=== PATIENT | female | born 1950 | race Caucasian/White ===

== ENCOUNTER → 2019-07-30 00:01 | Outpatient (RCR) | payer MEDICARE, OTHER, SELFPAY | LOC: ONCMED 07-01 05:45 | PROVIDERS: Visit Provider Internal Medicine Hematology & Oncology | DX: C50.812 Malignant neoplasm of overlapping sites of left female breast (principal); C79.51 Secondary malignant neoplasm of bone; C77.3 Secondary and unspecified malignant neoplasm of axilla and upper limb lymph nodes; C78.7 Secondary malignant neoplasm of liver and intrahepatic bile duct; R53.83 Other fatigue; D64.9 Anemia, unspecified; D75.9 Disease of blood and blood-forming organs, unspecified; R63.4 Abnormal weight loss; R04.0 Epistaxis; M79.642 Pain in left hand; M79.641 Pain in right hand; M79.672 Pain in left foot; M79.671 Pain in right foot; Z17.0 Estrogen receptor positive status [ER+]; Z90.12 Acquired absence of left breast and nipple; Z68.1 Body mass index [BMI] 19.9 or less, adult; Z79.818 Long term (current) use of other agents affecting estrogen receptors and estrogen levels | CPT/HCPCS: 36415; 36430; 80053 ×3; 82607; 82728; 83090; 83540; 83550; 83921; 84439; 84443; 84481; 85007; 85025 ×3; 86300 ×3; 86850; 86900; 86901; 86920 ×2; 96372; 96374; 96402; 99213; 99214 ×2; J0897; J1940; J7050; J9395; P9016 ×2 ==

== ENCOUNTER 2019-08-30 10:19 | Outpatient (RCR) | payer MEDICARE, OTHER, SELFPAY ==
[2019-08-01] MEDS: fulvestrant 250 mg/5 mL Syringe 500 MG IM (09:36)
[2019-08-01] MEDS: denosumab 120 mg SDV SUBCUT (09:37)
--- NOTE | 2019-08-01 17:10 | ONC FU_ITS ---
[facility] Patient Note Patient: Joana Booth Unit #: [id number]: 1950 Dictated By: Poonam GanDate of Visit: Aug 01, 2019 Onc MED Follow-Up/Prog Note Chief Complaint: Left breast cancer History of Present Illness: Ms Booth is a 69 -year-old female who presented with a left breast mass for 2-3 years. She did undergo mammography ultrasound and subsequently a biopsy of the left breast mass on 05/10/2017 which confirmed infiltrating lobular carcinoma, grade 2, ER positive IA positive HER-2 ivett negative. The KI 67 was 7%. She is negative for PIK 3CA. She underwent left modified radical mastectomy on 05/26/2017. Surgical pathology showed grade 2 infiltrating lobular carcinoma with extensive involvement of overlying skin and nipple and areola. Lymphovascular invasion was present including dermal lymphatics, negative surgical margin, the tumor size was 6.8 x 3.2 cm and metastatic carcinoma identified in one of 3 axillary lymph nodes. She recovered from surgery well she did complain of significant low back pain with bilateral flank and rib cage. She did have PET CT on 07/29/2017. It confirmed stage IV breast cancer with extensive skeletal metastatic disease. There are innumerable FDG avid osteolytic metastatic lesions throughout the axial and appendicular skeleton. There was no hepatic, adrenal or pulmonary metastasis. There was no pathological lymphadenopathy. She was referred to radiation oncology for palliative radiation. Dr. Beaver recommended radiation therapy to the lower lumbar spine/SI joints for pain relief and disease control. She received 3000 cGy to the L5???sacral area she began treatment on August 15 and completed it on 08/28/2017. Ms. Booth began Ibrance and Femara for metastatic breast cancer on August 29, 2016. The first doses of Xgeva documented in our chart is 09-26-2017. Ibrance and Femara was discontinued on 05/31/2018 due to progressive tumor markers. She was started on Arimidex 1 mg by mouth daily along with monthly Xgeva. She discontinued the Armidex on 08/02/2018. Her CT PET scan done on 07/14/2018 showed disease progression e.g. reactivation of multifocal osseous metastatic disease, new malignant mediastinal lymphadenopathy, bilateral inflammatory lung infiltrates and tumor marker CA-27-29 gone up to 393.47 compared to 334.62 on 07/02/2018 and 142.60 on 04/26/2018 .BRCA1/2 negative Ms. Booth was advised to pursue treatment with weekly paclitaxel and to continue her monthly Xgeva. She began her first dose of weekly paclitaxel on 08/28/2018. Weekly carboplatin was added on 10/02/2018, as her follow-up PET scan done on 09/29/2018 showed widespread osseous metastatic disease seen on prior studies significantly more FDG positive on the current. Index lesion in the posterior right acetabulum that previously has SUV of 4.8 now has 8 there is a similar progression multiple other lesions throughout the spine sternum scapula pelvic and femurs. A new right hepatic lobe hypodensity measuring 1.4 cm has SUV of 4.2 and is a questionable activity in the region of right adrenal, suggesting metastatic disease. Her tumor marker CA-27-29 has gone down to 1197.6 on 09/24/2018 compared to 1327.6 on 09/04/2018 began chemotherapy with carboplatin and paclitaxel on 10/04/2018. and cont'd with monthly Xgeva Due to progressive leukopenia/neutropenia she is requiring Neupogen in between her weekly carboplatin and Taxol to maintain the schedule and responding well CT PET scan done on 01/26/2019 showed stable disease e.g. no significant change in FDG positive widespread osseous metastatic disease. Minimal improvement in the hepatic metastatic disease. Mild progression in right adrenal lesion and questionable new left adrenal lesion. No change in mild FDG activity in the mediastinum. Follow-up CT PET scan done After 6 cycles of weekly carboplatin Taxol on 04/06/2019 showed overall, no significant changes since prior study, widespread FDG positive osseous metastatic disease is unchanged. No change in right hepatic metastatic disease, no change in bilateral adrenal uptake Minimally improved in the subaortic mediastinal lymph nodes. Due to maximum benefit and progressive toxicity with chemotherapy (thrombocytopenia and persistent anemia, decreasing performance status), her treatment plan with carboplatin/Taxol was discontinued on 04/10/2019 and she was switched to fulvestrant /everolimus. Ms Booth is here today for followup. She started her fourth dose of fulvestrant (Faslodex) on 07-01-19 but the everolimus (Affinitor) had remained on hold due to significant side effects with it. She had significant fatigue and no appetite. She actually lost about 12 pounds very rapidly. She also had nosebleeds and persistent thrombocytopenia. She also developed anemia which has not corrected completely as of yet. She actually resumed the Affinitor on Monday because she had understood she was supposed to start it after the holidays . She has tolerated it well thus far. She states overall she feels good. She has no new concerns today. She states since getting the blood and iron she feels much better. She states she still tires easily but overall is better. She denies any fever or chills. She is had no mouth sores, sore throat or difficulty swallowing. She states she has had a few twinges of blood in nasal drainage but that was before she resumed Afinitor. She denies any rash. She denies any diarrhea or constipation. She states she is eating good but continues to lose weight. Her ECOG is 2. Past Medical History: Asthma Past Surgical History: Left breast lymph node biopsy in 2017 Left breast mastectomy in 2017 Breast biopsy in 2017 Allergies: Ibuprofen and Penicillins. Medications: Acetaminophen Tablet Oral PRN Afinitor 1 Tablet (of 5 mg) Oral daily [facility] 1 (5-6.25-10-325 mg) Capsule Oral at bedtime PRN Benadryl Allergy 1 Tablet (of 25 mg) Oral daily PRN Calcium Magnesium zinc 3 Tablet Oral daily Hydrocortisone 1 (1 %) Cream Topical PRN Oxycodone-Acetaminophen 0.5 Tablet (of 5-325 mg) Oral q 4 to 6 hours PRN PriLOSEC OTC 1 Tablet (of 20 mg) Tablet, enteric coated Oral daily Family History: Ms. Booth's mother at age 86: dementia. Ms. Booth's father at age 89: stroke. Social History: Ms. Booth is and she is retired. Ms. Booth has never smoked. She has no history of drinking. Ms. Booth reports the following support systems: lives with spouse, significant other, family, or friends, lives in own house, supportive family/friends willing to assist with needs, and adequate transportation available for expected visits. Her diet consists of regular meals. She indicates her activity level as: daily activities. Review Of Symptoms: Constitutional Denies fevers, chills, night sweats, excessive fatigue. Has had weight loss per our scales. Allergic/Immunologic No reactions. Eyes Denies significant visual changes. No diplopia. No amaurosis. ENMT Denies changes in hearing, sore throat, mouth sores, difficulty or changes in swallowing ability, and/or sinus drainage. Slight blood tinged drainage once in a while-even off Affinitor. Endocrine No diabetes, thyroid disease or hormone replacement. Denies hot flashes or night sweats. Hematologic/Lymphatic Denies easy bruising or bleeding. The patient denies any tender or palpable lymph nodes. Respiratory Denies dyspnea on exertion, chest pain, cough or hemoptysis. Denies orthopnea. Cardiovascular Denies anginal chest pain, palpitations or orthopnea. Gastrointestinal Denies nausea, vomiting, diarrhea, GI bleeding, or constipation. Denies change in bowel habits and/or stool color, no heartburn or early satiety. Genitourinary (F) No hematuria, hesitancy, incontinence, vaginal bleeding, discharge or other problems with urination. Musculoskeletal Denies joint pain, swelling or redness. No decreased range of motion. Mid (bra line) pain and lower left back pain if tries to do too much-notices if hanging laundry or trying to lift. No worse than it has been (chronic). Integumentary Denies chronic rashes, inflammation, ulcerations or skin changes. Neurologic Denies headache, blurred vision, and no areas of focal weakness or numbness. Normal gait. No sensory problems. Psychiatric Denies insomnia, depression, shady or mood swings. Vital Signs: Performed on Aug 01, 2019 08:38 Height - 64.00 in Weight - 113.6 lbs (LOW) BSA - 1.54 sq.m BMI - 19.50 Temperature - 98.0 F (LOW) Pulse - 81 /min Respiration - 22 /min BP - 110/52 mm(hg) O2 Sat - 98 % Pain - 0,2 - Ambulatory/capable of all self-care, unable to perform any work activities. Up and about more than 50% of waking hours. (ECOG) Physical Examination: Constitutional Alert, oriented, no acute distress. Skin pale, warm and dry. Head Normocephalic; atraumatic. Eyes Conjunctivae and sclerae are clear and without icterus. Pupils are reactive and equal. Neck Supple without masses or thyromegaly. No jugular venous distension. Hematologic/Lymphatic No petechiae or purpura. No tender or palpable lymph nodes in the cervical, supraclavicular, or axillary area. Respiratory Lungs are clear to auscultation without rhonchi or wheezing. Cardiovascular Regular rate and rhythm of heart without murmurs,clicks, gallops or rubs. Abdomen Non-tender, non-distended, no masses, ascites. Good bowel sounds noted in all quads. No guarding or rebound tenderness. No pulsatile masses. Back/Spine Non-tender to palpation. Extremities No visible deformities, no cyanosis, clubbing or edema. Musculoskeletal No tenderness or swelling, normal range of motion without obvious weakness. Integumentary No rashes or lesions. Neurologic No sensory or motor deficits, normal cerebellar function, normal gait. Psychiatric Alert and oriented times three. Coherent speech. Verbalizes understanding of our discussions today. Laboratory:Test performed on Jul 30, 2019 11:55 Sodium 134 mmol/L Potassium 4.4 mmol/L Chloride 95 mmol/L CO2 22 mmol/L Anion Gap 21.4 BUN 22 mg/dL Creatinine 1.4 mg/dL Cr Clearance (Est) 31.1100 mL/min eGFR 37.2 mL/min Glucose 113 mg/dl Calcium 9.9 mg/dL Protein, Total 7.0 g/dL Albumin 4.3 g/dL Globulin 2.7 gm/dL Bilirubin, Total 0.3 mg/dL ALT (SGPT) 25 U/L AST (SGOT) 29 U/L Alkaline Phosphatase 85 U/L WBC 4.4 10 3/uL RBC 3.59 10 6/uL HGB 11.0 g/dL HCT 35.3 % MCV 98.3 fl MCH 30.6 pg MCHC 31.2 g/dl RDW 16.6 % Platelet Count 107 10 3/cmm MPV 9.4 fl Neutrophils 3.2 10 3/uL Lymphocytes 0.6 10 3/uL Monocytes 0.4 10 3/uL Eosinophils 0.1 10 3/uL Basophils 0.0 10 3/uL Neutrophil % 72.2 % Lymphocyte % 13.9 % Monocyte % 9.1 % Eosinophil % 3.2 % Basophils % 0.2 % Test performed on Jul 17, 2019 12:49 Packed Red Cells (PRBC) [id number] TRANSFUSED PRODUCT: LEUKOREDUCED RED CELL 1ST CONT COUNT: 2 Type & Screen BLD TYPE A POSITIVE AB SCREEN GEL NEGATIVE BLD TYPE A POSITIVE AB SCREEN GEL NEGATIVE Test performed on Jul 01, 2019 09:52 Ferritin 813.0 ng/ml Homocysteine 20 umol/L Iron 37 ug/dL T3, Free 2.5 PG/ML T4, Free 1.27 ng/dL TSH 1.20 uIU/mL Vitamin B12 575 pg/mL % Iron Saturation 16.6 % UIBC 185 ug/dL CA 27.29 781.10 U/mL Test performed on May 01, 2019 14:40 Folate, Serum 12.4 ng/mL Methylmalonic Acid 530 nmol/L Test performed on Mar 26, 2019 08:45 CBC Slide Review SLIDE REVIEW PERFORM SLIDE REVIEW AGREES WITH AUTOMATED RESULTS ST Impression: Metastatic infiltrating lobular carcinoma with extensive axial and appendicular skeleton metastases per CT PET scan done on 07/29/2017. Infiltrating lobular carcinoma involving left breast status post MRM on 05/26/2017 final path report shows infiltrating lobular carcinoma grade 2, extensive involvement of overlying skin at nipple and areola, positive lymphovascular space invasion including dermal lymphatics. Deep margins free of tumor size of tumor 6.8 x 3.2 cm T4b (skin involvement) Metastatic tumor in 1 out of 3 axillary lymph nodes N1 stage IV Extensive bone metastases are CT PET scan done on 07/29/2017 And her molecular studies showed negative for PIK3CA and BRCA 1 and 2 Tumor marker CA-27-29 1455.11 and CA 15.3 is 653.1 Repeat tumor markers CA-27-29 on 11/02/2017 was 167.77 and CA 15.3 was 89.6 estrogen receptor 100% progesterone receptors 100% HER-2/ivett negative by IHC and over amplification by fish and Ki-67 7 % Status post radiation therapy to lumbar sacral spine from 08/15/2017 to 08/28/2017 Mrs Booth was on Ibrance 125 mg by mouth daily for 21 days and then week off and repeat cycle every 28 days along with Femara 2.5 mg daily since 08/29/2017. Because of leukopenia at day 28, will reduce Ibrance dose to 100 mg by mouth for 21 days on 1 week off repeat 28 days. Along with Femara 2.5 mg daily Persistent leukopenia even with Ibrance 125 mg for 14 days. Her last dose was 100 mg by mouth daily for 14 days q 28 days. Follow-up CT PET scan done on 02/17/2018 showed interval resolution of abnormal activity throughout the bone indicating positive response to therapy of widespread osseous metastatic disease. She had progression of her tumor marker so stopped the Ibrance and Femara. She was then treated with single agent Arimidex and monthly Xgeva. The Arimidex was discontinued on 08/02/2018 as her follow-up CT PET scan from 07/14/2018 showed evidence of disease progression. There has been development of new malignant mediastinal lymphadenopathy in the precarinal and [place]. These have SUV of 6.7, and subcentimeter suspicious superior mediastinal lymph nodes are also identified. Widespread osseous metastatic disease as the activated in a multifocal pattern, is seen most prominently in left scapula, thoracic spine, lumbar spine, pelvis and proximal femurs. And index lesion in the right ischium has SUV of 6. Tumor marker CA-27-29 is 393.47 on 07/30/2018 compared to 334.52 on 07/02/2018, 142.60 on 04/26/2018. recommended changing treatment to weekly paclitaxel. Ms. Booth began her first dose of weekly pack Taxol on August 28, 2018. She has tolerated it well thus far .Follow-up CT PET scan done on 09/29/2018 showed progression of widespread osseous metastatic disease since prior study, new unifocal hepatic metastatic disease, suspicious activity in right adrenal gland. Tumor marker CA-27-29 has gone down to 1197.6 on 09/24/2018 compared to 1327.6 on 09/04/2018, Weekly carboplatin was added to weekly Taxol on on 10/02/2018. with monthly Xgeva Follow-up CT PET scan done on 01/26/2019 showed widespread osseous metastatic disease seen on prior scan is unchanged remained FDG positive. The index lesion in the posterior right acetabulum that has SUV of 8 now is 6.6. Right hepatic lobe lesion now has SUV of 3.4 compared to 4.2 on prior study Right adrenal lesion is progressed now SUV 5.4 compared to 3.7 previous Left adrenal activity is slightly more prominent. Mild activity in the mediastinal lymph node is unchanged. Follow-up CT PET scan done after 6 cycles of carboplatin/Taxol showed overall no significant change since prior study and widespread osseous metastatic disease, right hepatic metastases, or bilateral adrenal uptake, Her follow-up CT PET scan shows stable disease but her tumor marker continued to go up and her lab workup shows persistent progressive cytopenias, in that case Dr Estrella did discontinue her chemotherapy and requested a switch to fulvestrant/ everolimus , fulvestrant 500 mg IM on day 1, 15 and day 29 thereafter every month and everolimus 10 mg by mouth daily , while continue with Xgeva every month. Her everolimus dose was decreased to 5 mg daily due to persistent side effects. She presented for followup on 07/01/2019 with multiple concerns. She had lost another 7 pounds since her last visit. She had worsening fatigue. She also reported having bilateral foot and hand pain as well as slight bleeding from her left nare. She states since holding the Afinitor and doing dexamethasone 4 mg po daily, she feels like a different person . She states she feels much better overall. She is tired but recovers with rest. Plan: 1. Stop Afinitor???she had re-started it on Sunday, July 28, 2019. Continues to have thrombocytopenia and weight loss. Her platelet count today is 107 was 175 last week. 2. Proceed with Fosamax and Xgeva today as planned. 3. Encouraged her to resume intake of protein shakes and yogurt for calorie consumption her weight is down again. Is documented that is down 10 pounds since her last visit however there was question as to whether the last weight was accurate or not. Her weight on July 01, 2019 was 113.8 and today is 113.6. 4. Recheck a CBC in 2 weeks and decide at that time she can resume her Afinitor. She states she tolerated the first 4 days of it fine and not had any ill effects. 5. Labs from 07/30/2019 reviewed in detail and discussed with Leobardo and a copy was given to her. WBC was 4.4 hemoglobin was 11 platelets 107 ANC was 3200. Creatinine 1.4, potassium 4.4 LFTs were normal. Alk phos is normal at 85. 6. We will need to monitor her lower and mid back pain to see if this is progressing. We know she has bone mets. Thus far she states is been the same as it has been for quite some time and has not been worse. 7. We will plan to see her back in 4 weeks with CBC CMP CA-27-29 and follow-up as she will be due for Xgeva and Fosamax at that time. 8. Mrs. Booth is instructed to contact us in interim should questions or problems arise. Signed By: Poonam Gan-, AOCNP Stanley Estrella MD <<Signature on File>>
[2019-08-15 13:26] LABS: Basophils % 0.4 %; Eosinophils # 0.2 10^3/uL (0.0-0.8); Eosinophils % 3.6 %; Hematocrit 30.5 % (37.0-47.0); Hemoglobin 9.4 g/dL (11.5-15.3); Lymphocytes # 0.8 10^3/uL (0.8-4.8); Lymphocytes % 14.6 %; Mean Corpuscular HGB Conc 30.8 g/dL (30.0-36.0); Mean Corpuscular Hemoglobin 30.3 pg (28.0-34.0); Mean Corpuscular Volume 98.4 fL (81-99); Monocytes # 0.6 10^3/uL (0.2-0.9); Monocytes % 10.7 %; Neutrophils # 3.8 10^3/uL (1.8-7.7); Neutrophils % 68.2 %; Nucleated Red Blood Cells % 0 %; Platelet Count 161 10^3/cmm (130-400); Red Cell Distribution Width 16.9 % (12.1-15.1); White Blood Count 5.6 10^3/uL (4.0-10.0)
[2019-08-15 13:42] LABS: Alanine Aminotransferase 21 U/L (0-33); Albumin Level 4.3 g/dL (3.5-5.2); Alkaline Phosphatase 59 IU/L (35-105); Anion Gap 18.7 (5-19); Aspartate Amino Transferase 29 U/L (0-32); Blood Urea Nitrogen 27 mg/dL (8-23); Calcium 9.7 mg/Dl (8.8-10.2); Carbon Dioxide 22 mmol/L (22-29); Chloride 99 mmol/L (98-107); Globulin 2.8 g/dL (1.3-4.6); Glomerular Filtration Rate 44.4 mL/min (90-130); Glucose 83 mg/dL (74-106); Potassium 4.7 mmol/L (3.5-5.1); Sodium 135 mmol/L (136-145); Total Bilirubin 0.2 mg/dL (0.15-1.2); Total Protein 7.1 g/dL (6.6-8.7)
[2019-08-30 11:07] LABS: Alanine Aminotransferase 18 U/L (0-33); Alkaline Phosphatase 69 IU/L (35-105); Anion Gap 18.9 (5-19); Aspartate Amino Transferase 28 U/L (0-32); Blood Urea Nitrogen 23 mg/dL (8-23); Calcium 9.4 mg/dL (8.5-10.5); Carbon Dioxide 20 mmol/L (22-29); Chloride 99 mmol/L (98-107); Globulin 3.2 g/dL (1.3-4.6); Glomerular Filtration Rate 34.3 mL/min (90-130); Glucose 206 mg/dL (74-106); Potassium 4.9 mmol/L (3.5-5.1); Sodium 133 mmol/L (136-145); Total Bilirubin 0.3 mg/dL (0.15-1.2); Total Protein 7.2 g/dL (6.6-8.7)
== END 2019-08-30 23:59 | disposition home or self-care (01) ==
LOC: ONCMED 10:19
PROVIDERS: Visit Provider Nurse Practitioner
DX: C50.812 Malignant neoplasm of overlapping sites of left female breast (principal); C79.51 Secondary malignant neoplasm of bone; C78.7 Secondary malignant neoplasm of liver and intrahepatic bile duct; C77.3 Secondary and unspecified malignant neoplasm of axilla and upper limb lymph nodes; E27.9 Disorder of adrenal gland, unspecified; Z79.818 Long term (current) use of other agents affecting estrogen receptors and estrogen levels; Z79.899 Other long term (current) drug therapy; Z17.0 Estrogen receptor positive status [ER+]; Z90.12 Acquired absence of left breast and nipple; Z92.3 Personal history of irradiation
CPT/HCPCS: 80053; 85025; 86300; 96372; 96402; 99214; J0897; J9395

== ENCOUNTER 2019-09-27 08:35 | Outpatient (RCR) | payer MEDICARE, OTHER, SELFPAY ==
[2019-09-02] MEDS: denosumab 120 mg SDV SUBCUT (09:14)
[2019-09-02] MEDS: fulvestrant 250 mg/5 mL Syringe 500 MG IM (09:17)
[2019-09-13 08:21] LABS: Basophils % 0.5 %; Eosinophils # 0.2 10^3/uL (0.0-0.8); Eosinophils % 3.9 %; Hematocrit 27.6 % (37.0-47.0); Hemoglobin 8.3 g/dL (11.5-15.3); Lymphocytes # 0.9 10^3/uL (0.8-4.8); Lymphocytes % 21.2 %; Mean Corpuscular HGB Conc 30.1 g/dL (30.0-36.0); Mean Corpuscular Hemoglobin 30.4 pg (28.0-34.0); Mean Corpuscular Volume 101.1 fL (81-99); Mean Platelet Volume 8.8 fL (7.4-10.4); Monocytes # 0.4 10^3/uL (0.2-0.9); Monocytes % 8.1 %; Neutrophils # 2.9 10^3/uL (1.8-7.7); Neutrophils % 65.8 %; Nucleated Red Blood Cells % 0 %; Platelet Count 166 10^3/cmm (130-400); Red Blood Count 2.73 10^6/uL (4.1-5.3); Red Cell Distribution Width 18.6 % (12.1-15.1); White Blood Count 4.3 10^3/uL (4.0-10.0)
[2019-09-13 08:35] LABS: Alanine Aminotransferase 13 U/L (0-33); Albumin Level 3.7 g/dL (3.5-5.2); Alkaline Phosphatase 68 IU/L (35-105); Anion Gap 18.9 (5-19); Aspartate Amino Transferase 29 U/L (0-32); Blood Urea Nitrogen 29 mg/dL (8-23); Calcium 9.5 mg/dL (8.5-10.5); Carbon Dioxide 21 mmol/L (22-29); Chloride 103 mmol/L (98-107); Globulin 4.1 g/dL (1.3-4.6); Glomerular Filtration Rate 37.2 mL/min (90-130); Glucose 108 mg/dL (65-115); Potassium 4.9 mmol/L (3.5-5.1); Sodium 138 mmol/L (136-145); Total Bilirubin 0.2 mg/dL (0.15-1.2); Total Protein 7.8 g/dL (6.6-8.7)
--- NOTE | 2019-09-16 10:02 | ONC FU_ITS ---
[facility] Patient Note Patient: Joana Booth Unit #: [id number]: 1950 Dictated By: Poonam GanDate of Visit: Sep 16, 2019 Onc MED Follow-Up/Prog Note Chief Complaint: Left breast cancer History of Present Illness: Mrs Booth is a 69 -year-old female who presented with a left breast mass for 2-3 years. She did undergo mammography ultrasound and subsequently a biopsy of the left breast mass on 05/10/2017 which confirmed infiltrating lobular carcinoma, grade 2, ER positive PA positive HER-2 ivett negative. The KI 67 was 7%. She is negative for PIK 3CA. She underwent left modified radical mastectomy on 05/26/2017. Surgical pathology showed grade 2 infiltrating lobular carcinoma with extensive involvement of overlying skin and nipple and areola. Lymphovascular invasion was present including dermal lymphatics, negative surgical margin, the tumor size was 6.8 x 3.2 cm and metastatic carcinoma identified in one of 3 axillary lymph nodes. She recovered from surgery well she did complain of significant low back pain with bilateral flank and rib cage. She did have PET CT on 07/29/2017. It confirmed stage IV breast cancer with extensive skeletal metastatic disease. There are innumerable FDG avid osteolytic metastatic lesions throughout the axial and appendicular skeleton. There was no hepatic, adrenal or pulmonary metastasis. There was no pathological lymphadenopathy. She was referred to radiation oncology for palliative radiation. Dr. Beaver recommended radiation therapy to the lower lumbar spine/SI joints for pain relief and disease control. She received 3000 cGy to the L5???sacral area she began treatment on August 15 and completed it on 08/28/2017. Mrs. Booth began Ibrance and Femara for metastatic breast cancer on August 29, 2016. The first doses of Xgeva documented in our chart is 09-26-2017. Ibrance and Femara was discontinued on 05/31/2018 due to progressive tumor markers. She was started on Arimidex 1 mg by mouth daily along with monthly Xgeva. She discontinued the Armidex on 08/02/2018. Her CT PET scan done on 07/14/2018 showed disease progression e.g. reactivation of multifocal osseous metastatic disease, new malignant mediastinal lymphadenopathy, bilateral inflammatory lung infiltrates and tumor marker CA-27-29 gone up to 393.47 compared to 334.62 on 07/02/2018 and 142.60 on 04/26/2018 .BRCA1/2 negative Mrs. Booth was advised to pursue treatment with weekly paclitaxel and to continue her monthly Xgeva. She began her first dose of weekly paclitaxel on 08/28/2018. Weekly carboplatin was added on 10/02/2018, as her follow-up PET scan done on 09/29/2018 showed widespread osseous metastatic disease seen on prior studies significantly more FDG positive on the current. Index lesion in the posterior right acetabulum that previously has SUV of 4.8 now has 8 there is a similar progression multiple other lesions throughout the spine sternum scapula pelvic and femurs. A new right hepatic lobe hypodensity measuring 1.4 cm has SUV of 4.2 and is a questionable activity in the region of right adrenal, suggesting metastatic disease. Her tumor marker CA-27-29 had gone down to 1197.6 on 09/24/2018 compared to 1327.6 on 09/04/2018 Mrs. Booth began chemotherapy with carboplatin and paclitaxel on 10/04/2018. and cont'd with monthly Xgeva Due to progressive leukopenia/neutropenia she is requiring Neupogen in between her weekly carboplatin and Taxol to maintain the schedule and responding well CT PET scan done on 01/26/2019 showed stable disease e.g. no significant change in FDG positive widespread osseous metastatic disease. Minimal improvement in the hepatic metastatic disease. Mild progression in right adrenal lesion and questionable new left adrenal lesion. No change in mild FDG activity in the mediastinum. Follow-up CT PET scan done After 6 cycles of weekly carboplatin Taxol on 04/06/2019 showed overall, no significant changes since prior study, widespread FDG positive osseous metastatic disease is unchanged. No change in right hepatic metastatic disease, no change in bilateral adrenal uptake Minimally improved in the subaortic mediastinal lymph nodes. Due to maximum benefit and progressive toxicity with chemotherapy (thrombocytopenia and persistent anemia, decreasing performance status), her treatment plan with carboplatin/Taxol was discontinued on 04/10/2019 and she was switched to fulvestrant /everolimus. everolimus was held due to progressive leukopenia/neutropenia and generalized weakness and fatigue and weight loss, reduced dose e.g. 5 mg daily still caused progressive leukopenia. On 09/03/2019, everolimus was re-started at 5 mg daily for 2 weeks on and then week off along with monthly Faslodex and Xgeva. Her last dose of Faslodex and Xgeva was on 09/02/2019. Mrs. Booth is here today for 2-week follow-up after restarting the everolimus (Affinitor). Today will be her day and then she will rest for 7 days. She states overall she is feeling really good. Her energy is good. Her appetite is good she is eating well. She states she has been watching her sugar and carb intake as per Dr. Estrella's request. She states that she feels her sugar is doing better. Her labs indicate that her glucose is much better at 108 random glucose from 07/13/2020. She denies any fever or chills. She said no nausea or vomiting. She states she is had no new pain. She has had no diarrhea or constipation. She denies any shortness of breath orthopnea. Her ECOG is 1. Past Medical History: Asthma Past Surgical History: Left breast lymph node biopsy in 2017 Left breast mastectomy in 2017 Breast biopsy in 2017 Allergies: Ibuprofen and Penicillins. Medications: Acetaminophen Tablet Oral PRN Afinitor 1 Tablet (of 5 mg) Oral daily [facility]-[place] [facility] Allergy [facility] Cgh 1 (5-6.25-10-325 mg) Capsule Oral at bedtime PRN Benadryl Allergy 1 Tablet (of 25 mg) Oral daily PRN Calcium Magnesium zinc 3 Tablet Oral daily Hydrocortisone 1 (1 %) Cream Topical PRN Oxycodone-Acetaminophen 0.5 Tablet (of 5-325 mg) Oral q 4 to 6 hours PRN PriLOSEC OTC 1 Tablet (of 20 mg) Tablet, enteric coated Oral daily Family History: Ms. Booth's mother at age 86: dementia. Ms. Booth's father at age 89: stroke. Social History: Ms. Booth is and she is retired. Ms. Booth has never smoked. She has no history of drinking. Ms. Booth reports the following support systems: lives with spouse, significant other, family, or friends, lives in own house, supportive family/friends willing to assist with needs, and adequate transportation available for expected visits. Her diet consists of regular meals. She indicates her activity level as: daily activities. Review Of Symptoms: Constitutional Denies fevers, chills, night sweats, excessive fatigue. Allergic/Immunologic No reactions. Eyes Denies significant visual changes. No diplopia. No amaurosis. ENMT Denies changes in hearing, sore throat, mouth sores, difficulty or changes in swallowing ability, and/or sinus drainage. Slight irritation on left side of bottom lip. No drainage, open lesion or scabbing. Hematologic/Lymphatic Denies easy bruising or bleeding. The patient denies any tender or palpable lymph nodes. Respiratory Denies dyspnea on exertion, chest pain, cough or hemoptysis. Denies orthopnea. Cardiovascular Denies anginal chest pain, palpitations or orthopnea. Gastrointestinal Denies nausea, vomiting, diarrhea, GI bleeding, or constipation. Denies change in bowel habits and/or stool color, no heartburn or early satiety. Genitourinary (F) No hematuria, hesitancy, incontinence, vaginal bleeding, discharge or other problems with urination. Musculoskeletal Denies joint pain, swelling or redness. No decreased range of motion. Integumentary Denies chronic rashes, inflammation, ulcerations or skin changes. Neurologic Denies headache, blurred vision, and no areas of focal weakness or numbness. Normal gait. No sensory problems. Psychiatric Denies insomnia, depression, shady or mood swings. Vital Signs: Performed on Sep 16, 2019 08:58 Height - 64.00 in Weight - 117.2 lbs (LOW) BSA - 1.56 sq.m BMI - 20.12 Temperature - 97.2 F (LOW) Pulse - 71 /min Respiration - 14 /min BP - 114/53 mm(hg) O2 Sat - 100 % Pain - 2 Fatigue - 2,1 - No physically strenuous activity, but ambulatory and able to carry out light or sedentary work (e.g. office work, light house work). (ECOG) Physical Examination: Constitutional Alert, oriented, no acute distress. Skin pale, warm and dry. Head Normocephalic; atraumatic. Eyes Conjunctivae and sclerae are clear and without icterus. Pupils are reactive and equal. ENMT No oral exudates, ulcers, masses, thrush or mucositis. Oropharynx clear. Tongue normal. Slight irritation on the left side of her bottom lip. There is no open lesion no drainage or scabbing. It almost has appearance of a blood blister . She states it is really not bothersome she just noticed it in the mirror. Neck Supple without masses or thyromegaly. No jugular venous distension. Hematologic/Lymphatic No petechiae or purpura. Respiratory Lungs are clear to auscultation without rhonchi or wheezing. Cardiovascular Regular rate and rhythm of heart without murmurs,clicks, gallops or rubs. Back/Spine Non-tender to palpation. Extremities No visible deformities, no cyanosis, clubbing or edema. Musculoskeletal No tenderness or swelling, normal range of motion without obvious weakness. Integumentary No rashes or lesions. Neurologic No sensory or motor deficits, normal cerebellar function, normal gait. Psychiatric Alert and oriented times three. Coherent speech. Verbalizes understanding of our discussions today. Laboratory:Test performed on Jul 30, 2019 11:55 Sodium 134 mmol/L Potassium 4.4 mmol/L Chloride 95 mmol/L CO2 22 mmol/L Anion Gap 21.4 BUN 22 mg/dL Creatinine 1.4 mg/dL Cr Clearance (Est) 31.1100 mL/min eGFR 37.2 mL/min Glucose 113 mg/dl Calcium 9.9 mg/dL Protein, Total 7.0 g/dL Albumin 4.3 g/dL Globulin 2.7 gm/dL Bilirubin, Total 0.3 mg/dL ALT (SGPT) 25 U/L AST (SGOT) 29 U/L Alkaline Phosphatase 85 U/L WBC 4.4 10 3/uL RBC 3.59 10 6/uL HGB 11.0 g/dL HCT 35.3 % MCV 98.3 fl MCH 30.6 pg MCHC 31.2 g/dl RDW 16.6 % Platelet Count 107 10 3/cmm MPV 9.4 fl Neutrophils 3.2 10 3/uL Lymphocytes 0.6 10 3/uL Monocytes 0.4 10 3/uL Eosinophils 0.1 10 3/uL Basophils 0.0 10 3/uL Neutrophil % 72.2 % Lymphocyte % 13.9 % Monocyte % 9.1 % Eosinophil % 3.2 % Basophils % 0.2 % Test performed on Jul 17, 2019 12:49 Packed Red Cells (PRBC) [id number] TRANSFUSED PRODUCT: LEUKOREDUCED RED CELL 1ST CONT COUNT: 2 Type & Screen BLD TYPE A POSITIVE AB SCREEN GEL NEGATIVE BLD TYPE A POSITIVE AB SCREEN GEL NEGATIVE Test performed on Jul 01, 2019 09:52 Ferritin 813.0 ng/ml Homocysteine 20 umol/L Iron 37 ug/dL T3, Free 2.5 PG/ML T4, Free 1.27 ng/dL TSH 1.20 uIU/mL Vitamin B12 575 pg/mL % Iron Saturation 16.6 % UIBC 185 ug/dL CA 27.29 781.10 U/mL Test performed on May 01, 2019 14:40 Folate, Serum 12.4 ng/mL Methylmalonic Acid 530 nmol/L Test performed on Mar 26, 2019 08:45 CBC Slide Review SLIDE REVIEW PERFORM SLIDE REVIEW AGREES WITH AUTOMATED RESULTS ST Impression: Metastatic infiltrating lobular carcinoma with extensive axial and appendicular skeleton metastases per CT PET scan done on 07/29/2017. Infiltrating lobular carcinoma involving left breast status post MRM on 05/26/2017 final path report shows infiltrating lobular carcinoma grade 2, extensive involvement of overlying skin at nipple and areola, positive lymphovascular space invasion including dermal lymphatics. Deep margins free of tumor size of tumor 6.8 x 3.2 cm T4b (skin involvement) Metastatic tumor in 1 out of 3 axillary lymph nodes N1 stage IV Extensive bone metastases are CT PET scan done on 07/29/2017 And her molecular studies showed negative for PIK3CA and BRCA 1 and 2 Tumor marker CA-27-29 1455.11 and CA 15.3 is 653.1 Repeat tumor markers CA-27-29 on 11/02/2017 was 167.77 and CA 15.3 was 89.6 estrogen receptor 100% progesterone receptors 100% HER-2/ivett negative by IHC and over amplification by fish and Ki-67 7 % Status post radiation therapy to lumbar sacral spine from 08/15/2017 to 08/28/2017 Mrs Booth was on Ibrance 125 mg by mouth daily for 21 days and then week off and repeat cycle every 28 days along with Femara 2.5 mg daily since 08/29/2017. Because of leukopenia at day 28, will reduce Ibrance dose to 100 mg by mouth for 21 days on 1 week off repeat 28 days. Along with Femara 2.5 mg daily Persistent leukopenia even with Ibrance 125 mg for 14 days. Her last dose was 100 mg by mouth daily for 14 days q 28 days. Follow-up CT PET scan done on 02/17/2018 showed interval resolution of abnormal activity throughout the bone indicating positive response to therapy of widespread osseous metastatic disease. She had progression of her tumor marker so stopped the Ibrance and Femara. She was then treated with single agent Arimidex and monthly Xgeva. The Arimidex was discontinued on 08/02/2018 as her follow-up CT PET scan from 07/14/2018 showed evidence of disease progression. There has been development of new malignant mediastinal lymphadenopathy in the precarinal and [place]. These have SUV of 6.7, and subcentimeter suspicious superior mediastinal lymph nodes are also identified. Widespread osseous metastatic disease as the activated in a multifocal pattern, is seen most prominently in left scapula, thoracic spine, lumbar spine, pelvis and proximal femurs. And index lesion in the right ischium has SUV of 6. Tumor marker CA-27-29 is 393.47 on 07/30/2018 compared to 334.52 on 07/02/2018, 142.60 on 04/26/2018. recommended changing treatment to weekly paclitaxel. Ms. Booth began her first dose of weekly pack Taxol on August 28, 2018. She has tolerated it well thus far .Follow-up CT PET scan done on 09/29/2018 showed progression of widespread osseous metastatic disease since prior study, new unifocal hepatic metastatic disease, suspicious activity in right adrenal gland. Tumor marker CA-27-29 has gone down to 1197.6 on 09/24/2018 compared to 1327.6 on 09/04/2018, Weekly carboplatin was added to weekly Taxol on on 10/02/2018. with monthly Xgeva Follow-up CT PET scan done on 01/26/2019 showed widespread osseous metastatic disease seen on prior scan is unchanged remained FDG positive. The index lesion in the posterior right acetabulum that has SUV of 8 now is 6.6. Right hepatic lobe lesion now has SUV of 3.4 compared to 4.2 on prior study Right adrenal lesion is progressed now SUV 5.4 compared to 3.7 previous Left adrenal activity is slightly more prominent. Mild activity in the mediastinal lymph node is unchanged. Follow-up CT PET scan done after 6 cycles of carboplatin/Taxol showed overall no significant change since prior study and widespread osseous metastatic disease, right hepatic metastases, or bilateral adrenal uptake, Her follow-up CT PET scan shows stable disease but her tumor marker continued to go up and her lab workup shows persistent progressive cytopenias, in that case Dr Estrella did discontinue her chemotherapy and requested a switch to fulvestrant/ everolimus , fulvestrant 500 mg IM on day 1, 15 and day 29 thereafter every month and everolimus 10 mg by mouth daily , while continue with Xgeva every month. Her everolimus dose was decreased to 5 mg daily due to persistent side effects. She presented for followup on 07/01/2019 with multiple concerns. She had lost another 7 pounds since her last visit. She had worsening fatigue. She also reported having bilateral foot and hand pain as well as slight bleeding from her left nare. She states since holding the Afinitor and doing dexamethasone 4 mg po daily, she feels like a different person . She states she feels much better overall. She is tired but recovers with rest. Mrs. Booth resumed Afinitor 5 mg daily for 14 days on and 7 days off on September 02, 2019. Thus far she has tolerated it well. Plan: 1. Proceed with current plan of care including Afinitor 5 mg 14 days on 7 days off. Today is her 14th day so she will be off after today for 7 days. 2. She will continue with Xgeva and positive X. She will be due for that around October 01, 2019. 3. Labs from September 13, 2019 reviewed in detail and discussed with Mrs. Booth and a copy was given to her. WBC 4.3 hemoglobin 8.3 platelets 166,000 ANC is 2900 creatinine 1.4 random glucose is improved at 108 LFTs are normal. 4. She is watching her diet in regards to carbs and sugars. She states this is working well and her sugar reflects that. 5. We will plan to have her recheck CBC CMP type and ask iron studies and B12 along with a CA-27-29 in 1 week. She is currently asymptomatic with a hemoglobin of 8.3. 6. She will return for follow-up in 2 weeks with CBC, CMP. 7. Mrs. Booth was instructed to contact us in interim should questions or problems arise. She was encouraged to call us if she starting to feel weak, short of breath or any change in her performance status as her hemoglobin may have dropped. Hopefully as she is stopping the Afinitor after today for 7-day break her hemoglobin will improve if that is what is causing it. We will double check for iron deficiency as she has been iron deficient in the past. 8. I did order her postmastectomy bras and prosthesis. A prescription was given to her for her to take to her medical equipment facility. Signed By: Poonam Gan-, AOCNHenrik Estrella MD <<Signature on File>>
[2019-09-23 16:39] LABS: Basophils % 0.3 %; Eosinophils # 0.1 10^3/uL (0.0-0.8); Eosinophils % 3.4 %; Hematocrit 24.7 % (37.0-47.0); Hemoglobin 7.7 g/dL (11.5-15.3); Lymphocytes # 0.8 10^3/uL (0.8-4.8); Lymphocytes % 22.3 %; Mean Corpuscular HGB Conc 31.2 g/dL (30.0-36.0); Mean Corpuscular Hemoglobin 31.7 pg (28.0-34.0); Mean Corpuscular Volume 101.6 fL (81-99); Mean Platelet Volume 10.1 fL (7.4-10.4); Monocytes # 0.5 10^3/uL (0.2-0.9); Monocytes % 12.9 %; Neutrophils # 2.1 10^3/uL (1.8-7.7); Nucleated Red Blood Cells % 0 %; Platelet Count 161 10^3/cmm (130-400); Red Blood Count 2.43 10^6/uL (4.1-5.3); Red Cell Distribution Width 18.2 % (12.1-15.1); White Blood Count 3.5 10^3/uL (4.0-10.0)
[2019-09-23 17:22] LABS: Alanine Aminotransferase 13 U/L (0-33); Albumin Level 3.6 g/dL (3.5-5.2); Alkaline Phosphatase 56 IU/L (35-105); Anion Gap 22.1 (5-19); Aspartate Amino Transferase 31 U/L (0-32); Blood Urea Nitrogen 29 mg/dL (8-23); Calcium 10.3 mg/dL (8.5-10.5); Carbon Dioxide 21 mmol/L (22-29); Chloride 101 mmol/L (98-107); Ferritin 731 ng/mL (15-150); Globulin 3.7 g/dL (1.3-4.6); Glomerular Filtration Rate 31.9 mL/min (90-130); Glucose 143 mg/dL (65-115); Iron 99 ug/dL (37-145); Percent Saturation 47.5 % (20-50); Potassium 5.1 mmol/L (3.5-5.1); Sodium 139 mmol/L (136-145); Total Bilirubin 0.2 mg/dL (0.15-1.2); Total Iron Binding Capacity 208 mcg/dl; Total Protein 7.3 g/dL (6.6-8.7); Unsaturated Iron Binding 109 ug/dL (112-347)
[2019-09-23 17:31] LABS: Vitamin B12 376 pg/mL (232-1245)
[2019-09-27 10:02] LABS: Basophils % 0.3 %; Eosinophils # 0.2 10^3/uL (0.0-0.8); Eosinophils % 2.3 %; Hematocrit 24.4 % (37.0-47.0); Hemoglobin 7.4 g/dL (11.5-15.3); Lymphocytes % 14.3 %; Mean Corpuscular HGB Conc 30.3 g/dL (30.0-36.0); Mean Corpuscular Hemoglobin 31.4 pg (28.0-34.0); Mean Corpuscular Volume 103.4 fL (81-99); Mean Platelet Volume 10.1 fL (7.4-10.4); Monocytes # 0.7 10^3/uL (0.2-0.9); Monocytes % 10.4 %; Neutrophils # 4.8 10^3/uL (1.8-7.7); Neutrophils % 71.6 %; Nucleated Red Blood Cells % 0 %; Platelet Count 199 10^3/cmm (130-400); Red Blood Count 2.36 10^6/uL (4.1-5.3); White Blood Count 6.6 10^3/uL (4.0-10.0)
[2019-09-27 10:17] LABS: Alanine Aminotransferase 17 U/L (0-33); Albumin Level 3.7 g/dL (3.5-5.2); Alkaline Phosphatase 59 IU/L (35-105); Anion Gap 18.5 (5-19); Aspartate Amino Transferase 33 U/L (0-32); Blood Urea Nitrogen 29 mg/dL (8-23); Calcium 9.4 mg/dL (8.5-10.5); Carbon Dioxide 21 mmol/L (22-29); Chloride 101 mmol/L (98-107); Globulin 3.4 g/dL (1.3-4.6); Glomerular Filtration Rate 34.3 mL/min (90-130); Glucose 131 mg/dL (65-115); Potassium 4.5 mmol/L (3.5-5.1); Sodium 136 mmol/L (136-145); Total Bilirubin 0.2 mg/dL (0.15-1.2); Total Protein 7.1 g/dL (6.6-8.7)
== END 2019-09-28 23:59 | disposition home or self-care (01) ==
LOC: ONCMED 08:35
PROVIDERS: Internal Medicine Hematology & Oncology; Absent Provider Nurse Practitioner; Visit Provider Nurse Practitioner
DX: C50.812 Malignant neoplasm of overlapping sites of left female breast (principal); C79.51 Secondary malignant neoplasm of bone; C78.7 Secondary malignant neoplasm of liver and intrahepatic bile duct; C77.3 Secondary and unspecified malignant neoplasm of axilla and upper limb lymph nodes; D64.9 Anemia, unspecified; Z17.0 Estrogen receptor positive status [ER+]; Z79.818 Long term (current) use of other agents affecting estrogen receptors and estrogen levels; Z79.899 Other long term (current) drug therapy; Z79.811 Long term (current) use of aromatase inhibitors; Z79.891 Long term (current) use of opiate analgesic; Z92.3 Personal history of irradiation; Z90.12 Acquired absence of left breast and nipple
CPT/HCPCS: 36415; 80053; 82607; 82728; 83540; 83550; 85025; 86300; 96372; 96402; 99214; J0897; J9395

== ENCOUNTER 2019-10-15 05:36 | Outpatient (RCR) | payer MEDICARE, OTHER, SELFPAY ==
[2019-09-30] MEDS: denosumab 120 mg SDV SUBCUT (12:30)
[2019-09-30] MEDS: fulvestrant 250 mg/5 mL Syringe 500 MG IM (12:39)
[2019-09-30 12:47] LABS: Basophils % 0.2 %; Eosinophils # 0.1 10^3/uL (0.0-0.8); Hematocrit 25.5 % (37.0-47.0); Hemoglobin 7.8 g/dL (11.5-15.3); Lymphocytes # 0.8 10^3/uL (0.8-4.8); Lymphocytes % 19.3 %; Mean Corpuscular HGB Conc 30.6 g/dL (30.0-36.0); Mean Corpuscular Hemoglobin 31.6 pg (28.0-34.0); Mean Corpuscular Volume 103.2 fL (81-99); Mean Platelet Volume 9.4 fL (7.4-10.4); Monocytes # 0.8 10^3/uL (0.2-0.9); Monocytes % 18.6 %; Neutrophils # 2.4 10^3/uL (1.8-7.7); Neutrophils % 59.2 %; Nucleated Red Blood Cells % 0 %; Platelet Count 217 10^3/cmm (130-400); Red Blood Count 2.47 10^6/uL (4.1-5.3); Red Cell Distribution Width 17.6 % (12.1-15.1)
[2019-10-01] MEDS: sodium chloride 0.9% 250 ML 999 ML IV (09:40)
[2019-10-01] MEDS: diphenhydrAMINE 25 mg Capsule PO (09:40)
[2019-10-01] MEDS: acetaminophen 325 mg Tablet 650 MG PO (09:40)
[2019-10-01 10:20] VITALS: BP 95/58; PULSE 71; RESP 18; TEMP 37.1; O2SAT 96
[2019-10-01 10:25] VITALS: BP 95/62; PULSE 66; RESP 18; TEMP 36.9; O2SAT 99
[2019-10-01] MEDS: FUROsemide 10 mg/mL SDV 2mL 20 MG IV (11:00)
[2019-10-01 11:35] VITALS: BP 99/63; PULSE 65; TEMP 36.6; O2SAT 99
[2019-10-01 12:10] VITALS: BP 96/64; PULSE 66; RESP 18; TEMP 36.7; O2SAT 99
[2019-10-01 13:40] VITALS: BP 91/62; PULSE 66; RESP 18; TEMP 36.6; O2SAT 99
--- NOTE | 2019-10-05 17:19 | ONC FU_ITS ---
[facility] Patient Note Patient: Joana Booth Unit #: [id number]: 1950 Dictated By: Poonam GanDate of Visit: Sep 30, 2019 Onc MED Follow-Up/Prog Note Chief Complaint: Left breast cancer History of Present Illness: Mrs Booth is a 69 -year-old female who presented with a left breast mass for 2-3 years. She did undergo mammography ultrasound and subsequently a biopsy of the left breast mass on 05/10/2017 which confirmed infiltrating lobular carcinoma, grade 2, ER positive VA positive HER-2 ivett negative. The KI 67 was 7%. She is negative for PIK 3CA. She underwent left modified radical mastectomy on 05/26/2017. Surgical pathology showed grade 2 infiltrating lobular carcinoma with extensive involvement of overlying skin and nipple and areola. Lymphovascular invasion was present including dermal lymphatics, negative surgical margin, the tumor size was 6.8 x 3.2 cm and metastatic carcinoma identified in one of 3 axillary lymph nodes. She recovered from surgery well she did complain of significant low back pain with bilateral flank and rib cage. She did have PET CT on 07/29/2017. It confirmed stage IV breast cancer with extensive skeletal metastatic disease. There are innumerable FDG avid osteolytic metastatic lesions throughout the axial and appendicular skeleton. There was no hepatic, adrenal or pulmonary metastasis. There was no pathological lymphadenopathy. She was referred to radiation oncology for palliative radiation. Dr. Beaver recommended radiation therapy to the lower lumbar spine/SI joints for pain relief and disease control. She received 3000 cGy to the L5???sacral area she began treatment on August 15 and completed it on 08/28/2017. Mrs. Booth began Ibrance and Femara for metastatic breast cancer on August 29, 2016. The first doses of Xgeva documented in our chart is 09-26-2017. Ibrance and Femara was discontinued on 05/31/2018 due to progressive tumor markers. She was started on Arimidex 1 mg by mouth daily along with monthly Xgeva. She discontinued the Armidex on 08/02/2018. Her CT PET scan done on 07/14/2018 showed disease progression e.g. reactivation of multifocal osseous metastatic disease, new malignant mediastinal lymphadenopathy, bilateral inflammatory lung infiltrates and tumor marker CA-27-29 gone up to 393.47 compared to 334.62 on 07/02/2018 and 142.60 on 04/26/2018 .BRCA1/2 negative Mrs. Booth was advised to pursue treatment with weekly paclitaxel and to continue her monthly Xgeva. She began her first dose of weekly paclitaxel on 08/28/2018. Weekly carboplatin was added on 10/02/2018, as her follow-up PET scan done on 09/29/2018 showed widespread osseous metastatic disease seen on prior studies significantly more FDG positive on the current. Index lesion in the posterior right acetabulum that previously has SUV of 4.8 now has 8 there is a similar progression multiple other lesions throughout the spine sternum scapula pelvic and femurs. A new right hepatic lobe hypodensity measuring 1.4 cm has SUV of 4.2 and is a questionable activity in the region of right adrenal, suggesting metastatic disease. Her tumor marker CA-27-29 had gone down to 1197.6 on 09/24/2018 compared to 1327.6 on 09/04/2018 Mrs. Booth began chemotherapy with carboplatin and paclitaxel on 10/04/2018. and cont'd with monthly Xgeva Due to progressive leukopenia/neutropenia she is requiring Neupogen in between her weekly carboplatin and Taxol to maintain the schedule and responding well CT PET scan done on 01/26/2019 showed stable disease e.g. no significant change in FDG positive widespread osseous metastatic disease. Minimal improvement in the hepatic metastatic disease. Mild progression in right adrenal lesion and questionable new left adrenal lesion. No change in mild FDG activity in the mediastinum. Follow-up CT PET scan done After 6 cycles of weekly carboplatin Taxol on 04/06/2019 showed overall, no significant changes since prior study, widespread FDG positive osseous metastatic disease is unchanged. No change in right hepatic metastatic disease, no change in bilateral adrenal uptake Minimally improved in the subaortic mediastinal lymph nodes. Due to maximum benefit and progressive toxicity with chemotherapy (thrombocytopenia and persistent anemia, decreasing performance status), her treatment plan with carboplatin/Taxol was discontinued on 04/10/2019 and she was switched to fulvestrant /everolimus. everolimus was held due to progressive leukopenia/neutropenia and generalized weakness and fatigue and weight loss, reduced dose e.g. 5 mg daily still caused progressive leukopenia. On 09/03/2019, everolimus was re-started at 5 mg daily for 2 weeks on and then week off along with monthly Faslodex and Xgeva. Her last dose of Faslodex and Xgeva was on 09/02/2019. Mrs. Booth is here today for follow-up after restarting the everolimus (Affinitor) on 09/02/2019. She began cycle 2 on 09/23/2019. She states overall she is feeling pretty good. Her energy is good but she has noticed it has declined some since her last visit. Her appetite is good she is eating well. She denies any fever or chills. She has had no nausea or vomiting. She denies any new pain. She has had no diarrhea or constipation. She has had exertional shortness of breath over the last week but denies orthopnea. Her ECOG is 1. Past Medical History: Asthma Past Surgical History: Left breast lymph node biopsy in 2017 Left breast mastectomy in 2017 Breast biopsy in 2017 Allergies: Ibuprofen and Penicillins. Medications: Acetaminophen Tablet Oral PRN Afinitor 1 Tablet (of 5 mg) Oral daily [facility] Allergy [facility] Cgh 1 (5-6.25-10-325 mg) Capsule Oral at bedtime PRN Benadryl Allergy 1 Tablet (of 25 mg) Oral daily PRN Calcium Magnesium zinc 3 Tablet Oral daily Hydrocortisone 1 (1 %) Cream Topical PRN Oxycodone-Acetaminophen 0.5 Tablet (of 5-325 mg) Oral q 4 to 6 hours PRN PriLOSEC OTC 1 Tablet (of 20 mg) Tablet, enteric coated Oral daily Family History: Ms. Booth's mother at age 86: dementia. Ms. Booth's father at age 89: stroke. Social History: Ms. Booth is and she is retired. Ms. Booth has never smoked. She has no history of drinking. Ms. Booth reports the following support systems: lives with spouse, significant other, family, or friends, lives in own house, supportive family/friends willing to assist with needs, and adequate transportation available for expected visits. Her diet consists of regular meals. She indicates her activity level as: daily activities. Review Of Symptoms: Constitutional Denies fevers, chills, night sweats, excessive fatigue. Allergic/Immunologic No reactions. Eyes Denies significant visual changes. No diplopia. No amaurosis. ENMT Denies changes in hearing, sore throat, mouth sores, difficulty or changes in swallowing ability, and/or sinus drainage. Endocrine No diabetes, thyroid disease or hormone replacement. Denies hot flashes or night sweats. Hematologic/Lymphatic Denies easy bruising or bleeding. The patient denies any tender or palpable lymph nodes. Respiratory Denies dyspnea on exertion, chest pain, cough or hemoptysis. Denies orthopnea. Cardiovascular Denies anginal chest pain, palpitations or orthopnea. Gastrointestinal Denies nausea, vomiting, diarrhea, GI bleeding, or constipation. Denies change in bowel habits and/or stool color, no heartburn or early satiety. Genitourinary (F) No hematuria, hesitancy, incontinence, vaginal bleeding, discharge or other problems with urination. Musculoskeletal Denies joint pain, swelling or redness. No decreased range of motion. Integumentary Denies chronic rashes, inflammation, ulcerations or skin changes. Neurologic Denies headache, blurred vision, and no areas of focal weakness or numbness. Normal gait. No sensory problems. Psychiatric Denies insomnia, depression, shady or mood swings. Vital Signs: Performed on Sep 30, 2019 11:27 Height - 64.00 in Weight - 117.2 lbs BSA - 1.56 sq.m BMI - 20.12 Temperature - 97.6 F (LOW) Pulse - 88 /min Respiration - 16 /min BP - 121/56 mm(hg) O2 Sat - 99 % Pain - 0,1 - No physically strenuous activity, but ambulatory and able to carry out light or sedentary work (e.g. office work, light house work). (ECOG) Physical Examination: Constitutional Alert, oriented, no acute distress. Skin pale, warm and dry. Head Normocephalic; atraumatic. Eyes Conjunctivae and sclerae are clear and without icterus. Pupils are reactive and equal. ENMT No oral exudates, ulcers, masses, thrush or mucositis. Oropharynx clear. Tongue normal. Neck Supple without masses or thyromegaly. No jugular venous distension. Hematologic/Lymphatic No petechiae or purpura. Respiratory Lungs are clear to auscultation without rhonchi or wheezing. Cardiovascular Regular rate and rhythm of heart without murmurs,clicks, gallops or rubs. Abdomen Non-tender, non-distended, no masses, ascites. Good bowel sounds noted in all quads. No guarding or rebound tenderness. No pulsatile masses. Back/Spine Non-tender to palpation. Extremities No visible deformities, no cyanosis, clubbing or edema. Musculoskeletal No tenderness or swelling, normal range of motion without obvious weakness. Integumentary No rashes or lesions. Neurologic No sensory or motor deficits, normal cerebellar function, normal gait. Psychiatric Alert and oriented times three. Coherent speech. Verbalizes understanding of our discussions today. Laboratory:Test performed on Sep 30, 2019 12:33 WBC 4.0 10 3/uL RBC 2.47 10 6/uL HGB 7.8 g/dL HCT 25.5 % MCV 103.2 fL MCH 31.6 pg MCHC 30.6 g/dL RDW 17.6 % Platelet Count 217 10 3/cmm MPV 9.4 fL Neutrophils 2.4 10 3/uL Lymphocytes 0.8 10 3/uL Monocytes 0.8 10 3/uL Eosinophils 0.1 10 3/uL Basophils 0.0 10 3/uL Neutrophil % 59.2 % Lymphocyte % 19.3 % Monocyte % 18.6 % Eosinophil % 2.0 % Basophils % 0.2 % Test performed on Sep 23, 2019 14:55 Ferritin 731 ng/mL % Iron Saturation 47.5 % Iron, Total 99 mcg/dL TIBC 208 mcg/dL Test performed on Sep 13, 2019 08:12 Sodium 138 mmol/L Potassium 4.9 mmol/L Chloride 103 mmol/L CO2 21 mmol/L Anion Gap 18.9 BUN 29 mg/dL Creatinine 1.4 mg/dL Cr Clearance (Est) 31.1100 mL/min eGFR 37.2 mL/min Glucose 108 mg/dL Calcium 9.5 mg/dL Protein, Total 7.8 g/dL Albumin 3.7 g/dL Globulin 4.1 g/dL Bilirubin, Total 0.2 mg/dL ALT (SGPT) 13 U/L AST (SGOT) 29 U/L Alkaline Phosphatase 68 IU/L Test performed on Jul 17, 2019 12:49 Packed Red Cells (PRBC) [id number] TRANSFUSED PRODUCT: LEUKOREDUCED RED CELL 1ST CONT COUNT: 2 Type & Screen BLD TYPE A POSITIVE AB SCREEN GEL NEGATIVE BLD TYPE A POSITIVE AB SCREEN GEL NEGATIVE Test performed on Jul 01, 2019 09:52 Homocysteine 20 umol/L T3, Free 2.5 PG/ML T4, Free 1.27 ng/dL TSH 1.20 uIU/mL Vitamin B12 575 pg/mL UIBC 185 ug/dL CA 27.29 781.10 U/mL Test performed on May 01, 2019 14:40 Folate, Serum 12.4 ng/mL Methylmalonic Acid 530 nmol/L Impression: Metastatic infiltrating lobular carcinoma with extensive axial and appendicular skeleton metastases per CT PET scan done on 07/29/2017. Infiltrating lobular carcinoma involving left breast status post MRM on 05/26/2017 final path report shows infiltrating lobular carcinoma grade 2, extensive involvement of overlying skin at nipple and areola, positive lymphovascular space invasion including dermal lymphatics. Deep margins free of tumor size of tumor 6.8 x 3.2 cm T4b (skin involvement) Metastatic tumor in 1 out of 3 axillary lymph nodes N1 stage IV Extensive bone metastases are CT PET scan done on 07/29/2017 And her molecular studies showed negative for PIK3CA and BRCA 1 and 2 Tumor marker CA-27-29 1455.11 and CA 15.3 is 653.1 Repeat tumor markers CA-27-29 on 11/02/2017 was 167.77 and CA 15.3 was 89.6 estrogen receptor 100% progesterone receptors 100% HER-2/ivett negative by IHC and over amplification by fish and Ki-67 7 % Status post radiation therapy to lumbar sacral spine from 08/15/2017 to 08/28/2017 Mrs Booth was on Ibrance 125 mg by mouth daily for 21 days and then week off and repeat cycle every 28 days along with Femara 2.5 mg daily since 08/29/2017. Because of leukopenia at day 28, will reduce Ibrance dose to 100 mg by mouth for 21 days on 1 week off repeat 28 days. Along with Femara 2.5 mg daily Persistent leukopenia even with Ibrance 125 mg for 14 days. Her last dose was 100 mg by mouth daily for 14 days q 28 days. Follow-up CT PET scan done on 02/17/2018 showed interval resolution of abnormal activity throughout the bone indicating positive response to therapy of widespread osseous metastatic disease. She had progression of her tumor marker so stopped the Ibrance and Femara. She was then treated with single agent Arimidex and monthly Xgeva. The Arimidex was discontinued on 08/02/2018 as her follow-up CT PET scan from 07/14/2018 showed evidence of disease progression. There has been development of new malignant mediastinal lymphadenopathy in the precarinal and [place] window [place]. These have SUV of 6.7, and subcentimeter suspicious superior mediastinal lymph nodes are also identified. Widespread osseous metastatic disease as the activated in a multifocal pattern, is seen most prominently in left scapula, thoracic spine, lumbar spine, pelvis and proximal femurs. And index lesion in the right ischium has SUV of 6. Tumor marker CA-27-29 is 393.47 on 07/30/2018 compared to 334.52 on 07/02/2018, 142.60 on 04/26/2018. recommended changing treatment to weekly paclitaxel. Ms. Booth began her first dose of weekly pack Taxol on August 28, 2018. She has tolerated it well thus far .Follow-up CT PET scan done on 09/29/2018 showed progression of widespread osseous metastatic disease since prior study, new unifocal hepatic metastatic disease, suspicious activity in right adrenal gland. Tumor marker CA-27-29 has gone down to 1197.6 on 09/24/2018 compared to 1327.6 on 09/04/2018, Weekly carboplatin was added to weekly Taxol on on 10/02/2018. with monthly Xgeva Follow-up CT PET scan done on 01/26/2019 showed widespread osseous metastatic disease seen on prior scan is unchanged remained FDG positive. The index lesion in the posterior right acetabulum that has SUV of 8 now is 6.6. Right hepatic lobe lesion now has SUV of 3.4 compared to 4.2 on prior study Right adrenal lesion is progressed now SUV 5.4 compared to 3.7 previous Left adrenal activity is slightly more prominent. Mild activity in the mediastinal lymph node is unchanged. Follow-up CT PET scan done after 6 cycles of carboplatin/Taxol showed overall no significant change since prior study and widespread osseous metastatic disease, right hepatic metastases, or bilateral adrenal uptake, Her follow-up CT PET scan shows stable disease but her tumor marker continued to go up and her lab workup shows persistent progressive cytopenias, in that case Dr Estrella did discontinue her chemotherapy and requested a switch to fulvestrant/ everolimus , fulvestrant 500 mg IM on day 1, 15 and day 29 thereafter every month and everolimus 10 mg by mouth daily , while continue with Xgeva every month. Her everolimus dose was decreased to 5 mg daily due to persistent side effects. She presented for followup on 07/01/2019 with multiple concerns. She had lost another 7 pounds since her last visit. She had worsening fatigue. She also reported having bilateral foot and hand pain as well as slight bleeding from her left nare. She states since holding the Afinitor and doing dexamethasone 4 mg po daily, she feels like a different person . She states she feels much better overall. She is tired but recovers with rest. Mrs. Booth resumed Afinitor 5 mg daily for 14 days on and 7 days off on September 02, 2019. Thus far she has tolerated it well. The main issue she has had with resuming the Afinitor is that she has now once again became anemic. Her iron studies and B12 have been normal. The Afinitor will be placed on hold again due to the anemia. Plan: 1. Stop Afinitor due to persistent drop in her hemoglobin. Her hemoglobin from September 27, 2019 is down to 7.4. She has became symptomatic as well. Her white count is holding well with an ANC of 4800 and platelets 199,000. 2. She will continue with Xgeva and Faslodex. She is due for that today. 3. She will be set up for 2 units of packed red blood cells. Most likely she will do that tomorrow. 4. I have asked for an iFOB to evaluate for occult blood. Her iron studies were normal from her last visit. 5. We will plan to have her return in 2 weeks for follow-up. 6. We will plan for labs again in 2 weeks with CBC CMP and typenex. 7. Mrs. Booth was instructed to contact us in the interim should questions or problems arise. She was instructed to make sure and call if she has any further symptoms. She would need blood recheck. I offered to give her next week off without labs as long as she call if she had any further problems. Signed By: Poonam Gan-, [facility] Stanley Estrella MD <<Signature on File>>
[2019-10-14 08:42] LABS: Basophils % 0.5 %; Eosinophils # 0.2 10^3/uL (0.0-0.8); Eosinophils % 4.3 %; Hematocrit 36.2 % (37.0-47.0); Hemoglobin 11.4 g/dL (11.5-15.3); Lymphocytes % 22.3 %; Mean Corpuscular HGB Conc 31.5 g/dL (30.0-36.0); Mean Corpuscular Volume 95.3 fL (81-99); Mean Platelet Volume 10.2 fL (7.4-10.4); Monocytes # 0.6 10^3/uL (0.2-0.9); Monocytes % 12.4 %; Neutrophils # 2.6 10^3/uL (1.8-7.7); Neutrophils % 59.4 %; Nucleated Red Blood Cells % 0 %; Platelet Count 185 10^3/cmm (130-400); Red Cell Distribution Width 16.8 % (12.1-15.1); White Blood Count 4.4 10^3/uL (4.0-10.0)
[2019-10-14 08:56] LABS: Alanine Aminotransferase 29 U/L (0-33); Albumin Level 4.1 g/dL (3.5-5.2); Alkaline Phosphatase 63 IU/L (35-105); Anion Gap 17.2 (5-19); Aspartate Amino Transferase 37 U/L (0-32); Blood Urea Nitrogen 39 mg/dL (8-23); Calcium 10.4 mg/dL (8.5-10.5); Carbon Dioxide 25 mmol/L (22-29); Chloride 103 mmol/L (98-107); Globulin 3.2 g/dL (1.3-4.6); Glomerular Filtration Rate 31.9 mL/min (90-130); Glucose 90 mg/dL (65-115); Osmolality Calculated 287 mOsm/kg (285-295); Potassium 5.2 mmol/L (3.5-5.1); Sodium 140 mmol/L (136-145); Total Bilirubin 0.2 mg/dL (0.15-1.2); Total Protein 7.3 g/dL (6.6-8.7)
--- NOTE | 2019-10-17 14:51 | ONC FU_ITS ---
Dr. Estrella follow up note Patient: Joana Booth Unit #: [id number]: [id number] Dicatated By: Stanley Estrella M.D.Date of Visit:Oct 15, 2019 Onc Med Follow-up/Prog Note History of Present Illness: Mrs Booth is a 69 -year-old female who presented with a left breast mass for 2-3 years. She did undergo mammography ultrasound and subsequently a biopsy of the left breast mass on 05/10/2017 which confirmed infiltrating lobular carcinoma, grade 2, ER positive ND positive HER-2 ivett negative. The KI 67 was 7%. She is negative for PIK 3CA. She underwent left modified radical mastectomy on 05/26/2017. Surgical pathology showed grade 2 infiltrating lobular carcinoma with extensive involvement of overlying skin and nipple and areola. Lymphovascular invasion was present including dermal lymphatics, negative surgical margin, the tumor size was 6.8 x 3.2 cm and metastatic carcinoma identified in one of 3 axillary lymph nodes. She recovered from surgery well she did complain of significant low back pain with bilateral flank and rib cage. She did have PET CT on 07/29/2017. It confirmed stage IV breast cancer with extensive skeletal metastatic disease. There are innumerable FDG avid osteolytic metastatic lesions throughout the axial and appendicular skeleton. There was no hepatic, adrenal or pulmonary metastasis. There was no pathological lymphadenopathy. She was referred to radiation oncology for palliative radiation. Dr. Beaver recommended radiation therapy to the lower lumbar spine/SI joints for pain relief and disease control. She received 3000 cGy to the L5???sacral area she began treatment on August 15 and completed it on 08/28/2017. Mrs. Booth began Ibrance and Femara for metastatic breast cancer on August 29, 2016. The first doses of Xgeva documented in our chart is 09-26-2017. Ibrance and Femara was discontinued on 05/31/2018 due to progressive tumor markers. She was started on Arimidex 1 mg by mouth daily along with monthly Xgeva. She discontinued the Armidex on 08/02/2018. Her CT PET scan done on 07/14/2018 showed disease progression e.g. reactivation of multifocal osseous metastatic disease, new malignant mediastinal lymphadenopathy, bilateral inflammatory lung infiltrates and tumor marker CA-27-29 gone up to 393.47 compared to 334.62 on 07/02/2018 and 142.60 on 04/26/2018 .BRCA1/2 negative Mrs. Booth was advised to pursue treatment with weekly paclitaxel and to continue her monthly Xgeva. She began her first dose of weekly paclitaxel on 08/28/2018. Weekly carboplatin was added on 10/02/2018, as her follow-up PET scan done on 09/29/2018 showed widespread osseous metastatic disease seen on prior studies significantly more FDG positive on the current. Index lesion in the posterior right acetabulum that previously has SUV of 4.8 now has 8 there is a similar progression multiple other lesions throughout the spine sternum scapula pelvic and femurs. A new right hepatic lobe hypodensity measuring 1.4 cm has SUV of 4.2 and is a questionable activity in the region of right adrenal, suggesting metastatic disease. Her tumor marker CA-27-29 had gone down to 1197.6 on 09/24/2018 compared to 1327.6 on 09/04/2018 Mrs. Booth began chemotherapy with carboplatin and paclitaxel on 10/04/2018. and cont'd with monthly Xgeva Due to progressive leukopenia/neutropenia she is requiring Neupogen in between her weekly carboplatin and Taxol to maintain the schedule and responding well CT PET scan done on 01/26/2019 showed stable disease e.g. no significant change in FDG positive widespread osseous metastatic disease. Minimal improvement in the hepatic metastatic disease. Mild progression in right adrenal lesion and questionable new left adrenal lesion. No change in mild FDG activity in the mediastinum. Follow-up CT PET scan done After 6 cycles of weekly carboplatin Taxol on 04/06/2019 showed overall, no significant changes since prior study, widespread FDG positive osseous metastatic disease is unchanged. No change in right hepatic metastatic disease, no change in bilateral adrenal uptake Minimally improved in the subaortic mediastinal lymph nodes. Due to maximum benefit and progressive toxicity with chemotherapy (thrombocytopenia and persistent anemia, decreasing performance status), her treatment plan with carboplatin/Taxol was discontinued on 04/10/2019 and she was switched to fulvestrant /everolimus. everolimus was held due to progressive leukopenia/neutropenia and generalized weakness and fatigue and weight loss, reduced dose e.g. 5 mg daily still caused progressive leukopenia. On 09/03/2019, everolimus was re-started at 5 mg daily for 2 weeks on and then week off along with monthly Faslodex and Xgeva. Her last dose of Faslodex and Xgeva was on 09/02/2019. Came for follow-up, denies any specific complaints, no fever or chills, no nausea vomiting, no diarrhea constipation, no melena hematochezia, feeling much better since blood transfusion and since everolimus is on hold. Otherwise feeling much better Medications: Acetaminophen Tablet Oral PRN, Afinitor 1 Tablet (of 5 mg) Oral daily, [facility] All[facility] 1 (5-6.25-10-325 mg) Capsule Oral at bedtime PRN, Benadryl Allergy 1 Tablet (of 25 mg) Oral daily PRN, Calcium Magnesium zinc 3 Tablet Oral daily, Hydrocortisone 1 (1 %) Cream Topical PRN, Oxycodone-Acetaminophen 0.5 Tablet (of 5-325 mg) Oral q 4 to 6 hours PRN, PriLOSEC OTC 1 Tablet (of 20 mg) Tablet, enteric coated Oral daily Allergies: Ibuprofen and Penicillins. Review of Systems: Constitutional - No fevers, chills, night sweats, excessive fatigue. Weight is stable. Appetite is diminished and energy level is poor but stable, ENMT - No sinus congestion/drainage. No mouth sores. No sore throat or difficulty swallowing, Hematologic/Lymphatic - No abnormal bruising or bleeding, Respiratory - No dyspnea on exertion, chest pain, cough or hemoptysis, Cardiovascular - No angina pain. No palpitations, Gastrointestinal - No nausea, vomiting, GI bleeding, or constipation. No heartburn or acid reflux. Positive for occasional diarrhea, Genitourinary (F) - No hematuria, dysuria, increased frequency, urgency, hesitancy or incontinence, Musculoskeletal - Pt states that lower back pain is improving, Integumentary - No skin issues at this time, Neurologic - No headache or dizziness. No numbness/paresthesias or other focal neurologic symptoms, Psychiatric - No insomnia, depression, shady or mood swings. Vital Signs: Performed on Oct 15, 2019 08:41 Height - 64.00 in Weight - 118.4 lbs (HIGH) BSA - 1.57 sq.m BMI - 20.32 Temperature - 97.5 F (LOW) Pulse - 78 /min Respiration - 18 /min BP - 106/59 mm(hg) O2 Sat - 99 % Pain - 0 Performance Status: 0 - Fully active, able to carry on all predisease activities without restrictions. (ECOG) Physical Examination: Respiratory - Lungs are clear to auscultation without rhonchi or wheezing, Cardiovascular - Regular rate and rhythm of heart, Extremities - no edema. Lab/Imaging: Test performed on Sep 30, 2019 12:33 WBC 4.0 10 3/uL RBC 2.47 10 6/uL HGB 7.8 g/dL HCT 25.5 % MCV 103.2 fL MCH 31.6 pg MCHC 30.6 g/dL RDW 17.6 % Platelet Count 217 10 3/cmm MPV 9.4 fL Neutrophils 2.4 10 3/uL Lymphocytes 0.8 10 3/uL Monocytes 0.8 10 3/uL Eosinophils 0.1 10 3/uL Basophils 0.0 10 3/uL Neutrophil % 59.2 % Lymphocyte % 19.3 % Monocyte % 18.6 % Eosinophil % 2.0 % Basophils % 0.2 % Test performed on Sep 23, 2019 14:55 Ferritin 731 ng/mL % Iron Saturation 47.5 % Iron, Total 99 mcg/dL TIBC 208 mcg/dL Test performed on Sep 13, 2019 08:12 Sodium 138 mmol/L Potassium 4.9 mmol/L Chloride 103 mmol/L CO2 21 mmol/L Anion Gap 18.9 BUN 29 mg/dL Creatinine 1.4 mg/dL Cr Clearance (Est) 31.1100 mL/min eGFR 37.2 mL/min Glucose 108 mg/dL Calcium 9.5 mg/dL Protein, Total 7.8 g/dL Albumin 3.7 g/dL Globulin 4.1 g/dL Bilirubin, Total 0.2 mg/dL ALT (SGPT) 13 U/L AST (SGOT) 29 U/L Alkaline Phosphatase 68 IU/L Test performed on Jul 17, 2019 12:49 Packed Red Cells (PRBC) [id number] TRANSFUSED PRODUCT: LEUKOREDUCED RED CELL 1ST CONT COUNT: 2 Type & Screen BLD TYPE A POSITIVE AB SCREEN GEL NEGATIVE BLD TYPE A POSITIVE AB SCREEN GEL NEGATIVE Test performed on Jul 01, 2019 09:52 Homocysteine 20 umol/L T3, Free 2.5 PG/ML T4, Free 1.27 ng/dL TSH 1.20 uIU/mL Vitamin B12 575 pg/mL UIBC 185 ug/dL CA 27.29 781.10 U/mL Test performed on May 01, 2019 14:40 Folate, Serum 12.4 ng/mL Methylmalonic Acid 530 nmol/L Impression: Metastatic infiltrating lobular carcinoma with extensive axial and appendicular skeleton metastases per CT PET scan done on 07/29/2017. Infiltrating lobular carcinoma involving left breast status post MRM on 05/26/2017 final path report shows infiltrating lobular carcinoma grade 2, extensive involvement of overlying skin at nipple and areola, positive lymphovascular space invasion including dermal lymphatics. Deep margins free of tumor size of tumor 6.8 x 3.2 cm T4b (skin involvement) Metastatic tumor in 1 out of 3 axillary lymph nodes N1 stage IV Extensive bone metastases are CT PET scan done on 07/29/2017 And her molecular studies showed negative for PIK3CA and BRCA 1 and 2 Tumor marker CA-27-29 1455.11 and CA 15.3 is 653.1 Repeat tumor markers CA-27-29 on 11/02/2017 was 167.77 and CA 15.3 was 89.6 estrogen receptor 100% progesterone receptors 100% HER-2/ivett negative by IHC and over amplification by fish and Ki-67 7 % Status post radiation therapy to lumbar sacral spine from 08/15/2017 to 08/28/2017 Mrs Booth was on Ibrance 125 mg by mouth daily for 21 days and then week off and repeat cycle every 28 days along with Femara 2.5 mg daily since 08/29/2017. Because of leukopenia at day 28, will reduce Ibrance dose to 100 mg by mouth for 21 days on 1 week off repeat 28 days. Along with Femara 2.5 mg daily Persistent leukopenia even with Ibrance 125 mg for 14 days. Her last dose was 100 mg by mouth daily for 14 days q 28 days. Follow-up CT PET scan done on 02/17/2018 showed interval resolution of abnormal activity throughout the bone indicating positive response to therapy of widespread osseous metastatic disease. She had progression of her tumor marker so stopped the Ibrance and Femara. She was then treated with single agent Arimidex and monthly Xgeva. The Arimidex was discontinued on 08/02/2018 as her follow-up CT PET scan from 07/14/2018 showed evidence of disease progression. There has been development of new malignant mediastinal lymphadenopathy in the precarinal and [place]. These have SUV of 6.7, and subcentimeter suspicious superior mediastinal lymph nodes are also identified. Widespread osseous metastatic disease as the activated in a multifocal pattern, is seen most prominently in left scapula, thoracic spine, lumbar spine, pelvis and proximal femurs. And index lesion in the right ischium has SUV of 6. Tumor marker CA-27-29 is 393.47 on 07/30/2018 compared to 334.52 on 07/02/2018, 142.60 on 04/26/2018. recommended changing treatment to weekly paclitaxel. Ms. Booth began her first dose of weekly pack Taxol on August 28, 2018. She has tolerated it well thus far .Follow-up CT PET scan done on 09/29/2018 showed progression of widespread osseous metastatic disease since prior study, new unifocal hepatic metastatic disease, suspicious activity in right adrenal gland. Tumor marker CA-27-29 has gone down to 1197.6 on 09/24/2018 compared to 1327.6 on 09/04/2018, Weekly carboplatin was added to weekly Taxol on on 10/02/2018. with monthly Xgeva Follow-up CT PET scan done on 01/26/2019 showed widespread osseous metastatic disease seen on prior scan is unchanged remained FDG positive. The index lesion in the posterior right acetabulum that has SUV of 8 now is 6.6. Right hepatic lobe lesion now has SUV of 3.4 compared to 4.2 on prior study Right adrenal lesion is progressed now SUV 5.4 compared to 3.7 previous Left adrenal activity is slightly more prominent. Mild activity in the mediastinal lymph node is unchanged. Follow-up CT PET scan done after 6 cycles of carboplatin/Taxol showed overall no significant change since prior study and widespread osseous metastatic disease, right hepatic metastases, or bilateral adrenal uptake, Her follow-up CT PET scan shows stable disease but her tumor marker continued to go up and her lab workup shows persistent progressive cytopenias, in that case Dr Estrella did discontinue her chemotherapy and requested a switch to fulvestrant/ everolimus , fulvestrant 500 mg IM on day 1, 15 and day 29 thereafter every month and everolimus 10 mg by mouth daily , while continue with Xgeva every month. Her everolimus dose was decreased to 5 mg daily due to persistent side effects. She presented for followup on 07/01/2019 with multiple concerns. She had lost another 7 pounds since her last visit. She had worsening fatigue. She also reported having bilateral foot and hand pain as well as slight bleeding from her left nare. She states since holding the Afinitor and doing dexamethasone 4 mg po daily, she feels like a different person . She states she feels much better overall. She is tired but recovers with rest. Mrs. Booth resumed Afinitor 5 mg daily for 14 days on and 7 days off on September 02, 2019. Thus far she has tolerated it well. The main issue she has had with resuming the Afinitor is that she has now once again became anemic. Her iron studies and B12 have been normal. The Afinitor will be placed on hold again due to the anemia. Plan: <%PlanDiscussed with patient regarding her labs white blood count 4.4 hemoglobin 11.4 crit 36.2 platelets 185,000 CMP within normal limit except potassium 5.2 creatinine 1.6 Clinically, patient is doing well, now improving. Feeling better since blood transfusion, at this point we'll continue to hold her everolimus for another 2 weeks and then she will return to clinic 2 weeks with CBC CMP and for next dose of Faslodex/Xgeva and in the meantime we'll also consider follow-up CT PET scan and based on that we will plan further treatment. Signed By: Stanley Estrella M.D. <<Signature on File>>
== END 2019-10-29 23:59 | disposition home or self-care (01) ==
LOC: ONCMED 05:36
PROVIDERS: Absent Provider Nurse Practitioner; Visit Provider Internal Medicine Hematology & Oncology
DX: C50.812 Malignant neoplasm of overlapping sites of left female breast (principal); C79.51 Secondary malignant neoplasm of bone; C77.1 Secondary and unspecified malignant neoplasm of intrathoracic lymph nodes; C79.72 Secondary malignant neoplasm of left adrenal gland; C79.71 Secondary malignant neoplasm of right adrenal gland; C78.7 Secondary malignant neoplasm of liver and intrahepatic bile duct; D64.9 Anemia, unspecified; Z17.0 Estrogen receptor positive status [ER+]; Z79.899 Other long term (current) drug therapy; Z79.818 Long term (current) use of other agents affecting estrogen receptors and estrogen levels; Z90.12 Acquired absence of left breast and nipple; Z92.3 Personal history of irradiation
CPT/HCPCS: 36415; 36430; 80053; 82274; 85025; 86850; 86900; 86920; 96372; 96402; 99214; J0897; J1940; J7050; J9395; P9016

== ENCOUNTER 2019-10-31 06:06 | Outpatient (RCR) | payer MEDICARE, OTHER, SELFPAY ==
[2019-10-30 12:02] LABS: Basophils % 0.4 %; Eosinophils # 0.3 10^3/uL (0.0-0.8); Hemoglobin 10.4 g/dL (11.5-15.3); Lymphocytes % 23.1 %; Mean Corpuscular HGB Conc 31.5 g/dL (30.0-36.0); Mean Corpuscular Hemoglobin 30.6 pg (28.0-34.0); Mean Corpuscular Volume 97.1 fL (81-99); Mean Platelet Volume 9.9 fL (7.4-10.4); Monocytes # 0.6 10^3/uL (0.2-0.9); Neutrophils # 2.5 10^3/uL (1.8-7.7); Neutrophils % 55.8 %; Nucleated Red Blood Cells % 0 %; Platelet Count 219 10^3/cmm (130-400); Red Cell Distribution Width 17.1 % (12.1-15.1); White Blood Count 4.5 10^3/uL (4.0-10.0)
[2019-10-30 13:07] LABS: Alanine Aminotransferase 17 U/L (0-33); Albumin Level 4.2 g/dL (3.5-5.2); Alkaline Phosphatase 64 IU/L (35-105); Anion Gap 16.9 (5-19); Aspartate Amino Transferase 36 U/L (0-32); Blood Urea Nitrogen 29 mg/dL (8-23); Calcium 9.7 mg/dL (8.5-10.5); Carbon Dioxide 25 mmol/L (22-29); Chloride 98 mmol/L (98-107); Globulin 2.5 g/dL (1.3-4.6); Glomerular Filtration Rate 31.9 mL/min (90-130); Glucose 73 mg/dL (65-115); Osmolality Calculated 276 mOsm/kg (285-295); Potassium 4.9 mmol/L (3.5-5.1); Sodium 135 mmol/L (136-145); Total Bilirubin 0.2 mg/dL (0.15-1.2); Total Protein 6.7 g/dL (6.6-8.7)
--- NOTE | 2019-10-31 16:00 | ONC FU_ITS ---
Dr. Estrella follow up note Patient: Joana Booth Unit #: [id number]: 1950 Dicatated By: Stanley Estrella M.D.Date of Visit:Oct 31, 2019 Onc Med Follow-up/Prog Note History of Present Illness: Mrs Booth is a 69 -year-old female who presented with a left breast mass for 2-3 years. She did undergo mammography ultrasound and subsequently a biopsy of the left breast mass on 05/10/2017 which confirmed infiltrating lobular carcinoma, grade 2, ER positive MO positive HER-2 ivett negative. The KI 67 was 7%. She is negative for PIK 3CA. She underwent left modified radical mastectomy on 05/26/2017. Surgical pathology showed grade 2 infiltrating lobular carcinoma with extensive involvement of overlying skin and nipple and areola. Lymphovascular invasion was present including dermal lymphatics, negative surgical margin, the tumor size was 6.8 x 3.2 cm and metastatic carcinoma identified in one of 3 axillary lymph nodes. She recovered from surgery well she did complain of significant low back pain with bilateral flank and rib cage. She did have PET CT on 07/29/2017. It confirmed stage IV breast cancer with extensive skeletal metastatic disease. There are innumerable FDG avid osteolytic metastatic lesions throughout the axial and appendicular skeleton. There was no hepatic, adrenal or pulmonary metastasis. There was no pathological lymphadenopathy. She was referred to radiation oncology for palliative radiation. Dr. Beaver recommended radiation therapy to the lower lumbar spine/SI joints for pain relief and disease control. She received 3000 cGy to the L5???sacral area she began treatment on August 15 and completed it on 08/28/2017. Mrs. Booth began Ibrance and Femara for metastatic breast cancer on August 29, 2016. The first doses of Xgeva documented in our chart is 09-26-2017. Ibrance and Femara was discontinued on 05/31/2018 due to progressive tumor markers. She was started on Arimidex 1 mg by mouth daily along with monthly Xgeva. She discontinued the Armidex on 08/02/2018. Her CT PET scan done on 07/14/2018 showed disease progression e.g. reactivation of multifocal osseous metastatic disease, new malignant mediastinal lymphadenopathy, bilateral inflammatory lung infiltrates and tumor marker CA-27-29 gone up to 393.47 compared to 334.62 on 07/02/2018 and 142.60 on 04/26/2018 .BRCA1/2 negative Mrs. Booth was advised to pursue treatment with weekly paclitaxel and to continue her monthly Xgeva. She began her first dose of weekly paclitaxel on 08/28/2018. Weekly carboplatin was added on 10/02/2018, as her follow-up PET scan done on 09/29/2018 showed widespread osseous metastatic disease seen on prior studies significantly more FDG positive on the current. Index lesion in the posterior right acetabulum that previously has SUV of 4.8 now has 8 there is a similar progression multiple other lesions throughout the spine sternum scapula pelvic and femurs. A new right hepatic lobe hypodensity measuring 1.4 cm has SUV of 4.2 and is a questionable activity in the region of right adrenal, suggesting metastatic disease. Her tumor marker CA-27-29 had gone down to 1197.6 on 09/24/2018 compared to 1327.6 on 09/04/2018 Mrs. Booth began chemotherapy with carboplatin and paclitaxel on 10/04/2018. and cont'd with monthly Xgeva Due to progressive leukopenia/neutropenia she is requiring Neupogen in between her weekly carboplatin and Taxol to maintain the schedule and responding well CT PET scan done on 01/26/2019 showed stable disease e.g. no significant change in FDG positive widespread osseous metastatic disease. Minimal improvement in the hepatic metastatic disease. Mild progression in right adrenal lesion and questionable new left adrenal lesion. No change in mild FDG activity in the mediastinum. Follow-up CT PET scan done After 6 cycles of weekly carboplatin Taxol on 04/06/2019 showed overall, no significant changes since prior study, widespread FDG positive osseous metastatic disease is unchanged. No change in right hepatic metastatic disease, no change in bilateral adrenal uptake Minimally improved in the subaortic mediastinal lymph nodes. Due to maximum benefit and progressive toxicity with chemotherapy (thrombocytopenia and persistent anemia, decreasing performance status), her treatment plan with carboplatin/Taxol was discontinued on 04/10/2019 and she was switched to fulvestrant /everolimus. everolimus was held due to progressive leukopenia/neutropenia and generalized weakness and fatigue and weight loss, reduced dose e.g. 5 mg daily still caused progressive leukopenia. On 09/03/2019, everolimus was re-started at 5 mg daily for 2 weeks on and then week off along with monthly Faslodex and Xgeva. Her last dose of Faslodex and Xgeva was on 09/02/2019.because of progressive weakness and fatigue, everolimus was discontinued and plan to continue with Faslodex and Xgeva alone unless CT PET scan shows progression. Follow-up CT PET scan done on 10/26/2019 showed increasing FDG activity in widespread osseous metastatic disease, consistent with mild progression,e.g. SUV now is 5.2 compared to 2.7 earlier on 07/13/2019. no new bony lesion seen Multifocal hepatic metastatic disease is not significantly changed. Right adrenal lesion is minimally progressed e.g. SUV 5.2 compared to 3.6 previously. There is no significant left adrenal activity with SUV of 4.9. In the mediastinum and subaortic node is progressed no SUV 5.9 and other nodes in the right paratracheal and bilateral hilar region weekly FDG positive may be reactive. Came for follow-up, denies any specific complaints, no fever or chills, no nausea or vomiting, no diarrhea constipation, occasionally hot flashes otherwise tolerating Faslodex/Xgeva well. Overall feeling much better with improving quality of life. Medications: Acetaminophen Tablet Oral PRN, Afinitor 1 Tablet (of 5 mg) Oral daily, [facility] [facility] 1 (5-6.25-10-325 mg) Capsule Oral at bedtime PRN, Benadryl Allergy 1 Tablet (of 25 mg) Oral daily PRN, Calcium Magnesium zinc 3 Tablet Oral daily, Hydrocortisone 1 (1 %) Cream Topical PRN, Oxycodone-Acetaminophen 0.5 Tablet (of 5-325 mg) Oral q 4 to 6 hours PRN, PriLOSEC OTC 1 Tablet (of 20 mg) Tablet, enteric coated Oral daily Allergies: Ibuprofen and Penicillins. Review of Systems: Review of Systems is not available for this patient. Vital Signs: Performed on Oct 31, 2019 13:26 Height - 64.00 in Weight - 116.0 lbs (LOW) BSA - 1.55 sq.m BMI - 19.91 Temperature - 97.9 F (LOW) Pulse - 77 /min Respiration - 18 /min BP - 124/62 mm(hg) O2 Sat - 97 % Pain - 0 Performance Status: 0 - Fully active, able to carry on all predisease activities without restrictions. (ECOG) Physical Examination: Respiratory - Lungs are clear to auscultation without rhonchi or wheezing, Cardiovascular - Regular rate and rhythm of heart, Extremities - no edema. Lab/Imaging: Test performed on Sep 30, 2019 12:33 WBC 4.0 10 3/uL RBC 2.47 10 6/uL HGB 7.8 g/dL HCT 25.5 % MCV 103.2 fL MCH 31.6 pg MCHC 30.6 g/dL RDW 17.6 % Platelet Count 217 10 3/cmm MPV 9.4 fL Neutrophils 2.4 10 3/uL Lymphocytes 0.8 10 3/uL Monocytes 0.8 10 3/uL Eosinophils 0.1 10 3/uL Basophils 0.0 10 3/uL Neutrophil % 59.2 % Lymphocyte % 19.3 % Monocyte % 18.6 % Eosinophil % 2.0 % Basophils % 0.2 % Test performed on Sep 23, 2019 14:55 Ferritin 731 ng/mL % Iron Saturation 47.5 % Iron, Total 99 mcg/dL TIBC 208 mcg/dL Test performed on Sep 13, 2019 08:12 Sodium 138 mmol/L Potassium 4.9 mmol/L Chloride 103 mmol/L CO2 21 mmol/L Anion Gap 18.9 BUN 29 mg/dL Creatinine 1.4 mg/dL Cr Clearance (Est) 31.1100 mL/min eGFR 37.2 mL/min Glucose 108 mg/dL Calcium 9.5 mg/dL Protein, Total 7.8 g/dL Albumin 3.7 g/dL Globulin 4.1 g/dL Bilirubin, Total 0.2 mg/dL ALT (SGPT) 13 U/L AST (SGOT) 29 U/L Alkaline Phosphatase 68 IU/L Test performed on Jul 17, 2019 12:49 Packed Red Cells (PRBC) [id number] TRANSFUSED PRODUCT: LEUKOREDUCED RED CELL 1ST CONT COUNT: 2 Type & Screen BLD TYPE A POSITIVE AB SCREEN GEL NEGATIVE BLD TYPE A POSITIVE AB SCREEN GEL NEGATIVE Test performed on Jul 01, 2019 09:52 Homocysteine 20 umol/L T3, Free 2.5 PG/ML T4, Free 1.27 ng/dL TSH 1.20 uIU/mL Vitamin B12 575 pg/mL UIBC 185 ug/dL CA 27.29 781.10 U/mL Impression: Metastatic infiltrating lobular carcinoma with extensive axial and appendicular skeleton metastases per CT PET scan done on 07/29/2017. Infiltrating lobular carcinoma involving left breast status post MRM on 05/26/2017 final path report shows infiltrating lobular carcinoma grade 2, extensive involvement of overlying skin at nipple and areola, positive lymphovascular space invasion including dermal lymphatics. Deep margins free of tumor size of tumor 6.8 x 3.2 cm T4b (skin involvement) Metastatic tumor in 1 out of 3 axillary lymph nodes N1 stage IV Extensive bone metastases are CT PET scan done on 07/29/2017 And her molecular studies showed negative for PIK3CA and BRCA 1 and 2 Tumor marker CA-27-29 1455.11 and CA 15.3 is 653.1 Repeat tumor markers CA-27-29 on 11/02/2017 was 167.77 and CA 15.3 was 89.6 estrogen receptor 100% progesterone receptors 100% HER-2/ivett negative by IHC and over amplification by fish and Ki-67 7 % Status post radiation therapy to lumbar sacral spine from 08/15/2017 to 08/28/2017 Mrs Booth was on Ibrance 125 mg by mouth daily for 21 days and then week off and repeat cycle every 28 days along with Femara 2.5 mg daily since 08/29/2017. Because of leukopenia at day 28, will reduce Ibrance dose to 100 mg by mouth for 21 days on 1 week off repeat 28 days. Along with Femara 2.5 mg daily Persistent leukopenia even with Ibrance 125 mg for 14 days. Her last dose was 100 mg by mouth daily for 14 days q 28 days. Follow-up CT PET scan done on 02/17/2018 showed interval resolution of abnormal activity throughout the bone indicating positive response to therapy of widespread osseous metastatic disease. She had progression of her tumor marker so stopped the Ibrance and Femara. She was then treated with single agent Arimidex and monthly Xgeva. The Arimidex was discontinued on 08/02/2018 as her follow-up CT PET scan from 07/14/2018 showed evidence of disease progression. There has been development of new malignant mediastinal lymphadenopathy in the precarinal and [place]. These have SUV of 6.7, and subcentimeter suspicious superior mediastinal lymph nodes are also identified. Widespread osseous metastatic disease as the activated in a multifocal pattern, is seen most prominently in left scapula, thoracic spine, lumbar spine, pelvis and proximal femurs. And index lesion in the right ischium has SUV of 6. Tumor marker CA-27-29 is 393.47 on 07/30/2018 compared to 334.52 on 07/02/2018, 142.60 on 04/26/2018. recommended changing treatment to weekly paclitaxel. Ms. Booth began her first dose of weekly pack Taxol on August 28, 2018. She has tolerated it well thus far .Follow-up CT PET scan done on 09/29/2018 showed progression of widespread osseous metastatic disease since prior study, new unifocal hepatic metastatic disease, suspicious activity in right adrenal gland. Tumor marker CA-27-29 has gone down to 1197.6 on 09/24/2018 compared to 1327.6 on 09/04/2018, Weekly carboplatin was added to weekly Taxol on on 10/02/2018. with monthly Xgeva Follow-up CT PET scan done on 01/26/2019 showed widespread osseous metastatic disease seen on prior scan is unchanged remained FDG positive. The index lesion in the posterior right acetabulum that has SUV of 8 now is 6.6. Right hepatic lobe lesion now has SUV of 3.4 compared to 4.2 on prior study Right adrenal lesion is progressed now SUV 5.4 compared to 3.7 previous Left adrenal activity is slightly more prominent. Mild activity in the mediastinal lymph node is unchanged. Follow-up CT PET scan done after 6 cycles of carboplatin/Taxol showed overall no significant change since prior study and widespread osseous metastatic disease, right hepatic metastases, or bilateral adrenal uptake, Her follow-up CT PET scan shows stable disease but her tumor marker continued to go up and her lab workup shows persistent progressive cytopenias, in that case Dr Estrella did discontinue her chemotherapy and requested a switch to fulvestrant/ everolimus , fulvestrant 500 mg IM on day 1, 15 and day 29 thereafter every month and everolimus 10 mg by mouth daily , while continue with Xgeva every month. Her everolimus dose was decreased to 5 mg daily due to persistent side effects. She presented for followup on 07/01/2019 with multiple concerns. She had lost another 7 pounds since her last visit. She had worsening fatigue. She also reported having bilateral foot and hand pain as well as slight bleeding from her left nare. She states since holding the Afinitor and doing dexamethasone 4 mg po daily, she feels like a different person . She states she feels much better overall. She is tired but recovers with rest. Mrs. Booth resumed Afinitor 5 mg daily for 14 days on and 7 days off on September 02, 2019. Thus far she has tolerated it well. The main issue she has had with resuming the Afinitor is that she has now once again became anemic. Her iron studies and B12 have been normal. The Afinitor will be placed on hold again due to the anemia. Plan: Discussed with patient regarding her labs white blood count 4.5 hemoglobin 10.4 hematocrit 33, platelets 219,000 CMP within normal limits except creatinine 1.[address] PET scan findings Clinically, patient is doing well, tolerating Faslodex/Xgeva well, overall feeling better since discontinuation of everolimus. Her follow-up CT PET scan shows stable/ mild disease progression especially mild increase in SUV value in metastatic lesions. At this point, goal is to improve and maintain quality of life and patient is tolerating Faslodex and Xgeva well, we will add Femara 2.5 mg daily to the current regimen and also check her tumor marker CA-27-29/15.3 today and then repeat in the month to see if there is improvement. Return to clinic in one month with CBC CMP and CA-27-29/15.3 Mild anemia, hemoglobin stable we'll continue to monitor. Signed By: Stanley Estrella M.D. <<Signature on File>>
[2019-11-01 08:00] LABS: CA 15-3 535.7 U/mL (0-25)
== END 2019-11-28 23:59 | disposition home or self-care (01) ==
LOC: ONCMED 06:06
PROVIDERS: Absent Provider Nurse Practitioner; Visit Provider Internal Medicine Hematology & Oncology
DX: C50.812 Malignant neoplasm of overlapping sites of left female breast (principal); Z17.0 Estrogen receptor positive status [ER+]; C79.51 Secondary malignant neoplasm of bone; C77.8 Secondary and unspecified malignant neoplasm of lymph nodes of multiple regions; C78.7 Secondary malignant neoplasm of liver and intrahepatic bile duct; G89.3 Neoplasm related pain (acute) (chronic); D64.81 Anemia due to antineoplastic chemotherapy; Z92.3 Personal history of irradiation; Z79.899 Other long term (current) drug therapy
CPT/HCPCS: 80053; 85025; 86300; 96372; 96402; 99214; J0897; J9395

== ENCOUNTER 2019-12-02 06:47 | Outpatient (RCR) | payer MEDICARE, OTHER, SELFPAY ==
[2019-11-29 14:39] LABS: Basophils % 0.5 %; Eosinophils # 0.4 10^3/uL (0.0-0.8); Eosinophils % 9.3 %; Hematocrit 28.2 % (37.0-47.0); Hemoglobin 8.5 g/dL (11.5-15.3); Lymphocytes % 25.1 %; Mean Corpuscular HGB Conc 30.1 g/dL (30.0-36.0); Mean Corpuscular Hemoglobin 30.4 pg (28.0-34.0); Mean Corpuscular Volume 100.7 fL (81-99); Mean Platelet Volume 10.2 fL (7.4-10.4); Monocytes # 0.6 10^3/uL (0.2-0.9); Monocytes % 14.7 %; Neutrophils % 49.9 %; Nucleated Red Blood Cells % 0 %; Platelet Count 197 10^3/cmm (130-400); Red Cell Distribution Width 18.4 % (12.1-15.1); White Blood Count 4.1 10^3/uL (4.0-10.0)
[2019-11-29 16:34] LABS: Alanine Aminotransferase 12 U/L (0-33); Albumin Level 4.3 g/dL (3.5-5.2); Alkaline Phosphatase 55 IU/L (35-105); Anion Gap 16.5 (5-19); Aspartate Amino Transferase 32 U/L (0-32); Blood Urea Nitrogen 30 mg/dL (8-23); Calcium 9.6 mg/dL (8.5-10.5); Carbon Dioxide 24 mmol/L (22-29); Chloride 100 mmol/L (98-107); Globulin 2.7 g/dL (1.3-4.6); Glomerular Filtration Rate 29.7 mL/min (90-130); Glucose 75 mg/dL (65-115); Osmolality Calculated 276 mOsm/kg (285-295); Potassium 5.5 mmol/L (3.5-5.1); Sodium 135 mmol/L (136-145); Total Bilirubin 0.2 mg/dL (0.15-1.2)
[2019-11-29 17:01] LABS: CA 15-3 453.6 U/mL (0-25)
[2019-12-02] MEDS: denosumab 120 mg SDV SUBCUT (09:16)
[2019-12-02] MEDS: fulvestrant 250 mg/5 mL Syringe 500 MG IM (09:18)
--- NOTE | 2019-12-02 09:37 | ONC FU_ITS ---
Dr. Estrella follow up note Patient: Joana Booth Unit #: [id number]: 1950 Dicatated By: Stanley Estrella M.D.Date of Visit:December 02, 2019 Onc Med Follow-up/Prog Note History of Present Illness: Mrs Booth is a 69 -year-old female who presented with a left breast mass for 2-3 years. She did undergo mammography ultrasound and subsequently a biopsy of the left breast mass on 05/10/2017 which confirmed infiltrating lobular carcinoma, grade 2, ER positive MA positive HER-2 ivett negative. The KI 67 was 7%. She is negative for PIK 3CA. She underwent left modified radical mastectomy on 05/26/2017. Surgical pathology showed grade 2 infiltrating lobular carcinoma with extensive involvement of overlying skin and nipple and areola. Lymphovascular invasion was present including dermal lymphatics, negative surgical margin, the tumor size was 6.8 x 3.2 cm and metastatic carcinoma identified in one of 3 axillary lymph nodes. She recovered from surgery well she did complain of significant low back pain with bilateral flank and rib cage. She did have PET CT on 07/29/2017. It confirmed stage IV breast cancer with extensive skeletal metastatic disease. There are innumerable FDG avid osteolytic metastatic lesions throughout the axial and appendicular skeleton. There was no hepatic, adrenal or pulmonary metastasis. There was no pathological lymphadenopathy. She was referred to radiation oncology for palliative radiation. Dr. Beaver recommended radiation therapy to the lower lumbar spine/SI joints for pain relief and disease control. She received 3000 cGy to the L5???sacral area she began treatment on August 15 and completed it on 08/28/2017. Mrs. Booth began Ibrance and Femara for metastatic breast cancer on August 29, 2016. The first doses of Xgeva documented in our chart is 09-26-2017. Ibrance and Femara was discontinued on 05/31/2018 due to progressive tumor markers. She was started on Arimidex 1 mg by mouth daily along with monthly Xgeva. She discontinued the Armidex on 08/02/2018. Her CT PET scan done on 07/14/2018 showed disease progression e.g. reactivation of multifocal osseous metastatic disease, new malignant mediastinal lymphadenopathy, bilateral inflammatory lung infiltrates and tumor marker CA-27-29 gone up to 393.47 compared to 334.62 on 07/02/2018 and 142.60 on 04/26/2018 .BRCA1/2 negative Mrs. Booth was advised to pursue treatment with weekly paclitaxel and to continue her monthly Xgeva. She began her first dose of weekly paclitaxel on 08/28/2018. Weekly carboplatin was added on 10/02/2018, as her follow-up PET scan done on 09/29/2018 showed widespread osseous metastatic disease seen on prior studies significantly more FDG positive on the current. Index lesion in the posterior right acetabulum that previously has SUV of 4.8 now has 8 there is a similar progression multiple other lesions throughout the spine sternum scapula pelvic and femurs. A new right hepatic lobe hypodensity measuring 1.4 cm has SUV of 4.2 and is a questionable activity in the region of right adrenal, suggesting metastatic disease. Her tumor marker CA-27-29 had gone down to 1197.6 on 09/24/2018 compared to 1327.6 on 09/04/2018 Mrs. Booth began chemotherapy with carboplatin and paclitaxel on 10/04/2018. and cont'd with monthly Xgeva Due to progressive leukopenia/neutropenia she is requiring Neupogen in between her weekly carboplatin and Taxol to maintain the schedule and responding well CT PET scan done on 01/26/2019 showed stable disease e.g. no significant change in FDG positive widespread osseous metastatic disease. Minimal improvement in the hepatic metastatic disease. Mild progression in right adrenal lesion and questionable new left adrenal lesion. No change in mild FDG activity in the mediastinum. Follow-up CT PET scan done After 6 cycles of weekly carboplatin Taxol on 04/06/2019 showed overall, no significant changes since prior study, widespread FDG positive osseous metastatic disease is unchanged. No change in right hepatic metastatic disease, no change in bilateral adrenal uptake Minimally improved in the subaortic mediastinal lymph nodes. Due to maximum benefit and progressive toxicity with chemotherapy (thrombocytopenia and persistent anemia, decreasing performance status), her treatment plan with carboplatin/Taxol was discontinued on 04/10/2019 and she was switched to fulvestrant /everolimus. everolimus was held due to progressive leukopenia/neutropenia and generalized weakness and fatigue and weight loss, reduced dose e.g. 5 mg daily still caused progressive leukopenia. On 09/03/2019, everolimus was re-started at 5 mg daily for 2 weeks on and then week off along with monthly Faslodex and Xgeva. Her last dose of Faslodex and Xgeva was on 09/02/2019.because of progressive weakness and fatigue, everolimus was discontinued and plan to continue with Faslodex and Xgeva alone unless CT PET scan shows progression. Follow-up CT PET scan done on 10/26/2019 showed increasing FDG activity in widespread osseous metastatic disease, consistent with mild progression,e.g. SUV now is 5.2 compared to 2.7 earlier on 07/13/2019. no new bony lesion seen Multifocal hepatic metastatic disease is not significantly changed. Right adrenal lesion is minimally progressed e.g. SUV 5.2 compared to 3.6 previously. There is no significant left adrenal activity with SUV of 4.9. In the mediastinum and subaortic node is progressed no SUV 5.9 and other nodes in the right paratracheal and bilateral hilar region weekly FDG positive may be reactive. because of mild disease progression and intolerance to evrolimus ,On 10/31/2019, Femara 2.5 mg was added to Faslodex/Xgeva Came for follow-up, denies any specific complaints, no fever or chills, no nausea or vomiting, no diarrhea constipation, chronic lower back pain is under control with current pain medication. Overall feeling well tolerating Faslodex/Femara/Xgeva well Medications: Acetaminophen Tablet Oral PRN, [facility]-[place] [facility] Allergy & Cgh 1 (5-6.25-10-325 mg) Capsule Oral at bedtime PRN, Benadryl Allergy 1 Tablet (of 25 mg) Oral daily PRN, Calcium Magnesium zinc 3 Tablet Oral daily, Hydrocortisone 1 (1 %) Cream Topical PRN, Letrozole 1 Tablet (of 2.5 mg) Oral daily, Oxycodone-Acetaminophen 0.5 Tablet (of 5-325 mg) Oral q 4 to 6 hours PRN, PriLOSEC OTC 1 Tablet (of 20 mg) Tablet, enteric coated Oral daily Allergies: Ibuprofen and Penicillins. Review of Systems: Review of Systems is not available for this patient. Vital Signs: Performed on December 02, 2019 08:44 Height - 64.00 in Weight - 115.8 lbs (LOW) BSA - 1.55 sq.m BMI - 19.88 Temperature - 97.8 F (LOW) Pulse - 61 /min Respiration - 18 /min BP - 86/56 mm(hg) (LOW) O2 Sat - 100 % Pain - 2 Performance Status: 1 - No physically strenuous activity, but ambulatory and able to carry out light or sedentary work (e.g. office work, light house work). (ECOG) Physical Examination: Respiratory - Lungs are clear, Cardiovascular - Regular rate and rhythm of heart, Extremities - trace edema. Lab/Imaging: Test performed on Oct 31, 2019 08:10 CA 15-3 535.7 U/mL Test performed on Oct 30, 2019 08:10 Sodium 135 mmol/L Potassium 4.9 mmol/L Chloride 98 mmol/L CO2 25 mmol/L Anion Gap 16.9 BUN 29 mg/dL Creatinine 1.6 mg/dL Cr Clearance (Est) 27.2200 mL/min eGFR 31.9 mL/min Glucose 73 mg/dL Calcium 9.7 mg/dL Protein, Total 6.7 g/dL Albumin 4.2 g/dL Globulin 2.5 g/dL Bilirubin, Total 0.2 mg/dL ALT (SGPT) 17 U/L AST (SGOT) 36 U/L Alkaline Phosphatase 64 IU/L WBC 4.5 10 3/uL RBC 3.40 10 6/uL HGB 10.4 g/dL HCT 33.0 % MCV 97.1 fL MCH 30.6 pg MCHC 31.5 g/dL RDW 17.1 % Platelet Count 219 10 3/cmm MPV 9.9 fL Neutrophils 2.5 10 3/uL Lymphocytes 1.0 10 3/uL Monocytes 0.6 10 3/uL Eosinophils 0.3 10 3/uL Basophils 0.0 10 3/uL Neutrophil % 55.8 % Lymphocyte % 23.1 % Monocyte % 13.0 % Eosinophil % 7.0 % Basophils % 0.4 % Test performed on Sep 23, 2019 14:55 Ferritin 731 ng/mL % Iron Saturation 47.5 % Iron, Total 99 mcg/dL TIBC 208 mcg/dL Test performed on Jul 17, 2019 12:49 Packed Red Cells (PRBC) [id number] TRANSFUSED PRODUCT: LEUKOREDUCED RED CELL 1ST CONT COUNT: 2 Type & Screen BLD TYPE A POSITIVE AB SCREEN GEL NEGATIVE BLD TYPE A POSITIVE AB SCREEN GEL NEGATIVE Test performed on Jul 01, 2019 09:52 Homocysteine 20 umol/L T3, Free 2.5 PG/ML T4, Free 1.27 ng/dL TSH 1.20 uIU/mL Vitamin B12 575 pg/mL UIBC 185 ug/dL CA 27.29 781.10 U/mL Impression: Metastatic infiltrating lobular carcinoma with extensive axial and appendicular skeleton metastases per CT PET scan done on 07/29/2017. Infiltrating lobular carcinoma involving left breast status post MRM on 05/26/2017 final path report shows infiltrating lobular carcinoma grade 2, extensive involvement of overlying skin at nipple and areola, positive lymphovascular space invasion including dermal lymphatics. Deep margins free of tumor size of tumor 6.8 x 3.2 cm T4b (skin involvement) Metastatic tumor in 1 out of 3 axillary lymph nodes N1 stage IV Extensive bone metastases are CT PET scan done on 07/29/2017 And her molecular studies showed negative for PIK3CA and BRCA 1 and 2 Tumor marker CA-27-29 1455.11 and CA 15.3 is 653.1 Repeat tumor markers CA-27-29 on 11/02/2017 was 167.77 and CA 15.3 was 89.6 estrogen receptor 100% progesterone receptors 100% HER-2/ivett negative by IHC and over amplification by fish and Ki-67 7 % Status post radiation therapy to lumbar sacral spine from 08/15/2017 to 08/28/2017 Mrs Booth was on Ibrance 125 mg by mouth daily for 21 days and then week off and repeat cycle every 28 days along with Femara 2.5 mg daily since 08/29/2017. Because of leukopenia at day 28, will reduce Ibrance dose to 100 mg by mouth for 21 days on 1 week off repeat 28 days. Along with Femara 2.5 mg daily Persistent leukopenia even with Ibrance 125 mg for 14 days. Her last dose was 100 mg by mouth daily for 14 days q 28 days. Follow-up CT PET scan done on 02/17/2018 showed interval resolution of abnormal activity throughout the bone indicating positive response to therapy of widespread osseous metastatic disease. She had progression of her tumor marker so stopped the Ibrance and Femara. She was then treated with single agent Arimidex and monthly Xgeva. The Arimidex was discontinued on 08/02/2018 as her follow-up CT PET scan from 07/14/2018 showed evidence of disease progression. There has been development of new malignant mediastinal lymphadenopathy in the precarinal and [place]. These have SUV of 6.7, and subcentimeter suspicious superior mediastinal lymph nodes are also identified. Widespread osseous metastatic disease as the activated in a multifocal pattern, is seen most prominently in left scapula, thoracic spine, lumbar spine, pelvis and proximal femurs. And index lesion in the right ischium has SUV of 6. Tumor marker CA-27-29 is 393.47 on 07/30/2018 compared to 334.52 on 07/02/2018, 142.60 on 04/26/2018. recommended changing treatment to weekly paclitaxel. Ms. Booth began her first dose of weekly pack Taxol on August 28, 2018. She has tolerated it well thus far .Follow-up CT PET scan done on 09/29/2018 showed progression of widespread osseous metastatic disease since prior study, new unifocal hepatic metastatic disease, suspicious activity in right adrenal gland. Tumor marker CA-27-29 has gone down to 1197.6 on 09/24/2018 compared to 1327.6 on 09/04/2018, Weekly carboplatin was added to weekly Taxol on on 10/02/2018. with monthly Xgeva Follow-up CT PET scan done on 01/26/2019 showed widespread osseous metastatic disease seen on prior scan is unchanged remained FDG positive. The index lesion in the posterior right acetabulum that has SUV of 8 now is 6.6. Right hepatic lobe lesion now has SUV of 3.4 compared to 4.2 on prior study Right adrenal lesion is progressed now SUV 5.4 compared to 3.7 previous Left adrenal activity is slightly more prominent. Mild activity in the mediastinal lymph node is unchanged. Follow-up CT PET scan done after 6 cycles of carboplatin/Taxol showed overall no significant change since prior study and widespread osseous metastatic disease, right hepatic metastases, or bilateral adrenal uptake, Her follow-up CT PET scan shows stable disease but her tumor marker continued to go up and her lab workup shows persistent progressive cytopenias, in that case Dr Estrella did discontinue her chemotherapy and requested a switch to fulvestrant/ everolimus , fulvestrant 500 mg IM on day 1, 15 and day 29 thereafter every month and everolimus 10 mg by mouth daily , while continue with Xgeva every month. Her everolimus dose was decreased to 5 mg daily due to persistent side effects. She presented for followup on 07/01/2019 with multiple concerns. She had lost another 7 pounds since her last visit. She had worsening fatigue. She also reported having bilateral foot and hand pain as well as slight bleeding from her left nare. She states since holding the Afinitor and doing dexamethasone 4 mg po daily, she feels like a different person . She states she feels much better overall. She is tired but recovers with rest. Mrs. Booth resumed Afinitor 5 mg daily for 14 days on and 7 days off on September 02, 2019. Thus far she has tolerated it well. The main issue she has had with resuming the Afinitor is that she has now once again became anemic. Her iron studies and B12 have been normal. The Afinitor will be placed on hold again due to the anemia. Plan: Discussed with patient regarding her labs white blood count 4.1 hemoglobin 8.5 hematocrit 28.2 platelets 197,000 CMP within normal limits except potassium 5.5 and creatinine 1.7 and tumor marker CA 15.3 is down to 453.6 compared to 535.7 Clinically, patient is doing reasonably well, no new signs symptom suggestive of disease progression, tolerating Faslodex/Femara/Xgeva well. We'll proceed with her next monthly dose of Faslodex/Xgeva today and then she will return to clinic in one month as her follow-up lab showed tumor marker is improved since Femara was added. We'll continue with same and repeat her tumor marker in a month along with CBC CMP. Patient continued to improve/tolerate we'll continue same otherwise plan accordingly Mild renal insufficiency/hyperkalemia, patient was advised to maintain good hydration and avoid citrus-based food and will repeat her labs. Mild to moderate anemia, her anemia workup was inconclusive so possibilities could be due to metastatic bone metastases or considering her age underlying myelodysplasia cannot be ruled out. We'll continue to monitor if hemoglobin drops below 8 g we'll consider blood transfusion. return to clinic in one month with CBC CMP and CA 15.3 Signed By: Stanley Estrella M.D. <<Signature on File>>
[2019-12-03 10:37] LABS: CA 27.29 787 U/mL (<38)
== END 2019-12-29 23:59 | disposition home or self-care (01) ==
LOC: ONCMED 06:47
PROVIDERS: Visit Provider Internal Medicine Hematology & Oncology
DX: C50.812 Malignant neoplasm of overlapping sites of left female breast (principal); C79.51 Secondary malignant neoplasm of bone; C78.7 Secondary malignant neoplasm of liver and intrahepatic bile duct; C77.1 Secondary and unspecified malignant neoplasm of intrathoracic lymph nodes; N28.9 Disorder of kidney and ureter, unspecified; E87.5 Hyperkalemia; D64.9 Anemia, unspecified; E27.9 Disorder of adrenal gland, unspecified; Z17.0 Estrogen receptor positive status [ER+]; Z79.818 Long term (current) use of other agents affecting estrogen receptors and estrogen levels; Z79.899 Other long term (current) drug therapy
CPT/HCPCS: 36415; 80053; 85025; 86300; 96372; 96402; 99214; J0897; J9395

== ENCOUNTER 2020-01-02 05:39 | Outpatient (RCR) | payer MEDICARE, OTHER, SELFPAY ==
[2020-01-01 12:18] LABS: Basophils % 0.4 %; Eosinophils # 0.5 10^3/uL (0.0-0.8); Hematocrit 29.4 % (37.0-47.0); Hemoglobin 8.9 g/dL (11.5-15.3); Lymphocytes # 1.1 10^3/uL (0.8-4.8); Mean Corpuscular HGB Conc 30.3 g/dL (30.0-36.0); Mean Corpuscular Hemoglobin 31.8 pg (28.0-34.0); Mean Platelet Volume 10.1 fL (7.4-10.4); Monocytes # 0.6 10^3/uL (0.2-0.9); Monocytes % 11.7 %; Neutrophils # 3.1 10^3/uL (1.8-7.7); Neutrophils % 57.5 %; Nucleated Red Blood Cells % 0 %; Platelet Count 228 10^3/cmm (130-400); Red Cell Distribution Width 17.5 % (12.1-15.1); White Blood Count 5.3 10^3/uL (4.0-10.0)
[2020-01-01 14:20] LABS: CA 15-3 539.6 U/mL (0-25)
[2020-01-02] MEDS: denosumab 120 mg SDV SUBCUT (11:05)
[2020-01-02] MEDS: fulvestrant 250 mg/5 mL Syringe 500 MG IM (11:08)
--- NOTE | 2020-01-02 11:09 | ONC FU_ITS ---
Dr. Estrella follow up note Patient: Joana Booth Unit #: [id number]: 1950 Dicatated By: Stanley Estrella M.D.Date of Visit:Jan 02, 2020 Onc Med Follow-up/Prog Note History of Present Illness: Mrs Booth is a 69 -year-old female who presented with a left breast mass for 2-3 years. She did undergo mammography ultrasound and subsequently a biopsy of the left breast mass on 05/10/2017 which confirmed infiltrating lobular carcinoma, grade 2, ER positive NE positive HER-2 ivett negative. The KI 67 was 7%. She is negative for PIK 3CA. She underwent left modified radical mastectomy on 05/26/2017. Surgical pathology showed grade 2 infiltrating lobular carcinoma with extensive involvement of overlying skin and nipple and areola. Lymphovascular invasion was present including dermal lymphatics, negative surgical margin, the tumor size was 6.8 x 3.2 cm and metastatic carcinoma identified in one of 3 axillary lymph nodes. She recovered from surgery well she did complain of significant low back pain with bilateral flank and rib cage. She did have PET CT on 07/29/2017. It confirmed stage IV breast cancer with extensive skeletal metastatic disease. There are innumerable FDG avid osteolytic metastatic lesions throughout the axial and appendicular skeleton. There was no hepatic, adrenal or pulmonary metastasis. There was no pathological lymphadenopathy. She was referred to radiation oncology for palliative radiation. Dr. Beaver recommended radiation therapy to the lower lumbar spine/SI joints for pain relief and disease control. She received 3000 cGy to the L5???sacral area she began treatment on August 15 and completed it on 08/28/2017. Mrs. Booth began Ibrance and Femara for metastatic breast cancer on August 29, 2016. The first doses of Xgeva documented in our chart is 09-26-2017. Ibrance and Femara was discontinued on 05/31/2018 due to progressive tumor markers. She was started on Arimidex 1 mg by mouth daily along with monthly Xgeva. She discontinued the Armidex on 08/02/2018. Her CT PET scan done on 07/14/2018 showed disease progression e.g. reactivation of multifocal osseous metastatic disease, new malignant mediastinal lymphadenopathy, bilateral inflammatory lung infiltrates and tumor marker CA-27-29 gone up to 393.47 compared to 334.62 on 07/02/2018 and 142.60 on 04/26/2018 .BRCA1/2 negative Mrs. Booth was advised to pursue treatment with weekly paclitaxel and to continue her monthly Xgeva. She began her first dose of weekly paclitaxel on 08/28/2018. Weekly carboplatin was added on 10/02/2018, as her follow-up PET scan done on 09/29/2018 showed widespread osseous metastatic disease seen on prior studies significantly more FDG positive on the current. Index lesion in the posterior right acetabulum that previously has SUV of 4.8 now has 8 there is a similar progression multiple other lesions throughout the spine sternum scapula pelvic and femurs. A new right hepatic lobe hypodensity measuring 1.4 cm has SUV of 4.2 and is a questionable activity in the region of right adrenal, suggesting metastatic disease. Her tumor marker CA-27-29 had gone down to 1197.6 on 09/24/2018 compared to 1327.6 on 09/04/2018 Mrs. Booth began chemotherapy with carboplatin and paclitaxel on 10/04/2018. and cont'd with monthly Xgeva Due to progressive leukopenia/neutropenia she is requiring Neupogen in between her weekly carboplatin and Taxol to maintain the schedule and responding well CT PET scan done on 01/26/2019 showed stable disease e.g. no significant change in FDG positive widespread osseous metastatic disease. Minimal improvement in the hepatic metastatic disease. Mild progression in right adrenal lesion and questionable new left adrenal lesion. No change in mild FDG activity in the mediastinum. Follow-up CT PET scan done After 6 cycles of weekly carboplatin Taxol on 04/06/2019 showed overall, no significant changes since prior study, widespread FDG positive osseous metastatic disease is unchanged. No change in right hepatic metastatic disease, no change in bilateral adrenal uptake Minimally improved in the subaortic mediastinal lymph nodes. Due to minimum benefit and progressive toxicity with chemotherapy (thrombocytopenia and persistent anemia, decreasing performance status), her treatment plan with carboplatin/Taxol was discontinued on 04/10/2019 and she was switched to fulvestrant /everolimus. everolimus was held due to progressive leukopenia/neutropenia and generalized weakness and fatigue and weight loss, reduced dose e.g. 5 mg daily still caused progressive leukopenia. On 09/03/2019, everolimus was re-started at 5 mg daily for 2 weeks on and then week off along with monthly Faslodex and Xgeva. Her last dose of Faslodex and Xgeva was on 09/02/2019.because of progressive weakness and fatigue, everolimus was discontinued and plan to continue with Faslodex and Xgeva alone unless CT PET scan shows progression. Follow-up CT PET scan done on 10/26/2019 showed increasing FDG activity in widespread osseous metastatic disease, consistent with mild progression,e.g. SUV now is 5.2 compared to 2.7 earlier on 07/13/2019. no new bony lesion seen Multifocal hepatic metastatic disease is not significantly changed. Right adrenal lesion is minimally progressed e.g. SUV 5.2 compared to 3.6 previously. There is no significant left adrenal activity with SUV of 4.9. In the mediastinum and subaortic node is progressed no SUV 5.9 and other nodes in the right paratracheal and bilateral hilar region weekly FDG positive may be reactive. because of mild disease progression and intolerance to evrolimus ,On 10/31/2019, Femara 2.5 mg was added to Faslodex/Xgeva Came for follow-up, denies any specific complaints except generalized weakness and fatigue, no new bony pains except persistent mild lower back pain which is under control with current pain medication. Denies any fever chills denies any nausea or vomiting denies any jaundice denies any headaches. Overall feeling well tolerating Faslodex/Femara/Xgeva well Medications: Acetaminophen Tablet Oral PRN, Valeria-[facility]rest Pls Allergy & Cgh 1 (5-6.25-10-325 mg) Capsule Oral at bedtime PRN, Benadryl Allergy 1 Tablet (of 25 mg) Oral daily PRN, Calcium Magnesium zinc 3 Tablet Oral daily, Hydrocortisone 1 (1 %) Cream Topical PRN, Letrozole 1 Tablet (of 2.5 mg) Oral daily, Oxycodone-Acetaminophen 0.5 Tablet (of 5-325 mg) Oral q 4 to 6 hours PRN, PriLOSEC OTC 1 Tablet (of 20 mg) Tablet, enteric coated Oral daily Allergies: Ibuprofen and Penicillins. Review of Systems: Constitutional - No fevers, chills, night sweats, excessive fatigue. Weight is stable. Appetite is diminished and energy level is poor but stable, ENMT - No sinus congestion/drainage. No mouth sores. No sore throat or difficulty swallowing, Hematologic/Lymphatic - No abnormal bruising or bleeding, Respiratory - No dyspnea on exertion, chest pain, cough or hemoptysis, Cardiovascular - No angina pain. No palpitations, Gastrointestinal - No nausea, vomiting, GI bleeding, or constipation. No heartburn or acid reflux. Positive for occasional diarrhea, Genitourinary (F) - No hematuria, dysuria, increased frequency, urgency, hesitancy or incontinence, Musculoskeletal - Pt reports tooth pain, Integumentary - No skin issues at this time, Neurologic - No headache or dizziness. No numbness/paresthesias or other focal neurologic symptoms, Psychiatric - No insomnia, depression, shady or mood swings. Vital Signs: Performed on Jan 02, 2020 10:27 Height - 64.00 in Weight - 113.0 lbs (LOW) BSA - 1.53 sq.m BMI - 19.40 Temperature - 97.9 F (LOW) Pulse - 70 /min Respiration - 18 /min BP - 109/50 mm(hg) O2 Sat - 98 % Pain - 2 Performance Status: 1 - No physically strenuous activity, but ambulatory and able to carry out light or sedentary work (e.g. office work, light house work). (ECOG) Physical Examination: Respiratory - Lungs are clear, Cardiovascular - Regular rate and rhythm of heart, Extremities - no edema or rash. Lab/Imaging: Test performed on Jan 01, 2020 08:10 WBC 5.3 10 3/uL RBC 2.80 10 6/uL HGB 8.9 g/dL HCT 29.4 % MCV 105.0 fL MCH 31.8 pg MCHC 30.3 g/dL RDW 17.5 % Platelet Count 228 10 3/cmm MPV 10.1 fL Neutrophils 3.1 10 3/uL Lymphocytes 1.1 10 3/uL Monocytes 0.6 10 3/uL Eosinophils 0.5 10 3/uL Basophils 0.0 10 3/uL Neutrophil % 57.5 % Lymphocyte % 20.0 % Monocyte % 11.7 % Eosinophil % 10.0 % Basophils % 0.4 % CA 15-3 539.6 U/mL Test performed on November 29, 2019 06:55 Sodium 135 mmol/L Potassium 5.5 mmol/L Chloride 100 mmol/L CO2 24 mmol/L Anion Gap 16.5 BUN 30 mg/dL Creatinine 1.7 mg/dL Cr Clearance (Est) 25.6200 mL/min eGFR 29.7 mL/min Glucose 75 mg/dL Calcium 9.6 mg/dL Protein, Total 7.0 g/dL Albumin 4.3 g/dL Globulin 2.7 g/dL Bilirubin, Total 0.2 mg/dL ALT (SGPT) 12 U/L AST (SGOT) 32 U/L Alkaline Phosphatase 55 IU/L Test performed on Sep 23, 2019 14:55 Ferritin 731 ng/mL % Iron Saturation 47.5 % Iron, Total 99 mcg/dL TIBC 208 mcg/dL Test performed on Jul 17, 2019 12:49 Packed Red Cells (PRBC) [id number] TRANSFUSED PRODUCT: LEUKOREDUCED RED CELL 1ST CONT COUNT: 2 Type & Screen BLD TYPE A POSITIVE AB SCREEN GEL NEGATIVE BLD TYPE A POSITIVE AB SCREEN GEL NEGATIVE Impression: Metastatic infiltrating lobular carcinoma with extensive axial and appendicular skeleton metastases per CT PET scan done on 07/29/2017. Infiltrating lobular carcinoma involving left breast status post MRM on 05/26/2017 final path report shows infiltrating lobular carcinoma grade 2, extensive involvement of overlying skin at nipple and areola, positive lymphovascular space invasion including dermal lymphatics. Deep margins free of tumor size of tumor 6.8 x 3.2 cm T4b (skin involvement) Metastatic tumor in 1 out of 3 axillary lymph nodes N1 stage IV Extensive bone metastases are CT PET scan done on 07/29/2017 And her molecular studies showed negative for PIK3CA and BRCA 1 and 2 Tumor marker CA-27-29 1455.11 and CA 15.3 is 653.1 Repeat tumor markers CA-27-29 on 11/02/2017 was 167.77 and CA 15.3 was 89.6 estrogen receptor 100% progesterone receptors 100% HER-2/ivett negative by IHC and over amplification by fish and Ki-67 7 % Status post radiation therapy to lumbar sacral spine from 08/15/2017 to 08/28/2017 Mrs Booth was on Ibrance 125 mg by mouth daily for 21 days and then week off and repeat cycle every 28 days along with Femara 2.5 mg daily since 08/29/2017. Because of leukopenia at day 28, will reduce Ibrance dose to 100 mg by mouth for 21 days on 1 week off repeat 28 days. Along with Femara 2.5 mg daily Persistent leukopenia even with Ibrance 125 mg for 14 days. Her last dose was 100 mg by mouth daily for 14 days q 28 days. Follow-up CT PET scan done on 02/17/2018 showed interval resolution of abnormal activity throughout the bone indicating positive response to therapy of widespread osseous metastatic disease. She had progression of her tumor marker so stopped the Ibrance and Femara. She was then treated with single agent Arimidex and monthly Xgeva. The Arimidex was discontinued on 08/02/2018 as her follow-up CT PET scan from 07/14/2018 showed evidence of disease progression. There has been development of new malignant mediastinal lymphadenopathy in the precarinal and [place] window [place]. These have SUV of 6.7, and subcentimeter suspicious superior mediastinal lymph nodes are also identified. Widespread osseous metastatic disease as the activated in a multifocal pattern, is seen most prominently in left scapula, thoracic spine, lumbar spine, pelvis and proximal femurs. And index lesion in the right ischium has SUV of 6. Tumor marker CA-27-29 is 393.47 on 07/30/2018 compared to 334.52 on 07/02/2018, 142.60 on 04/26/2018. recommended changing treatment to weekly paclitaxel. Ms. Booth began her first dose of weekly pack Taxol on August 28, 2018. She has tolerated it well thus far .Follow-up CT PET scan done on 09/29/2018 showed progression of widespread osseous metastatic disease since prior study, new unifocal hepatic metastatic disease, suspicious activity in right adrenal gland. Tumor marker CA-27-29 has gone down to 1197.6 on 09/24/2018 compared to 1327.6 on 09/04/2018, Weekly carboplatin was added to weekly Taxol on on 10/02/2018. with monthly Xgeva Follow-up CT PET scan done on 01/26/2019 showed widespread osseous metastatic disease seen on prior scan is unchanged remained FDG positive. The index lesion in the posterior right acetabulum that has SUV of 8 now is 6.6. Right hepatic lobe lesion now has SUV of 3.4 compared to 4.2 on prior study Right adrenal lesion is progressed now SUV 5.4 compared to 3.7 previous Left adrenal activity is slightly more prominent. Mild activity in the mediastinal lymph node is unchanged. Follow-up CT PET scan done after 6 cycles of carboplatin/Taxol showed overall no significant change since prior study and widespread osseous metastatic disease, right hepatic metastases, or bilateral adrenal uptake, Her follow-up CT PET scan shows stable disease but her tumor marker continued to go up and her lab workup shows persistent progressive cytopenias, in that case , we did discontinue her chemotherapy and requested a switch to fulvestrant/ everolimus , fulvestrant 500 mg IM on day 1, 15 and day 29 thereafter every month and everolimus 10 mg by mouth daily , while continue with Xgeva every month. Her everolimus dose was decreased to 5 mg daily due to persistent side effects. She presented for followup on 07/01/2019 with multiple concerns. She had lost another 7 pounds since her last visit. She had worsening fatigue. She also reported having bilateral foot and hand pain as well as slight bleeding from her left nare. She states since holding the Afinitor and doing dexamethasone 4 mg po daily, she feels like a different person . She states she feels much better overall. She is tired but recovers with rest. Mrs. Booth resumed Afinitor 5 mg daily for 14 days on and 7 days off on September 02, 2019. Thus far she has tolerated it well. The main issue she has had with resuming the Afinitor is that she has now once again became anemic. Her iron studies and B12 have been normal. The Afinitor will be placed on hold again In September 2019 due to the anemia.In October 2019 Femara 2.5 mg was added to the Faslodex and Xgeva Plan: Discussed with patient regarding her labs white blood count 5.3 hemoglobin 8.9 hematocrit 29.4 platelets 228,000 CEA 15.3 539.6 compared to 453 on November 29, 2019 Clinically, patient doing reasonably well with no new signs symptoms suggestive of disease progression but her tumor marker shows progression. We will proceed with her next dose of Faslodex/Xgeva and then she will continue her daily Femara. We will consider follow-up CT PET scan in a month to assess disease status and then plan accordingly Return to clinic in 1 month with CBC CMP and with follow-up CT PET scan Mild/moderate anemia, well compensated, hemoglobin stable rather improving, will continue to monitor Signed By: Stanley Estrella M.D. <<Signature on File>>
== END 2020-01-28 23:59 | disposition home or self-care (01) ==
LOC: ONCMED 05:39
PROVIDERS: Visit Provider Internal Medicine Hematology & Oncology
DX: Z51.11 Encounter for antineoplastic chemotherapy (principal); C50.812 Malignant neoplasm of overlapping sites of left female breast; Z17.0 Estrogen receptor positive status [ER+]; C79.51 Secondary malignant neoplasm of bone; C77.1 Secondary and unspecified malignant neoplasm of intrathoracic lymph nodes; C78.7 Secondary malignant neoplasm of liver and intrahepatic bile duct; D64.81 Anemia due to antineoplastic chemotherapy; G89.3 Neoplasm related pain (acute) (chronic); R97.8 Other abnormal tumor markers; J45.909 Unspecified asthma, uncomplicated; Z92.3 Personal history of irradiation; Z79.818 Long term (current) use of other agents affecting estrogen receptors and estrogen levels
CPT/HCPCS: 36415; 85025; 86300; 96372; 96402; 99214; J0897; J9395

== ENCOUNTER 2020-02-05 06:40 | Outpatient (RCR) | payer MEDICARE, OTHER, SELFPAY ==
[2020-02-04 12:34] LABS: Basophils % 0.3 %; Eosinophils # 0.8 10^3/uL (0.0-0.8); Eosinophils % 12.8 %; Hemoglobin 8.6 g/dL (11.5-15.3); Lymphocytes # 0.9 10^3/uL (0.8-4.8); Lymphocytes % 14.8 %; Mean Corpuscular HGB Conc 30.7 g/dL (30.0-36.0); Mean Corpuscular Hemoglobin 33.1 pg (28.0-34.0); Mean Corpuscular Volume 107.7 fL (81-99); Mean Platelet Volume 9.7 fL (7.4-10.4); Monocytes # 0.7 10^3/uL (0.2-0.9); Monocytes % 11.4 %; Neutrophils # 3.5 10^3/uL (1.8-7.7); Nucleated Red Blood Cells % 0 %; Platelet Count 250 10^3/cmm (130-400); Red Cell Distribution Width 13.5 % (12.1-15.1); White Blood Count 5.9 10^3/uL (4.0-10.0)
[2020-02-04 13:27] LABS: Alanine Aminotransferase 9 U/L (0-33); Albumin Level 4.5 g/dL (3.5-5.2); Alkaline Phosphatase 53 IU/L (35-105); Anion Gap 18.7 (5-19); Aspartate Amino Transferase 43 U/L (0-32); Blood Urea Nitrogen 31 mg/dL (8-23); Carbon Dioxide 23 mmol/L (22-29); Chloride 98 mmol/L (98-107); Globulin 3.2 g/dL (1.3-4.6); Glomerular Filtration Rate 31.9 mL/min (90-130); Glucose 79 mg/dL (65-115); Osmolality Calculated 276 mOsm/kg (285-295); Potassium 4.7 mmol/L (3.5-5.1); Sodium 135 mmol/L (136-145); Total Bilirubin 0.2 mg/dL (0.15-1.2); Total Protein 7.7 g/dL (6.6-8.7)
[2020-02-05] MEDS: fulvestrant 250 mg/5 mL Syringe 500 MG IM (12:21)
[2020-02-05] MEDS: denosumab 120 mg SDV SUBCUT (12:23)
--- NOTE | 2020-02-05 16:26 | ONC FU_ITS ---
Dr. Estrella follow up note Patient: Joana Booth Unit #: [id number]: 1950 Dicatated By: Stanley Estrella M.D.Date of Visit:Feb 05, 2020 Onc Med Follow-up/Prog Note History of Present Illness: Mrs Booth is a 69 -year-old female who presented with a left breast mass for 2-3 years. She did undergo mammography ultrasound and subsequently a biopsy of the left breast mass on 05/10/2017 which confirmed infiltrating lobular carcinoma, grade 2, ER positive TN positive HER-2 ivett negative. The KI 67 was 7%. She is negative for PIK 3CA. She underwent left modified radical mastectomy on 05/26/2017. Surgical pathology showed grade 2 infiltrating lobular carcinoma with extensive involvement of overlying skin and nipple and areola. Lymphovascular invasion was present including dermal lymphatics, negative surgical margin, the tumor size was 6.8 x 3.2 cm and metastatic carcinoma identified in one of 3 axillary lymph nodes. She recovered from surgery well she did complain of significant low back pain with bilateral flank and rib cage. She did have PET CT on 07/29/2017. It confirmed stage IV breast cancer with extensive skeletal metastatic disease. There are innumerable FDG avid osteolytic metastatic lesions throughout the axial and appendicular skeleton. There was no hepatic, adrenal or pulmonary metastasis. There was no pathological lymphadenopathy. She was referred to radiation oncology for palliative radiation. Dr. Beaver recommended radiation therapy to the lower lumbar spine/SI joints for pain relief and disease control. She received 3000 cGy to the L5???sacral area she began treatment on August 15 and completed it on 08/28/2017. Mrs. Booth began Ibrance and Femara for metastatic breast cancer on August 29, 2016. The first doses of Xgeva documented in our chart is 09-26-2017. Ibrance and Femara was discontinued on 05/31/2018 due to progressive tumor markers. She was started on Arimidex 1 mg by mouth daily along with monthly Xgeva. She discontinued the Armidex on 08/02/2018. Her CT PET scan done on 07/14/2018 showed disease progression e.g. reactivation of multifocal osseous metastatic disease, new malignant mediastinal lymphadenopathy, bilateral inflammatory lung infiltrates and tumor marker CA-27-29 gone up to 393.47 compared to 334.62 on 07/02/2018 and 142.60 on 04/26/2018 .BRCA1/2 negative Mrs. Booth was advised to pursue treatment with weekly paclitaxel and to continue her monthly Xgeva. She began her first dose of weekly paclitaxel on 08/28/2018. Weekly carboplatin was added on 10/02/2018, as her follow-up PET scan done on 09/29/2018 showed widespread osseous metastatic disease seen on prior studies significantly more FDG positive on the current. Index lesion in the posterior right acetabulum that previously has SUV of 4.8 now has 8 there is a similar progression multiple other lesions throughout the spine sternum scapula pelvic and femurs. A new right hepatic lobe hypodensity measuring 1.4 cm has SUV of 4.2 and is a questionable activity in the region of right adrenal, suggesting metastatic disease. Her tumor marker CA-27-29 had gone down to 1197.6 on 09/24/2018 compared to 1327.6 on 09/04/2018 Mrs. Booth began chemotherapy with carboplatin and paclitaxel on 10/04/2018. and cont'd with monthly Xgeva Due to progressive leukopenia/neutropenia she is requiring Neupogen in between her weekly carboplatin and Taxol to maintain the schedule and responding well CT PET scan done on 01/26/2019 showed stable disease e.g. no significant change in FDG positive widespread osseous metastatic disease. Minimal improvement in the hepatic metastatic disease. Mild progression in right adrenal lesion and questionable new left adrenal lesion. No change in mild FDG activity in the mediastinum. Follow-up CT PET scan done After 6 cycles of weekly carboplatin Taxol on 04/06/2019 showed overall, no significant changes since prior study, widespread FDG positive osseous metastatic disease is unchanged. No change in right hepatic metastatic disease, no change in bilateral adrenal uptake Minimally improved in the subaortic mediastinal lymph nodes. Due to minimum benefit and progressive toxicity with chemotherapy (thrombocytopenia and persistent anemia, decreasing performance status), her treatment plan with carboplatin/Taxol was discontinued on 04/10/2019 and she was switched to fulvestrant /everolimus. everolimus was held due to progressive leukopenia/neutropenia and generalized weakness and fatigue and weight loss, reduced dose e.g. 5 mg daily still caused progressive leukopenia. On 09/03/2019, everolimus was re-started at 5 mg daily for 2 weeks on and then week off along with monthly Faslodex and Xgeva. Her last dose of Faslodex and Xgeva was on 09/02/2019.because of progressive weakness and fatigue, everolimus was discontinued and plan to continue with Faslodex and Xgeva alone unless CT PET scan shows progression. Follow-up CT PET scan done on 10/26/2019 showed increasing FDG activity in widespread osseous metastatic disease, consistent with mild progression,e.g. SUV now is 5.2 compared to 2.7 earlier on 07/13/2019. no new bony lesion seen Multifocal hepatic metastatic disease is not significantly changed. Right adrenal lesion is minimally progressed e.g. SUV 5.2 compared to 3.6 previously. There is no significant left adrenal activity with SUV of 4.9. In the mediastinum and subaortic node is progressed no SUV 5.9 and other nodes in the right paratracheal and bilateral hilar region weekly FDG positive may be reactive. because of mild disease progression and intolerance to evrolimus ,On 10/31/2019, Femara 2.5 mg was added to Faslodex/Xgeva , Follow-up CT PET scan done on January 25, 2020 shows no evidence of disease progression but her tumor marker CA-27-29 was progressive so Femara was discontinued and she was started on Aromasin 25 mg daily on January 25, 2020 and continued with monthly Faslodex and Xgeva on Follow-up CT PET scan done on January 25, 2020 showed no change in FDG positive widespread osseous metastatic disease. No change in multifocal hepatic metastatic disease. No change in probable reactive mediastinal lymphadenopathy, resolution of abnormal activity in both adrenal glands. Came for follow-up, denies any specific complaints except mild to moderate generalized weakness and fatigue otherwise no fever chills, no nausea or vomiting, no diarrhea or constipation, appetite is good Medications: Acetaminophen Tablet Oral PRN, Valeria-Boron Pls Allergy & Cgh 1 (5-6.25-10-325 mg) Capsule Oral at bedtime PRN, Benadryl Allergy 1 Tablet (of 25 mg) Oral daily PRN, Calcium Magnesium zinc 3 Tablet Oral daily, Hydrocortisone 1 (1 %) Cream Topical PRN, Letrozole 1 Tablet (of 2.5 mg) Oral daily, Oxycodone-Acetaminophen 0.5 Tablet (of 5-325 mg) Oral q 4 to 6 hours PRN, PriLOSEC OTC 1 Tablet (of 20 mg) Tablet, enteric coated Oral daily Allergies: Ibuprofen and Penicillins. Review of Systems: Constitutional - No fevers, chills, night sweats, excessive fatigue. Weight is stable. Appetite is diminished and energy level is poor but stable, ENMT - No sinus congestion/drainage. No mouth sores. No sore throat or difficulty swallowing, Hematologic/Lymphatic - No abnormal bruising or bleeding, Respiratory - No dyspnea on exertion, chest pain, cough or hemoptysis, Cardiovascular - No angina pain. No palpitations, Gastrointestinal - No nausea, vomiting, GI bleeding, or constipation. No heartburn or acid reflux. Positive for occasional diarrhea, Genitourinary (F) - No hematuria, dysuria, increased frequency, urgency, hesitancy or incontinence, Musculoskeletal - No joint or bone pain reported today, Integumentary - No skin issues at this time, Neurologic - No headache or dizziness. No numbness/paresthesias or other focal neurologic symptoms, Psychiatric - No insomnia, depression, shady or mood swings. Vital Signs: Performed on Feb 05, 2020 11:33 Height - 64.00 in Weight - 110 lbs (LOW) BSA - 1.52 sq.m BMI - 18.88 Temperature - 98.3 F (LOW) Pulse - 73 /min Respiration - 18 /min BP - 116/47 mm(hg) O2 Sat - 96 % Pain - 3 Performance Status: 1 - No physically strenuous activity, but ambulatory and able to carry out light or sedentary work (e.g. office work, light house work). (ECOG) Physical Examination: Respiratory - Lungs are clear, Cardiovascular - Regular rate and rhythm of heart, Gastrointestinal - Abdomen soft, bowel sounds present, Extremities - No visible edema. Lab/Imaging: Test performed on Jan 01, 2020 08:10 WBC 5.3 10 3/uL RBC 2.80 10 6/uL HGB 8.9 g/dL HCT 29.4 % MCV 105.0 fL MCH 31.8 pg MCHC 30.3 g/dL RDW 17.5 % Platelet Count 228 10 3/cmm MPV 10.1 fL Neutrophils 3.1 10 3/uL Lymphocytes 1.1 10 3/uL Monocytes 0.6 10 3/uL Eosinophils 0.5 10 3/uL Basophils 0.0 10 3/uL Neutrophil % 57.5 % Lymphocyte % 20.0 % Monocyte % 11.7 % Eosinophil % 10.0 % Basophils % 0.4 % CA 15-3 539.6 U/mL Test performed on November 29, 2019 06:55 Sodium 135 mmol/L Potassium 5.5 mmol/L Chloride 100 mmol/L CO2 24 mmol/L Anion Gap 16.5 BUN 30 mg/dL Creatinine 1.7 mg/dL Cr Clearance (Est) 25.6200 mL/min eGFR 29.7 mL/min Glucose 75 mg/dL Calcium 9.6 mg/dL Protein, Total 7.0 g/dL Albumin 4.3 g/dL Globulin 2.7 g/dL Bilirubin, Total 0.2 mg/dL ALT (SGPT) 12 U/L AST (SGOT) 32 U/L Alkaline Phosphatase 55 IU/L Test performed on Sep 23, 2019 14:55 Ferritin 731 ng/mL % Iron Saturation 47.5 % Iron, Total 99 mcg/dL TIBC 208 mcg/dL Impression: Metastatic infiltrating lobular carcinoma with extensive axial and appendicular skeleton metastases per CT PET scan done on 07/29/2017. Infiltrating lobular carcinoma involving left breast status post MRM on 05/26/2017 final path report shows infiltrating lobular carcinoma grade 2, extensive involvement of overlying skin at nipple and areola, positive lymphovascular space invasion including dermal lymphatics. Deep margins free of tumor size of tumor 6.8 x 3.2 cm T4b (skin involvement) Metastatic tumor in 1 out of 3 axillary lymph nodes N1 stage IV Extensive bone metastases are CT PET scan done on 07/29/2017 And her molecular studies showed negative for PIK3CA and BRCA 1 and 2 Tumor marker CA-27-29 1455.11 and CA 15.3 is 653.1 Repeat tumor markers CA-27-29 on 11/02/2017 was 167.77 and CA 15.3 was 89.6 estrogen receptor 100% progesterone receptors 100% HER-2/ivett negative by IHC and over amplification by fish and Ki-67 7 % Status post radiation therapy to lumbar sacral spine from 08/15/2017 to 08/28/2017 Mrs Booth was on Ibrance 125 mg by mouth daily for 21 days and then week off and repeat cycle every 28 days along with Femara 2.5 mg daily since 08/29/2017. Because of leukopenia at day 28, will reduce Ibrance dose to 100 mg by mouth for 21 days on 1 week off repeat 28 days. Along with Femara 2.5 mg daily Persistent leukopenia even with Ibrance 125 mg for 14 days. Her last dose was 100 mg by mouth daily for 14 days q 28 days. Follow-up CT PET scan done on 02/17/2018 showed interval resolution of abnormal activity throughout the bone indicating positive response to therapy of widespread osseous metastatic disease. She had progression of her tumor marker so stopped the Ibrance and Femara. She was then treated with single agent Arimidex and monthly Xgeva. The Arimidex was discontinued on 08/02/2018 as her follow-up CT PET scan from 07/14/2018 showed evidence of disease progression. There has been development of new malignant mediastinal lymphadenopathy in the precarinal and [place] window [place]. These have SUV of 6.7, and subcentimeter suspicious superior mediastinal lymph nodes are also identified. Widespread osseous metastatic disease as the activated in a multifocal pattern, is seen most prominently in left scapula, thoracic spine, lumbar spine, pelvis and proximal femurs. And index lesion in the right ischium has SUV of 6. Tumor marker CA-27-29 is 393.47 on 07/30/2018 compared to 334.52 on 07/02/2018, 142.60 on 04/26/2018. recommended changing treatment to weekly paclitaxel. Ms. Booth began her first dose of weekly pack Taxol on August 28, 2018. She has tolerated it well thus far .Follow-up CT PET scan done on 09/29/2018 showed progression of widespread osseous metastatic disease since prior study, new unifocal hepatic metastatic disease, suspicious activity in right adrenal gland. Tumor marker CA-27-29 has gone down to 1197.6 on 09/24/2018 compared to 1327.6 on 09/04/2018, Weekly carboplatin was added to weekly Taxol on on 10/02/2018. with monthly Xgeva Follow-up CT PET scan done on 01/26/2019 showed widespread osseous metastatic disease seen on prior scan is unchanged remained FDG positive. The index lesion in the posterior right acetabulum that has SUV of 8 now is 6.6. Right hepatic lobe lesion now has SUV of 3.4 compared to 4.2 on prior study Right adrenal lesion is progressed now SUV 5.4 compared to 3.7 previous Left adrenal activity is slightly more prominent. Mild activity in the mediastinal lymph node is unchanged. Follow-up CT PET scan done after 6 cycles of carboplatin/Taxol showed overall no significant change since prior study and widespread osseous metastatic disease, right hepatic metastases, or bilateral adrenal uptake, Her follow-up CT PET scan shows stable disease but her tumor marker continued to go up and her lab workup shows persistent progressive cytopenias, in that case Dr Estrella did discontinue her chemotherapy and requested a switch to fulvestrant/ everolimus , fulvestrant 500 mg IM on day 1, 15 and day 29 thereafter every month and everolimus 10 mg by mouth daily , while continue with Xgeva every month. Her everolimus dose was decreased to 5 mg daily due to persistent side effects. She presented for followup on 07/01/2019 with multiple concerns. She had lost another 7 pounds since her last visit. She had worsening fatigue. She also reported having bilateral foot and hand pain as well as slight bleeding from her left nare. She states since holding the Afinitor and doing dexamethasone 4 mg po daily, she feels like a different person . She states she feels much better overall. She is tired but recovers with rest. Mrs. Booth resumed Afinitor 5 mg daily for 14 days on and 7 days off on September 02, 2019. Thus far she has tolerated it well. The main issue she has had with resuming the Afinitor is that she has now once again became anemic. Her iron studies and B12 have been normal. The Afinitor will be placed on hold again due to the anemia. Plan: Discussed with patient regarding her labs white blood count 5.9 hemoglobin 8.6 hematocrit 28 platelets are 250,000 CMP within normal limits except creatinine 1.6 and follow-up CT PET scan done on January 25, 2020 shows stable disease Clinically, patient doing well, tolerating Faslodex/Femara/Xgeva well but with expected side effects, her follow-up CT PET scan done showed stable disease and resolution of bilateral adrenal lesions. Although her PET scan shows stable disease but her tumor marker CA-27-29 was elevated so we will consider discontinuing Femara and adding Aromasin 25 mg p.o. daily while continue with monthly Faslodex and Xgeva. So we will proceed with Faslodex and Xgeva today and then she will return to clinic in 1 month. All the side effects possible benefits associated with Aromasin were discussed further teaching will be done by chemotherapy nurse. Patient return to clinic in 1 month with CBC CMP As far as mild generalized weakness and fatigue is concerned probably due to persistent moderate anemia, which appears multifactorial and stable we will continue to monitor and consider transfusion if hemoglobin is less than 8 g. Signed By: Stanley Estrella M.D. <<Signature on File>>
== END 2020-02-28 23:59 | disposition home or self-care (01) ==
LOC: ONCMED 06:40
PROVIDERS: Visit Provider Internal Medicine Hematology & Oncology
DX: C50.812 Malignant neoplasm of overlapping sites of left female breast (principal); C79.51 Secondary malignant neoplasm of bone; C78.7 Secondary malignant neoplasm of liver and intrahepatic bile duct; C77.8 Secondary and unspecified malignant neoplasm of lymph nodes of multiple regions; D64.9 Anemia, unspecified; Z79.818 Long term (current) use of other agents affecting estrogen receptors and estrogen levels; Z79.891 Long term (current) use of opiate analgesic; Z79.899 Other long term (current) drug therapy; Z17.0 Estrogen receptor positive status [ER+]; Z90.12 Acquired absence of left breast and nipple; Z92.3 Personal history of irradiation; Z92.21 Personal history of antineoplastic chemotherapy
CPT/HCPCS: 80053; 85025; 96372; 96402; 99214; J0897; J9395

== ENCOUNTER 2020-03-09 05:28 | Outpatient (RCR) | payer MEDICARE, OTHER, SELFPAY ==
[2020-03-06 11:48] LABS: Basophils % 0.4 %; Eosinophils # 0.5 10^3/uL (0.0-0.8); Hematocrit 29.2 % (37.0-47.0); Hemoglobin 8.8 g/dL (11.5-15.3); Lymphocytes # 0.8 10^3/uL (0.8-4.8); Lymphocytes % 15.3 %; Mean Corpuscular HGB Conc 30.1 g/dL (30.0-36.0); Mean Corpuscular Hemoglobin 32.8 pg (28.0-34.0); Mean Platelet Volume 9.2 fL (7.4-10.4); Monocytes # 0.6 10^3/uL (0.2-0.9); Monocytes % 10.7 %; Neutrophils # 3.37 10^3/uL (1.8-7.7); Neutrophils % 64.2 %; Nucleated Red Blood Cells % 0 %; Platelet Count 214 10^3/cmm (130-400); Red Blood Count 2.68 10^6/uL (4.1-5.3); Red Cell Distribution Width 12.5 % (12.1-15.1); White Blood Count 5.2 10^3/uL (4.0-10.0)
[2020-03-06 12:46] LABS: Alanine Aminotransferase 13 U/L (0-33); Albumin Level 4.5 g/dL (3.5-5.2); Alkaline Phosphatase 46 IU/L (35-105); Aspartate Amino Transferase 32 U/L (0-32); Blood Urea Nitrogen 33 mg/dL (8-23); Calcium 9.2 mg/dL (8.5-10.5); Carbon Dioxide 23 mmol/L (22-29); Chloride 99 mmol/L (98-107); Globulin 3.1 g/dL (1.3-4.6); Glomerular Filtration Rate 29.7 mL/min (90-130); Glucose 77 mg/dL (65-115); Osmolality Calculated 274 mOsm/kg (285-295); Sodium 134 mmol/L (136-145); Total Bilirubin 0.2 mg/dL (0.15-1.2); Total Protein 7.6 g/dL (6.6-8.7)
[2020-03-06 12:48] LABS: Anion Gap 17.4 (5-19); Potassium 5.4 mmol/L (3.5-5.1)
[2020-03-09] MEDS: denosumab 120 mg SDV SUBCUT (09:25)
[2020-03-09] MEDS: fulvestrant 250 mg/5 mL Syringe 500 MG IM (09:30)
--- NOTE | 2020-03-09 17:23 | ONC FU_ITS ---
Dr. Estrella follow up note Patient: Joana Booth Unit #: [id number]: 1950 Dicatated By: Stanley Estrella M.D.Date of Visit:Mar 09, 2020 Onc Med Follow-up/Prog Note History of Present Illness: Mrs Booth is a 69 -year-old female who presented with a left breast mass for 2-3 years. She did undergo mammography ultrasound and subsequently a biopsy of the left breast mass on 05/10/2017 which confirmed infiltrating lobular carcinoma, grade 2, ER positive VT positive HER-2 ivett negative. The KI 67 was 7%. She is negative for PIK 3CA. She underwent left modified radical mastectomy on 05/26/2017. Surgical pathology showed grade 2 infiltrating lobular carcinoma with extensive involvement of overlying skin and nipple and areola. Lymphovascular invasion was present including dermal lymphatics, negative surgical margin, the tumor size was 6.8 x 3.2 cm and metastatic carcinoma identified in one of 3 axillary lymph nodes. She recovered from surgery well she did complain of significant low back pain with bilateral flank and rib cage. She did have PET CT on 07/29/2017. It confirmed stage IV breast cancer with extensive skeletal metastatic disease. There are innumerable FDG avid osteolytic metastatic lesions throughout the axial and appendicular skeleton. There was no hepatic, adrenal or pulmonary metastasis. There was no pathological lymphadenopathy. She was referred to radiation oncology for palliative radiation. Dr. Beaver recommended radiation therapy to the lower lumbar spine/SI joints for pain relief and disease control. She received 3000 cGy to the L5???sacral area she began treatment on August 15 and completed it on 08/28/2017. Mrs. Booth began Ibrance and Femara for metastatic breast cancer on August 29, 2016. The first doses of Xgeva documented in our chart is 09-26-2017. Ibrance and Femara was discontinued on 05/31/2018 due to progressive tumor markers. She was started on Arimidex 1 mg by mouth daily along with monthly Xgeva. She discontinued the Armidex on 08/02/2018. Her CT PET scan done on 07/14/2018 showed disease progression e.g. reactivation of multifocal osseous metastatic disease, new malignant mediastinal lymphadenopathy, bilateral inflammatory lung infiltrates and tumor marker CA-27-29 gone up to 393.47 compared to 334.62 on 07/02/2018 and 142.60 on 04/26/2018 .BRCA1/2 negative Mrs. Booth was advised to pursue treatment with weekly paclitaxel and to continue her monthly Xgeva. She began her first dose of weekly paclitaxel on 08/28/2018. Weekly carboplatin was added on 10/02/2018, as her follow-up PET scan done on 09/29/2018 showed widespread osseous metastatic disease seen on prior studies significantly more FDG positive on the current. Index lesion in the posterior right acetabulum that previously has SUV of 4.8 now has 8 there is a similar progression multiple other lesions throughout the spine sternum scapula pelvic and femurs. A new right hepatic lobe hypodensity measuring 1.4 cm has SUV of 4.2 and is a questionable activity in the region of right adrenal, suggesting metastatic disease. Her tumor marker CA-27-29 had gone down to 1197.6 on 09/24/2018 compared to 1327.6 on 09/04/2018 Mrs. Booth began chemotherapy with carboplatin and paclitaxel on 10/04/2018. and cont'd with monthly Xgeva Due to progressive leukopenia/neutropenia she is requiring Neupogen in between her weekly carboplatin and Taxol to maintain the schedule and responding well CT PET scan done on 01/26/2019 showed stable disease e.g. no significant change in FDG positive widespread osseous metastatic disease. Minimal improvement in the hepatic metastatic disease. Mild progression in right adrenal lesion and questionable new left adrenal lesion. No change in mild FDG activity in the mediastinum. Follow-up CT PET scan done After 6 cycles of weekly carboplatin Taxol on 04/06/2019 showed overall, no significant changes since prior study, widespread FDG positive osseous metastatic disease is unchanged. No change in right hepatic metastatic disease, no change in bilateral adrenal uptake Minimally improved in the subaortic mediastinal lymph nodes. Due to minimum benefit and progressive toxicity with chemotherapy (thrombocytopenia and persistent anemia, decreasing performance status), her treatment plan with carboplatin/Taxol was discontinued on 04/10/2019 and she was switched to fulvestrant /everolimus. everolimus was held due to progressive leukopenia/neutropenia and generalized weakness and fatigue and weight loss, reduced dose e.g. 5 mg daily still caused progressive leukopenia. On 09/03/2019, everolimus was re-started at 5 mg daily for 2 weeks on and then week off along with monthly Faslodex and Xgeva. Her last dose of Faslodex and Xgeva was on 09/02/2019.because of progressive weakness and fatigue, everolimus was discontinued and plan to continue with Faslodex and Xgeva alone unless CT PET scan shows progression. Follow-up CT PET scan done on 10/26/2019 showed increasing FDG activity in widespread osseous metastatic disease, consistent with mild progression,e.g. SUV now is 5.2 compared to 2.7 earlier on 07/13/2019. no new bony lesion seen Multifocal hepatic metastatic disease is not significantly changed. Right adrenal lesion is minimally progressed e.g. SUV 5.2 compared to 3.6 previously. There is no significant left adrenal activity with SUV of 4.9. In the mediastinum and subaortic node is progressed no SUV 5.9 and other nodes in the right paratracheal and bilateral hilar region weekly FDG positive may be reactive. because of mild disease progression and intolerance to evrolimus ,On 10/31/2019, Femara 2.5 mg was added to Faslodex/Xgeva , Follow-up CT PET scan done on January 25, 2020 shows no evidence of disease progression but her tumor marker CA-27-29 was progressive so Femara was discontinued and she was started on Aromasin 25 mg daily on January 25, 2020 and continued with monthly Faslodex and Xgeva on Follow-up CT PET scan done on January 25, 2020 showed no change in FDG positive widespread osseous metastatic disease. No change in multifocal hepatic metastatic disease. No change in probable reactive mediastinal lymphadenopathy, resolution of abnormal activity in both adrenal glands. Came for follow-up, denies any specific complaints except generalized weakness and fatigue which is also improving, no fever chills, no nausea or vomiting, no diarrhea constipation, tolerating Aromasin/Faslodex/Xgeva well Medications: Acetaminophen Tablet Oral PRN, Valeria-[place] Pls Allergy & Cgh 1 (5-6.25-10-325 mg) Capsule Oral at bedtime PRN, Benadryl Allergy 1 Tablet (of 25 mg) Oral daily PRN, Calcium Magnesium zinc 3 Tablet Oral daily, Exemestane 1 Tablet (of 25 mg) Oral daily, Hydrocortisone 1 (1 %) Cream Topical PRN, Oxycodone-Acetaminophen 0.5 Tablet (of 5-325 mg) Oral q 4 to 6 hours PRN, PriLOSEC OTC 1 Tablet (of 20 mg) Tablet, enteric coated Oral daily Allergies: Ibuprofen and Penicillins. Review of Systems: Constitutional - No fevers, chills, night sweats, excessive fatigue. Weight is stable. Appetite and energy level are fair today, ENMT - No sinus congestion/drainage. No mouth sores. No sore throat or difficulty swallowing, Hematologic/Lymphatic - No abnormal bruising or bleeding, Respiratory - No dyspnea on exertion, chest pain, cough or hemoptysis, Cardiovascular - No angina pain. No palpitations, Gastrointestinal - No nausea, vomiting, GI bleeding, or constipation. No heartburn or acid reflux. Positive for occasional diarrhea, Genitourinary (F) - No hematuria, dysuria, increased frequency, urgency, hesitancy or incontinence, Musculoskeletal - No joint or bone pain reported today, Integumentary - No skin issues at this time, Neurologic - No headache or dizziness. No numbness/paresthesias or other focal neurologic symptoms, Psychiatric - No insomnia, depression, shady or mood swings. Vital Signs: Performed on Mar 09, 2020 08:33 Height - 64.00 in Weight - 112.2 lbs (HIGH) BSA - 1.53 sq.m BMI - 19.26 Temperature - 98.4 F Pulse - 70 /min Respiration - 18 /min BP - 110/48 mm(hg) O2 Sat - 100 % Pain - 2 Performance Status: 0 - Fully active, able to carry on all predisease activities without restrictions. (ECOG) Physical Examination: Respiratory - Lungs are clear, Cardiovascular - Regular rate and rhythm of heart, Gastrointestinal - Soft, bowel sounds present, Extremities - No visible edema. Lab/Imaging: Test performed on Feb 04, 2020 09:30 Sodium 135 mmol/L Potassium 4.7 mmol/L Chloride 98 mmol/L CO2 23 mmol/L Anion Gap 18.7 BUN 31 mg/dL Creatinine 1.6 mg/dL Cr Clearance (Est) 27.2200 mL/min eGFR 31.9 mL/min Glucose 79 mg/dL Calcium 10.0 mg/dL Protein, Total 7.7 g/dL Albumin 4.5 g/dL Globulin 3.2 g/dL Bilirubin, Total 0.2 mg/dL ALT (SGPT) 9 U/L AST (SGOT) 43 U/L Alkaline Phosphatase 53 IU/L WBC 5.9 10 3/uL RBC 2.60 10 6/uL HGB 8.6 g/dL HCT 28.0 % MCV 107.7 fL MCH 33.1 pg MCHC 30.7 g/dL RDW 13.5 % Platelet Count 250 10 3/cmm MPV 9.7 fL Neutrophils 3.5 10 3/uL Lymphocytes 0.9 10 3/uL Monocytes 0.7 10 3/uL Eosinophils 0.8 10 3/uL Basophils 0.0 10 3/uL Neutrophil % 60.0 % Lymphocyte % 14.8 % Monocyte % 11.4 % Eosinophil % 12.8 % Basophils % 0.3 % NRBC % 0 % Test performed on Jan 01, 2020 08:10 CA 15-3 539.6 U/mL Test performed on Sep 23, 2019 14:55 Ferritin 731 ng/mL % Iron Saturation 47.5 % Iron, Total 99 mcg/dL TIBC 208 mcg/dL Impression: Metastatic infiltrating lobular carcinoma with extensive axial and appendicular skeleton metastases per CT PET scan done on 07/29/2017. Infiltrating lobular carcinoma involving left breast status post MRM on 05/26/2017 final path report shows infiltrating lobular carcinoma grade 2, extensive involvement of overlying skin at nipple and areola, positive lymphovascular space invasion including dermal lymphatics. Deep margins free of tumor size of tumor 6.8 x 3.2 cm T4b (skin involvement) Metastatic tumor in 1 out of 3 axillary lymph nodes N1 stage IV Extensive bone metastases are CT PET scan done on 07/29/2017 And her molecular studies showed negative for PIK3CA and BRCA 1 and 2 Tumor marker CA-27-29 1455.11 and CA 15.3 is 653.1 Repeat tumor markers CA-27-29 on 11/02/2017 was 167.77 and CA 15.3 was 89.6 estrogen receptor 100% progesterone receptors 100% HER-2/ivett negative by IHC and over amplification by fish and Ki-67 7 % Status post radiation therapy to lumbar sacral spine from 08/15/2017 to 08/28/2017 Mrs Booth was on Ibrance 125 mg by mouth daily for 21 days and then week off and repeat cycle every 28 days along with Femara 2.5 mg daily since 08/29/2017. Because of leukopenia at day 28, will reduce Ibrance dose to 100 mg by mouth for 21 days on 1 week off repeat 28 days. Along with Femara 2.5 mg daily Persistent leukopenia even with Ibrance 125 mg for 14 days. Her last dose was 100 mg by mouth daily for 14 days q 28 days. Follow-up CT PET scan done on 02/17/2018 showed interval resolution of abnormal activity throughout the bone indicating positive response to therapy of widespread osseous metastatic disease. She had progression of her tumor marker so stopped the Ibrance and Femara. She was then treated with single agent Arimidex and monthly Xgeva. The Arimidex was discontinued on 08/02/2018 as her follow-up CT PET scan from 07/14/2018 showed evidence of disease progression. There has been development of new malignant mediastinal lymphadenopathy in the precarinal and [place]. These have SUV of 6.7, and subcentimeter suspicious superior mediastinal lymph nodes are also identified. Widespread osseous metastatic disease as the activated in a multifocal pattern, is seen most prominently in left scapula, thoracic spine, lumbar spine, pelvis and proximal femurs. And index lesion in the right ischium has SUV of 6. Tumor marker CA-27-29 is 393.47 on 07/30/2018 compared to 334.52 on 07/02/2018, 142.60 on 04/26/2018. recommended changing treatment to weekly paclitaxel. Ms. Booth began her first dose of weekly pack Taxol on August 28, 2018. She has tolerated it well thus far .Follow-up CT PET scan done on 09/29/2018 showed progression of widespread osseous metastatic disease since prior study, new unifocal hepatic metastatic disease, suspicious activity in right adrenal gland. Tumor marker CA-27-29 has gone down to 1197.6 on 09/24/2018 compared to 1327.6 on 09/04/2018, Weekly carboplatin was added to weekly Taxol on on 10/02/2018. with monthly Xgeva Follow-up CT PET scan done on 01/26/2019 showed widespread osseous metastatic disease seen on prior scan is unchanged remained FDG positive. The index lesion in the posterior right acetabulum that has SUV of 8 now is 6.6. Right hepatic lobe lesion now has SUV of 3.4 compared to 4.2 on prior study Right adrenal lesion is progressed now SUV 5.4 compared to 3.7 previous Left adrenal activity is slightly more prominent. Mild activity in the mediastinal lymph node is unchanged. Follow-up CT PET scan done after 6 cycles of carboplatin/Taxol showed overall no significant change since prior study and widespread osseous metastatic disease, right hepatic metastases, or bilateral adrenal uptake, Her follow-up CT PET scan shows stable disease but her tumor marker continued to go up and her lab workup shows persistent progressive cytopenias, in that case Dr Estrella did discontinue her chemotherapy and requested a switch to fulvestrant/ everolimus , fulvestrant 500 mg IM on day 1, 15 and day 29 thereafter every month and everolimus 10 mg by mouth daily , while continue with Xgeva every month. Her everolimus dose was decreased to 5 mg daily due to persistent side effects. She presented for followup on 07/01/2019 with multiple concerns. She had lost another 7 pounds since her last visit. She had worsening fatigue. She also reported having bilateral foot and hand pain as well as slight bleeding from her left nare. She states since holding the Afinitor and doing dexamethasone 4 mg po daily, she feels like a different person . She states she feels much better overall. She is tired but recovers with rest. Mrs. Booth resumed Afinitor 5 mg daily for 14 days on and 7 days off on September 02, 2019. Thus far she has tolerated it well. The main issue she has had with resuming the Afinitor is that she has now once again became anemic. Her iron studies and B12 have been normal. The Afinitor will be placed on hold again due to the anemia. Plan: Discussed with patient regarding her labs white blood count 5.2 hemoglobin 8.8 hematocrit 29.2 platelets 214,000 CMP within normal limits except creatinine 1.7 Clinically, patient is doing reasonably well, with no new signs symptom suggestive of disease progression, will proceed with her next Faslodex/Xgeva today in the meantime she will continue daily Aromasin. Persistent mild/moderate anemia with normal iron studies and B12 could be multifactorial including due to renal insufficiency, considering her age underlying myelodysplasia cannot be ruled out. We will continue to monitor and consider blood transfusion if hemoglobin drops below 8 g. Mildly elevated creatinine/renal insufficiency, patient said she used to follow Dr. Franklin at [facility] but since he is retired she has not seen primary care physician, she was advised to contact [facility] establish follow-up with primary care doctor there in the meantime we will refer her to nephrology for evaluation for persistent mild/moderate renal insufficiency Signed By: Stanley Estrella M.D. <<Signature on File>>
== END 2020-03-30 23:59 | disposition home or self-care (01) ==
LOC: ONCMED 05:28
PROVIDERS: Visit Provider Internal Medicine Hematology & Oncology
DX: Z51.11 Encounter for antineoplastic chemotherapy (principal); C50.812 Malignant neoplasm of overlapping sites of left female breast; C79.51 Secondary malignant neoplasm of bone; C77.1 Secondary and unspecified malignant neoplasm of intrathoracic lymph nodes; C78.7 Secondary malignant neoplasm of liver and intrahepatic bile duct; G89.3 Neoplasm related pain (acute) (chronic); D64.81 Anemia due to antineoplastic chemotherapy; T45.1X5A Adverse effect of antineoplastic and immunosuppressive drugs, initial encounter; Z92.3 Personal history of irradiation
CPT/HCPCS: 80053; 85025; 96372; 96402; 99214; J0897; J9395

== ENCOUNTER 2020-04-08 07:15 | Outpatient (CLI) | payer MEDICARE, OTHER, SELFPAY ==
[2020-04-08 11:22] LABS: Basophils % 0.7 %; Eosinophils # 0.4 10^3/uL (0.0-0.8); Hemoglobin 8.8 g/dL (11.5-15.3); Lymphocytes # 0.9 10^3/uL (0.8-4.8); Mean Corpuscular HGB Conc 30.3 g/dL (30.0-36.0); Mean Corpuscular Hemoglobin 32.7 pg (28.0-34.0); Mean Corpuscular Volume 107.8 fL (81-99); Mean Platelet Volume 9.2 fL (7.4-10.4); Monocytes # 0.6 10^3/uL (0.2-0.9); Monocytes % 13.4 %; Neutrophils # 2.18 10^3/uL (1.8-7.7); Neutrophils % 53.4 %; Nucleated Red Blood Cells % 0 %; Platelet Count 261 10^3/cmm (130-400); Red Blood Count 2.69 10^6/uL (4.1-5.3); Red Cell Distribution Width 12.6 % (12.1-15.1); White Blood Count 4.1 10^3/uL (4.0-10.0)
[2020-04-08 11:41] LABS: Estmated Average Glucose 105; Hemoglobin A1C 5.3 % (4.0-6.0)
[2020-04-08 11:57] LABS: 25 Hydroxy Vitamin D 38 ng/mL (30-100); Alanine Aminotransferase 11 U/L (0-33); Albumin Level 4.4 g/dL (3.5-5.2); Alkaline Phosphatase 49 IU/L (35-105); Aspartate Amino Transferase 29 U/L (0-32); Blood Urea Nitrogen 24 mg/dL (8-23); Calcium 8.6 mg/dL (8.5-10.5); Carbon Dioxide 25 mmol/L (22-29); Chloride 98 mmol/L (98-107); Chol HDL Ratio 4.33 mg/dL (0.0-4.40); Cholesterol 195 mg/dL (0-200); Globulin 2.4 g/dL (1.3-4.6); Glucose 85 mg/dL (65-115); HDL Cholesterol 45 mg/dL (60-100); LDL Cholesterol Calculated 118 mg/dL (50-129); LDL HDL Ratio 2.62 RATIO (0.00-3.22); Magnesium 2.2 mg/dL (1.7-2.3); Osmolality Calculated 272 mOsm/kg (285-295); Sodium 133 mmol/L (136-145); Thyroid Stimulating Hormone 2.93 uIU/mL (0.27-4.20); Total Bilirubin 0.2 mg/dL (0.15-1.2); Total Protein 6.8 g/dL (6.6-8.7); Triglycerides 162 mg/dL (0-150)
[2020-04-08 12:19] LABS: Free T4 Free Thyroxine 1.18 ng/dL (0.82-1.77)
== END 2020-04-08 07:16 | disposition home or self-care (01) ==
LOC: ONCMED 14:54
PROVIDERS: Visit Provider Internal Medicine Hematology & Oncology
DX: C50.812 Malignant neoplasm of overlapping sites of left female breast (principal); C79.51 Secondary malignant neoplasm of bone; C77.1 Secondary and unspecified malignant neoplasm of intrathoracic lymph nodes; C78.7 Secondary malignant neoplasm of liver and intrahepatic bile duct; D64.81 Anemia due to antineoplastic chemotherapy; T45.1X5A Adverse effect of antineoplastic and immunosuppressive drugs, initial encounter; E55.9 Vitamin D deficiency, unspecified; R97.8 Other abnormal tumor markers; G89.3 Neoplasm related pain (acute) (chronic); I10 Essential (primary) hypertension; R73.03 Prediabetes; Z92.3 Personal history of irradiation
CPT/HCPCS: 36415; 80053; 80061; 82306; 83036; 83735; 84439; 84443; 85025

== ENCOUNTER 2020-04-09 06:38 | Outpatient (RCR) | payer MEDICARE, OTHER, SELFPAY ==
[2020-04-09 14:28] LABS: Vitamin B12 467 pg/mL (232-1245)
[2020-04-09 14:51] LABS: CA 15-3 358.5 U/mL (0-25)
[2020-04-09] MEDS: fulvestrant 250 mg/5 mL Syringe 500 MG IM (16:44)
--- NOTE | 2020-04-18 14:37 | ONC FU_ITS ---
[facility] Patient Note Patient: Joana Booth Unit #: [id number]: 1950 Dictated By: Poonam GanDate of Visit: Apr 09, 2020 Onc MED Follow-Up/Prog Note Chief Complaint: Left breast cancer History of Present Illness: Mrs Booth is a 69 -year-old female who presented with a left breast mass for 2-3 years. She did undergo mammography ultrasound and subsequently a biopsy of the left breast mass on 05/10/2017 which confirmed infiltrating lobular carcinoma, grade 2, ER positive TX positive HER-2 ivett negative. The KI 67 was 7%. She is negative for PIK 3CA. She underwent left modified radical mastectomy on 05/26/2017. Surgical pathology showed grade 2 infiltrating lobular carcinoma with extensive involvement of overlying skin and nipple and areola. Lymphovascular invasion was present including dermal lymphatics, negative surgical margin, the tumor size was 6.8 x 3.2 cm and metastatic carcinoma identified in one of 3 axillary lymph nodes. She recovered from surgery well she did complain of significant low back pain with bilateral flank and rib cage. She did have PET CT on 07/29/2017. It confirmed stage IV breast cancer with extensive skeletal metastatic disease. There are innumerable FDG avid osteolytic metastatic lesions throughout the axial and appendicular skeleton. There was no hepatic, adrenal or pulmonary metastasis. There was no pathological lymphadenopathy. She was referred to radiation oncology for palliative radiation. Dr. Beaver recommended radiation therapy to the lower lumbar spine/SI joints for pain relief and disease control. She received 3000 cGy to the L5???sacral area she began treatment on August 15 and completed it on 08/28/2017. Mrs. Booth began Ibrance and Femara for metastatic breast cancer on August 29, 2016. The first doses of Xgeva documented in our chart is 09-26-2017. Ibrance and Femara was discontinued on 05/31/2018 due to progressive tumor markers. She was started on Arimidex 1 mg by mouth daily along with monthly Xgeva. She discontinued the Armidex on 08/02/2018. Her CT PET scan done on 07/14/2018 showed disease progression e.g. reactivation of multifocal osseous metastatic disease, new malignant mediastinal lymphadenopathy, bilateral inflammatory lung infiltrates and tumor marker CA-27-29 gone up to 393.47 compared to 334.62 on 07/02/2018 and 142.60 on 04/26/2018 .BRCA1/2 negative Mrs. Booth was advised to pursue treatment with weekly paclitaxel and to continue her monthly Xgeva. She began her first dose of weekly paclitaxel on 08/28/2018. Weekly carboplatin was added on 10/02/2018, as her follow-up PET scan done on 09/29/2018 showed widespread osseous metastatic disease seen on prior studies significantly more FDG positive on the current. Index lesion in the posterior right acetabulum that previously has SUV of 4.8 now has 8 there is a similar progression multiple other lesions throughout the spine sternum scapula pelvic and femurs. A new right hepatic lobe hypodensity measuring 1.4 cm has SUV of 4.2 and is a questionable activity in the region of right adrenal, suggesting metastatic disease. Her tumor marker CA-27-29 had gone down to 1197.6 on 09/24/2018 compared to 1327.6 on 09/04/2018 Mrs. Booth began chemotherapy with carboplatin and paclitaxel on 10/04/2018. and cont'd with monthly Xgeva Due to progressive leukopenia/neutropenia she is requiring Neupogen in between her weekly carboplatin and Taxol to maintain the schedule and responding well CT PET scan done on 01/26/2019 showed stable disease e.g. no significant change in FDG positive widespread osseous metastatic disease. Minimal improvement in the hepatic metastatic disease. Mild progression in right adrenal lesion and questionable new left adrenal lesion. No change in mild FDG activity in the mediastinum. Follow-up CT PET scan done After 6 cycles of weekly carboplatin Taxol on 04/06/2019 showed overall, no significant changes since prior study, widespread FDG positive osseous metastatic disease is unchanged. No change in right hepatic metastatic disease, no change in bilateral adrenal uptake Minimally improved in the subaortic mediastinal lymph nodes. Due to minimum benefit and progressive toxicity with chemotherapy (thrombocytopenia and persistent anemia, decreasing performance status), her treatment plan with carboplatin/Taxol was discontinued on 04/10/2019 and she was switched to fulvestrant /everolimus. everolimus was held due to progressive leukopenia/neutropenia and generalized weakness and fatigue and weight loss, reduced dose e.g. 5 mg daily still caused progressive leukopenia. On 09/03/2019, everolimus was re-started at 5 mg daily for 2 weeks on and then week off along with monthly Faslodex and Xgeva. Her last dose of Faslodex and Xgeva was on 09/02/2019.because of progressive weakness and fatigue, everolimus was discontinued and plan to continue with Faslodex and Xgeva alone unless CT PET scan shows progression. Follow-up CT PET scan done on 10/26/2019 showed increasing FDG activity in widespread osseous metastatic disease, consistent with mild progression,e.g. SUV now is 5.2 compared to 2.7 earlier on 07/13/2019. no new bony lesion seen Multifocal hepatic metastatic disease is not significantly changed. Right adrenal lesion is minimally progressed e.g. SUV 5.2 compared to 3.6 previously. There is no significant left adrenal activity with SUV of 4.9. In the mediastinum and subaortic node is progressed no SUV 5.9 and other nodes in the right paratracheal and bilateral hilar region weekly FDG positive may be reactive. because of mild disease progression and intolerance to evrolimus ,On 10/31/2019, Femara 2.5 mg was added to Faslodex/Xgeva , Follow-up CT PET scan done on January 25, 2020 shows no evidence of disease progression but her tumor marker CA-27-29 was progressive so Femara was discontinued and she was started on Aromasin 25 mg daily on January 25, 2020 and continued with monthly Faslodex and Xgeva on Follow-up CT PET scan done on January 25, 2020 showed no change in FDG positive widespread osseous metastatic disease. No change in multifocal hepatic metastatic disease. No change in probable reactive mediastinal lymphadenopathy, resolution of abnormal activity in both adrenal glands. Ms. Booth is here today for follow-up. She is due for Fosamax and Xgeva today as well. She continues on the aromatase inhibitor therapy and is tolerating this well. Her only concern today is that she is having a sore in her upper gumline. She states is from eating too many tomatoes . She states her appetite is good. Energy is good. She is able to do all of her ADLs without any assistance. She states she is eating well. She denies any new pain. She denies nausea or vomiting. She has had some hot flashes but states they are no worse than what has been normal for her. She denies any new pain. She states her bowels and bladder are normal. She has no new concerns with neuropathy and states that while she has had seems to be somewhat slowly improving. Overall she states she is doing well. Her ECOG is 1. Past Medical History: Asthma Past Surgical History: Left breast lymph node biopsy in 2017 Left breast mastectomy in 2017 Breast biopsy in 2017 Allergies: Ibuprofen and Penicillins. Medications: Acetaminophen Tablet Oral PRN Valeria-Bath Pls Allergy & Cgh 1 (5-6.25-10-325 mg) Capsule Oral at bedtime PRN Benadryl Allergy 1 Tablet (of 25 mg) Oral daily PRN Calcium Magnesium zinc 3 Tablet Oral daily Exemestane 1 Tablet (of 25 mg) Oral daily Hydrocortisone 1 (1 %) Cream Topical PRN Oxycodone-Acetaminophen 0.5 Tablet (of 5-325 mg) Oral q 4 to 6 hours PRN PriLOSEC OTC 1 Tablet (of 20 mg) Tablet, enteric coated Oral daily Family History: Ms. Booth's mother at age 86: dementia. Ms. Booth's father at age 89: stroke. Social History: Ms. Booth is and she is retired. Ms. Booth has never smoked. She has no history of drinking. Ms. Booth reports the following support systems: lives with spouse, significant other, family, or friends, lives in own house, supportive family/friends willing to assist with needs, and adequate transportation available for expected visits. Her diet consists of regular meals. She indicates her activity level as: daily activities. Review Of Symptoms: Constitutional Denies fevers, chills, night sweats, excessive fatigue. Allergic/Immunologic No reactions. Eyes Denies significant visual changes. No diplopia. No amaurosis. ENMT Denies changes in hearing, sore throat, mouth sores, difficulty or changes in swallowing ability, and/or sinus drainage. 1 sore on her upper gum area-see above. Endocrine No diabetes, thyroid disease or hormone replacement. Denies hot flashes or night sweats. Hematologic/Lymphatic Denies easy bruising or bleeding. The patient denies any tender or palpable lymph nodes. Respiratory Denies dyspnea on exertion, chest pain, cough or hemoptysis. Denies orthopnea. Cardiovascular Denies anginal chest pain, palpitations or orthopnea. Gastrointestinal Denies nausea, vomiting, diarrhea, GI bleeding, or constipation. Denies change in bowel habits and/or stool color, no heartburn or early satiety. Genitourinary (F) No hematuria, hesitancy, incontinence, vaginal bleeding, discharge or other problems with urination. Musculoskeletal Denies joint pain, swelling or redness. No decreased range of motion. Integumentary Denies chronic rashes, inflammation, ulcerations or skin changes. Neurologic Denies headache, blurred vision, and no areas of focal weakness or numbness. Normal gait. No sensory problems. Psychiatric Denies insomnia, depression, shady or mood swings. Vital Signs: Performed on Apr 09, 2020 13:04 Height - 64.00 in Weight - 112.2 lbs BSA - 1.53 sq.m BMI - 19.26 Temperature - 97.9 F (LOW) Pulse - 73 /min Respiration - 16 /min BP - 117/67 mm(hg) O2 Sat - 99 % Pain - 2,1 - No physically strenuous activity, but ambulatory and able to carry out light or sedentary work (e.g. office work, light house work). (ECOG) Physical Examination: Constitutional Alert, oriented, no acute distress. Skin pale, warm and dry. Head Normocephalic; atraumatic. Eyes Conjunctivae and sclerae are clear and without icterus. Pupils are reactive and equal. ENMT No oral exudates, masses, thrush or mucositis. Oropharynx clear. Tongue normal. 1 5 mm area on left upper gum that is moderately irritated without drainage. Neck Supple without masses or thyromegaly. No jugular venous distension. Hematologic/Lymphatic No petechiae or purpura. Respiratory Lungs are clear to auscultation without rhonchi or wheezing. Cardiovascular Regular rate and rhythm of heart without murmurs,clicks, gallops or rubs. Abdomen Non-tender, non-distended, no masses, ascites. Good bowel sounds noted in all quads. No guarding or rebound tenderness. No pulsatile masses. Back/Spine Non-tender to palpation. Extremities No visible deformities, no cyanosis, clubbing or edema. Musculoskeletal No tenderness or swelling, normal range of motion without obvious weakness. Integumentary No rashes or lesions. Neurologic No sensory or motor deficits, normal cerebellar function, normal gait. Psychiatric Alert and oriented times three. Coherent speech. Verbalizes understanding of our discussions today. Laboratory:Test performed on Apr 09, 2020 07:15 Vitamin B12 467 pg/mL CA 15-3 358.5 U/mL Test performed on Apr 08, 2020 07:15 Magnesium 2.2 mg/dL Sodium 133 mmol/L T4, Free 1.18 ng/dL Vitamin D (25-Hydroxy), Total 38 ng/mL Potassium 5.0 mmol/L Chloride 98 mmol/L CO2 25 mmol/L Anion Gap 15.0 BUN 24 mg/dL Creatinine 1.5 mg/dL Cr Clearance (Est) 28.6200 mL/min Glucose 85 mg/dL Calcium 8.6 mg/dL Protein, Total 6.8 g/dL Albumin 4.4 g/dL Globulin 2.4 g/dL Bilirubin, Total 0.2 mg/dL ALT (SGPT) 11 U/L AST (SGOT) 29 U/L Alkaline Phosphatase 49 IU/L ] Impression: Metastatic infiltrating lobular carcinoma with extensive axial and appendicular skeleton metastases per CT PET scan done on 07/29/2017. Infiltrating lobular carcinoma involving left breast status post MRM on 05/26/2017 final path report shows infiltrating lobular carcinoma grade 2, extensive involvement of overlying skin at nipple and areola, positive lymphovascular space invasion including dermal lymphatics. Deep margins free of tumor size of tumor 6.8 x 3.2 cm T4b (skin involvement) Metastatic tumor in 1 out of 3 axillary lymph nodes N1 stage IV Extensive bone metastases are CT PET scan done on 07/29/2017 And her molecular studies showed negative for PIK3CA and BRCA 1 and 2 Tumor marker CA-27-29 1455.11 and CA 15.3 is 653.1 Repeat tumor markers CA-27-29 on 11/02/2017 was 167.77 and CA 15.3 was 89.6 estrogen receptor 100% progesterone receptors 100% HER-2/ivett negative by IHC and over amplification by fish and Ki-67 7 % Status post radiation therapy to lumbar sacral spine from 08/15/2017 to 08/28/2017 Mrs Booth was on Ibrance 125 mg by mouth daily for 21 days and then week off and repeat cycle every 28 days along with Femara 2.5 mg daily since 08/29/2017. Because of leukopenia at day 28, will reduce Ibrance dose to 100 mg by mouth for 21 days on 1 week off repeat 28 days. Along with Femara 2.5 mg daily Persistent leukopenia even with Ibrance 125 mg for 14 days. Her last dose was 100 mg by mouth daily for 14 days q 28 days. Follow-up CT PET scan done on 02/17/2018 showed interval resolution of abnormal activity throughout the bone indicating positive response to therapy of widespread osseous metastatic disease. She had progression of her tumor marker so stopped the Ibrance and Femara. She was then treated with single agent Arimidex and monthly Xgeva. The Arimidex was discontinued on 08/02/2018 as her follow-up CT PET scan from 07/14/2018 showed evidence of disease progression. There has been development of new malignant mediastinal lymphadenopathy in the precarinal and AP window [place]. These have SUV of 6.7, and subcentimeter suspicious superior mediastinal lymph nodes are also identified. Widespread osseous metastatic disease as the activated in a multifocal pattern, is seen most prominently in left scapula, thoracic spine, lumbar spine, pelvis and proximal femurs. And index lesion in the right ischium has SUV of 6. Tumor marker CA-27-29 is 393.47 on 07/30/2018 compared to 334.52 on 07/02/2018, 142.60 on 04/26/2018. recommended changing treatment to weekly paclitaxel. Ms. Booth began her first dose of weekly pack Taxol on August 28, 2018. She has tolerated it well thus far .Follow-up CT PET scan done on 09/29/2018 showed progression of widespread osseous metastatic disease since prior study, new unifocal hepatic metastatic disease, suspicious activity in right adrenal gland. Tumor marker CA-27-29 has gone down to 1197.6 on 09/24/2018 compared to 1327.6 on 09/04/2018, Weekly carboplatin was added to weekly Taxol on on 10/02/2018. with monthly Xgeva Follow-up CT PET scan done on 01/26/2019 showed widespread osseous metastatic disease seen on prior scan is unchanged remained FDG positive. The index lesion in the posterior right acetabulum that has SUV of 8 now is 6.6. Right hepatic lobe lesion now has SUV of 3.4 compared to 4.2 on prior study Right adrenal lesion is progressed now SUV 5.4 compared to 3.7 previous Left adrenal activity is slightly more prominent. Mild activity in the mediastinal lymph node is unchanged. Follow-up CT PET scan done after 6 cycles of carboplatin/Taxol showed overall no significant change since prior study and widespread osseous metastatic disease, right hepatic metastases, or bilateral adrenal uptake, Her follow-up CT PET scan shows stable disease but her tumor marker continued to go up and her lab workup shows persistent progressive cytopenias, in that case Dr Estrella did discontinue her chemotherapy and requested a switch to fulvestrant/ everolimus , fulvestrant 500 mg IM on day 1, 15 and day 29 thereafter every month and everolimus 10 mg by mouth daily , while continue with Xgeva every month. Her everolimus dose was decreased to 5 mg daily due to persistent side effects. She presented for followup on 07/01/2019 with multiple concerns. She had lost another 7 pounds since her last visit. She had worsening fatigue. She also reported having bilateral foot and hand pain as well as slight bleeding from her left nare. She states since holding the Afinitor and doing dexamethasone 4 mg po daily, she feels like a different person . She states she feels much better overall. She is tired but recovers with rest. Mrs. Booth resumed Afinitor 5 mg daily for 14 days on and 7 days off on September 02, 2019. Thus far she has tolerated it well. The main issue she has had with resuming the Afinitor is that she has now once again became anemic. Her iron studies and B12 have been normal. The Afinitor will be placed on hold again due to the anemia. Plan: 1. Proceed with Faslodex injection today as scheduled. 2. Continue aromatase inhibitor, exemestane 25 mg daily. 3. Affinitor remains on hold. 4. HOld Xgeva today due to lesion on upper Left gum-presumably due to diet. 5. Labs from April 08, 2020 were reviewed in detail and discussed with Ms. Booth and a copy was given to her. White count 4.1, hemoglobin 8.8 which is stable platelets 261,000 ANC is 2180 potassium 4.0 creatinine improved at 1.5 LFTs are normal her TSH is normal 2.93 vitamin D is 38. 6. We did discuss vitamin D supplementation she is currently doing cholecalciferol 1000 units daily. 7. We will plan to see her back in 1 month with CBC CMP CA-27-29 which time she will be due for Faslodex and hopefully her mouth will be healed so we can resume her Xgeva at that time. 8. Ms. Booth instructed to contact us in interim should questions or problems arise. Signed By: Poonam Gan-, AOCNP Stanley Estrella MD <<Signature on File>>
== END 2020-04-29 23:59 | disposition home or self-care (01) ==
LOC: ONCMED 06:38
PROVIDERS: Visit Provider Nurse Practitioner
DX: C50.812 Malignant neoplasm of overlapping sites of left female breast (principal); Z17.0 Estrogen receptor positive status [ER+]; C79.51 Secondary malignant neoplasm of bone; C77.1 Secondary and unspecified malignant neoplasm of intrathoracic lymph nodes; C78.7 Secondary malignant neoplasm of liver and intrahepatic bile duct; D64.81 Anemia due to antineoplastic chemotherapy; T45.1X5A Adverse effect of antineoplastic and immunosuppressive drugs, initial encounter; G89.3 Neoplasm related pain (acute) (chronic); Z92.21 Personal history of antineoplastic chemotherapy; Z92.3 Personal history of irradiation
CPT/HCPCS: 82607; 86300; 96402; 99214; J9395

== ENCOUNTER 2020-05-11 05:15 | Outpatient (RCR) | payer MEDICARE, OTHER, SELFPAY ==
[2020-05-08 11:12] LABS: Basophils % 0.5 %; Eosinophils # 0.2 10^3/uL (0.0-0.8); Eosinophils % 5.3 %; Hematocrit 26.9 % (37.0-47.0); Hemoglobin 8.3 g/dL (11.5-15.3); Lymphocytes # 0.7 10^3/uL (0.8-4.8); Lymphocytes % 16.2 %; Mean Corpuscular HGB Conc 30.9 g/dL (30.0-36.0); Mean Corpuscular Hemoglobin 33.1 pg (28.0-34.0); Mean Corpuscular Volume 107.2 fL (81-99); Mean Platelet Volume 8.8 fL (7.4-10.4); Monocytes # 0.4 10^3/uL (0.2-0.9); Monocytes % 9.7 %; Neutrophils # 2.92 10^3/uL (1.8-7.7); Neutrophils % 67.8 %; Nucleated Red Blood Cells % 0 %; Platelet Count 284 10^3/cmm (130-400); Red Blood Count 2.51 10^6/uL (4.1-5.3); Red Cell Distribution Width 13.1 % (12.1-15.1); White Blood Count 4.3 10^3/uL (4.0-10.0)
[2020-05-08 11:49] LABS: Alanine Aminotransferase 12 U/L (0-33); Albumin Level 4.3 g/dL (3.5-5.2); Alkaline Phosphatase 52 IU/L (35-105); Anion Gap 16.8 (5-19); Aspartate Amino Transferase 27 U/L (0-32); Blood Urea Nitrogen 24 mg/dL (8-23); Calcium 9.3 mg/dL (8.5-10.5); Carbon Dioxide 24 mmol/L (22-29); Chloride 98 mmol/L (98-107); Globulin 2.7 g/dL (1.3-4.6); Glucose 82 mg/dL (65-115); Osmolality Calculated 281 mOsm/kg (285-295); Potassium 4.8 mmol/L (3.5-5.1); Sodium 134 mmol/L (136-145); Total Bilirubin 0.2 mg/dL (0.15-1.2)
[2020-05-11] MEDS: fulvestrant 250 mg/5 mL Syringe 500 MG IM (09:55)
[2020-05-11] MEDS: denosumab 120 mg SDV SUBCUT (10:10)
--- NOTE | 2020-05-11 16:55 | ONC FU_ITS ---
Dr. Estrella follow up note Patient: Joana Booth Unit #: [id number]: 1950 Dicatated By: Stanley Estrella M.D.Date of Visit:May 11, 2020 Onc Med Follow-up/Prog Note History of Present Illness: Mrs Booth is a 69 -year-old female who presented with a left breast mass for 2-3 years. She did undergo mammography ultrasound and subsequently a biopsy of the left breast mass on 05/10/2017 which confirmed infiltrating lobular carcinoma, grade 2, ER positive NC positive HER-2 ivett negative. The KI 67 was 7%. She is negative for PIK 3CA. She underwent left modified radical mastectomy on 05/26/2017. Surgical pathology showed grade 2 infiltrating lobular carcinoma with extensive involvement of overlying skin and nipple and areola. Lymphovascular invasion was present including dermal lymphatics, negative surgical margin, the tumor size was 6.8 x 3.2 cm and metastatic carcinoma identified in one of 3 axillary lymph nodes. She recovered from surgery well she did complain of significant low back pain with bilateral flank and rib cage. She did have PET CT on 07/29/2017. It confirmed stage IV breast cancer with extensive skeletal metastatic disease. There are innumerable FDG avid osteolytic metastatic lesions throughout the axial and appendicular skeleton. There was no hepatic, adrenal or pulmonary metastasis. There was no pathological lymphadenopathy. She was referred to radiation oncology for palliative radiation. Dr. Beaver recommended radiation therapy to the lower lumbar spine/SI joints for pain relief and disease control. She received 3000 cGy to the L5???sacral area she began treatment on August 15 and completed it on 08/28/2017. Mrs. Booth began Ibrance and Femara for metastatic breast cancer on August 29, 2016. The first doses of Xgeva documented in our chart is 09-26-2017. Ibrance and Femara was discontinued on 05/31/2018 due to progressive tumor markers. She was started on Arimidex 1 mg by mouth daily along with monthly Xgeva. She discontinued the Armidex on 08/02/2018. Her CT PET scan done on 07/14/2018 showed disease progression e.g. reactivation of multifocal osseous metastatic disease, new malignant mediastinal lymphadenopathy, bilateral inflammatory lung infiltrates and tumor marker CA-27-29 gone up to 393.47 compared to 334.62 on 07/02/2018 and 142.60 on 04/26/2018 .BRCA1/2 negative Mrs. Booth was advised to pursue treatment with weekly paclitaxel and to continue her monthly Xgeva. She began her first dose of weekly paclitaxel on 08/28/2018. Weekly carboplatin was added on 10/02/2018, as her follow-up PET scan done on 09/29/2018 showed widespread osseous metastatic disease seen on prior studies significantly more FDG positive on the current. Index lesion in the posterior right acetabulum that previously has SUV of 4.8 now has 8 there is a similar progression multiple other lesions throughout the spine sternum scapula pelvic and femurs. A new right hepatic lobe hypodensity measuring 1.4 cm has SUV of 4.2 and is a questionable activity in the region of right adrenal, suggesting metastatic disease. Her tumor marker CA-27-29 had gone down to 1197.6 on 09/24/2018 compared to 1327.6 on 09/04/2018 Mrs. Booth began chemotherapy with carboplatin and paclitaxel on 10/04/2018. and cont'd with monthly Xgeva Due to progressive leukopenia/neutropenia she is requiring Neupogen in between her weekly carboplatin and Taxol to maintain the schedule and responding well CT PET scan done on 01/26/2019 showed stable disease e.g. no significant change in FDG positive widespread osseous metastatic disease. Minimal improvement in the hepatic metastatic disease. Mild progression in right adrenal lesion and questionable new left adrenal lesion. No change in mild FDG activity in the mediastinum. Follow-up CT PET scan done After 6 cycles of weekly carboplatin Taxol on 04/06/2019 showed overall, no significant changes since prior study, widespread FDG positive osseous metastatic disease is unchanged. No change in right hepatic metastatic disease, no change in bilateral adrenal uptake Minimally improved in the subaortic mediastinal lymph nodes. Due to minimum benefit and progressive toxicity with chemotherapy (thrombocytopenia and persistent anemia, decreasing performance status), her treatment plan with carboplatin/Taxol was discontinued on 04/10/2019 and she was switched to fulvestrant /everolimus. everolimus was held due to progressive leukopenia/neutropenia and generalized weakness and fatigue and weight loss, reduced dose e.g. 5 mg daily still caused progressive leukopenia. On 09/03/2019, everolimus was re-started at 5 mg daily for 2 weeks on and then week off along with monthly Faslodex and Xgeva. Her last dose of Faslodex and Xgeva was on 09/02/2019.because of progressive weakness and fatigue, everolimus was discontinued and plan to continue with Faslodex and Xgeva alone unless CT PET scan shows progression. Follow-up CT PET scan done on 10/26/2019 showed increasing FDG activity in widespread osseous metastatic disease, consistent with mild progression,e.g. SUV now is 5.2 compared to 2.7 earlier on 07/13/2019. no new bony lesion seen Multifocal hepatic metastatic disease is not significantly changed. Right adrenal lesion is minimally progressed e.g. SUV 5.2 compared to 3.6 previously. There is no significant left adrenal activity with SUV of 4.9. In the mediastinum and subaortic node is progressed no SUV 5.9 and other nodes in the right paratracheal and bilateral hilar region weekly FDG positive may be reactive. because of mild disease progression and intolerance to evrolimus ,On 10/31/2019, Femara 2.5 mg was added to Faslodex/Xgeva , Follow-up CT PET scan done on January 25, 2020 shows no evidence of disease progression but her tumor marker CA-27-29 was progressive so Femara was discontinued and she was started on Aromasin 25 mg daily on January 25, 2020 and continued with monthly Faslodex and Xgeva on Follow-up CT PET scan done on January 25, 2020 showed no change in FDG positive widespread osseous metastatic disease. No change in multifocal hepatic metastatic disease. No change in probable reactive mediastinal lymphadenopathy, resolution of abnormal activity in both adrenal glands. Came for follow-up, denies any specific complaints, except mild sore in left upper posterior buccal fold, patient is on oral antibiotic, not improving. No fever or chills, no nausea or vomiting, no diarrhea or constipation, tolerating systemic therapy with Faslodex/Aromasin/Xgeva well. Medications: Acetaminophen Tablet Oral PRN, [facility] [facility] Allergy [facility] Cgh 1 (5-6.25-10-325 mg) Capsule Oral at bedtime PRN, Benadryl Allergy 1 Tablet (of 25 mg) Oral daily PRN, Calcium Magnesium zinc 3 Tablet Oral daily, Exemestane 1 Tablet (of 25 mg) Oral daily, Hydrocortisone 1 (1 %) Cream Topical PRN, Oxycodone-Acetaminophen 0.5 Tablet (of 5-325 mg) Oral q 4 to 6 hours PRN, PriLOSEC OTC 1 Tablet (of 20 mg) Tablet, enteric coated Oral daily Allergies: Ibuprofen and Penicillins. Review of Systems: Review of Systems is not available for this patient. Vital Signs: Performed on May 11, 2020 09:03 Height - 64.00 in Weight - 107 lbs (LOW) BSA - 1.50 sq.m BMI - 18.37 Temperature - 99.2 F (HIGH) Pulse - 77 /min Respiration - 16 /min BP - 113/53 mm(hg) O2 Sat - 99 % Pain - 0 Performance Status: 1 - No physically strenuous activity, but ambulatory and able to carry out light or sedentary work (e.g. office work, light house work). (ECOG) Physical Examination: Respiratory - Lungs are clear to auscultation Cardiovascular - Regular rate and rhythm of heart, Gastrointestinal - Soft, bowel sounds present Extremities - No visible edema. . Lab/Imaging: Test performed on Apr 09, 2020 07:15 Vitamin B12 467 pg/mL CA 15-3 358.5 U/mL Test performed on Apr 08, 2020 07:15 Cholesterol, Total 195 mg/dL Magnesium 2.2 mg/dL Sodium 133 mmol/L T4, Free 1.18 ng/dL TSH 2.93 uIU/mL Vitamin D (25-Hydroxy), Total 38 ng/mL Potassium 5.0 mmol/L Triglycerides 162 mg/dL Chloride 98 mmol/L Est Avg Glucose (eAG) 105 mg/dL LDL Cholesterol 118 mg/dL CO2 25 mmol/L Anion Gap 15.0 HDL Cholesterol 45 mg/dL BUN 24 mg/dL Cholesterol/HDL Ratio 4.33 mg/dL Creatinine 1.5 mg/dL LDL / HDL Ratio 2.62 RATIO Cr Clearance (Est) 28.6200 mL/min Glucose 85 mg/dL Calcium 8.6 mg/dL Osmolality - Calculated 272 mOsm/kg Protein, Total 6.8 g/dL Albumin 4.4 g/dL Globulin 2.4 g/dL Bilirubin, Total 0.2 mg/dL ALT (SGPT) 11 U/L AST (SGOT) 29 U/L Alkaline Phosphatase 49 IU/L Hemoglobin A1C % 5.3 % WBC 4.1 10 3/uL RBC 2.69 10 6/uL HGB 8.8 g/dL HCT 29.0 % MCV 107.8 fL MCH 32.7 pg MCHC 30.3 g/dL RDW 12.6 % Platelet Count 261 10 3/cmm MPV 9.2 fL Neutrophils 2.18 10 3/uL Lymphocytes 0.9 10 3/uL Monocytes 0.6 10 3/uL Eosinophils 0.4 10 3/uL Basophils 0.0 10 3/uL Neutrophil % 53.4 % Lymphocyte % 23.0 % Monocyte % 13.4 % Eosinophil % 9.0 % Basophils % 0.7 % NRBC % 0 % Test performed on Mar 06, 2020 07:55 eGFR 29.7 mL/min Impression: Metastatic infiltrating lobular carcinoma with extensive axial and appendicular skeleton metastases per CT PET scan done on 07/29/2017. Infiltrating lobular carcinoma involving left breast status post MRM on 05/26/2017 final path report shows infiltrating lobular carcinoma grade 2, extensive involvement of overlying skin at nipple and areola, positive lymphovascular space invasion including dermal lymphatics. Deep margins free of tumor size of tumor 6.8 x 3.2 cm T4b (skin involvement) Metastatic tumor in 1 out of 3 axillary lymph nodes N1 stage IV Extensive bone metastases are CT PET scan done on 07/29/2017 And her molecular studies showed negative for PIK3CA and BRCA 1 and 2 Tumor marker CA-27-29 1455.11 and CA 15.3 is 653.1 Repeat tumor markers CA-27-29 on 11/02/2017 was 167.77 and CA 15.3 was 89.6 estrogen receptor 100% progesterone receptors 100% HER-2/ivett negative by IHC and over amplification by fish and Ki-67 7 % Status post radiation therapy to lumbar sacral spine from 08/15/2017 to 08/28/2017 Mrs Booth was on Ibrance 125 mg by mouth daily for 21 days and then week off and repeat cycle every 28 days along with Femara 2.5 mg daily since 08/29/2017. Because of leukopenia at day 28, will reduce Ibrance dose to 100 mg by mouth for 21 days on 1 week off repeat 28 days. Along with Femara 2.5 mg daily Persistent leukopenia even with Ibrance 125 mg for 14 days. Her last dose was 100 mg by mouth daily for 14 days q 28 days. Follow-up CT PET scan done on 02/17/2018 showed interval resolution of abnormal activity throughout the bone indicating positive response to therapy of widespread osseous metastatic disease. She had progression of her tumor marker so stopped the Ibrance and Femara. She was then treated with single agent Arimidex and monthly Xgeva. The Arimidex was discontinued on 08/02/2018 as her follow-up CT PET scan from 07/14/2018 showed evidence of disease progression. There has been development of new malignant mediastinal lymphadenopathy in the precarinal and [place]. These have SUV of 6.7, and subcentimeter suspicious superior mediastinal lymph nodes are also identified. Widespread osseous metastatic disease as the activated in a multifocal pattern, is seen most prominently in left scapula, thoracic spine, lumbar spine, pelvis and proximal femurs. And index lesion in the right ischium has SUV of 6. Tumor marker CA-27-29 is 393.47 on 07/30/2018 compared to 334.52 on 07/02/2018, 142.60 on 04/26/2018. recommended changing treatment to weekly paclitaxel. Ms. Booth began her first dose of weekly pack Taxol on August 28, 2018. She has tolerated it well thus far .Follow-up CT PET scan done on 09/29/2018 showed progression of widespread osseous metastatic disease since prior study, new unifocal hepatic metastatic disease, suspicious activity in right adrenal gland. Tumor marker CA-27-29 has gone down to 1197.6 on 09/24/2018 compared to 1327.6 on 09/04/2018, Weekly carboplatin was added to weekly Taxol on on 10/02/2018. with monthly Xgeva Follow-up CT PET scan done on 01/26/2019 showed widespread osseous metastatic disease seen on prior scan is unchanged remained FDG positive. The index lesion in the posterior right acetabulum that has SUV of 8 now is 6.6. Right hepatic lobe lesion now has SUV of 3.4 compared to 4.2 on prior study Right adrenal lesion is progressed now SUV 5.4 compared to 3.7 previous Left adrenal activity is slightly more prominent. Mild activity in the mediastinal lymph node is unchanged. Follow-up CT PET scan done after 6 cycles of carboplatin/Taxol showed overall no significant change since prior study and widespread osseous metastatic disease, right hepatic metastases, or bilateral adrenal uptake, Her follow-up CT PET scan shows stable disease but her tumor marker continued to go up and her lab workup shows persistent progressive cytopenias, in that case Dr Estrella did discontinue her chemotherapy and requested a switch to fulvestrant/ everolimus , fulvestrant 500 mg IM on day 1, 15 and day 29 thereafter every month and everolimus 10 mg by mouth daily , while continue with Xgeva every month. Her everolimus dose was decreased to 5 mg daily due to persistent side effects. She presented for followup on 07/01/2019 with multiple concerns. She had lost another 7 pounds since her last visit. She had worsening fatigue. She also reported having bilateral foot and hand pain as well as slight bleeding from her left nare. She states since holding the Afinitor and doing dexamethasone 4 mg po daily, she feels like a different person . She states she feels much better overall. She is tired but recovers with rest. Mrs. Booth resumed Afinitor 5 mg daily for 14 days on and 7 days off on September 02, 2019. Thus far she has tolerated it well. The main issue she has had with resuming the Afinitor is that she has now once again became anemic. Her iron studies and B12 have been normal. The Afinitor will be placed on hold again due to the anemia. Plan: Discussed with patient regarding her labs white blood count 4.3 hemoglobin 8.3 hematocrit 26.9 platelets 284,000 CMP within normal limit except creatinine 1.4 compared to 1.5 on April 08, 2020 and her tumor marker CA 15.3 checked on April 09, 2020 was 358.5 compared to 5.39.6 on January 01, 2020 Clinically, patient is doing well, no with no new signs symptoms, tolerating Aromasin/Faslodex/Xgeva, will proceed with next monthly dose of Xgeva/Faslodex today in the meantime she will continue with Aromasin on a daily basis and return to clinic in 1 month with CBC CMP and CA 15.3. As far as, mouth sores concern patient was advised to use Listerine mouthwash and maintain oral hygiene and use Orajel for symptom control and also advised to take multivitamin. Signed By: Stanley Estrella M.D. <<Signature on File>>
== END 2020-05-30 23:59 | disposition home or self-care (01) ==
LOC: ONCMED 05:15
PROVIDERS: Nurse Practitioner; Visit Provider Internal Medicine Hematology & Oncology
DX: C50.812 Malignant neoplasm of overlapping sites of left female breast (principal); Z17.0 Estrogen receptor positive status [ER+]; C79.51 Secondary malignant neoplasm of bone; C77.1 Secondary and unspecified malignant neoplasm of intrathoracic lymph nodes; C78.7 Secondary malignant neoplasm of liver and intrahepatic bile duct; G89.3 Neoplasm related pain (acute) (chronic); D64.81 Anemia due to antineoplastic chemotherapy; T45.1X5A Adverse effect of antineoplastic and immunosuppressive drugs, initial encounter; Z92.3 Personal history of irradiation; Z79.899 Other long term (current) drug therapy; Z79.818 Long term (current) use of other agents affecting estrogen receptors and estrogen levels
CPT/HCPCS: 80053; 85025; 96372; 96402; 99214; J0897; J9395

== ENCOUNTER 2020-06-15 05:33 | Outpatient (RCR) | payer MEDICARE, OTHER, SELFPAY ==
[2020-06-05 11:45] LABS: Basophils % 0.4 %; Eosinophils # 0.3 10^3/uL (0.0-0.8); Eosinophils % 5.3 %; Hemoglobin 8.4 g/dL (11.5-15.3); Lymphocytes # 0.8 10^3/uL (0.8-4.8); Lymphocytes % 15.4 %; Mean Corpuscular Hemoglobin 32.4 pg (28.0-34.0); Mean Corpuscular Volume 108.1 fL (81-99); Mean Platelet Volume 9.2 fL (7.4-10.4); Monocytes # 0.6 10^3/uL (0.2-0.9); Monocytes % 11.4 %; Neutrophils # 3.41 10^3/uL (1.8-7.7); Neutrophils % 67.1 %; Nucleated Red Blood Cells % 0 %; Platelet Count 308 10^3/cmm (130-400); Red Blood Count 2.59 10^6/uL (4.1-5.3); Red Cell Distribution Width 13.1 % (12.1-15.1); White Blood Count 5.1 10^3/uL (4.0-10.0)
[2020-06-05 12:27] LABS: Folate Level 19.9 ng/mL (4.8-37.3)
[2020-06-05 12:28] LABS: Alanine Aminotransferase 17 U/L (0-33); Albumin Level 4.4 g/dL (3.5-5.2); Alkaline Phosphatase 76 IU/L (35-105); Anion Gap 18.8 (5-19); Aspartate Amino Transferase 34 U/L (0-32); Blood Urea Nitrogen 20 mg/dL (8-23); Calcium 9.8 mg/dL (8.5-10.5); Carbon Dioxide 23 mmol/L (22-29); Chloride 98 mmol/L (98-107); Globulin 3.3 g/dL (1.3-4.6); Glucose 85 mg/dL (65-115); Iron 46 ug/dL (37-145); Osmolality Calculated 280 mOsm/kg (285-295); Potassium 5.8 mmol/L (3.5-5.1); Sodium 134 mmol/L (136-145); Total Bilirubin 0.2 mg/dL (0.15-1.2); Total Iron Binding Capacity 200 mcg/dl; Total Protein 7.7 g/dL (6.6-8.7); Transferrin 181 mg/dL (200-360); Unsaturated Iron Binding 154 ug/dL (112-347); Vitamin B12 565 pg/mL (232-1245)
[2020-06-05 12:53] LABS: CA 15-3 377.8 U/mL (0-25)
[2020-06-08 11:32] LABS: Blood Urea Nitrogen 23 mg/dL (8-23); Carbon Dioxide 25 mmol/L (22-29); Chloride 96 mmol/L (98-107); Glucose 102 mg/dL (65-115); Osmolality Calculated 280 mOsm/kg (285-295); Sodium 133 mmol/L (136-145)
[2020-06-08 11:34] LABS: Anion Gap 17.4 (5-19); Potassium 5.4 mmol/L (3.5-5.1)
--- NOTE | 2020-06-08 16:52 | ONC FU_ITS ---
Dr. Estrella follow up note Patient: Joana Booth Unit #: [id number]: 1950 Dicatated By: Stanley Estrella M.D.Date of Visit:Jun 08, 2020 Onc Med Follow-up/Prog Note History of Present Illness: Mrs Booth is a 70 -year-old female who presented with a left breast mass for 2-3 years. She did undergo mammography ultrasound and subsequently a biopsy of the left breast mass on 05/10/2017 which confirmed infiltrating lobular carcinoma, grade 2, ER positive OH positive HER-2 ivett negative. The KI 67 was 7%. She is negative for PIK 3CA. She underwent left modified radical mastectomy on 05/26/2017. Surgical pathology showed grade 2 infiltrating lobular carcinoma with extensive involvement of overlying skin and nipple and areola. Lymphovascular invasion was present including dermal lymphatics, negative surgical margin, the tumor size was 6.8 x 3.2 cm and metastatic carcinoma identified in one of 3 axillary lymph nodes. She recovered from surgery well she did complain of significant low back pain with bilateral flank and rib cage. She did have PET CT on 07/29/2017. It confirmed stage IV breast cancer with extensive skeletal metastatic disease. There are innumerable FDG avid osteolytic metastatic lesions throughout the axial and appendicular skeleton. There was no hepatic, adrenal or pulmonary metastasis. There was no pathological lymphadenopathy. She was referred to radiation oncology for palliative radiation. Dr. Beaver recommended radiation therapy to the lower lumbar spine/SI joints for pain relief and disease control. She received 3000 cGy to the L5???sacral area she began treatment on August 15 and completed it on 08/28/2017. Mrs. Booth began Ibrance and Femara for metastatic breast cancer on August 29, 2016. The first doses of Xgeva documented in our chart is 09-26-2017. Ibrance and Femara was discontinued on 05/31/2018 due to progressive tumor markers. She was started on Arimidex 1 mg by mouth daily along with monthly Xgeva. She discontinued the Armidex on 08/02/2018. Her CT PET scan done on 07/14/2018 showed disease progression e.g. reactivation of multifocal osseous metastatic disease, new malignant mediastinal lymphadenopathy, bilateral inflammatory lung infiltrates and tumor marker CA-27-29 gone up to 393.47 compared to 334.62 on 07/02/2018 and 142.60 on 04/26/2018 .BRCA1/2 negative Mrs. Booth was advised to pursue treatment with weekly paclitaxel and to continue her monthly Xgeva. She began her first dose of weekly paclitaxel on 08/28/2018. Weekly carboplatin was added on 10/02/2018, as her follow-up PET scan done on 09/29/2018 showed widespread osseous metastatic disease seen on prior studies significantly more FDG positive on the current. Index lesion in the posterior right acetabulum that previously has SUV of 4.8 now has 8 there is a similar progression multiple other lesions throughout the spine sternum scapula pelvic and femurs. A new right hepatic lobe hypodensity measuring 1.4 cm has SUV of 4.2 and is a questionable activity in the region of right adrenal, suggesting metastatic disease. Her tumor marker CA-27-29 had gone down to 1197.6 on 09/24/2018 compared to 1327.6 on 09/04/2018 Mrs. Booth began chemotherapy with carboplatin and paclitaxel on 10/04/2018. and cont'd with monthly Xgeva Due to progressive leukopenia/neutropenia she is requiring Neupogen in between her weekly carboplatin and Taxol to maintain the schedule and responding well CT PET scan done on 01/26/2019 showed stable disease e.g. no significant change in FDG positive widespread osseous metastatic disease. Minimal improvement in the hepatic metastatic disease. Mild progression in right adrenal lesion and questionable new left adrenal lesion. No change in mild FDG activity in the mediastinum. Follow-up CT PET scan done After 6 cycles of weekly carboplatin Taxol on 04/06/2019 showed overall, no significant changes since prior study, widespread FDG positive osseous metastatic disease is unchanged. No change in right hepatic metastatic disease, no change in bilateral adrenal uptake Minimally improved in the subaortic mediastinal lymph nodes. Due to minimum benefit and progressive toxicity with chemotherapy (thrombocytopenia and persistent anemia, decreasing performance status), her treatment plan with carboplatin/Taxol was discontinued on 04/10/2019 and she was switched to fulvestrant /everolimus. everolimus was held due to progressive leukopenia/neutropenia and generalized weakness and fatigue and weight loss, reduced dose e.g. 5 mg daily still caused progressive leukopenia. On 09/03/2019, everolimus was re-started at 5 mg daily for 2 weeks on and then week off along with monthly Faslodex and Xgeva. Her last dose of Faslodex and Xgeva was on 09/02/2019.because of progressive weakness and fatigue, everolimus was discontinued and plan to continue with Faslodex and Xgeva alone unless CT PET scan shows progression. Follow-up CT PET scan done on 10/26/2019 showed increasing FDG activity in widespread osseous metastatic disease, consistent with mild progression,e.g. SUV now is 5.2 compared to 2.7 earlier on 07/13/2019. no new bony lesion seen Multifocal hepatic metastatic disease is not significantly changed. Right adrenal lesion is minimally progressed e.g. SUV 5.2 compared to 3.6 previously. There is no significant left adrenal activity with SUV of 4.9. In the mediastinum and subaortic node is progressed no SUV 5.9 and other nodes in the right paratracheal and bilateral hilar region weekly FDG positive may be reactive. because of mild disease progression and intolerance to evrolimus ,On 10/31/2019, Femara 2.5 mg was added to Faslodex/Xgeva , Follow-up CT PET scan done on January 25, 2020 shows no evidence of disease progression but her tumor marker CA-27-29 was progressive so Femara was discontinued and she was started on Aromasin 25 mg daily on January 25, 2020 and continued with monthly Faslodex and Xgeva on Follow-up CT PET scan done on January 25, 2020 showed no change in FDG positive widespread osseous metastatic disease. No change in multifocal hepatic metastatic disease. No change in probable reactive mediastinal lymphadenopathy, resolution of abnormal activity in both adrenal glands. Came for follow-up, denies any specific complaints, no fever chills, no nausea or vomiting, no diarrhea constipation, patient had left upper mouth sores but now improving. No new bony pains, no headaches blurred vision double vision, no melena or hematochezia, no chest pain, tolerating Faslodex/Xgeva/Aromasin well Medications: Acetaminophen Tablet Oral PRN, Valeria-Lane Pls Allergy & Cgh 1 (5-6.25-10-325 mg) Capsule Oral at bedtime PRN, Benadryl Allergy 1 Tablet (of 25 mg) Oral daily PRN, Calcium Magnesium zinc 3 Tablet Oral daily, Exemestane 1 Tablet (of 25 mg) Oral daily, Hydrocortisone 1 (1 %) Cream Topical PRN, Oxycodone-Acetaminophen 0.5 Tablet (of 5-325 mg) Oral q 4 to 6 hours PRN, PriLOSEC OTC 1 Tablet (of 20 mg) Tablet, enteric coated Oral daily Allergies: Ibuprofen and Penicillins. Review of Systems: Constitutional - No fevers, chills, night sweats, excessive fatigue. Weight is stable. Appetite and energy level are fair today, ENMT - No sinus congestion/drainage. Positive for mouth sores. No sore throat or difficulty swallowing, Hematologic/Lymphatic - No abnormal bruising or bleeding, Respiratory - No dyspnea on exertion, chest pain, cough or hemoptysis, Cardiovascular - No angina pain. No palpitations, Gastrointestinal - No nausea, vomiting, GI bleeding, or constipation. No heartburn or acid reflux. Positive for occasional diarrhea, Genitourinary (F) - No hematuria, dysuria, increased frequency, urgency, hesitancy or incontinence, Musculoskeletal - No joint or bone pain reported today, Integumentary - No skin issues at this time, Neurologic - No headache or dizziness. No numbness/paresthesias or other focal neurologic symptoms, Psychiatric - No insomnia, depression, shady or mood swings. Vital Signs: Performed on Jun 08, 2020 10:03 Height - 64.00 in Weight - 104.4 lbs (LOW) BSA - 1.48 sq.m BMI - 17.92 (LOW) Temperature - 98.6 F Pulse - 81 /min Respiration - 16 /min BP - 112/69 mm(hg) O2 Sat - 100 % Pain - 0 Performance Status: 0 - Fully active, able to carry on all predisease activities without restrictions. (ECOG) Physical Examination: Respiratory - Lungs are clear to auscultation, Cardiovascular - Regular rate and rhythm of heart, Gastrointestinal - Soft, bowel sounds present, Extremities - No visible edema. Lab/Imaging: Test performed on Jun 08, 2020 11:00 Sodium 133 mmol/L Potassium 5.4 mmol/L Chloride 96 mmol/L CO2 25 mmol/L Anion Gap 17.4 Glucose 102 mg/dL BUN 23 mg/dL Creatinine 1.4 mg/dL Cr Clearance (Est) 27.5500 mL/min Calcium 10.0 mg/dL Osmolality - Calculated 280 mOsm/kg Test performed on Jun 05, 2020 08:05 Folate, Serum 19.9 ng/mL Iron 46 mcg/dL Transferrin 181 mg/dL Vitamin B12 565 pg/mL Iron Binding Capacity (TIBC) 200 mcg/dl % Iron Saturation 23.0 % UIBC 154 mcg/dL Protein, Total 7.7 g/dL Albumin 4.4 g/dL Globulin 3.3 g/dL Bilirubin, Total 0.2 mg/dL ALT (SGPT) 17 U/L AST (SGOT) 34 U/L Alkaline Phosphatase 76 IU/L Retic Count % 1.5000 % WBC 5.1 10 3/uL RBC 2.59 10 6/uL HGB 8.4 g/dL HCT 28.0 % MCV 108.1 fL MCH 32.4 pg MCHC 30.0 g/dL RDW 13.1 % Platelet Count 308 10 3/cmm MPV 9.2 fL Neutrophils 3.41 10 3/uL Lymphocytes 0.8 10 3/uL Monocytes 0.6 10 3/uL Eosinophils 0.3 10 3/uL Basophils 0.0 10 3/uL Neutrophil % 67.1 % Lymphocyte % 15.4 % Monocyte % 11.4 % Eosinophil % 5.3 % Basophils % 0.4 % NRBC % 0 % CA 15-3 377.8 U/mL Test performed on Apr 08, 2020 07:15 Cholesterol, Total 195 mg/dL Magnesium 2.2 mg/dL T4, Free 1.18 ng/dL TSH 2.93 uIU/mL Vitamin D (25-Hydroxy), Total 38 ng/mL Triglycerides 162 mg/dL Est Avg Glucose (eAG) 105 mg/dL LDL Cholesterol 118 mg/dL HDL Cholesterol 45 mg/dL Cholesterol/HDL Ratio 4.33 mg/dL LDL / HDL Ratio 2.62 RATIO Hemoglobin A1C % 5.3 % Test performed on Mar 06, 2020 07:55 eGFR 29.7 mL/min Impression: Metastatic infiltrating lobular carcinoma with extensive axial and appendicular skeleton metastases per CT PET scan done on 07/29/2017. Infiltrating lobular carcinoma involving left breast status post MRM on 05/26/2017 final path report shows infiltrating lobular carcinoma grade 2, extensive involvement of overlying skin at nipple and areola, positive lymphovascular space invasion including dermal lymphatics. Deep margins free of tumor size of tumor 6.8 x 3.2 cm T4b (skin involvement) Metastatic tumor in 1 out of 3 axillary lymph nodes N1 stage IV Extensive bone metastases are CT PET scan done on 07/29/2017 And her molecular studies showed negative for PIK3CA and BRCA 1 and 2 Tumor marker CA-27-29 1455.11 and CA 15.3 is 653.1 Repeat tumor markers CA-27-29 on 11/02/2017 was 167.77 and CA 15.3 was 89.6 estrogen receptor 100% progesterone receptors 100% HER-2/ivett negative by IHC and over amplification by fish and Ki-67 7 % Status post radiation therapy to lumbar sacral spine from 08/15/2017 to 08/28/2017 Mrs Booth was on Ibrance 125 mg by mouth daily for 21 days and then week off and repeat cycle every 28 days along with Femara 2.5 mg daily since 08/29/2017. Because of leukopenia at day 28, will reduce Ibrance dose to 100 mg by mouth for 21 days on 1 week off repeat 28 days. Along with Femara 2.5 mg daily Persistent leukopenia even with Ibrance 125 mg for 14 days. Her last dose was 100 mg by mouth daily for 14 days q 28 days. Follow-up CT PET scan done on 02/17/2018 showed interval resolution of abnormal activity throughout the bone indicating positive response to therapy of widespread osseous metastatic disease. She had progression of her tumor marker so stopped the Ibrance and Femara. She was then treated with single agent Arimidex and monthly Xgeva. The Arimidex was discontinued on 08/02/2018 as her follow-up CT PET scan from 07/14/2018 showed evidence of disease progression. There has been development of new malignant mediastinal lymphadenopathy in the precarinal and [place]. These have SUV of 6.7, and subcentimeter suspicious superior mediastinal lymph nodes are also identified. Widespread osseous metastatic disease as the activated in a multifocal pattern, is seen most prominently in left scapula, thoracic spine, lumbar spine, pelvis and proximal femurs. And index lesion in the right ischium has SUV of 6. Tumor marker CA-27-29 is 393.47 on 07/30/2018 compared to 334.52 on 07/02/2018, 142.60 on 04/26/2018. recommended changing treatment to weekly paclitaxel. Ms. Booth began her first dose of weekly pack Taxol on August 28, 2018. She has tolerated it well thus far .Follow-up CT PET scan done on 09/29/2018 showed progression of widespread osseous metastatic disease since prior study, new unifocal hepatic metastatic disease, suspicious activity in right adrenal gland. Tumor marker CA-27-29 has gone down to 1197.6 on 09/24/2018 compared to 1327.6 on 09/04/2018, Weekly carboplatin was added to weekly Taxol on on 10/02/2018. with monthly Xgeva Follow-up CT PET scan done on 01/26/2019 showed widespread osseous metastatic disease seen on prior scan is unchanged remained FDG positive. The index lesion in the posterior right acetabulum that has SUV of 8 now is 6.6. Right hepatic lobe lesion now has SUV of 3.4 compared to 4.2 on prior study Right adrenal lesion is progressed now SUV 5.4 compared to 3.7 previous Left adrenal activity is slightly more prominent. Mild activity in the mediastinal lymph node is unchanged. Follow-up CT PET scan done after 6 cycles of carboplatin/Taxol showed overall no significant change since prior study and widespread osseous metastatic disease, right hepatic metastases, or bilateral adrenal uptake, Her follow-up CT PET scan shows stable disease but her tumor marker continued to go up and her lab workup shows persistent progressive cytopenias, in that case Dr Estrella did discontinue her chemotherapy and requested a switch to fulvestrant/ everolimus , fulvestrant 500 mg IM on day 1, 15 and day 29 thereafter every month and everolimus 10 mg by mouth daily , while continue with Xgeva every month. Her everolimus dose was decreased to 5 mg daily due to persistent side effects. She presented for followup on 07/01/2019 with multiple concerns. She had lost another 7 pounds since her last visit. She had worsening fatigue. She also reported having bilateral foot and hand pain as well as slight bleeding from her left nare. She states since holding the Afinitor and doing dexamethasone 4 mg po daily, she feels like a different person . She states she feels much better overall. She is tired but recovers with rest. Mrs. Booth resumed Afinitor 5 mg daily for 14 days on and 7 days off on September 02, 2019. Thus far she has tolerated it well. The main issue she has had with resuming the Afinitor is that she has now once again became anemic. Her iron studies and B12 have been normal. The Afinitor will be placed on hold again due to the anemia. Plan: .Discussed with patient regarding her labs white blood count 5.1 hemoglobin 8.4 hematocrit 28 platelets 308,000 CMP within normal except potassium 5.8, creatinine 1.5 and anemia work-up shows iron 46, TIBC 200, B12 565, and her tumor marker CA 15.3 is 377.8 Clinically, patient doing reasonably well with no new signs symptoms, we will proceed with her monthly dose of Faslodex and Xgeva today in the meantime she will continue with her daily Aromasin and return to clinic in 1 month with CBC CMP and CA 15.3. As far as anemia is concerned her anemia work-up was inconclusive so anemia could be multifactorial including, considering her age underlying myelodysplasia or due to renal insufficiency or due to malignancy. We will continue to monitor and may consider bone marrow evaluation if there is no improvement or worsening of anemia. Hyperkalemia, etiology unclear could be due to lab error, or hemolyzed specimen, will repeat her BMP as patient is not on potassium supplement Signed By: Stanley Estrella M.D. <<Signature on File>>
[2020-06-15] MEDS: denosumab 120 mg SDV SUBCUT (12:55)
[2020-06-15] MEDS: fulvestrant 250 mg/5 mL Syringe 500 MG IM (13:00)
== END 2020-06-29 23:59 | disposition home or self-care (01) ==
LOC: ONCMED 05:33
PROVIDERS: Visit Provider Internal Medicine Hematology & Oncology
DX: Z51.11 Encounter for antineoplastic chemotherapy (principal); C50.812 Malignant neoplasm of overlapping sites of left female breast; Z17.0 Estrogen receptor positive status [ER+]; C79.51 Secondary malignant neoplasm of bone; C77.1 Secondary and unspecified malignant neoplasm of intrathoracic lymph nodes; C78.7 Secondary malignant neoplasm of liver and intrahepatic bile duct; G89.3 Neoplasm related pain (acute) (chronic); D64.81 Anemia due to antineoplastic chemotherapy; T45.1X5A Adverse effect of antineoplastic and immunosuppressive drugs, initial encounter; E87.5 Hyperkalemia; Z79.818 Long term (current) use of other agents affecting estrogen receptors and estrogen levels
CPT/HCPCS: 36415; 80048; 80053; 82607; 82746; 83540; 83550; 84466; 85025; 85045; 86300; 96372; 96402; 99214; J0897; J9395

== ENCOUNTER 2020-07-21 09:06 | Outpatient (RCR) | payer MEDICARE, OTHER, SELFPAY ==
[2020-07-17 09:47] LABS: Basophils % 0.3 %; Eosinophils # 0.1 10^3/uL (0.0-0.8); Eosinophils % 1.5 %; Hematocrit 27.5 % (37.0-47.0); Hemoglobin 8.3 g/dL (11.5-15.3); Lymphocytes # 0.8 10^3/uL (0.8-4.8); Lymphocytes % 12.8 %; Mean Corpuscular HGB Conc 30.2 g/dL (30.0-36.0); Mean Corpuscular Hemoglobin 31.9 pg (28.0-34.0); Mean Corpuscular Volume 105.8 fL (81-99); Mean Platelet Volume 8.8 fL (7.4-10.4); Monocytes # 0.7 10^3/uL (0.2-0.9); Neutrophils # 4.43 10^3/uL (1.8-7.7); Neutrophils % 73.7 %; Nucleated Red Blood Cells % 0 %; Platelet Count 351 10^3/cmm (130-400); Red Cell Distribution Width 13.2 % (12.1-15.1)
[2020-07-17 10:06] LABS: Alanine Aminotransferase 23 U/L (0-33); Albumin Level 4.3 g/dL (3.5-5.2); Alkaline Phosphatase 99 IU/L (35-105); Anion Gap 18.3 (5-19); Aspartate Amino Transferase 33 U/L (0-32); Blood Urea Nitrogen 24 mg/dL (8-23); Calcium 9.3 mg/dL (8.5-10.5); Carbon Dioxide 23 mmol/L (22-29); Chloride 95 mmol/L (98-107); Globulin 3.3 g/dL (1.3-4.6); Glucose 89 mg/dL (65-115); Osmolality Calculated 276 mOsm/kg (285-295); Potassium 5.3 mmol/L (3.5-5.1); Sodium 131 mmol/L (136-145); Total Bilirubin 0.2 mg/dL (0.15-1.2); Total Protein 7.6 g/dL (6.6-8.7)
--- NOTE | 2020-07-20 14:30 | ONC FU_ITS ---
Dr. Estrella follow up note Patient: Joana Booth Unit #: [id number]: 1950 Dicatated By: Stanley Estrella M.D.Date of Visit:Jul 20, 2020 Onc Med Follow-up/Prog Note History of Present Illness: Mrs Booth is a 70 -year-old female who presented with a left breast mass for 2-3 years. She did undergo mammography ultrasound and subsequently a biopsy of the left breast mass on 05/10/2017 which confirmed infiltrating lobular carcinoma, grade 2, ER positive [place] positive HER-2 ivett negative. The KI 67 was 7%. She is negative for PIK 3CA. She underwent left modified radical mastectomy on 05/26/2017. Surgical pathology showed grade 2 infiltrating lobular carcinoma with extensive involvement of overlying skin and nipple and areola. Lymphovascular invasion was present including dermal lymphatics, negative surgical margin, the tumor size was 6.8 x 3.2 cm and metastatic carcinoma identified in one of 3 axillary lymph nodes. She recovered from surgery well she did complain of significant low back pain with bilateral flank and rib cage. She did have PET CT on 07/29/2017. It confirmed stage IV breast cancer with extensive skeletal metastatic disease. There are innumerable FDG avid osteolytic metastatic lesions throughout the axial and appendicular skeleton. There was no hepatic, adrenal or pulmonary metastasis. There was no pathological lymphadenopathy. She was referred to radiation oncology for palliative radiation. Dr. Beaver recommended radiation therapy to the lower lumbar spine/SI joints for pain relief and disease control. She received 3000 cGy to the L5???sacral area she began treatment on August 15 and completed it on 08/28/2017. Mrs. Booth began Ibrance and Femara for metastatic breast cancer on August 29, 2016. The first doses of Xgeva documented in our chart is 09-26-2017. Ibrance and Femara was discontinued on 05/31/2018 due to progressive tumor markers. She was started on Arimidex 1 mg by mouth daily along with monthly Xgeva. She discontinued the Armidex on 08/02/2018. Her CT PET scan done on 07/14/2018 showed disease progression e.g. reactivation of multifocal osseous metastatic disease, new malignant mediastinal lymphadenopathy, bilateral inflammatory lung infiltrates and tumor marker CA-27-29 gone up to 393.47 compared to 334.62 on 07/02/2018 and 142.60 on 04/26/2018 .BRCA1/2 negative Mrs. Booth was advised to pursue treatment with weekly paclitaxel and to continue her monthly Xgeva. She began her first dose of weekly paclitaxel on 08/28/2018. Weekly carboplatin was added on 10/02/2018, as her follow-up PET scan done on 09/29/2018 showed widespread osseous metastatic disease seen on prior studies significantly more FDG positive on the current. Index lesion in the posterior right acetabulum that previously has SUV of 4.8 now has 8 there is a similar progression multiple other lesions throughout the spine sternum scapula pelvic and femurs. A new right hepatic lobe hypodensity measuring 1.4 cm has SUV of 4.2 and is a questionable activity in the region of right adrenal, suggesting metastatic disease. Her tumor marker CA-27-29 had gone down to 1197.6 on 09/24/2018 compared to 1327.6 on 09/04/2018 Mrs. Booth began chemotherapy with carboplatin and paclitaxel on 10/04/2018. and cont'd with monthly Xgeva Due to progressive leukopenia/neutropenia she is requiring Neupogen in between her weekly carboplatin and Taxol to maintain the schedule and responding well CT PET scan done on 01/26/2019 showed stable disease e.g. no significant change in FDG positive widespread osseous metastatic disease. Minimal improvement in the hepatic metastatic disease. Mild progression in right adrenal lesion and questionable new left adrenal lesion. No change in mild FDG activity in the mediastinum. Follow-up CT PET scan done After 6 cycles of weekly carboplatin Taxol on 04/06/2019 showed overall, no significant changes since prior study, widespread FDG positive osseous metastatic disease is unchanged. No change in right hepatic metastatic disease, no change in bilateral adrenal uptake Minimally improved in the subaortic mediastinal lymph nodes. Due to minimum benefit and progressive toxicity with chemotherapy (thrombocytopenia and persistent anemia, decreasing performance status), her treatment plan with carboplatin/Taxol was discontinued on 04/10/2019 and she was switched to fulvestrant /everolimus. everolimus was held due to progressive leukopenia/neutropenia and generalized weakness and fatigue and weight loss, reduced dose e.g. 5 mg daily still caused progressive leukopenia. On 09/03/2019, everolimus was re-started at 5 mg daily for 2 weeks on and then week off along with monthly Faslodex and Xgeva. Her last dose of Faslodex and Xgeva was on 09/02/2019.because of progressive weakness and fatigue, everolimus was discontinued and plan to continue with Faslodex and Xgeva alone unless CT PET scan shows progression. Follow-up CT PET scan done on 10/26/2019 showed increasing FDG activity in widespread osseous metastatic disease, consistent with mild progression,e.g. SUV now is 5.2 compared to 2.7 earlier on 07/13/2019. no new bony lesion seen Multifocal hepatic metastatic disease is not significantly changed. Right adrenal lesion is minimally progressed e.g. SUV 5.2 compared to 3.6 previously. There is no significant left adrenal activity with SUV of 4.9. In the mediastinum and subaortic node is progressed no SUV 5.9 and other nodes in the right paratracheal and bilateral hilar region weekly FDG positive may be reactive. because of mild disease progression and intolerance to evrolimus ,On 10/31/2019, Femara 2.5 mg was added to Faslodex/Xgeva , Follow-up CT PET scan done on January 25, 2020 shows no evidence of disease progression but her tumor marker CA-27-29 was progressive so Femara was discontinued and she was started on Aromasin 25 mg daily on January 25, 2020 and continued with monthly Faslodex and Xgeva on Follow-up CT PET scan done on January 25, 2020 showed no change in FDG positive widespread osseous metastatic disease. No change in multifocal hepatic metastatic disease. No change in probable reactive mediastinal lymphadenopathy, resolution of abnormal activity in both adrenal glands. Came for follow-up, denies any specific complaint except generalized weakness and fatigue and now with progressive lower back pain and right hip pain but not radiating to lower extremities, no numbness, no urine or stool incontinence. Also complaining of progressive dyspnea on exertion and fatigue. Complaining of weight loss because of inability to eat due to sore in her left side a mouth which is improving. Tolerating Aromasin/Xgeva/Faslodex well otherwise Medications: Acetaminophen Tablet Oral PRN, [facility] [facility] 1 (5-6.25-10-325 mg) Capsule Oral at bedtime PRN, Benadryl Allergy 1 Tablet (of 25 mg) Oral daily PRN, Calcium Magnesium zinc 3 Tablet Oral daily, Exemestane 1 Tablet (of 25 mg) Oral daily, Hydrocortisone 1 (1 %) Cream Topical PRN, Oxycodone-Acetaminophen 0.5 Tablet (of 5-325 mg) Oral q 4 to 6 hours PRN, PriLOSEC OTC 1 Tablet (of 20 mg) Tablet, enteric coated Oral daily Allergies: Ibuprofen and Penicillins. Review of Systems: Constitutional - No fevers, chills, night sweats, excessive fatigue. Weight is noted to be less. Appetite and energy level are fair today, ENMT - No sinus congestion/drainage. Positive for mouth sores. No sore throat or difficulty swallowing, Hematologic/Lymphatic - No abnormal bruising or bleeding, Respiratory - No dyspnea on exertion, chest pain, cough or hemoptysis, Cardiovascular - No angina pain. No palpitations, Gastrointestinal - No nausea, vomiting, GI bleeding, or constipation. No heartburn or acid reflux. Positive for occasional diarrhea, Genitourinary (F) - No hematuria, dysuria, increased frequency, urgency positive for hesitancy no incontinence, Musculoskeletal - No joint or bone pain reported today, Integumentary - No skin issues at this time, Neurologic - No headache or dizziness. No numbness/paresthesias or other focal neurologic symptoms, Psychiatric - No insomnia, depression, shady or mood swings. Positive for insomnia. Vital Signs: Performed on Jul 20, 2020 13:49 Height - 64.00 in Weight - 98.6 lbs (LOW) BSA - 1.45 sq.m BMI - 16.92 (LOW) Temperature - 98.9 F (HIGH) Pulse - 98 /min Respiration - 16 /min BP - 117/67 mm(hg) O2 Sat - 99 % Pain - 5 Performance Status: 2 - Ambulatory/capable of all self-care, unable to perform any work activities. Up and about more than 50% of waking hours. (ECOG) Physical Examination: Respiratory - Lungs are clear to auscultation, Cardiovascular - Regular rate and rhythm of heart, Gastrointestinal - Soft, bowel sounds present, Extremities - No visible edema or rash. Lab/Imaging: Test performed on Jul 17, 2020 08:14 Sodium 131 mmol/L Potassium 5.3 mmol/L Chloride 95 mmol/L CO2 23 mmol/L Anion Gap 18.3 BUN 24 mg/dL Creatinine 1.3 mg/dL Cr Clearance (Est) 29.6700 mL/min Glucose 89 mg/dL Osmolality - Calculated 276 mOsm/kg Calcium 9.3 mg/dL Protein, Total 7.6 g/dL Albumin 4.3 g/dL Globulin 3.3 g/dL Bilirubin, Total 0.2 mg/dL ALT (SGPT) 23 U/L AST (SGOT) 33 U/L Alkaline Phosphatase 99 IU/L WBC 6.0 10 3/uL RBC 2.60 10 6/uL HGB 8.3 g/dL HCT 27.5 % MCV 105.8 fL MCH 31.9 pg MCHC 30.2 g/dL RDW 13.2 % Platelet Count 351 10 3/cmm MPV 8.8 fL Neutrophils 4.43 10 3/uL Lymphocytes 0.8 10 3/uL Monocytes 0.7 10 3/uL Eosinophils 0.1 10 3/uL Basophils 0.0 10 3/uL Neutrophil % 73.7 % Lymphocyte % 12.8 % Monocyte % 11.0 % Eosinophil % 1.5 % Basophils % 0.3 % NRBC % 0 % Test performed on Jun 05, 2020 08:05 Folate, Serum 19.9 ng/mL Iron 46 mcg/dL Transferrin 181 mg/dL Vitamin B12 565 pg/mL Iron Binding Capacity (TIBC) 200 mcg/dl % Iron Saturation 23.0 % UIBC 154 mcg/dL Retic Count % 1.5000 % CA 15-3 377.8 U/mL Test performed on Apr 08, 2020 07:15 Cholesterol, Total 195 mg/dL Magnesium 2.2 mg/dL T4, Free 1.18 ng/dL TSH 2.93 uIU/mL Vitamin D (25-Hydroxy), Total 38 ng/mL Triglycerides 162 mg/dL Est Avg Glucose (eAG) 105 mg/dL LDL Cholesterol 118 mg/dL HDL Cholesterol 45 mg/dL Cholesterol/HDL Ratio 4.33 mg/dL LDL / HDL Ratio 2.62 RATIO Hemoglobin A1C % 5.3 % Test performed on Mar 06, 2020 07:55 eGFR 29.7 mL/min Impression: Metastatic infiltrating lobular carcinoma with extensive axial and appendicular skeleton metastases per CT PET scan done on 07/29/2017. Infiltrating lobular carcinoma involving left breast status post MRM on 05/26/2017 final path report shows infiltrating lobular carcinoma grade 2, extensive involvement of overlying skin at nipple and areola, positive lymphovascular space invasion including dermal lymphatics. Deep margins free of tumor size of tumor 6.8 x 3.2 cm T4b (skin involvement) Metastatic tumor in 1 out of 3 axillary lymph nodes N1 stage IV Extensive bone metastases are CT PET scan done on 07/29/2017 And her molecular studies showed negative for PIK3CA and BRCA 1 and 2 Tumor marker CA-27-29 1455.11 and CA 15.3 is 653.1 Repeat tumor markers CA-27-29 on 11/02/2017 was 167.77 and CA 15.3 was 89.6 estrogen receptor 100% progesterone receptors 100% HER-2/ivett negative by IHC and over amplification by fish and Ki-67 7 % Status post radiation therapy to lumbar sacral spine from 08/15/2017 to 08/28/2017 Mrs Booth was on Ibrance 125 mg by mouth daily for 21 days and then week off and repeat cycle every 28 days along with Femara 2.5 mg daily since 08/29/2017. Because of leukopenia at day 28, will reduce Ibrance dose to 100 mg by mouth for 21 days on 1 week off repeat 28 days. Along with Femara 2.5 mg daily Persistent leukopenia even with Ibrance 125 mg for 14 days. Her last dose was 100 mg by mouth daily for 14 days q 28 days. Follow-up CT PET scan done on 02/17/2018 showed interval resolution of abnormal activity throughout the bone indicating positive response to therapy of widespread osseous metastatic disease. She had progression of her tumor marker so stopped the Ibrance and Femara. She was then treated with single agent Arimidex and monthly Xgeva. The Arimidex was discontinued on 08/02/2018 as her follow-up CT PET scan from 07/14/2018 showed evidence of disease progression. There has been development of new malignant mediastinal lymphadenopathy in the precarinal and [place]. These have SUV of 6.7, and subcentimeter suspicious superior mediastinal lymph nodes are also identified. Widespread osseous metastatic disease as the activated in a multifocal pattern, is seen most prominently in left scapula, thoracic spine, lumbar spine, pelvis and proximal femurs. And index lesion in the right ischium has SUV of 6. Tumor marker CA-27-29 is 393.47 on 07/30/2018 compared to 334.52 on 07/02/2018, 142.60 on 04/26/2018. recommended changing treatment to weekly paclitaxel. Ms. Booth began her first dose of weekly pack Taxol on August 28, 2018. She has tolerated it well thus far .Follow-up CT PET scan done on 09/29/2018 showed progression of widespread osseous metastatic disease since prior study, new unifocal hepatic metastatic disease, suspicious activity in right adrenal gland. Tumor marker CA-27-29 has gone down to 1197.6 on 09/24/2018 compared to 1327.6 on 09/04/2018, Weekly carboplatin was added to weekly Taxol on on 10/02/2018. with monthly Xgeva Follow-up CT PET scan done on 01/26/2019 showed widespread osseous metastatic disease seen on prior scan is unchanged remained FDG positive. The index lesion in the posterior right acetabulum that has SUV of 8 now is 6.6. Right hepatic lobe lesion now has SUV of 3.4 compared to 4.2 on prior study Right adrenal lesion is progressed now SUV 5.4 compared to 3.7 previous Left adrenal activity is slightly more prominent. Mild activity in the mediastinal lymph node is unchanged. Follow-up CT PET scan done after 6 cycles of carboplatin/Taxol showed overall no significant change since prior study and widespread osseous metastatic disease, right hepatic metastases, or bilateral adrenal uptake, Her follow-up CT PET scan shows stable disease but her tumor marker continued to go up and her lab workup shows persistent progressive cytopenias, in that case Dr Estrella did discontinue her chemotherapy and requested a switch to fulvestrant/ everolimus , fulvestrant 500 mg IM on day 1, 15 and day 29 thereafter every month and everolimus 10 mg by mouth daily , while continue with Xgeva every month. Her everolimus dose was decreased to 5 mg daily due to persistent side effects. She presented for followup on 07/01/2019 with multiple concerns. She had lost another 7 pounds since her last visit. She had worsening fatigue. She also reported having bilateral foot and hand pain as well as slight bleeding from her left nare. She states since holding the Afinitor and doing dexamethasone 4 mg po daily, she feels like a different person . She states she feels much better overall. She is tired but recovers with rest. Mrs. Booth resumed Afinitor 5 mg daily for 14 days on and 7 days off on September 02, 2019. Thus far she has tolerated it well. The main issue she has had with resuming the Afinitor is that she has now once again became anemic. Her iron studies and B12 have been normal. The Afinitor will be placed on hold again due to the anemia. Plan: Discussed with patient regarding his labs white blood count 6 hemoglobin 8.3 hematocrit 27.5 platelets 351,000 MCV 105.8 CMP within normal limit except potassium 5.3, creatinine 1.3 Clinically, patient is doing reasonably well now with progressive symptoms like progressive dyspnea on exertion, patient has persistent moderate anemia which appears to be multifactorial, also complaining of progressive lower back pain and right hip pain, This point we will consider CT PET scan to assess disease response and also consider 1 unit of packed RBCs for symptomatic persistent moderate anemia We will proceed with next monthly dose of Faslodex and Xgeva today and then return to clinic after CT PET scan to discuss further treatment and planning. As far as mouth sores concern patient was advised to use Orajel and continue to use oral antiseptic, PMD is monitoring her. Signed By: Stanley Estrella M.D. <<Signature on File>>
[2020-07-20 15:29] LABS: CA 15-3 455.3 U/mL (0-25)
[2020-07-20] MEDS: acetaminophen 325 mg Tablet 650 MG PO (15:30)
[2020-07-20] MEDS: diphenhydrAMINE 25 mg Capsule PO (15:30)
[2020-07-20] MEDS: denosumab 120 mg SDV SUBCUT (15:55)
[2020-07-20] MEDS: fulvestrant 250 mg/5 mL Syringe 500 MG IM (16:00)
[2020-07-21] MEDS: diphenhydrAMINE 25 mg Capsule PO (09:30)
[2020-07-21 09:50] VITALS: BP 102/48; PULSE 79; RESP 18; TEMP 37.2; O2SAT 99
[2020-07-21] MEDS: acetaminophen 325 mg Tablet 650 MG PO (09:51)
[2020-07-21 10:05] VITALS: BP 98/48; PULSE 69; RESP 18; TEMP 37.2; O2SAT 100
[2020-07-21 11:00] VITALS: BP 97/49; PULSE 68; RESP 18; TEMP 37.2; O2SAT 99
[2020-07-21 11:45] VITALS: BP 97/49; PULSE 68; RESP 18; TEMP 37.2; O2SAT 99
== END 2020-07-30 23:59 | disposition home or self-care (01) ==
LOC: ONCMED 09:06
PROVIDERS: Visit Provider Internal Medicine Hematology & Oncology
DX: Z51.11 Encounter for antineoplastic chemotherapy (principal); C50.812 Malignant neoplasm of overlapping sites of left female breast; Z17.0 Estrogen receptor positive status [ER+]; C79.51 Secondary malignant neoplasm of bone; C77.1 Secondary and unspecified malignant neoplasm of intrathoracic lymph nodes; C78.7 Secondary malignant neoplasm of liver and intrahepatic bile duct; D64.81 Anemia due to antineoplastic chemotherapy; T45.1X5A Adverse effect of antineoplastic and immunosuppressive drugs, initial encounter; G89.3 Neoplasm related pain (acute) (chronic); Z92.3 Personal history of irradiation
CPT/HCPCS: 36415; 36430; 80053; 80500; 85025; 86300; 86850; 86870; 86900; 86902; 86920; 96372; 96402; 99214; J0897; J9395; P9016

== ENCOUNTER 2020-08-13 14:13 | Outpatient (RCR) | payer MEDICARE, OTHER, SELFPAY ==
[2020-08-13 15:10] LABS: Basophils % 0.4 %; Eosinophils # 0.1 10^3/uL (0.0-0.8); Eosinophils % 1.3 %; Hematocrit 31.9 % (37.0-47.0); Hemoglobin 9.8 g/dL (11.5-15.3); Lymphocytes # 0.9 10^3/uL (0.8-4.8); Mean Corpuscular HGB Conc 30.7 g/dL (30.0-36.0); Mean Corpuscular Hemoglobin 30.2 pg (28.0-34.0); Mean Corpuscular Volume 98.2 fL (81-99); Mean Platelet Volume 8.8 fL (7.4-10.4); Monocytes # 0.8 10^3/uL (0.2-0.9); Monocytes % 15.3 %; Neutrophils # 3.52 10^3/uL (1.8-7.7); Neutrophils % 66.4 %; Nucleated Red Blood Cells % 0 %; Platelet Count 327 10^3/cmm (130-400); Red Blood Count 3.25 10^6/uL (4.1-5.3); Red Cell Distribution Width 16.7 % (12.1-15.1); White Blood Count 5.3 10^3/uL (4.0-10.0)
[2020-08-13 15:37] LABS: Alanine Aminotransferase 29 U/L (0-33); Albumin Level 4.1 g/dL (3.5-5.2); Alkaline Phosphatase 147 IU/L (35-105); Anion Gap 16.8 (5-19); Aspartate Amino Transferase 37 U/L (0-32); Blood Urea Nitrogen 28 mg/dL (8-23); Calcium 9.7 mg/dL (8.5-10.5); Carbon Dioxide 28 mmol/L (22-29); Chloride 92 mmol/L (98-107); Globulin 3.6 g/dL (1.3-4.6); Glucose 90 mg/dL (65-115); Osmolality Calculated 279 mOsm/kg (285-295); Potassium 4.8 mmol/L (3.5-5.1); Sodium 132 mmol/L (136-145); Total Bilirubin 0.2 mg/dL (0.15-1.2); Total Protein 7.7 g/dL (6.6-8.7)
[2020-08-13 15:40] LABS: Creatinine Urine, Random 49 mg/dL (28-217); Microalbumin Random Urine 4 ug/dL (0-20)
[2020-08-13 16:01] LABS: Microalbum Creatinine Ratio Ur 82 mg/dL (0-20)
--- NOTE | 2020-08-13 17:09 | ONC FU_ITS ---
Dr. Estrella follow up note Patient: Joana Booth Unit #: [id number]: 1950 Dicatated By: Stanley Estrella M.D.Date of Visit:Aug 13, 2020 Onc Med Follow-up/Prog Note History of Present Illness: Mrs Booth is a 70 -year-old female who presented with a left breast mass for 2-3 years. She did undergo mammography ultrasound and subsequently a biopsy of the left breast mass on 05/10/2017 which confirmed infiltrating lobular carcinoma, grade 2, ER positive NM positive HER-2 ivett negative. The KI 67 was 7%. She is negative for PIK 3CA. She underwent left modified radical mastectomy on 05/26/2017. Surgical pathology showed grade 2 infiltrating lobular carcinoma with extensive involvement of overlying skin and nipple and areola. Lymphovascular invasion was present including dermal lymphatics, negative surgical margin, the tumor size was 6.8 x 3.2 cm and metastatic carcinoma identified in one of 3 axillary lymph nodes. She recovered from surgery well she did complain of significant low back pain with bilateral flank and rib cage. She did have PET CT on 07/29/2017. It confirmed stage IV breast cancer with extensive skeletal metastatic disease. There are innumerable FDG avid osteolytic metastatic lesions throughout the axial and appendicular skeleton. There was no hepatic, adrenal or pulmonary metastasis. There was no pathological lymphadenopathy. She was referred to radiation oncology for palliative radiation. Dr. Beaver recommended radiation therapy to the lower lumbar spine/SI joints for pain relief and disease control. She received 3000 cGy to the L5???sacral area she began treatment on August 15 and completed it on 08/28/2017. Mrs. Booth began Ibrance and Femara for metastatic breast cancer on August 29, 2016. The first doses of Xgeva documented in our chart is 09-26-2017. Ibrance and Femara was discontinued on 05/31/2018 due to progressive tumor markers. She was started on Arimidex 1 mg by mouth daily along with monthly Xgeva. She discontinued the Armidex on 08/02/2018. Her CT PET scan done on 07/14/2018 showed disease progression e.g. reactivation of multifocal osseous metastatic disease, new malignant mediastinal lymphadenopathy, bilateral inflammatory lung infiltrates and tumor marker CA-27-29 gone up to 393.47 compared to 334.62 on 07/02/2018 and 142.60 on 04/26/2018 .BRCA1/2 negative Mrs. Booth was advised to pursue treatment with weekly paclitaxel and to continue her monthly Xgeva. She began her first dose of weekly paclitaxel on 08/28/2018. Weekly carboplatin was added on 10/02/2018, as her follow-up PET scan done on 09/29/2018 showed widespread osseous metastatic disease seen on prior studies significantly more FDG positive on the current. Index lesion in the posterior right acetabulum that previously has SUV of 4.8 now has 8 there is a similar progression multiple other lesions throughout the spine sternum scapula pelvic and femurs. A new right hepatic lobe hypodensity measuring 1.4 cm has SUV of 4.2 and is a questionable activity in the region of right adrenal, suggesting metastatic disease. Her tumor marker CA-27-29 had gone down to 1197.6 on 09/24/2018 compared to 1327.6 on 09/04/2018 Mrs. Booth began chemotherapy with carboplatin and paclitaxel on 10/04/2018. and cont'd with monthly Xgeva Due to progressive leukopenia/neutropenia she is requiring Neupogen in between her weekly carboplatin and Taxol to maintain the schedule and responding well CT PET scan done on 01/26/2019 showed stable disease e.g. no significant change in FDG positive widespread osseous metastatic disease. Minimal improvement in the hepatic metastatic disease. Mild progression in right adrenal lesion and questionable new left adrenal lesion. No change in mild FDG activity in the mediastinum. Follow-up CT PET scan done After 6 cycles of weekly carboplatin Taxol on 04/06/2019 showed overall, no significant changes since prior study, widespread FDG positive osseous metastatic disease is unchanged. No change in right hepatic metastatic disease, no change in bilateral adrenal uptake Minimally improved in the subaortic mediastinal lymph nodes. Due to minimum benefit and progressive toxicity with chemotherapy (thrombocytopenia and persistent anemia, decreasing performance status), her treatment plan with carboplatin/Taxol was discontinued on 04/10/2019 and she was switched to fulvestrant /everolimus. everolimus was held due to progressive leukopenia/neutropenia and generalized weakness and fatigue and weight loss, reduced dose e.g. 5 mg daily still caused progressive leukopenia. On 09/03/2019, everolimus was re-started at 5 mg daily for 2 weeks on and then week off along with monthly Faslodex and Xgeva. Her last dose of Faslodex and Xgeva was on 09/02/2019.because of progressive weakness and fatigue, everolimus was discontinued and plan to continue with Faslodex and Xgeva alone unless CT PET scan shows progression. Follow-up CT PET scan done on 10/26/2019 showed increasing FDG activity in widespread osseous metastatic disease, consistent with mild progression,e.g. SUV now is 5.2 compared to 2.7 earlier on 07/13/2019. no new bony lesion seen Multifocal hepatic metastatic disease is not significantly changed. Right adrenal lesion is minimally progressed e.g. SUV 5.2 compared to 3.6 previously. There is no significant left adrenal activity with SUV of 4.9. In the mediastinum and subaortic node is progressed no SUV 5.9 and other nodes in the right paratracheal and bilateral hilar region weekly FDG positive may be reactive. because of mild disease progression and intolerance to evrolimus ,On 10/31/2019, Femara 2.5 mg was added to Faslodex/Xgeva , Follow-up CT PET scan done on January 25, 2020 shows no evidence of disease progression but her tumor marker CA-27-29 was progressive so Femara was discontinued and she was started on Aromasin 25 mg daily on January 25, 2020 and continued with monthly Faslodex and Xgeva on Follow-up CT PET scan done on January 25, 2020 showed no change in FDG positive widespread osseous metastatic disease. No change in multifocal hepatic metastatic disease. No change in probable reactive mediastinal lymphadenopathy, resolution of abnormal activity in both adrenal glands. Follow-up CT PET scan done on August 01, 2020 showed worsening of hepatic metastatic disease, dominant lesion in the left hepatic lobe is 2.7 x 2.0 cm with SUV of 7.7. Mixed response of widespread osseous metastatic disease but with a general trend towards improvement Marked improvement in mediastinal reactive lymph nodes A new hypermetabolic left maxillary opacification with SUV of 12 Came for follow-up, denies any specific complaint except persistent drainage and sores in her left upper mouth patient has seen Dr. Thornton recently, and also considering left eye surgery. But no new bony pains, no nausea or vomiting, no diarrhea or constipation, no headaches blurred vision double vision, no jaundice, tolerating Aromasin/Xgeva/Faslodex well otherwise Medications: Acetaminophen Tablet Oral PRN, [place]-[place] [facility] Allergy & Cgh 1 (5-6.25-10-325 mg) Capsule Oral at bedtime PRN, Benadryl Allergy 1 Tablet (of 25 mg) Oral daily PRN, Calcium Magnesium zinc 3 Tablet Oral daily, Exemestane 1 Tablet (of 25 mg) Oral daily, Hydrocortisone 1 (1 %) Cream Topical PRN, Oxycodone-Acetaminophen 0.5 Tablet (of 5-325 mg) Oral q 4 to 6 hours PRN, PriLOSEC OTC 1 Tablet (of 20 mg) Tablet, enteric coated Oral daily Allergies: Ibuprofen and Penicillins. Review of Systems: Review of Systems is not available for this patient. Vital Signs: Performed on Aug 13, 2020 16:24 Height - 64.00 in Weight - 96.4 lbs (LOW) BSA - 1.43 sq.m BMI - 16.55 (LOW) Temperature - 99.6 F (HIGH) Pulse - 86 /min Respiration - 16 /min BP - 119/55 mm(hg) O2 Sat - 98 % Pain - 4 Performance Status: 1 - No physically strenuous activity, but ambulatory and able to carry out light or sedentary work (e.g. office work, light house work). (ECOG) Physical Examination: Respiratory - Lungs are clear to auscultation, Cardiovascular - Regular rate and rhythm of heart, Gastrointestinal - Soft, bowel sounds present, Extremities - No visible edema or rash. Lab/Imaging: Test performed on Jul 20, 2020 08:14 CA 15-3 455.3 U/mL Test performed on Jul 18, 2020 08:14 Leukocyte Reduced RBC [id number] AP RCLR XM COMPATIBLE Antibody ID E Anti-D Positive Blood Type AP Antibody Screen (Gel) POSITIVE Test performed on Jul 17, 2020 08:14 Sodium 131 mmol/L Potassium 5.3 mmol/L Chloride 95 mmol/L CO2 23 mmol/L Anion Gap 18.3 BUN 24 mg/dL Creatinine 1.3 mg/dL Cr Clearance (Est) 29.6700 mL/min Glucose 89 mg/dL Osmolality - Calculated 276 mOsm/kg Calcium 9.3 mg/dL Protein, Total 7.6 g/dL Albumin 4.3 g/dL Globulin 3.3 g/dL Bilirubin, Total 0.2 mg/dL ALT (SGPT) 23 U/L AST (SGOT) 33 U/L Alkaline Phosphatase 99 IU/L WBC 6.0 10 3/uL RBC 2.60 10 6/uL HGB 8.3 g/dL HCT 27.5 % MCV 105.8 fL MCH 31.9 pg MCHC 30.2 g/dL RDW 13.2 % Platelet Count 351 10 3/cmm MPV 8.8 fL Neutrophils 4.43 10 3/uL Lymphocytes 0.8 10 3/uL Monocytes 0.7 10 3/uL Eosinophils 0.1 10 3/uL Basophils 0.0 10 3/uL Neutrophil % 73.7 % Lymphocyte % 12.8 % Monocyte % 11.0 % Eosinophil % 1.5 % Basophils % 0.3 % NRBC % 0 % Test performed on Jun 05, 2020 08:05 Folate, Serum 19.9 ng/mL Iron 46 mcg/dL Transferrin 181 mg/dL Vitamin B12 565 pg/mL Iron Binding Capacity (TIBC) 200 mcg/dl % Iron Saturation 23.0 % UIBC 154 mcg/dL Retic Count % 1.5000 % Test performed on Apr 08, 2020 07:15 Cholesterol, Total 195 mg/dL Magnesium 2.2 mg/dL T4, Free 1.18 ng/dL TSH 2.93 uIU/mL Vitamin D (25-Hydroxy), Total 38 ng/mL Triglycerides 162 mg/dL Est Avg Glucose (eAG) 105 mg/dL LDL Cholesterol 118 mg/dL HDL Cholesterol 45 mg/dL Cholesterol/HDL Ratio 4.33 mg/dL LDL / HDL Ratio 2.62 RATIO Hemoglobin A1C % 5.3 % Test performed on Mar 06, 2020 07:55 eGFR 29.7 mL/min Impression: Metastatic infiltrating lobular carcinoma with extensive axial and appendicular skeleton metastases per CT PET scan done on 07/29/2017. Infiltrating lobular carcinoma involving left breast status post MRM on 05/26/2017 final path report shows infiltrating lobular carcinoma grade 2, extensive involvement of overlying skin at nipple and areola, positive lymphovascular space invasion including dermal lymphatics. Deep margins free of tumor size of tumor 6.8 x 3.2 cm T4b (skin involvement) Metastatic tumor in 1 out of 3 axillary lymph nodes N1 stage IV Extensive bone metastases are CT PET scan done on 07/29/2017 And her molecular studies showed negative for PIK3CA and BRCA 1 and 2 Tumor marker CA-27-29 1455.11 and CA 15.3 is 653.1 Repeat tumor markers CA-27-29 on 11/02/2017 was 167.77 and CA 15.3 was 89.6 estrogen receptor 100% progesterone receptors 100% HER-2/ivett negative by IHC and over amplification by fish and Ki-67 7 % Status post radiation therapy to lumbar sacral spine from 08/15/2017 to 08/28/2017 Mrs Booth was on Ibrance 125 mg by mouth daily for 21 days and then week off and repeat cycle every 28 days along with Femara 2.5 mg daily since 08/29/2017. Because of leukopenia at day 28, will reduce Ibrance dose to 100 mg by mouth for 21 days on 1 week off repeat 28 days. Along with Femara 2.5 mg daily Persistent leukopenia even with Ibrance 125 mg for 14 days. Her last dose was 100 mg by mouth daily for 14 days q 28 days. Follow-up CT PET scan done on 02/17/2018 showed interval resolution of abnormal activity throughout the bone indicating positive response to therapy of widespread osseous metastatic disease. She had progression of her tumor marker so stopped the Ibrance and Femara. She was then treated with single agent Arimidex and monthly Xgeva. The Arimidex was discontinued on 08/02/2018 as her follow-up CT PET scan from 07/14/2018 showed evidence of disease progression. There has been development of new malignant mediastinal lymphadenopathy in the precarinal and [place]. These have SUV of 6.7, and subcentimeter suspicious superior mediastinal lymph nodes are also identified. Widespread osseous metastatic disease as the activated in a multifocal pattern, is seen most prominently in left scapula, thoracic spine, lumbar spine, pelvis and proximal femurs. And index lesion in the right ischium has SUV of 6. Tumor marker CA-27-29 is 393.47 on 07/30/2018 compared to 334.52 on 07/02/2018, 142.60 on 04/26/2018. recommended changing treatment to weekly paclitaxel. Ms. Booth began her first dose of weekly pack Taxol on August 28, 2018. She has tolerated it well thus far .Follow-up CT PET scan done on 09/29/2018 showed progression of widespread osseous metastatic disease since prior study, new unifocal hepatic metastatic disease, suspicious activity in right adrenal gland. Tumor marker CA-27-29 has gone down to 1197.6 on 09/24/2018 compared to 1327.6 on 09/04/2018, Weekly carboplatin was added to weekly Taxol on on 10/02/2018. with monthly Xgeva Follow-up CT PET scan done on 01/26/2019 showed widespread osseous metastatic disease seen on prior scan is unchanged remained FDG positive. The index lesion in the posterior right acetabulum that has SUV of 8 now is 6.6. Right hepatic lobe lesion now has SUV of 3.4 compared to 4.2 on prior study Right adrenal lesion is progressed now SUV 5.4 compared to 3.7 previous Left adrenal activity is slightly more prominent. Mild activity in the mediastinal lymph node is unchanged. Follow-up CT PET scan done after 6 cycles of carboplatin/Taxol showed overall no significant change since prior study and widespread osseous metastatic disease, right hepatic metastases, or bilateral adrenal uptake, Her follow-up CT PET scan shows stable disease but her tumor marker continued to go up and her lab workup shows persistent progressive cytopenias, in that case Dr Estrella did discontinue her chemotherapy and requested a switch to fulvestrant/ everolimus , fulvestrant 500 mg IM on day 1, 15 and day 29 thereafter every month and everolimus 10 mg by mouth daily , while continue with Xgeva every month. Her everolimus dose was decreased to 5 mg daily due to persistent side effects. She presented for followup on 07/01/2019 with multiple concerns. She had lost another 7 pounds since her last visit. She had worsening fatigue. She also reported having bilateral foot and hand pain as well as slight bleeding from her left nare. She states since holding the Afinitor and doing dexamethasone 4 mg po daily, she feels like a different person . She states she feels much better overall. She is tired but recovers with rest. Mrs. Booth resumed Afinitor 5 mg daily for 14 days on and 7 days off on September 02, 2019. Thus far she has tolerated it well. The main issue she has had with resuming the Afinitor is that she has now once again became anemic. Her iron studies and B12 have been normal. The Afinitor will be placed on hold again due to the anemia. Plan: Discussed with patient regarding her labs white blood count 5.3 hemoglobin 9.8 hematocrit 31.9 platelets 327,000 CMP within normal limits except creatinine 1.4 Clinically, patient is doing reasonably well with no new signs symptoms but her follow-up CT PET scan shows disease progression liver but improvement in mediastinal lymph nodes as well as osseous metastatic disease, will discuss with Dr. Ram regarding these mixed findings As far left maxillary sinus opacification concern could be fungal infection or infected cyst or malignancy, will request Dr. Thornton to see her again. Patient return to clinic in 1 week after ENT evaluation, in the meantime we will discuss with Dr. Ram regarding CT PET scan findings and if he confirms disease progression, then will consider changing her treatment plan. Signed By: Stanley Estrella M.D. <<Signature on File>>
== END 2020-08-30 23:59 | disposition home or self-care (01) ==
LOC: ONCMED 14:13
PROVIDERS: Internal Medicine Nephrology; PCP Internal Medicine; Visit Provider Internal Medicine Hematology & Oncology
DX: C50.812 Malignant neoplasm of overlapping sites of left female breast (principal); Z17.0 Estrogen receptor positive status [ER+]; C79.51 Secondary malignant neoplasm of bone; C77.1 Secondary and unspecified malignant neoplasm of intrathoracic lymph nodes; C78.7 Secondary malignant neoplasm of liver and intrahepatic bile duct; D64.81 Anemia due to antineoplastic chemotherapy; T45.1X5A Adverse effect of antineoplastic and immunosuppressive drugs, initial encounter; G89.3 Neoplasm related pain (acute) (chronic); R97.8 Other abnormal tumor markers; Z92.3 Personal history of irradiation; Z92.21 Personal history of antineoplastic chemotherapy; Z79.899 Other long term (current) drug therapy
CPT/HCPCS: 36415; 80053; 82044; 85025; 99214

== ENCOUNTER 2020-08-18 10:35 | Outpatient (CLI) | payer MEDICARE, OTHER, SELFPAY ==
[2020-08-18 12:00] LABS: Basophils % 0.4 %; Eosinophils % 0.8 %; Hematocrit 31.4 % (37.0-47.0); Hemoglobin 9.7 g/dL (11.5-15.3); Lymphocytes # 0.7 10^3/uL (0.8-4.8); Lymphocytes % 13.9 %; Mean Corpuscular HGB Conc 30.9 g/dL (30.0-36.0); Mean Corpuscular Hemoglobin 30.5 pg (28.0-34.0); Mean Corpuscular Volume 98.7 fL (81-99); Mean Platelet Volume 8.4 fL (7.4-10.4); Monocytes # 0.6 10^3/uL (0.2-0.9); Monocytes % 12.5 %; Neutrophils # 3.58 10^3/uL (1.8-7.7); Nucleated Red Blood Cells % 0 %; Platelet Count 327 10^3/cmm (130-400); Red Blood Count 3.18 10^6/uL (4.1-5.3); Red Cell Distribution Width 16.6 % (12.1-15.1)
[2020-08-18 12:15] LABS: INR 1.04 (0.8-1.2)
[2020-08-18 12:41] LABS: Anion Gap 17.7 (5-19); Blood Urea Nitrogen 29 mg/dL (8-23); Carbon Dioxide 26 mmol/L (22-29); Chloride 91 mmol/L (98-107); Glucose 118 mg/dL (65-115); Osmolality Calculated 277 mOsm/kg (285-295); Potassium 4.7 mmol/L (3.5-5.1); Sodium 130 mmol/L (136-145)
--- NOTE | 2020-08-18 13:52 | ECG_ITS ---
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 Measurements Intervals [place] Rate: 80 P: 80 NV: 134 QRS: 59 QRSD: 82 T: 75 QT: 356 QTc: 411 Interpretive Statements SINUS RHYTHM POSSIBLE LEFT ATRIAL ENLARGEMENT [-0.1mV P WAVE IN V1/V2] No previous ECG available for comparison Electronically Signed On 08-18-2020 20:22:34 RECRUITING MANAGER by Camilla Smith M.D. [email or web address]
== END 2020-08-18 10:36 | disposition home or self-care (01) ==
PROVIDERS: PCP Internal Medicine; Visit Provider Specialist
DX: Z01.810 Encounter for preprocedural cardiovascular examination (principal); Z01.812 Encounter for preprocedural laboratory examination
CPT/HCPCS: 36415; 80048; 85025; 85610; 93005

== ENCOUNTER 2020-08-31 11:03 | Outpatient (CLI) | payer MEDICARE, OTHER, SELFPAY ==
--- NOTE | 2020-08-31 11:08 | US_ITS ---
WS: [id number] RENAL ULTRASOUND HISTORY: CHRONIC KIDNEY DISEASE. COMPARISON: None available. TECHNIQUE: 2-D and color Doppler imaging of the kidney submitted. Right kidney: 7.8 cm x 3.8 cm x 2.9 cm. Normal echogenicity with no hydronephrosis or mass. Left kidney: 8.3 cm x 4.6 cm x 4.2 cm. Normal echogenicity with no hydronephrosis or mass. Aorta: Normal. Urinary Bladder: Normal distention. Metastatic lesions noted in the liver. This has been previously described on recent PET/CT. US/US renal BI* [id number] IMPRESSION: 1. Moderate renal atrophy with no renal obstruction. 2. No renal mass. 3. Metastatic lesions in the liver.
== END 2020-08-31 11:04 | disposition home or self-care (01) ==
PROVIDERS: PCP Internal Medicine; Visit Provider Internal Medicine Nephrology
DX: N18.32 Chronic kidney disease, stage 3b (principal); K76.9 Liver disease, unspecified; N26.1 Atrophy of kidney (terminal)
CPT/HCPCS: 76770

== ENCOUNTER 2020-09-03 05:35 | Outpatient (RCR) | payer MEDICARE, OTHER, SELFPAY ==
[2020-09-01 13:25] LABS: Basophils % 0.4 %; Eosinophils # 0.1 10^3/uL (0.0-0.8); Eosinophils % 1.8 %; Hematocrit 29.2 % (37.0-47.0); Hemoglobin 8.8 g/dL (11.5-15.3); Lymphocytes # 0.7 10^3/uL (0.8-4.8); Lymphocytes % 15.2 %; Mean Corpuscular HGB Conc 30.1 g/dL (30.0-36.0); Mean Corpuscular Hemoglobin 30.2 pg (28.0-34.0); Mean Corpuscular Volume 100.3 fL (81-99); Mean Platelet Volume 8.8 fL (7.4-10.4); Monocytes # 0.5 10^3/uL (0.2-0.9); Monocytes % 10.5 %; Neutrophils # 3.47 10^3/uL (1.8-7.7); Neutrophils % 71.3 %; Nucleated Red Blood Cells % 0 %; Platelet Count 266 10^3/cmm (130-400); Red Blood Count 2.91 10^6/uL (4.1-5.3); Red Cell Distribution Width 17.3 % (12.1-15.1); White Blood Count 4.9 10^3/uL (4.0-10.0)
[2020-09-01 14:57] LABS: Alanine Aminotransferase 20 U/L (0-33); Albumin Level 3.7 g/dL (3.5-5.2); Alkaline Phosphatase 121 IU/L (35-105); Blood Urea Nitrogen 25 mg/dL (8-23); Calcium 9.1 mg/dL (8.5-10.5); Carbon Dioxide 23 mmol/L (22-29); Chloride 94 mmol/L (98-107); Globulin 3.1 g/dL (1.3-4.6); Glucose 136 mg/dL (65-115); Osmolality Calculated 280 mOsm/kg (285-295); Sodium 132 mmol/L (136-145); Total Bilirubin 0.2 mg/dL (0.15-1.2); Total Protein 6.8 g/dL (6.6-8.7)
[2020-09-01 14:59] LABS: Anion Gap 20.9 (5-19); Aspartate Amino Transferase 37 U/L (0-32); Potassium 5.9 mmol/L (3.5-5.1)
[2020-09-03 10:45] LABS: Blood Urea Nitrogen 26 mg/dL (8-23); Calcium 9.8 mg/dL (8.5-10.5); Carbon Dioxide 25 mmol/L (22-29); Chloride 96 mmol/L (98-107); Glucose 96 mg/dL (65-115); Osmolality Calculated 279 mOsm/kg (285-295); Sodium 132 mmol/L (136-145)
--- NOTE | 2020-09-04 12:37 | ONC FU_ITS ---
Dr. Estrella follow up note Patient: Joana Booth Unit #: [id number]: 1950 Dicatated By: Stanley Estrella M.D.Date of Visit:Sep 03, 2020 Onc Med Follow-up/Prog Note History of Present Illness: Mrs Booth is a 70 -year-old female who presented with a left breast mass for 2-3 years. She did undergo mammography ultrasound and subsequently a biopsy of the left breast mass on 05/10/2017 which confirmed infiltrating lobular carcinoma, grade 2, ER positive LA positive HER-2 ivett negative. The KI 67 was 7%. She is negative for PIK 3CA. She underwent left modified radical mastectomy on 05/26/2017. Surgical pathology showed grade 2 infiltrating lobular carcinoma with extensive involvement of overlying skin and nipple and areola. Lymphovascular invasion was present including dermal lymphatics, negative surgical margin, the tumor size was 6.8 x 3.2 cm and metastatic carcinoma identified in one of 3 axillary lymph nodes. She recovered from surgery well she did complain of significant low back pain with bilateral flank and rib cage. She did have PET CT on 07/29/2017. It confirmed stage IV breast cancer with extensive skeletal metastatic disease. There are innumerable FDG avid osteolytic metastatic lesions throughout the axial and appendicular skeleton. There was no hepatic, adrenal or pulmonary metastasis. There was no pathological lymphadenopathy. She was referred to radiation oncology for palliative radiation. Dr. Beaver recommended radiation therapy to the lower lumbar spine/SI joints for pain relief and disease control. She received 3000 cGy to the L5???sacral area she began treatment on August 15 and completed it on 08/28/2017. Mrs. Booth began Ibrance and Femara for metastatic breast cancer on August 29, 2016. The first doses of Xgeva documented in our chart is 09-26-2017. Ibrance and Femara was discontinued on 05/31/2018 due to progressive tumor markers. She was started on Arimidex 1 mg by mouth daily along with monthly Xgeva. She discontinued the Armidex on 08/02/2018. Her CT PET scan done on 07/14/2018 showed disease progression e.g. reactivation of multifocal osseous metastatic disease, new malignant mediastinal lymphadenopathy, bilateral inflammatory lung infiltrates and tumor marker CA-27-29 gone up to 393.47 compared to 334.62 on 07/02/2018 and 142.60 on 04/26/2018 .BRCA1/2 negative Mrs. Booth was advised to pursue treatment with weekly paclitaxel and to continue her monthly Xgeva. She began her first dose of weekly paclitaxel on 08/28/2018. Weekly carboplatin was added on 10/02/2018, as her follow-up PET scan done on 09/29/2018 showed widespread osseous metastatic disease seen on prior studies significantly more FDG positive on the current. Index lesion in the posterior right acetabulum that previously has SUV of 4.8 now has 8 there is a similar progression multiple other lesions throughout the spine sternum scapula pelvic and femurs. A new right hepatic lobe hypodensity measuring 1.4 cm has SUV of 4.2 and is a questionable activity in the region of right adrenal, suggesting metastatic disease. Her tumor marker CA-27-29 had gone down to 1197.6 on 09/24/2018 compared to 1327.6 on 09/04/2018 Mrs. Booth began chemotherapy with carboplatin and paclitaxel on 10/04/2018. and cont'd with monthly Xgeva Due to progressive leukopenia/neutropenia she is requiring Neupogen in between her weekly carboplatin and Taxol to maintain the schedule and responding well CT PET scan done on 01/26/2019 showed stable disease e.g. no significant change in FDG positive widespread osseous metastatic disease. Minimal improvement in the hepatic metastatic disease. Mild progression in right adrenal lesion and questionable new left adrenal lesion. No change in mild FDG activity in the mediastinum. Follow-up CT PET scan done After 6 cycles of weekly carboplatin Taxol on 04/06/2019 showed overall, no significant changes since prior study, widespread FDG positive osseous metastatic disease is unchanged. No change in right hepatic metastatic disease, no change in bilateral adrenal uptake Minimally improved in the subaortic mediastinal lymph nodes. Due to minimum benefit and progressive toxicity with chemotherapy (thrombocytopenia and persistent anemia, decreasing performance status), her treatment plan with carboplatin/Taxol was discontinued on 04/10/2019 and she was switched to fulvestrant /everolimus. everolimus was held due to progressive leukopenia/neutropenia and generalized weakness and fatigue and weight loss, reduced dose e.g. 5 mg daily still caused progressive leukopenia. On 09/03/2019, everolimus was re-started at 5 mg daily for 2 weeks on and then week off along with monthly Faslodex and Xgeva. Her last dose of Faslodex and Xgeva was on 09/02/2019.because of progressive weakness and fatigue, everolimus was discontinued and plan to continue with Faslodex and Xgeva alone unless CT PET scan shows progression. Follow-up CT PET scan done on 10/26/2019 showed increasing FDG activity in widespread osseous metastatic disease, consistent with mild progression,e.g. SUV now is 5.2 compared to 2.7 earlier on 07/13/2019. no new bony lesion seen Multifocal hepatic metastatic disease is not significantly changed. Right adrenal lesion is minimally progressed e.g. SUV 5.2 compared to 3.6 previously. There is no significant left adrenal activity with SUV of 4.9. In the mediastinum and subaortic node is progressed no SUV 5.9 and other nodes in the right paratracheal and bilateral hilar region weekly FDG positive may be reactive. because of mild disease progression and intolerance to evrolimus ,On 10/31/2019, Femara 2.5 mg was added to Faslodex/Xgeva , Follow-up CT PET scan done on January 25, 2020 shows no evidence of disease progression but her tumor marker CA-27-29 was progressive so Femara was discontinued and she was started on Aromasin 25 mg daily on January 25, 2020 and continued with monthly Faslodex and Xgeva on Follow-up CT PET scan done on January 25, 2020 showed no change in FDG positive widespread osseous metastatic disease. No change in multifocal hepatic metastatic disease. No change in probable reactive mediastinal lymphadenopathy, resolution of abnormal activity in both adrenal glands. Follow-up CT PET scan done on August 01, 2020 showed worsening of hepatic metastatic disease, dominant lesion in the left hepatic lobe is 2.7 x 2.0 cm with SUV of 7.7. Mixed response of widespread osseous metastatic disease but with a general trend towards improvement Marked improvement in mediastinal reactive lymph nodes A new hypermetabolic left maxillary opacification with SUV of 12 Came for follow-up, denies any specific complaints except her left facial swelling is improving with oral antibiotics and the last week of July 2019 when she underwent left sinus mass biopsy,. And her mouth sore is also improving, as per patient she was told it was due to severe gingivitis. 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 Otherwise no fever chills, no nausea or vomiting, no diarrhea or constipation, no new bony pains, still losing weight. Medications: Acetaminophen Tablet Oral PRN, Valeria-[place] Pls Allergy & Cgh 1 (5-6.25-10-325 mg) Capsule Oral at bedtime PRN, Benadryl Allergy 1 Tablet (of 25 mg) Oral daily PRN, Calcium Magnesium zinc 3 Tablet Oral daily, Exemestane 1 Tablet (of 25 mg) Oral daily, Hydrocortisone 1 (1 %) Cream Topical PRN, Oxycodone-Acetaminophen 0.5 Tablet (of 5-325 mg) Oral q 4 to 6 hours PRN, PriLOSEC OTC 1 Tablet (of 20 mg) Tablet, enteric coated Oral daily Allergies: Ibuprofen and Penicillins. Review of Systems: Constitutional - No fevers, chills, night sweats, excessive fatigue. Weight is noted to be less. Appetite and energy level are fair today, ENMT - No sinus congestion/drainage. Positive for mouth sores. No sore throat or difficulty swallowing, Hematologic/Lymphatic - No abnormal bruising or bleeding, Respiratory - No dyspnea on exertion, chest pain, cough or hemoptysis, Cardiovascular - No angina pain. No palpitations, Gastrointestinal - No nausea, vomiting, GI bleeding, or constipation. No heartburn or acid reflux. Positive for occasional diarrhea, Genitourinary (F) - No hematuria, dysuria, increased frequency, urgency positive for hesitancy no incontinence, Musculoskeletal - No joint or bone pain reported today, Integumentary - No skin issues at this time, Neurologic - No headache or dizziness. No numbness/paresthesias or other focal neurologic symptoms, Psychiatric - No insomnia, depression, shady or mood swings. Positive for insomnia. Vital Signs: Performed on Sep 03, 2020 09:02 Height - 64.00 in Weight - 94.0 lbs (LOW) BSA - 1.42 sq.m BMI - 16.14 (LOW) Temperature - 98.3 F (LOW) Pulse - 86 /min Respiration - 16 /min BP - 118/53 mm(hg) O2 Sat - 97 % Pain - 0 Performance Status: 2 - Ambulatory/capable of all self-care, unable to perform any work activities. Up and about more than 50% of waking hours. (ECOG) Physical Examination: Respiratory - Lungs are clear to auscultation, Cardiovascular - Regular rate and rhythm of heart, Gastrointestinal - Soft, bowel sounds present, Extremities - No visible edema. Lab/Imaging: Test performed on Aug 13, 2020 14:37 Sodium 132 mmol/L Potassium 4.8 mmol/L Chloride 92 mmol/L CO2 28 mmol/L Anion Gap 16.8 BUN 28 mg/dL Creatinine 1.4 mg/dL Cr Clearance (Est) 25.44 mL/min Glucose 90 mg/dL Osmolality - Calculated 279 mOsm/kg Calcium 9.7 mg/dL Protein, Total 7.7 g/dL Albumin 4.1 g/dL Globulin 3.6 g/dL Bilirubin, Total 0.2 mg/dL ALT (SGPT) 29 U/L AST (SGOT) 37 U/L Alkaline Phosphatase 147 IU/L WBC 5.3 10 3/uL RBC 3.25 10 6/uL HGB 9.8 g/dL HCT 31.9 % MCV 98.2 fL MCH 30.2 pg MCHC 30.7 g/dL RDW 16.7 % Platelet Count 327 10 3/cmm MPV 8.8 fL Neutrophils 3.52 10 3/uL Lymphocytes 0.9 10 3/uL Monocytes 0.8 10 3/uL Eosinophils 0.1 10 3/uL Basophils 0.0 10 3/uL Neutrophil % 66.4 % Lymphocyte % 16.0 % Monocyte % 15.3 % Eosinophil % 1.3 % Basophils % 0.4 % NRBC % 0 % Test performed on Jul 20, 2020 08:14 CA 15-3 455.3 U/mL Test performed on Jul 18, 2020 08:14 Leukocyte Reduced RBC [id number] AP RCLR XM COMPATIBLE Antibody ID E Anti-D Positive Blood Type AP Antibody Screen (Gel) POSITIVE Test performed on Jun 05, 2020 08:05 Folate, Serum 19.9 ng/mL Iron 46 mcg/dL Transferrin 181 mg/dL Vitamin B12 565 pg/mL Iron Binding Capacity (TIBC) 200 mcg/dl % Iron Saturation 23.0 % UIBC 154 mcg/dL Retic Count % 1.5000 % Test performed on Apr 08, 2020 07:15 Cholesterol, Total 195 mg/dL Magnesium 2.2 mg/dL T4, Free 1.18 ng/dL TSH 2.93 uIU/mL Vitamin D (25-Hydroxy), Total 38 ng/mL Triglycerides 162 mg/dL Est Avg Glucose (eAG) 105 mg/dL LDL Cholesterol 118 mg/dL HDL Cholesterol 45 mg/dL Cholesterol/HDL Ratio 4.33 mg/dL LDL / HDL Ratio 2.62 RATIO Hemoglobin A1C % 5.3 % Impression: Metastatic infiltrating lobular carcinoma with extensive axial and appendicular skeleton metastases per CT PET scan done on 07/29/2017. Infiltrating lobular carcinoma involving left breast status post MRM on 05/26/2017 final path report shows infiltrating lobular carcinoma grade 2, extensive involvement of overlying skin at nipple and areola, positive lymphovascular space invasion including dermal lymphatics. Deep margins free of tumor size of tumor 6.8 x 3.2 cm T4b (skin involvement) Metastatic tumor in 1 out of 3 axillary lymph nodes N1 stage IV Extensive bone metastases are CT PET scan done on 07/29/2017 And her molecular studies showed negative for PIK3CA and BRCA 1 and 2 Tumor marker CA-27-29 1455.11 and CA 15.3 is 653.1 Repeat tumor markers CA-27-29 on 11/02/2017 was 167.77 and CA 15.3 was 89.6 estrogen receptor 100% progesterone receptors 100% HER-2/ivett negative by IHC and over amplification by fish and Ki-67 7 % Status post radiation therapy to lumbar sacral spine from 08/15/2017 to 08/28/2017 Mrs Booth was on Ibrance 125 mg by mouth daily for 21 days and then week off and repeat cycle every 28 days along with Femara 2.5 mg daily since 08/29/2017. Because of leukopenia at day 28, will reduce Ibrance dose to 100 mg by mouth for 21 days on 1 week off repeat 28 days. Along with Femara 2.5 mg daily Persistent leukopenia even with Ibrance 125 mg for 14 days. Her last dose was 100 mg by mouth daily for 14 days q 28 days. Follow-up CT PET scan done on 02/17/2018 showed interval resolution of abnormal activity throughout the bone indicating positive response to therapy of widespread osseous metastatic disease. She had progression of her tumor marker so stopped the Ibrance and Femara. She was then treated with single agent Arimidex and monthly Xgeva. The Arimidex was discontinued on 08/02/2018 as her follow-up CT PET scan from 07/14/2018 showed evidence of disease progression. There has been development of new malignant mediastinal lymphadenopathy in the precarinal and [place]. These have SUV of 6.7, and subcentimeter suspicious superior mediastinal lymph nodes are also identified. Widespread osseous metastatic disease as the activated in a multifocal pattern, is seen most prominently in left scapula, thoracic spine, lumbar spine, pelvis and proximal femurs. And index lesion in the right ischium has SUV of 6. Tumor marker CA-27-29 is 393.47 on 07/30/2018 compared to 334.52 on 07/02/2018, 142.60 on 04/26/2018. recommended changing treatment to weekly paclitaxel. Ms. Booth began her first dose of weekly pack Taxol on August 28, 2018. She has tolerated it well thus far .Follow-up CT PET scan done on 09/29/2018 showed progression of widespread osseous metastatic disease since prior study, new unifocal hepatic metastatic disease, suspicious activity in right adrenal gland. Tumor marker CA-27-29 has gone down to 1197.6 on 09/24/2018 compared to 1327.6 on 09/04/2018, Weekly carboplatin was added to weekly Taxol on on 10/02/2018. with monthly Xgeva Follow-up CT PET scan done on 01/26/2019 showed widespread osseous metastatic disease seen on prior scan is unchanged remained FDG positive. The index lesion in the posterior right acetabulum that has SUV of 8 now is 6.6. Right hepatic lobe lesion now has SUV of 3.4 compared to 4.2 on prior study Right adrenal lesion is progressed now SUV 5.4 compared to 3.7 previous Left adrenal activity is slightly more prominent. Mild activity in the mediastinal lymph node is unchanged. Follow-up CT PET scan done after 6 cycles of carboplatin/Taxol showed overall no significant change since prior study and widespread osseous metastatic disease, right hepatic metastases, or bilateral adrenal uptake, Her follow-up CT PET scan shows stable disease but her tumor marker continued to go up and her lab workup shows persistent progressive cytopenias, in that case Dr Estrella did discontinue her chemotherapy and requested a switch to fulvestrant/ everolimus , fulvestrant 500 mg IM on day 1, 15 and day 29 thereafter every month and everolimus 10 mg by mouth daily , while continue with Xgeva every month. Her everolimus dose was decreased to 5 mg daily due to persistent side effects. She presented for followup on 07/01/2019 with multiple concerns. She had lost another 7 pounds since her last visit. She had worsening fatigue. She also reported having bilateral foot and hand pain as well as slight bleeding from her left nare. She states since holding the Afinitor and doing dexamethasone 4 mg po daily, she feels like a different person . She states she feels much better overall. She is tired but recovers with rest. Mrs. Booth resumed Afinitor 5 mg daily for 14 days on and 7 days off on September 02, 2019. Thus far she has tolerated it well. The main issue she has had with resuming the Afinitor is that she has now once again became anemic. Her iron studies and B12 have been normal. The Afinitor will be placed on hold again due to the anemia. Plan: Discussed with patient regarding her labs white blood count 4.9 hemoglobin 8.8 hematocrit 29.2 platelets 266,000 CMP within normal limit except potassium 5.9 Clinically, patient doing well with no new signs symptoms, tolerating Faslodex/Xgeva/Aromasin well but with expected side effects e.g. as per nephrology evaluation for mild/persistent renal insufficiency could be due to Faslodex. In that case we will discontinue Faslodex and also hold Xgeva while continue Aromasin and she will return to clinic in 2 weeks with CBC CMP, but that time will have left sinus biopsy report available too. I will discuss with her regarding changing palliative therapy for metastatic breast cancer. As per his anemia is concerned could be multifactorial including due to metastatic breast cancer, will continue to monitor and transfuse if less than 8 g. Signed By: Stanley Estrella M.D. <<Signature on File>>
== END 2020-09-27 23:59 | disposition home or self-care (01) ==
LOC: ONCMED 05:35
PROVIDERS: Nurse Practitioner; PCP Internal Medicine; Visit Provider Internal Medicine Hematology & Oncology
DX: C50.812 Malignant neoplasm of overlapping sites of left female breast (principal); Z17.0 Estrogen receptor positive status [ER+]; C79.51 Secondary malignant neoplasm of bone; C77.1 Secondary and unspecified malignant neoplasm of intrathoracic lymph nodes; C78.7 Secondary malignant neoplasm of liver and intrahepatic bile duct; G89.3 Neoplasm related pain (acute) (chronic); D64.81 Anemia due to antineoplastic chemotherapy; T45.1X5A Adverse effect of antineoplastic and immunosuppressive drugs, initial encounter; Z79.811 Long term (current) use of aromatase inhibitors
CPT/HCPCS: 80048; 80053; 85025; 99214

== ENCOUNTER 2020-09-29 05:36 | Outpatient (RCR) | payer MEDICARE, OTHER, SELFPAY ==
[2020-09-29 08:35] LABS: Basophils % 0.8 %; Eosinophils # 0.2 10^3/uL (0.0-0.8); Eosinophils % 4.9 %; Hematocrit 29.1 % (37.0-47.0); Hemoglobin 8.7 g/dL (11.5-15.3); Lymphocytes # 1.1 10^3/uL (0.8-4.8); Lymphocytes % 22.6 %; Mean Corpuscular HGB Conc 29.9 g/dL (30.0-36.0); Mean Corpuscular Hemoglobin 30.9 pg (28.0-34.0); Mean Corpuscular Volume 103.2 fL (81-99); Mean Platelet Volume 9.2 fL (7.4-10.4); Monocytes # 0.7 10^3/uL (0.2-0.9); Monocytes % 15.2 %; Neutrophils # 2.64 10^3/uL (1.8-7.7); Neutrophils % 55.9 %; Nucleated Red Blood Cells % 0 %; Platelet Count 273 10^3/cmm (130-400); Red Blood Count 2.82 10^6/uL (4.1-5.3); Red Cell Distribution Width 18.6 % (12.1-15.1); White Blood Count 4.7 10^3/uL (4.0-10.0)
[2020-09-29 08:53] LABS: Alanine Aminotransferase 23 U/L (0-33); Albumin Level 4.3 g/dL (3.5-5.2); Alkaline Phosphatase 100 IU/L (35-105); Anion Gap 15.7 (5-19); Aspartate Amino Transferase 36 U/L (0-32); Blood Urea Nitrogen 33 mg/dL (8-23); Calcium 9.8 mg/dL (8.5-10.5); Carbon Dioxide 24 mmol/L (22-29); Chloride 100 mmol/L (98-107); Globulin 3.1 g/dL (1.3-4.6); Glucose 83 mg/dL (65-115); Osmolality Calculated 284 mOsm/kg (285-295); Potassium 5.7 mmol/L (3.5-5.1); Sodium 134 mmol/L (136-145); Total Bilirubin 0.2 mg/dL (0.15-1.2); Total Protein 7.4 g/dL (6.6-8.7)
--- NOTE | 2020-09-30 17:05 | ONC FU_ITS ---
Dr. Estrella follow up note Patient: Joana Booth Unit #: [id number]: 1950 Dicatated By: Stanley Estrella M.D.Date of Visit:Sep 29, 2020 Onc Med Follow-up/Prog Note History of Present Illness: Mrs Booth is a 70 -year-old female who presented with a left breast mass for 2-3 years. She did undergo mammography ultrasound and subsequently a biopsy of the left breast mass on 05/10/2017 which confirmed infiltrating lobular carcinoma, grade 2, ER positive OH positive HER-2 ivett negative. The KI 67 was 7%. She is negative for PIK 3CA. She underwent left modified radical mastectomy on 05/26/2017. Surgical pathology showed grade 2 infiltrating lobular carcinoma with extensive involvement of overlying skin and nipple and areola. Lymphovascular invasion was present including dermal lymphatics, negative surgical margin, the tumor size was 6.8 x 3.2 cm and metastatic carcinoma identified in one of 3 axillary lymph nodes. She recovered from surgery well she did complain of significant low back pain with bilateral flank and rib cage. She did have PET CT on 07/29/2017. It confirmed stage IV breast cancer with extensive skeletal metastatic disease. There are innumerable FDG avid osteolytic metastatic lesions throughout the axial and appendicular skeleton. There was no hepatic, adrenal or pulmonary metastasis. There was no pathological lymphadenopathy. She was referred to radiation oncology for palliative radiation. Dr. Beaver recommended radiation therapy to the lower lumbar spine/SI joints for pain relief and disease control. She received 3000 cGy to the L5???sacral area she began treatment on August 15 and completed it on 08/28/2017. Mrs. Booth began Ibrance and Femara for metastatic breast cancer on August 29, 2016. The first doses of Xgeva documented in our chart is 09-26-2017. Ibrance and Femara was discontinued on 05/31/2018 due to progressive tumor markers. She was started on Arimidex 1 mg by mouth daily along with monthly Xgeva. She discontinued the Armidex on 08/02/2018. Her CT PET scan done on 07/14/2018 showed disease progression e.g. reactivation of multifocal osseous metastatic disease, new malignant mediastinal lymphadenopathy, bilateral inflammatory lung infiltrates and tumor marker CA-27-29 gone up to 393.47 compared to 334.62 on 07/02/2018 and 142.60 on 04/26/2018 .BRCA1/2 negative Mrs. Booth was advised to pursue treatment with weekly paclitaxel and to continue her monthly Xgeva. She began her first dose of weekly paclitaxel on 08/28/2018. Weekly carboplatin was added on 10/02/2018, as her follow-up PET scan done on 09/29/2018 showed widespread osseous metastatic disease seen on prior studies significantly more FDG positive on the current. Index lesion in the posterior right acetabulum that previously has SUV of 4.8 now has 8 there is a similar progression multiple other lesions throughout the spine sternum scapula pelvic and femurs. A new right hepatic lobe hypodensity measuring 1.4 cm has SUV of 4.2 and is a questionable activity in the region of right adrenal, suggesting metastatic disease. Her tumor marker CA-27-29 had gone down to 1197.6 on 09/24/2018 compared to 1327.6 on 09/04/2018 Mrs. Booth began chemotherapy with carboplatin and paclitaxel on 10/04/2018. and cont'd with monthly Xgeva Due to progressive leukopenia/neutropenia she is requiring Neupogen in between her weekly carboplatin and Taxol to maintain the schedule and responding well CT PET scan done on 01/26/2019 showed stable disease e.g. no significant change in FDG positive widespread osseous metastatic disease. Minimal improvement in the hepatic metastatic disease. Mild progression in right adrenal lesion and questionable new left adrenal lesion. No change in mild FDG activity in the mediastinum. Follow-up CT PET scan done After 6 cycles of weekly carboplatin Taxol on 04/06/2019 showed overall, no significant changes since prior study, widespread FDG positive osseous metastatic disease is unchanged. No change in right hepatic metastatic disease, no change in bilateral adrenal uptake Minimally improved in the subaortic mediastinal lymph nodes. Due to minimum benefit and progressive toxicity with chemotherapy (thrombocytopenia and persistent anemia, decreasing performance status), her treatment plan with carboplatin/Taxol was discontinued on 04/10/2019 and she was switched to fulvestrant /everolimus. everolimus was held due to progressive leukopenia/neutropenia and generalized weakness and fatigue and weight loss, reduced dose e.g. 5 mg daily still caused progressive leukopenia. On 09/03/2019, everolimus was re-started at 5 mg daily for 2 weeks on and then week off along with monthly Faslodex and Xgeva. Her last dose of Faslodex and Xgeva was on 09/02/2019.because of progressive weakness and fatigue, everolimus was discontinued and plan to continue with Faslodex and Xgeva alone unless CT PET scan shows progression. Follow-up CT PET scan done on 10/26/2019 showed increasing FDG activity in widespread osseous metastatic disease, consistent with mild progression,e.g. SUV now is 5.2 compared to 2.7 earlier on 07/13/2019. no new bony lesion seen Multifocal hepatic metastatic disease is not significantly changed. Right adrenal lesion is minimally progressed e.g. SUV 5.2 compared to 3.6 previously. There is no significant left adrenal activity with SUV of 4.9. In the mediastinum and subaortic node is progressed no SUV 5.9 and other nodes in the right paratracheal and bilateral hilar region weekly FDG positive may be reactive. because of mild disease progression and intolerance to evrolimus ,On 10/31/2019, Femara 2.5 mg was added to Faslodex/Xgeva , Follow-up CT PET scan done on January 25, 2020 shows no evidence of disease progression but her tumor marker CA-27-29 was progressive so Femara was discontinued and she was started on Aromasin 25 mg daily on January 25, 2020 and continued with monthly Faslodex and Xgeva on Follow-up CT PET scan done on January 25, 2020 showed no change in FDG positive widespread osseous metastatic disease. No change in multifocal hepatic metastatic disease. No change in probable reactive mediastinal lymphadenopathy, resolution of abnormal activity in both adrenal glands. Follow-up CT PET scan done on August 01, 2020 showed worsening of hepatic metastatic disease, dominant lesion in the left hepatic lobe is 2.7 x 2.0 cm with SUV of 7.7. Mixed response of widespread osseous metastatic disease but with a general trend towards improvement Marked improvement in mediastinal reactive lymph nodes A new hypermetabolic left maxillary opacification with SUV of 12 left facial swelling is improving with oral antibiotics and the last week of July 2019 when she underwent left sinus mass biopsy,, Which showed no evidence of malignancy. And her mouth sore is also improving, as per patient she was told it was due to severe gingivitis. Patient was also seen by Dr. Champagne ict project manager regarding persistent mild renal insufficiency his impression was renal insufficiency could be due to Faslodex as her renal sonogram done on August 31, 2020 shows moderate renal atrophy with no renal obstruction or renal mass.Faslodex was discontinued after dose given on July 20, 2020 And Aromasin was discontinued after CT PET scan done on August 01, 2020 shows worsening of hepatic metastatic disease Came for follow-up, feeling much better since she is off Faslodex and Aromasin, more energetic, overall feeling much better denies any fever chills no nausea or vomiting no diarrhea or constipation no new bony pains no abdominal pain no jaundice Medications: Acetaminophen Tablet Oral PRN, [facility] [facility] Allergy & Cgh 1 (5-6.25-10-325 mg) Capsule Oral at bedtime PRN, Benadryl Allergy 1 Tablet (of 25 mg) Oral daily PRN, Budesonide ER 1 (6 mg) Capsule SR 24 HR Oral daily, Calcium Magnesium zinc 3 Tablet Oral daily, Exemestane 1 Tablet (of 25 mg) Oral daily, Hydrocortisone 1 (1 %) Cream Topical PRN, Oxycodone-Acetaminophen 0.5 Tablet (of 5-325 mg) Oral q 4 to 6 hours PRN, PriLOSEC OTC 1 Tablet (of 20 mg) Tablet, enteric coated Oral daily, Tylenol PM Extra Strength 1 (500-25 mg) Tablet Oral at bedtime Allergies: Ibuprofen, Keflex, and Penicillins. Review of Systems: Review of Systems is not available for this patient. Vital Signs: Performed on Sep 29, 2020 09:39 Height - 64.00 in Weight - 99.00 lbs (HIGH) BSA - 1.45 sq.m BMI - 16.99 (LOW) Temperature - 97.2 F (LOW) Pulse - 77 /min Respiration - 18 /min BP - 107/70 mm(hg) O2 Sat - 99 % Pain - 0 Performance Status: 1 - No physically strenuous activity, but ambulatory and able to carry out light or sedentary work (e.g. office work, light house work). (ECOG) Physical Examination: Respiratory - Lungs are clear to auscultation, Cardiovascular - Regular rate and rhythm of heart s, Gastrointestinal - Soft, bowel sounds present, Extremities - No visible edema or rash. Lab/Imaging: Test performed on Sep 03, 2020 09:50 Sodium 132 mmol/L Potassium 5.0 mmol/L Chloride 96 mmol/L CO2 25 mmol/L Anion Gap 16.0 Glucose 96 mg/dL BUN 26 mg/dL Creatinine 1.3 mg/dL Cr Clearance (Est) 26.7200 mL/min Calcium 9.8 mg/dL Osmolality - Calculated 279 mOsm/kg Test performed on Aug 13, 2020 14:37 Protein, Total 7.7 g/dL Albumin 4.1 g/dL Globulin 3.6 g/dL Bilirubin, Total 0.2 mg/dL ALT (SGPT) 29 U/L AST (SGOT) 37 U/L Alkaline Phosphatase 147 IU/L WBC 5.3 10 3/uL RBC 3.25 10 6/uL HGB 9.8 g/dL HCT 31.9 % MCV 98.2 fL MCH 30.2 pg MCHC 30.7 g/dL RDW 16.7 % Platelet Count 327 10 3/cmm MPV 8.8 fL Neutrophils 3.52 10 3/uL Lymphocytes 0.9 10 3/uL Monocytes 0.8 10 3/uL Eosinophils 0.1 10 3/uL Basophils 0.0 10 3/uL Neutrophil % 66.4 % Lymphocyte % 16.0 % Monocyte % 15.3 % Eosinophil % 1.3 % Basophils % 0.4 % NRBC % 0 % Test performed on Jul 20, 2020 08:14 CA 15-3 455.3 U/mL Test performed on Jul 18, 2020 08:14 Leukocyte Reduced RBC [id number] AP RCLR XM COMPATIBLE Antibody ID E Anti-D Positive Blood Type AP Antibody Screen (Gel) POSITIVE Test performed on Jun 05, 2020 08:05 Folate, Serum 19.9 ng/mL Iron 46 mcg/dL Transferrin 181 mg/dL Vitamin B12 565 pg/mL Iron Binding Capacity (TIBC) 200 mcg/dl % Iron Saturation 23.0 % UIBC 154 mcg/dL Retic Count % 1.5000 % Test performed on Apr 08, 2020 07:15 Cholesterol, Total 195 mg/dL Magnesium 2.2 mg/dL T4, Free 1.18 ng/dL TSH 2.93 uIU/mL Vitamin D (25-Hydroxy), Total 38 ng/mL Triglycerides 162 mg/dL Est Avg Glucose (eAG) 105 mg/dL LDL Cholesterol 118 mg/dL HDL Cholesterol 45 mg/dL Cholesterol/HDL Ratio 4.33 mg/dL LDL / HDL Ratio 2.62 RATIO Hemoglobin A1C % 5.3 % Impression: Metastatic infiltrating lobular carcinoma with extensive axial and appendicular skeleton metastases per CT PET scan done on 07/29/2017. Infiltrating lobular carcinoma involving left breast status post MRM on 05/26/2017 final path report shows infiltrating lobular carcinoma grade 2, extensive involvement of overlying skin at nipple and areola, positive lymphovascular space invasion including dermal lymphatics. Deep margins free of tumor size of tumor 6.8 x 3.2 cm T4b (skin involvement) Metastatic tumor in 1 out of 3 axillary lymph nodes N1 stage IV Extensive bone metastases are CT PET scan done on 07/29/2017 And her molecular studies showed negative for PIK3CA and BRCA 1 and 2 Tumor marker CA-27-29 1455.11 and CA 15.3 is 653.1 Repeat tumor markers CA-27-29 on 11/02/2017 was 167.77 and CA 15.3 was 89.6 estrogen receptor 100% progesterone receptors 100% HER-2/ivett negative by IHC and over amplification by fish and Ki-67 7 % Status post radiation therapy to lumbar sacral spine from 08/15/2017 to 08/28/2017 Mrs Booth was on Ibrance 125 mg by mouth daily for 21 days and then week off and repeat cycle every 28 days along with Femara 2.5 mg daily since 08/29/2017. Because of leukopenia at day 28, will reduce Ibrance dose to 100 mg by mouth for 21 days on 1 week off repeat 28 days. Along with Femara 2.5 mg daily Persistent leukopenia even with Ibrance 125 mg for 14 days. Her last dose was 100 mg by mouth daily for 14 days q 28 days. Follow-up CT PET scan done on 02/17/2018 showed interval resolution of abnormal activity throughout the bone indicating positive response to therapy of widespread osseous metastatic disease. She had progression of her tumor marker so stopped the Ibrance and Femara. She was then treated with single agent Arimidex and monthly Xgeva. The Arimidex was discontinued on 08/02/2018 as her follow-up CT PET scan from 07/14/2018 showed evidence of disease progression. There has been development of new malignant mediastinal lymphadenopathy in the precarinal and [place]. These have SUV of 6.7, and subcentimeter suspicious superior mediastinal lymph nodes are also identified. Widespread osseous metastatic disease as the activated in a multifocal pattern, is seen most prominently in left scapula, thoracic spine, lumbar spine, pelvis and proximal femurs. And index lesion in the right ischium has SUV of 6. Tumor marker CA-27-29 is 393.47 on 07/30/2018 compared to 334.52 on 07/02/2018, 142.60 on 04/26/2018. recommended changing treatment to weekly paclitaxel. Ms. Booth began her first dose of weekly pack Taxol on August 28, 2018. She has tolerated it well thus far .Follow-up CT PET scan done on 09/29/2018 showed progression of widespread osseous metastatic disease since prior study, new unifocal hepatic metastatic disease, suspicious activity in right adrenal gland. Tumor marker CA-27-29 has gone down to 1197.6 on 09/24/2018 compared to 1327.6 on 09/04/2018, Weekly carboplatin was added to weekly Taxol on on 10/02/2018. with monthly Xgeva Follow-up CT PET scan done on 01/26/2019 showed widespread osseous metastatic disease seen on prior scan is unchanged remained FDG positive. The index lesion in the posterior right acetabulum that has SUV of 8 now is 6.6. Right hepatic lobe lesion now has SUV of 3.4 compared to 4.2 on prior study Right adrenal lesion is progressed now SUV 5.4 compared to 3.7 previous Left adrenal activity is slightly more prominent. Mild activity in the mediastinal lymph node is unchanged. Follow-up CT PET scan done after 6 cycles of carboplatin/Taxol showed overall no significant change since prior study and widespread osseous metastatic disease, right hepatic metastases, or bilateral adrenal uptake, Her follow-up CT PET scan shows stable disease but her tumor marker continued to go up and her lab workup shows persistent progressive cytopenias, in that case Dr Estrella did discontinue her chemotherapy and requested a switch to fulvestrant/ everolimus , fulvestrant 500 mg IM on day 1, 15 and day 29 thereafter every month and everolimus 10 mg by mouth daily , while continue with Xgeva every month. Her everolimus dose was decreased to 5 mg daily due to persistent side effects. She presented for followup on 07/01/2019 with multiple concerns. She had lost another 7 pounds since her last visit. She had worsening fatigue. She also reported having bilateral foot and hand pain as well as slight bleeding from her left nare. She states since holding the Afinitor and doing dexamethasone 4 mg po daily, she feels like a different person . She states she feels much better overall. She is tired but recovers with rest. Mrs. Booth resumed Afinitor 5 mg daily for 14 days on and 7 days off on September 02, 2019. Thus far she has tolerated it well. The main issue she has had with resuming the Afinitor is that she has now once again became anemic. Her iron studies and B12 have been normal. The Afinitor will be placed on hold again due to the anemia. Plan: Discussed with patient regarding her labs white blood count 4.7 hemoglobin 8.7 hematocrit 29.1 platelets 273,000 CMP within normal limit except potassium 5.7 creatinine 1.4 Clinically, patient is doing well rather more energetic since she is off Faslodex and Aromasin, at this point we will consider guardant 362 to identify therapeutic mutations if negative, will consider palliative therapy with weekly gemcitabine. As present well compensated mild/moderate anemia is concerned, etiology unclear but appears multifactorial, will continue to monitor and consider blood transfusion if hemoglobin less than 8 g, Mild hyperkalemia and persistent mild renal insufficiency, could be due to sample hemolysis, as patient is not on any potassium supplements, will continue to monitor Patient return to clinic in 2 weeks with CBC CMP Signed By: Stanley Estrella M.D. <<Signature on File>>
[2020-10-05 09:27] LABS: Miscellaneous Test See Scanned Lab Rpt
[2020-10-05 09:30] LABS: Miscellaneous Test See Scanned Lab Rpt
[2020-10-07 13:37] LABS: PD-L1 (Clone 22C3) by IHC BBPL See Report
== END 2020-10-28 23:59 | disposition home or self-care (01) ==
LOC: ONCMED 05:36
PROVIDERS: PCP Internal Medicine; Visit Provider Internal Medicine Hematology & Oncology
DX: C50.812 Malignant neoplasm of overlapping sites of left female breast (principal); Z17.0 Estrogen receptor positive status [ER+]; C79.51 Secondary malignant neoplasm of bone; C77.1 Secondary and unspecified malignant neoplasm of intrathoracic lymph nodes; C78.7 Secondary malignant neoplasm of liver and intrahepatic bile duct; D35.01 Benign neoplasm of right adrenal gland; Z79.52 Long term (current) use of systemic steroids; Z79.811 Long term (current) use of aromatase inhibitors; Z79.899 Other long term (current) drug therapy
CPT/HCPCS: 36415; 80053; 85025; 88341; 88342; 88361; 88367; 88374; 99215

== ENCOUNTER 2020-11-16 06:17 | Outpatient (RCR) | payer MEDICARE, OTHER, SELFPAY ==
[2020-11-16 10:40] LABS: Anion Gap 16.1 (5-19); Blood Urea Nitrogen 25 mg/dL (8-23); Calcium 8.8 mg/dL (8.5-10.5); Carbon Dioxide 25 mmol/L (22-29); Chloride 99 mmol/L (98-107); Creatinine Urine, Random 41 mg/dL (28-217); Glucose 106 mg/dL (65-115); Phosphorus 5.3 mg/dL (2.5-4.5); Potassium 5.1 mmol/L (3.5-5.1); Sodium 135 mmol/L (136-145)
[2020-11-16 10:41] LABS: Microalbum Creatinine Ratio Ur 24 mg/dL (0-20); Microalbumin Random Urine 1 ug/dL (0-20)
== END 2020-11-27 23:59 | disposition home or self-care (01) ==
LOC: ONCMED 06:17
PROVIDERS: Absent Provider Internal Medicine Nephrology; PCP Internal Medicine; Visit Provider Nurse Practitioner
DX: C50.812 Malignant neoplasm of overlapping sites of left female breast (principal); C79.51 Secondary malignant neoplasm of bone; C77.1 Secondary and unspecified malignant neoplasm of intrathoracic lymph nodes; C78.7 Secondary malignant neoplasm of liver and intrahepatic bile duct; D64.81 Anemia due to antineoplastic chemotherapy; T45.1X5A Adverse effect of antineoplastic and immunosuppressive drugs, initial encounter; G89.3 Neoplasm related pain (acute) (chronic); R97.8 Other abnormal tumor markers
CPT/HCPCS: 80069; 82044

== ENCOUNTER 2021-01-14 13:57 | Outpatient (CLI) | payer MEDICARE, OTHER, SELFPAY ==
--- NOTE | 2021-01-14 14:02 | MR_ITS ---
WS: [id number] MRI NECK WITH CONTRAST TECHNIQUE: Noncontrast axial T1, axial T2 FSE fat sat, coronal T2 fat sat, coronal T1, coronal T1 fat sat, sagittal T2 fat sat, plus contrast enhanced coronal, sagittal, and axial T1 fat sat images obta ined. CLINICAL INFORMATION: ATYPICAL FACIAL PAIN/ PERIAPICAL ABSCESS W/O SINUS COMPARISON: PET/CT August 01, 2020 FINDINGS: Dental artifact degrades some images. Proximal 7th and 8th cranial nerves are normal. Enhancing soft tissue lesion involving the left trige zane nerve root entry zone and extending along the left cavernous sinus with extension into Meckel's cave involving the trigeminal ganglion. Suggestion of extension into foramen ovale with involvement of the traversing mandibular nerve CNV3. Soft tissue surrounds the cavernous carotid artery which sam ears patent. Enhancing lesion measures approximately 2.9 x 1.0 x 1.4 CM. Findings suspicious for meni ngioma versus metastatic disease. This appears to extend distally just to the orbital apex. This also extends along the undersurface of the left mesial temporal lobe. Associated dural thickening and enh ancement along the clivus and petrous apex. This lesion is suboptimally evaluated on this neck MRI. Mild mucosal thickening left maxillary sinus. Opacification left maxillary sinus has improved compare d to the prior examination. No evidence of drainable abscess or fluid collection. Normal bone marrow signal in the maxilla and mandible. No evidence of osteomyelitis. Some images degraded by dental jeovany fact. Mild mucosal thickening in the paranasal sinuses. Mild mucosal thickening in the mastoid air cells. Normal posterior nasopharynx. Normal parapharyngeal fat. Parotid glands and submandibular glands are normal. Normal epiglottis and piriform sinuses. No evidence of supraglottic or glottic mass. Lung api duncan are well aerated. No cervical lymphadenopathy. Normal posterior fossa. Normal optic chiasm and pituitary infundibulum. Cervical canal is patent. Partially visualized mild b iconcave chronic appearing compression in the thoracic spine at T8. Heterogeneous bone marrow signal in the cervical and thoracic spine consistent with diffuse osseous metastatic disease similar to the prior studies. . MR/MR orbit face neck wo/w* [id number] IMPRESSION: 1. Enhancing extra-axial soft tissue lesion involving the left trigeminal nerv e extending into the cavernous sinus and Meckel's cave described above. Recomme nd further evaluation with dedicated MRI of the head without and with gadoliniu m enhancement with IAC protocol for better anatomic detail. 2. Improved aeration left maxillary sinus with mild mucosal thickening. 3. Normal bone marrow signal in the maxilla and mandible. No evidence of osteo myelitis. No evidence of drainable abscess or fluid collection. Dental artifact degrades some images. 4. No cervical lymphadenopathy. 5. No supraglottic or glottic mass. Subglottic airway is normal. 6. Salivary glands are normal. 7. Mild mucosal thickening in the paranasal sinuses and mastoid air cells. 8. Diffuse osseous metastatic disease in the visualized cervical and thoracic spine similar to the prior studies.
== END 2021-01-14 13:58 | disposition home or self-care (01) ==
LOC: RADSHAW 13:58
PROVIDERS: PCP Internal Medicine; Visit Provider Specialist
DX: G50.1 Atypical facial pain (principal); K04.7 Periapical abscess without sinus; R20.2 Paresthesia of skin
CPT/HCPCS: 70543; A9579

== ENCOUNTER 2021-02-03 10:49 | Outpatient (CLI) | payer MEDICARE, OTHER, SELFPAY ==
[2021-02-03 12:11] LABS: Blood Urea Nitrogen 30 mg/dL (8-23)
--- NOTE | 2021-02-03 12:11 | MR_ITS ---
WS: [id number] MRI HEAD WITH CONTRAST WITH ATTENTION TO THE INTERNAL AUDITORY CANALS TECHNIQUE: Sagittal T1, T2 axial, T2 axial flair, axial susceptibility weighted imaging, axial diffus ion weighted images, and coronal T2 images were obtained. Pre and post T1 axial and post T1 coronal i mages. ADC and FSPGR images. Post gadolinium images with attention to the internal auditory canals. A xial fiesta imaging. CLINICAL INFORMATION: ATYPICAL FACIAL PAIN; TINNITUS, BILAT COMPARISON: January 08, 2021 FINDINGS: Again seen is the enhancing soft tissue lesion involving the left trigeminal nerve extending into the cavernous sinus and Meckel's cave involving the trigeminal ganglion enhancement extends into foramen ovale with involvement of the traversing mandibular nerve CNV3. into the civil engineer space Soft tissu e thickening surrounds the cavernous carotid artery which remains patent. Findings consistent with me ningioma measuring 1.3 x 2.3 x 1.9 CCM. This extends to the orbital apex and also along the undersurface of the left mesial temporal lobe. Po sterior extension along the clivus and petrous apex with dural enhancement. Normal optic chiasm and p ituitary infundibulum. Normal signal in the left mesial temporal lobe. Extension along the orbital ca nal to the orbital apex. 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 with extension to the orbital apex and dorsal extension to the trigeminal nerve with extension along the clivus and petrous apex as described above
== END 2021-02-03 10:50 | disposition home or self-care (01) ==
PROVIDERS: PCP Internal Medicine; Visit Provider Specialist
DX: G50.1 Atypical facial pain (principal)
CPT/HCPCS: 36415; 70551; 70553; 82565; 84520; A9577

== ENCOUNTER 2021-03-25 13:27 | Outpatient (CLI) | payer MEDICARE, OTHER, SELFPAY ==
[2021-03-25 15:14] LABS: Basophils % 0.4 %; Eosinophils # 0.7 10^3/uL (0.0-0.8); Eosinophils % 15.1 %; Hemoglobin 8.5 g/dL (11.5-15.3); Lymphocytes # 0.9 10^3/uL (0.8-4.8); Lymphocytes % 18.7 %; Mean Corpuscular HGB Conc 31.5 g/dL (30.0-36.0); Mean Corpuscular Hemoglobin 33.1 pg (28.0-34.0); Mean Corpuscular Volume 105.1 fl (81-99); Mean Platelet Volume 9.1 fL (7.4-10.4); Monocytes # 0.6 10^3/uL (0.2-0.9); Monocytes % 13.2 %; Neutrophils # 2.46 10^3/uL (1.8-7.7); Neutrophils % 52.4 %; Nucleated Red Blood Cells % 0 %; Platelet Count 241 10^3/cmm (130-400); Red Blood Count 2.57 10^6/uL (4.1-5.3); Red Cell Distribution Width 12.5 % (12.1-15.1); White Blood Count 4.7 10^3/uL (4.0-10.0)
[2021-03-25 16:00] LABS: 25 Hydroxy Vitamin D 51 ng/mL (30-100); Albumin Level 4.1 g/dL (3.5-5.2); Blood Urea Nitrogen 29 mg/dL (8-23); Calcium 9.1 mg/dL (8.5-10.5); Carbon Dioxide 23 mmol/L (22-29); Chloride 96 mmol/L (98-107); Glucose 101 mg/dL (65-115); Phosphorus 5.2 mg/dL (2.5-4.5); Sodium 133 mmol/L (136-145)
[2021-03-25 16:23] LABS: Anion Gap 19.7 (5-19); Potassium 5.7 mmol/L (3.5-5.1)
[2021-03-30 15:52] LABS: PTH Related Peptide (Protein) 19 pg/mL (14-27)
== END 2021-03-25 13:28 | disposition home or self-care (01) ==
LOC: ONCMED 13:32
PROVIDERS: Nurse Practitioner Family; PCP Internal Medicine; Visit Provider Internal Medicine Hematology & Oncology
DX: C50.912 Malignant neoplasm of unspecified site of left female breast (principal); Z79.899 Other long term (current) drug therapy
CPT/HCPCS: 36415; 80069; 82306; 82542; 85025

== ENCOUNTER 2021-03-29 10:12 | Outpatient (CLI) | payer MEDICARE, OTHER, SELFPAY ==
[2021-03-29 11:47] LABS: Creatinine Urine, Random 50 mg/dL (28-217)
[2021-03-29 11:53] LABS: Microalbum Creatinine Ratio Ur 20 mg/dL (0-20); Microalbumin Random Urine 1 ug/dL (0-20)
== END 2021-03-29 10:13 | disposition home or self-care (01) ==
PROVIDERS: Nurse Practitioner Family; PCP Internal Medicine; Visit Provider Internal Medicine Hematology & Oncology
DX: C50.812 Malignant neoplasm of overlapping sites of left female breast (principal); Z17.0 Estrogen receptor positive status [ER+]; C79.51 Secondary malignant neoplasm of bone; Z79.811 Long term (current) use of aromatase inhibitors; Z79.899 Other long term (current) drug therapy
CPT/HCPCS: 82044

== ENCOUNTER 2021-05-04 09:05 | Outpatient (CLI) | payer MEDICARE, OTHER, SELFPAY ==
[2021-05-04 11:05] LABS: Basophils % 0.2 %; Eosinophils # 0.1 10^3/uL (0.0-0.8); Eosinophils % 1.1 %; Hematocrit 27.4 % (37.0-47.0); Hemoglobin 8.5 g/dL (11.5-15.3); Lymphocytes # 0.4 10^3/uL (0.8-4.8); Lymphocytes % 8.7 %; Mean Corpuscular Hemoglobin 34.4 pg (28.0-34.0); Mean Corpuscular Volume 110.9 fl (81-99); Mean Platelet Volume 9.5 fL (7.4-10.4); Monocytes # 0.7 10^3/uL (0.2-0.9); Neutrophils # 3.46 10^3/uL (1.8-7.7); Neutrophils % 73.1 %; Nucleated Red Blood Cells % 0 %; Platelet Count 214 10^3/cmm (130-400); Red Blood Count 2.47 10^6/uL (4.1-5.3); White Blood Count 4.7 10^3/uL (4.0-10.0)
[2021-05-04 11:28] LABS: Alanine Aminotransferase 33 U/L (0-33); Albumin Level 3.8 g/dL (3.5-5.2); Alkaline Phosphatase 116 IU/L (35-105); Anion Gap 15.5 (5-19); Aspartate Amino Transferase 56 U/L (0-32); Blood Urea Nitrogen 46 mg/dL (8-23); Calcium 9.1 mg/dL (8.5-10.5); Carbon Dioxide 24 mmol/L (22-29); Chloride 98 mmol/L (98-107); Globulin 3.2 g/dL (1.3-4.6); Glucose 115 mg/dL (65-115); Osmolality Calculated 289 mOsm/kg (285-295); Potassium 4.5 mmol/L (3.5-5.1); Sodium 133 mmol/L (136-145); Total Bilirubin 0.2 mg/dL (0.15-1.2)
--- NOTE | 2021-05-04 17:02 | ONC FU_ITS ---
Dr. Estrella follow up note Patient: Joana Booth Unit #: [id number]: 1950 Dicatated By: Stanley Estrella M.D.Date of Visit:May 04, 2021 Onc Med Follow-up/Prog Note History of Present Illness: Mrs Booth is a 71 -year-old female who presented with a left breast mass for 2-3 years. She did undergo mammography ultrasound and subsequently a biopsy of the left breast mass on 05/10/2017 which confirmed infiltrating lobular carcinoma, grade 2, ER positive GA positive HER-2 ivett negative. The KI 67 was 7%. She is negative for PIK 3CA. She underwent left modified radical mastectomy on 05/26/2017. Surgical pathology showed grade 2 infiltrating lobular carcinoma with extensive involvement of overlying skin and nipple and areola. Lymphovascular invasion was present including dermal lymphatics, negative surgical margin, the tumor size was 6.8 x 3.2 cm and metastatic carcinoma identified in one of 3 axillary lymph nodes. She recovered from surgery well she did complain of significant low back pain with bilateral flank and rib cage. She did have PET CT on 07/29/2017. It confirmed stage IV breast cancer with extensive skeletal metastatic disease. There are innumerable FDG avid osteolytic metastatic lesions throughout the axial and appendicular skeleton. There was no hepatic, adrenal or pulmonary metastasis. There was no pathological lymphadenopathy. She was referred to radiation oncology for palliative radiation. Dr. Beaver recommended radiation therapy to the lower lumbar spine/SI joints for pain relief and disease control. She received 3000 cGy to the L5???sacral area she began treatment on August 15 and completed it on 08/28/2017. Mrs. Booth began Ibrance and Femara for metastatic breast cancer on August 29, 2016. The first doses of Xgeva documented in our chart is 09-26-2017. Ibrance and Femara was discontinued on 05/31/2018 due to progressive tumor markers. She was started on Arimidex 1 mg by mouth daily along with monthly Xgeva. She discontinued the Armidex on 08/02/2018. Her CT PET scan done on 07/14/2018 showed disease progression e.g. reactivation of multifocal osseous metastatic disease, new malignant mediastinal lymphadenopathy, bilateral inflammatory lung infiltrates and tumor marker CA-27-29 gone up to 393.47 compared to 334.62 on 07/02/2018 and 142.60 on 04/26/2018 .BRCA1/2 negative Mrs. Booth was advised to pursue treatment with weekly paclitaxel and to continue her monthly Xgeva. She began her first dose of weekly paclitaxel on 08/28/2018. Weekly carboplatin was added on 10/02/2018, as her follow-up PET scan done on 09/29/2018 showed widespread osseous metastatic disease seen on prior studies significantly more FDG positive on the current. Index lesion in the posterior right acetabulum that previously has SUV of 4.8 now has 8 there is a similar progression multiple other lesions throughout the spine sternum scapula pelvic and femurs. A new right hepatic lobe hypodensity measuring 1.4 cm has SUV of 4.2 and is a questionable activity in the region of right adrenal, suggesting metastatic disease. Her tumor marker CA-27-29 had gone down to 1197.6 on 09/24/2018 compared to 1327.6 on 09/04/2018 Mrs. Booth began chemotherapy with carboplatin and paclitaxel on 10/04/2018. and cont'd with monthly Xgeva Due to progressive leukopenia/neutropenia she is requiring Neupogen in between her weekly carboplatin and Taxol to maintain the schedule and responding well CT PET scan done on 01/26/2019 showed stable disease e.g. no significant change in FDG positive widespread osseous metastatic disease. Minimal improvement in the hepatic metastatic disease. Mild progression in right adrenal lesion and questionable new left adrenal lesion. No change in mild FDG activity in the mediastinum. Follow-up CT PET scan done After 6 cycles of weekly carboplatin Taxol on 04/06/2019 showed overall, no significant changes since prior study, widespread FDG positive osseous metastatic disease is unchanged. No change in right hepatic metastatic disease, no change in bilateral adrenal uptake Minimally improved in the subaortic mediastinal lymph nodes. Due to minimum benefit and progressive toxicity with chemotherapy (thrombocytopenia and persistent anemia, decreasing performance status), her treatment plan with carboplatin/Taxol was discontinued on 04/10/2019 and she was switched to fulvestrant /everolimus. everolimus was held due to progressive leukopenia/neutropenia and generalized weakness and fatigue and weight loss, reduced dose e.g. 5 mg daily still caused progressive leukopenia. On 09/03/2019, everolimus was re-started at 5 mg daily for 2 weeks on and then week off along with monthly Faslodex and Xgeva. Her last dose of Faslodex and Xgeva was on 09/02/2019.because of progressive weakness and fatigue, everolimus was discontinued and plan to continue with Faslodex and Xgeva alone unless CT PET scan shows progression. Follow-up CT PET scan done on 10/26/2019 showed increasing FDG activity in widespread osseous metastatic disease, consistent with mild progression,e.g. SUV now is 5.2 compared to 2.7 earlier on 07/13/2019. no new bony lesion seen Multifocal hepatic metastatic disease is not significantly changed. Right adrenal lesion is minimally progressed e.g. SUV 5.2 compared to 3.6 previously. There is no significant left adrenal activity with SUV of 4.9. In the mediastinum and subaortic node is progressed no SUV 5.9 and other nodes in the right paratracheal and bilateral hilar region weekly FDG positive may be reactive. because of mild disease progression and intolerance to evrolimus ,On 10/31/2019, Femara 2.5 mg was added to Faslodex/Xgeva , Follow-up CT PET scan done on January 25, 2020 shows no evidence of disease progression but her tumor marker CA-27-29 was progressive so Femara was discontinued and she was started on Aromasin 25 mg daily on January 25, 2020 and continued with monthly Faslodex and Xgeva on Follow-up CT PET scan done on January 25, 2020 showed no change in FDG positive widespread osseous metastatic disease. No change in multifocal hepatic metastatic disease. No change in probable reactive mediastinal lymphadenopathy, resolution of abnormal activity in both adrenal glands. Follow-up CT PET scan done on August 01, 2020 showed worsening of hepatic metastatic disease, dominant lesion in the left hepatic lobe is 2.7 x 2.0 cm with SUV of 7.7. Mixed response of widespread osseous metastatic disease but with a general trend towards improvement Marked improvement in mediastinal reactive lymph nodes A new hypermetabolic left maxillary opacification with SUV of 12 left facial swelling is improving with oral antibiotics and the last week of July 2019 when she underwent left sinus mass biopsy,, Which showed no evidence of malignancy. And her mouth sore is also improving, as per patient she was told it was due to severe gingivitis. Patient was also seen by Dr. Champagne picker regarding persistent mild renal insufficiency his impression was renal insufficiency could be due to Faslodex as her renal sonogram done on August 31, 2020 shows moderate renal atrophy with no renal obstruction or renal mass.Faslodex was discontinued after dose given on July 20, 2020 And Aromasin was discontinued after CT PET scan done on August 01, 2020 shows worsening of hepatic metastatic disease Since our last visit, patient was admitted to [facility] on April 04, 2021 with severe hyponatremia, her sodium was 105 and she was diagnosed with adrenal insufficiency which responded well to hydrocortisone 10 mg in the morning 5 mg in the evening, as per patient prior to that she had a fall due to weakness and fatigue but no seizure-like activity patient underwent MRI scan of the head on April 04, 2021 which showed large intensely enhancing mass centered on the left sphenoid wing which extends along the left tentorial leaf noted. Extending to the left cavernous sinus, Meckel's cave and IAC, 2 small foci of meningeal or intraparenchymal enhancement noted in the most caudal aspect of the left middle cranial fossa. Differential consideration atypical meningioma, metastasis or lymphoma, patient was given radiation therapy to her brain from April 09, 2021 through April 14, 2021, During this admission she also underwent liver biopsy on April 09, 2021 and it confirmed metastatic adenocarcinoma consistent with breast primary ER positive, GA weakly positive, HER-2/ivett negative, CT scan of chest abdomen pelvis done on April 07, 2021 showed bilateral upper lobe indeterminate 1 to 2 mm solid pulmonary nodules, no thoracic lymphadenopathy, diffuse sclerotic osseous metastatic superimposed on decreased bone mineralization and pathological left posterior 10th rib fracture. Multiple bilateral upper lobe predominant small groundglass nodules likely inflammatory. CT abdomen shows numerous hepatic masses with appearance consistent with metastatic disease index lesion in the right hepatic dome 2.4 x 2.2 cm. Left adrenal thickening concern for metastatic disease. Indeterminate pelvic mass of uterine and ovarian origin. Extensive sclerotic osseous metastatic disease compression deformity of T11 vertebral body is probably chronic. Filling defect within the right external iliac vein is secondary to inflow of unopacified blood. Came for follow-up, denies any specific complaint except generalized weakness and fatigue overall feeling better, no focal weakness, no new bony pains, no headaches blurred vision double vision, no shortness of breath, no fever chills. Tolerating hydrocortisone 10 mg in the morning and 5 mg in the evening for newly diagnosed adrenal insufficiency. Medications: Acetaminophen Tablet Oral PRN, Valeria-[facility] Pls Allergy & Cgh 1 (5-6.25-10-325 mg) Capsule Oral at bedtime PRN, Benadryl Allergy 1 Tablet (of 25 mg) Oral daily PRN, Calcium Magnesium zinc 3 Tablet Oral daily, Hydrocortisone 2 Tablet (of 5 mg) Oral b.i.d., Tylenol PM Extra Strength 1 (500-25 mg) Tablet Oral at bedtime Allergies: Ibuprofen, Keflex, and Penicillins. Review of Systems: Review of Systems is not available for this patient. Vital Signs: Performed on May 04, 2021 09:29 Height - 64.00 in Weight - 92.8 lbs (LOW) BSA - 1.41 sq.m BMI - 15.93 (LOW) Temperature - 97.7 F (LOW) Pulse - 79 /min Respiration - 16 /min BP - 110/71 mm(hg) O2 Sat - 100 % Pain - 6 Fatigue - 2 Performance Status: 1 - No physically strenuous activity, but ambulatory and able to carry out light or sedentary work (e.g. office work, light house work). (ECOG) Physical Examination: Respiratory - Lungs are clear to auscultation, Cardiovascular - Regular rate and rhythm of heart, Gastrointestinal - Soft, bowel sounds present, Extremities - No visible edema. Lab/Imaging: Most recent lab results are not available for this patient. Impression: Metastatic infiltrating lobular carcinoma with extensive axial and appendicular skeleton metastases per CT PET scan done on 07/29/2017. Infiltrating lobular carcinoma involving left breast status post MRM on 05/26/2017 final path report shows infiltrating lobular carcinoma grade 2, extensive involvement of overlying skin at nipple and areola, positive lymphovascular space invasion including dermal lymphatics. Deep margins free of tumor size of tumor 6.8 x 3.2 cm T4b (skin involvement) Metastatic tumor in 1 out of 3 axillary lymph nodes N1 stage IV Extensive bone metastases are CT PET scan done on 07/29/2017 And her molecular studies showed negative for PIK3CA and BRCA 1 and 2 Tumor marker CA-27-29 1455.11 and CA 15.3 is 653.1 Repeat tumor markers CA-27-29 on 11/02/2017 was 167.77 and CA 15.3 was 89.6 estrogen receptor 100% progesterone receptors 100% HER-2/ivett negative by IHC and over amplification by fish and Ki-67 7 % Status post radiation therapy to lumbar sacral spine from 08/15/2017 to 08/28/2017 Mrs Booth was on Ibrance 125 mg by mouth daily for 21 days and then week off and repeat cycle every 28 days along with Femara 2.5 mg daily since 08/29/2017. Because of leukopenia at day 28, will reduce Ibrance dose to 100 mg by mouth for 21 days on 1 week off repeat 28 days. Along with Femara 2.5 mg daily Persistent leukopenia even with Ibrance 125 mg for 14 days. Her last dose was 100 mg by mouth daily for 14 days q 28 days. Follow-up CT PET scan done on 02/17/2018 showed interval resolution of abnormal activity throughout the bone indicating positive response to therapy of widespread osseous metastatic disease. She had progression of her tumor marker so stopped the Ibrance and Femara. She was then treated with single agent Arimidex and monthly Xgeva. The Arimidex was discontinued on 08/02/2018 as her follow-up CT PET scan from 07/14/2018 showed evidence of disease progression. There has been development of new malignant mediastinal lymphadenopathy in the precarinal and [place]. These have SUV of 6.7, and subcentimeter suspicious superior mediastinal lymph nodes are also identified. Widespread osseous metastatic disease as the activated in a multifocal pattern, is seen most prominently in left scapula, thoracic spine, lumbar spine, pelvis and proximal femurs. And index lesion in the right ischium has SUV of 6. Tumor marker CA-27-29 is 393.47 on 07/30/2018 compared to 334.52 on 07/02/2018, 142.60 on 04/26/2018. recommended changing treatment to weekly paclitaxel. Ms. Booth began her first dose of weekly pack Taxol on August 28, 2018. She has tolerated it well thus far .Follow-up CT PET scan done on 09/29/2018 showed progression of widespread osseous metastatic disease since prior study, new unifocal hepatic metastatic disease, suspicious activity in right adrenal gland. Tumor marker CA-27-29 has gone down to 1197.6 on 09/24/2018 compared to 1327.6 on 09/04/2018, Weekly carboplatin was added to weekly Taxol on on 10/02/2018. with monthly Xgeva Follow-up CT PET scan done on 01/26/2019 showed widespread osseous metastatic disease seen on prior scan is unchanged remained FDG positive. The index lesion in the posterior right acetabulum that has SUV of 8 now is 6.6. Right hepatic lobe lesion now has SUV of 3.4 compared to 4.2 on prior study Right adrenal lesion is progressed now SUV 5.4 compared to 3.7 previous Left adrenal activity is slightly more prominent. Mild activity in the mediastinal lymph node is unchanged. Follow-up CT PET scan done after 6 cycles of carboplatin/Taxol showed overall no significant change since prior study and widespread osseous metastatic disease, right hepatic metastases, or bilateral adrenal uptake, Her follow-up CT PET scan shows stable disease but her tumor marker continued to go up and her lab workup shows persistent progressive cytopenias, in that case Dr Estrella did discontinue her chemotherapy and requested a switch to fulvestrant/ everolimus , fulvestrant 500 mg IM on day 1, 15 and day 29 thereafter every month and everolimus 10 mg by mouth daily , while continue with Xgeva every month. Her everolimus dose was decreased to 5 mg daily due to persistent side effects. She presented for followup on 07/01/2019 with multiple concerns. She had lost another 7 pounds since her last visit. She had worsening fatigue. She also reported having bilateral foot and hand pain as well as slight bleeding from her left nare. She states since holding the Afinitor and doing dexamethasone 4 mg po daily, she feels like a different person . She states she feels much better overall. She is tired but recovers with rest. Mrs. Booth resumed Afinitor 5 mg daily for 14 days on and 7 days off on September 02, 2019. Thus far she has tolerated it well. The main issue she has had with resuming the Afinitor is that she has now once again became anemic. Her iron studies and B12 have been normal. The Afinitor will be placed on hold again due to the anemia. Plan: Discussed with patient regarding her disease status, recently underwent liver biopsy which confirmed what was suspected e.g. metastatic breast cancer ER positive, GA weakly positive, HER-2/ivett negative, during her last visit to our clinic, at that time treatment with gemcitabine was planned but patient lost follow-up. Until recently admitted to [facility] with history of fall and generalized weakness and fatigue and she was diagnosed with severe hyponatremia, hypomagnesemia eventually diagnosed with adrenal insufficiency treated with supportive care and hydrocortisone, she underwent MRI scan of the head and CT scan of abdomen pelvis chest, which showed persistent hepatic metastatic disease which was seen earlier on her follow-up scans and she underwent liver biopsy. She was also given radiation therapy to her brain for brain mets. At this point, we will request pathology to check PD-L1 status on her recently done liver biopsy and also do molecular profiling including guardant 360 to identify targetable mutation including TMB and MSI H to see if she is a candidate for immunotherapy. In the meantime we will start her on tamoxifen 20 mg p.o. daily, All the side effect possible benefits associated with hormonal therapy including but not limited to increased risk for endometrial carcinoma, DVT, weight gain, hot flashes were mentioned, while continue with hydrocortisone 10 mg in the morning and 5 mg in the evening for adrenal insufficiency and then patient will return to clinic in 1 month with CBC CMP, will also obtain baseline CBC CMP today as patient has history of severe hyponatremia due to adrenal insufficiency and also refer her to endocrinology for evaluation regarding recently diagnosed with adrenal insufficiency. Patient was also recommended Xgeva for extensive bone mets but patient said in the past she was told by her ENT regarding her mandible damage, she is reluctant to restart Xgeva, we will review with her ENT. Signed By: Stanley Estrella M.D. <<Signature on File>>
== END 2021-05-04 09:06 | disposition home or self-care (01) ==
LOC: ONCMED 09:09
PROVIDERS: PCP Internal Medicine; Visit Provider Internal Medicine Hematology & Oncology
DX: C78.7 Secondary malignant neoplasm of liver and intrahepatic bile duct (principal); C79.51 Secondary malignant neoplasm of bone; C77.3 Secondary and unspecified malignant neoplasm of axilla and upper limb lymph nodes; Z85.3 Personal history of malignant neoplasm of breast; Z92.3 Personal history of irradiation; Z79.899 Other long term (current) drug therapy; Z92.21 Personal history of antineoplastic chemotherapy
CPT/HCPCS: 36415; 80053; 85025; 99214

== ENCOUNTER 2021-05-07 10:32 | Outpatient (CLI) | payer MEDICARE, OTHER, SELFPAY ==
--- NOTE | 2021-05-07 10:53 | ECG_ITS ---
[facility] Test Date: 2021-05-07 Pat Name: Joana Booth Department: Room: Gender: Female Sql Engineer: : 1950 Requested By: Stanley Estrella Order Number: [id number] Samantha MD: Camilla Smith M.D. Measurements Intervals [place] Rate: 74 P: 75 MT: 137 QRS: 44 QRSD: 91 T: 75 QT: 372 QTc: 415 Interpretive Statements SINUS RHYTHM Compared to ECG 08/18/2020 11:39:04 No significant changes Electronically Signed On 05-07-2021 19:37:00 CDT by Camilla Smith M.D. [email or web address]
== END 2021-05-07 10:33 | disposition home or self-care (01) ==
PROVIDERS: PCP Internal Medicine; Visit Provider Internal Medicine Hematology & Oncology
DX: Z79.899 Other long term (current) drug therapy (principal)
CPT/HCPCS: 93005

== ENCOUNTER → 2021-05-14 10:44 | Outpatient (BNVA) | payer MEDICARE, OTHER, SELFPAY | PROVIDERS: PCP Internal Medicine; Referring Provider Internal Medicine Hematology & Oncology; Visit Provider Internal Medicine | DX: E27.40 Unspecified adrenocortical insufficiency (principal); E87.1 Hypo-osmolality and hyponatremia; Z85.3 Personal history of malignant neoplasm of breast | CPT/HCPCS: 99204 ==

== ENCOUNTER 2021-05-31 06:16 | Outpatient (CLI) | payer MEDICARE, OTHER, SELFPAY ==
[2021-05-31 09:15] LABS: Basophils % 0.3 %; Eosinophils # 0.1 10^3/uL (0.0-0.8); Eosinophils % 2.6 %; Hemoglobin 9.6 g/dL (11.5-15.3); Lymphocytes # 0.5 10^3/uL (0.8-4.8); Lymphocytes % 14.5 %; Mean Corpuscular Hemoglobin 34.4 pg (28.0-34.0); Mean Corpuscular Volume 107.5 fl (81-99); Mean Platelet Volume 9.3 fL (7.4-10.4); Monocytes # 0.7 10^3/uL (0.2-0.9); Monocytes % 18.9 %; Neutrophils # 2.17 10^3/uL (1.8-7.7); Neutrophils % 63.1 %; Nucleated Red Blood Cells % 0 %; Platelet Count 204 10^3/cmm (130-400); Red Blood Count 2.79 10^6/uL (4.1-5.3); Red Cell Distribution Width 14.4 % (12.1-15.1); White Blood Count 3.4 10^3/uL (4.0-10.0)
[2021-05-31 09:45] LABS: Alanine Aminotransferase 34 U/L (0-33); Albumin Level 4.3 g/dL (3.5-5.2); Alkaline Phosphatase 152 IU/L (35-105); Aspartate Amino Transferase 95 U/L (0-32); Blood Urea Nitrogen 45 mg/dL (8-23); Calcium 10.5 mg/dL (8.5-10.5); Carbon Dioxide 25 mmol/L (22-29); Chloride 94 mmol/L (98-107); Globulin 3.3 g/dL (1.3-4.6); Glucose 84 mg/dL (65-115); Osmolality Calculated 285 mOsm/kg (285-295); Sodium 132 mmol/L (136-145); Total Bilirubin 0.2 mg/dL (0.15-1.2); Total Protein 7.6 g/dL (6.6-8.7)
== END 2021-05-31 06:17 | disposition home or self-care (01) ==
LOC: ONCMED 06:17
PROVIDERS: PCP Internal Medicine; Visit Provider Nurse Practitioner Family
DX: C50.812 Malignant neoplasm of overlapping sites of left female breast (principal); Z17.0 Estrogen receptor positive status [ER+]; C79.51 Secondary malignant neoplasm of bone; C77.1 Secondary and unspecified malignant neoplasm of intrathoracic lymph nodes; C78.7 Secondary malignant neoplasm of liver and intrahepatic bile duct; G89.3 Neoplasm related pain (acute) (chronic); D64.81 Anemia due to antineoplastic chemotherapy; T45.1X5D Adverse effect of antineoplastic and immunosuppressive drugs, subsequent encounter; Z79.899 Other long term (current) drug therapy
CPT/HCPCS: 36415; 80053; 85025; 99211

== ENCOUNTER 2021-06-11 06:28 | Outpatient (CLI) | payer MEDICARE, OTHER, SELFPAY ==
[2021-06-11 11:59] LABS: Basophils % 0.6 %; Eosinophils % 1.9 %; Hematocrit 26.9 % (37.0-47.0); Lymphocytes # 0.2 10^3/uL (0.8-4.8); Lymphocytes % 12.1 %; Mean Corpuscular HGB Conc 33.5 g/dL (30.0-36.0); Mean Corpuscular Hemoglobin 35.3 pg (28.0-34.0); Mean Corpuscular Volume 105.5 fl (81-99); Mean Platelet Volume 9.8 fL (7.4-10.4); Monocytes # 0.1 10^3/uL (0.2-0.9); Monocytes % 6.4 %; Neutrophils # 1.22 10^3/uL (1.8-7.7); Neutrophils % 77.7 %; Nucleated Red Blood Cells % 0 %; Platelet Count 134 10^3/cmm (130-400); Red Blood Count 2.55 10^6/uL (4.1-5.3); Red Cell Distribution Width 13.6 % (12.1-15.1); White Blood Count 1.6 10^3/uL (4.0-10.0)
[2021-06-11 12:17] LABS: Alanine Aminotransferase 28 U/L (0-33); Alkaline Phosphatase 151 IU/L (35-105); Aspartate Amino Transferase 66 U/L (0-32); Blood Urea Nitrogen 56 mg/dL (8-23); Calcium 9.4 mg/dL (8.5-10.5); Carbon Dioxide 23 mmol/L (22-29); Chloride 89 mmol/L (98-107); Globulin 3.7 g/dL (1.3-4.6); Glucose 111 mg/dL (65-115); Osmolality Calculated 276 mOsm/kg (285-295); Sodium 125 mmol/L (136-145); Total Bilirubin 0.3 mg/dL (0.15-1.2); Total Protein 7.7 g/dL (6.6-8.7)
[2021-06-11 12:25] LABS: Anion Gap 18.2 (5-19); Potassium 5.2 mmol/L (3.5-5.1)
[2021-06-11 12:31] LABS: Slide Review Slide Review Perform
== END 2021-06-11 06:29 | disposition home or self-care (01) ==
LOC: ONCMED 06:29
PROVIDERS: PCP Internal Medicine; Visit Provider Internal Medicine Hematology & Oncology
DX: C50.812 Malignant neoplasm of overlapping sites of left female breast (principal); Z17.0 Estrogen receptor positive status [ER+]; C79.51 Secondary malignant neoplasm of bone; C77.1 Secondary and unspecified malignant neoplasm of intrathoracic lymph nodes; C78.7 Secondary malignant neoplasm of liver and intrahepatic bile duct
CPT/HCPCS: 36415; 80053; 85025

== ENCOUNTER 2021-06-24 07:50 | Outpatient (RCR) | payer MEDICARE, OTHER, SELFPAY ==
--- NOTE | 2021-06-14 17:25 | ONC FU_ITS ---
Dr. Estrella follow up note Patient: Joana Booth Unit #: [id number]: 1950 Dicatated By: Stanley Estrella M.D.Date of Visit:Jun 14, 2021 Onc Med Follow-up/Prog Note History of Present Illness: Mrs Booth is a 71 -year-old female who presented with a left breast mass for 2-3 years. She did undergo mammography ultrasound and subsequently a biopsy of the left breast mass on 05/10/2017 which confirmed infiltrating lobular carcinoma, grade 2, ER positive AZ positive HER-2 ivett negative. The KI 67 was 7%. She is negative for PIK 3CA. She underwent left modified radical mastectomy on 05/26/2017. Surgical pathology showed grade 2 infiltrating lobular carcinoma with extensive involvement of overlying skin and nipple and areola. Lymphovascular invasion was present including dermal lymphatics, negative surgical margin, the tumor size was 6.8 x 3.2 cm and metastatic carcinoma identified in one of 3 axillary lymph nodes. She recovered from surgery well she did complain of significant low back pain with bilateral flank and rib cage. She did have PET CT on 07/29/2017. It confirmed stage IV breast cancer with extensive skeletal metastatic disease. There are innumerable FDG avid osteolytic metastatic lesions throughout the axial and appendicular skeleton. There was no hepatic, adrenal or pulmonary metastasis. There was no pathological lymphadenopathy. She was referred to radiation oncology for palliative radiation. Dr. Beaver recommended radiation therapy to the lower lumbar spine/SI joints for pain relief and disease control. She received 3000 cGy to the L5???sacral area she began treatment on August 15 and completed it on 08/28/2017. Mrs. Booth began Ibrance and Femara for metastatic breast cancer on August 29, 2016. The first doses of Xgeva documented in our chart is 09-26-2017. Ibrance and Femara was discontinued on 05/31/2018 due to progressive tumor markers. She was started on Arimidex 1 mg by mouth daily along with monthly Xgeva. She discontinued the Armidex on 08/02/2018. Her CT PET scan done on 07/14/2018 showed disease progression e.g. reactivation of multifocal osseous metastatic disease, new malignant mediastinal lymphadenopathy, bilateral inflammatory lung infiltrates and tumor marker CA-27-29 gone up to 393.47 compared to 334.62 on 07/02/2018 and 142.60 on 04/26/2018 .BRCA1/2 negative Mrs. Booth was advised to pursue treatment with weekly paclitaxel and to continue her monthly Xgeva. She began her first dose of weekly paclitaxel on 08/28/2018. Weekly carboplatin was added on 10/02/2018, as her follow-up PET scan done on 09/29/2018 showed widespread osseous metastatic disease seen on prior studies significantly more FDG positive on the current. Index lesion in the posterior right acetabulum that previously has SUV of 4.8 now has 8 there is a similar progression multiple other lesions throughout the spine sternum scapula pelvic and femurs. A new right hepatic lobe hypodensity measuring 1.4 cm has SUV of 4.2 and is a questionable activity in the region of right adrenal, suggesting metastatic disease. Her tumor marker CA-27-29 had gone down to 1197.6 on 09/24/2018 compared to 1327.6 on 09/04/2018 Mrs. Booth began chemotherapy with carboplatin and paclitaxel on 10/04/2018. and cont'd with monthly Xgeva Due to progressive leukopenia/neutropenia she is requiring Neupogen in between her weekly carboplatin and Taxol to maintain the schedule and responding well CT PET scan done on 01/26/2019 showed stable disease e.g. no significant change in FDG positive widespread osseous metastatic disease. Minimal improvement in the hepatic metastatic disease. Mild progression in right adrenal lesion and questionable new left adrenal lesion. No change in mild FDG activity in the mediastinum. Follow-up CT PET scan done After 6 cycles of weekly carboplatin Taxol on 04/06/2019 showed overall, no significant changes since prior study, widespread FDG positive osseous metastatic disease is unchanged. No change in right hepatic metastatic disease, no change in bilateral adrenal uptake Minimally improved in the subaortic mediastinal lymph nodes. Due to minimum benefit and progressive toxicity with chemotherapy (thrombocytopenia and persistent anemia, decreasing performance status), her treatment plan with carboplatin/Taxol was discontinued on 04/10/2019 and she was switched to fulvestrant /everolimus. everolimus was held due to progressive leukopenia/neutropenia and generalized weakness and fatigue and weight loss, reduced dose e.g. 5 mg daily still caused progressive leukopenia. On 09/03/2019, everolimus was re-started at 5 mg daily for 2 weeks on and then week off along with monthly Faslodex and Xgeva. Her last dose of Faslodex and Xgeva was on 09/02/2019.because of progressive weakness and fatigue, everolimus was discontinued and plan to continue with Faslodex and Xgeva alone unless CT PET scan shows progression. Follow-up CT PET scan done on 10/26/2019 showed increasing FDG activity in widespread osseous metastatic disease, consistent with mild progression,e.g. SUV now is 5.2 compared to 2.7 earlier on 07/13/2019. no new bony lesion seen Multifocal hepatic metastatic disease is not significantly changed. Right adrenal lesion is minimally progressed e.g. SUV 5.2 compared to 3.6 previously. There is no significant left adrenal activity with SUV of 4.9. In the mediastinum and subaortic node is progressed no SUV 5.9 and other nodes in the right paratracheal and bilateral hilar region weekly FDG positive may be reactive. because of mild disease progression and intolerance to evrolimus ,On 10/31/2019, Femara 2.5 mg was added to Faslodex/Xgeva , Follow-up CT PET scan done on January 25, 2020 shows no evidence of disease progression but her tumor marker CA-27-29 was progressive so Femara was discontinued and she was started on Aromasin 25 mg daily on January 25, 2020 and continued with monthly Faslodex and Xgeva on Follow-up CT PET scan done on January 25, 2020 showed no change in FDG positive widespread osseous metastatic disease. No change in multifocal hepatic metastatic disease. No change in probable reactive mediastinal lymphadenopathy, resolution of abnormal activity in both adrenal glands. Follow-up CT PET scan done on August 01, 2020 showed worsening of hepatic metastatic disease, dominant lesion in the left hepatic lobe is 2.7 x 2.0 cm with SUV of 7.7. Mixed response of widespread osseous metastatic disease but with a general trend towards improvement Marked improvement in mediastinal reactive lymph nodes A new hypermetabolic left maxillary opacification with SUV of 12 left facial swelling is improving with oral antibiotics and the last week of July 2019 when she underwent left sinus mass biopsy,, Which showed no evidence of malignancy. And her mouth sore is also improving, as per patient she was told it was due to severe gingivitis. Patient was also seen by Dr. Champagne school cleaner regarding persistent mild renal insufficiency his impression was renal insufficiency could be due to Faslodex as her renal sonogram done on August 31, 2020 shows moderate renal atrophy with no renal obstruction or renal mass.Faslodex was discontinued after dose given on July 20, 2020 And Aromasin was discontinued after CT PET scan done on August 01, 2020 shows worsening of hepatic metastatic disease Since our last visit, patient was admitted to [facility] on April 04, 2021 with severe hyponatremia, her sodium was 105 and she was diagnosed with adrenal insufficiency which responded well to hydrocortisone 10 mg in the morning 5 mg in the evening, as per patient prior to that she had a fall due to weakness and fatigue but no seizure-like activity patient underwent MRI scan of the head on April 04, 2021 which showed large intensely enhancing mass centered on the left sphenoid wing which extends along the left tentorial leaf noted. Extending to the left cavernous sinus, Meckel's cave and IAC, 2 small foci of meningeal or intraparenchymal enhancement noted in the most caudal aspect of the left middle cranial fossa. Differential consideration atypical meningioma, metastasis or lymphoma, patient was given radiation therapy to her brain from April 09, 2021 through April 14, 2021, During this admission she also underwent liver biopsy on April 09, 2021 and it confirmed metastatic adenocarcinoma consistent with breast primary ER positive, AZ weakly positive, HER-2/ivett negative, CT scan of chest abdomen pelvis done on April 07, 2021 showed bilateral upper lobe indeterminate 1 to 2 mm solid pulmonary nodules, no thoracic lymphadenopathy, diffuse sclerotic osseous metastatic superimposed on decreased bone mineralization and pathological left posterior 10th rib fracture. Multiple bilateral upper lobe predominant small groundglass nodules likely inflammatory. CT abdomen shows numerous hepatic masses with appearance consistent with metastatic disease index lesion in the right hepatic dome 2.4 x 2.2 cm. Left adrenal thickening concern for metastatic disease. Indeterminate pelvic mass of uterine and ovarian origin. Extensive sclerotic osseous metastatic disease compression deformity of T11 vertebral body is probably chronic. Filling defect within the right external iliac vein is secondary to inflow of unopacified blood. PD-L1 CPS 0, Guardant 360 showed no significant targetable mutation ,, low TMB, MSI -H not detected Tolerating hydrocortisone 10 mg in the morning and 5 mg in the evening for newly diagnosed adrenal insufficiency. Started on ribociclib/Femara on June 01, 2021 Came for follow-up, complaining of generalized weakness and fatigue, as per caregiver she is not drinking of fluids, also complaining of gingivitis, she has seen oral surgeon, as per patient supportive care was recommended. No fever chills, no nausea or vomiting, no diarrhea or constipation as per patient she started ribociclib on June 01, 2021 along with Femara, tolerating reasonably well Medications: Acetaminophen Tablet Oral PRN, [place] Pls Allergy & Cgh 1 (5-6.25-10-325 mg) Capsule Oral at bedtime PRN, Benadryl Allergy 1 Tablet (of 25 mg) Oral daily PRN, Calcium Magnesium zinc 3 Tablet Oral daily, Hydrocortisone 2 Tablet (of 5 mg) Oral b.i.d., Tylenol PM Extra Strength 1 (500-25 mg) Tablet Oral at bedtime Allergies: Ibuprofen, Keflex, and Penicillins. Review of Systems: Review of Systems is not available for this patient. Vital Signs: Performed on Jun 14, 2021 16:01 Height - 64.00 in Weight - 98.1 lbs (HIGH) BSA - 1.45 sq.m BMI - 16.84 (LOW) Temperature - 98.4 F Pulse - 86 /min Respiration - 18 /min BP - 108/70 mm(hg) O2 Sat - 98 % Pain - 7 Fatigue - 10 Performance Status: 2 - Ambulatory/capable of all self-care, unable to perform any work activities. Up and about more than 50% of waking hours. (ECOG) Physical Examination: Respiratory - Lungs are clear to auscultation, Cardiovascular - Regular rate and rhythm of heart, Gastrointestinal - Soft, bowel sounds present, Extremities - No visible edema. Lab/Imaging: Most recent lab results are not available for this patient. Impression: Metastatic infiltrating lobular carcinoma with extensive axial and appendicular skeleton metastases per CT PET scan done on 07/29/2017. Infiltrating lobular carcinoma involving left breast status post MRM on 05/26/2017 final path report shows infiltrating lobular carcinoma grade 2, extensive involvement of overlying skin at nipple and areola, positive lymphovascular space invasion including dermal lymphatics. Deep margins free of tumor size of tumor 6.8 x 3.2 cm T4b (skin involvement) Metastatic tumor in 1 out of 3 axillary lymph nodes N1 stage IV Extensive bone metastases are CT PET scan done on 07/29/2017 And her molecular studies showed negative for PIK3CA and BRCA 1 and 2 Tumor marker CA-27-29 1455.11 and CA 15.3 is 653.1 Repeat tumor markers CA-27-29 on 11/02/2017 was 167.77 and CA 15.3 was 89.6 estrogen receptor 100% progesterone receptors 100% HER-2/ivett negative by IHC and over amplification by fish and Ki-67 7 % Status post radiation therapy to lumbar sacral spine from 08/15/2017 to 08/28/2017 Mrs Booth was on Ibrance 125 mg by mouth daily for 21 days and then week off and repeat cycle every 28 days along with Femara 2.5 mg daily since 08/29/2017. Because of leukopenia at day 28, will reduce Ibrance dose to 100 mg by mouth for 21 days on 1 week off repeat 28 days. Along with Femara 2.5 mg daily Persistent leukopenia even with Ibrance 125 mg for 14 days. Her last dose was 100 mg by mouth daily for 14 days q 28 days. Follow-up CT PET scan done on 02/17/2018 showed interval resolution of abnormal activity throughout the bone indicating positive response to therapy of widespread osseous metastatic disease. She had progression of her tumor marker so stopped the Ibrance and Femara. She was then treated with single agent Arimidex and monthly Xgeva. The Arimidex was discontinued on 08/02/2018 as her follow-up CT PET scan from 07/14/2018 showed evidence of disease progression. There has been development of new malignant mediastinal lymphadenopathy in the precarinal and [place]. These have SUV of 6.7, and subcentimeter suspicious superior mediastinal lymph nodes are also identified. Widespread osseous metastatic disease as the activated in a multifocal pattern, is seen most prominently in left scapula, thoracic spine, lumbar spine, pelvis and proximal femurs. And index lesion in the right ischium has SUV of 6. Tumor marker CA-27-29 is 393.47 on 07/30/2018 compared to 334.52 on 07/02/2018, 142.60 on 04/26/2018. recommended changing treatment to weekly paclitaxel. Ms. Booth began her first dose of weekly pack Taxol on August 28, 2018. She has tolerated it well thus far .Follow-up CT PET scan done on 09/29/2018 showed progression of widespread osseous metastatic disease since prior study, new unifocal hepatic metastatic disease, suspicious activity in right adrenal gland. Tumor marker CA-27-29 has gone down to 1197.6 on 09/24/2018 compared to 1327.6 on 09/04/2018, Weekly carboplatin was added to weekly Taxol on on 10/02/2018. with monthly Xgeva Follow-up CT PET scan done on 01/26/2019 showed widespread osseous metastatic disease seen on prior scan is unchanged remained FDG positive. The index lesion in the posterior right acetabulum that has SUV of 8 now is 6.6. Right hepatic lobe lesion now has SUV of 3.4 compared to 4.2 on prior study Right adrenal lesion is progressed now SUV 5.4 compared to 3.7 previous Left adrenal activity is slightly more prominent. Mild activity in the mediastinal lymph node is unchanged. Follow-up CT PET scan done after 6 cycles of carboplatin/Taxol showed overall no significant change since prior study and widespread osseous metastatic disease, right hepatic metastases, or bilateral adrenal uptake, Her follow-up CT PET scan shows stable disease but her tumor marker continued to go up and her lab workup shows persistent progressive cytopenias, in that case Dr Estrella did discontinue her chemotherapy and requested a switch to fulvestrant/ everolimus , fulvestrant 500 mg IM on day 1, 15 and day 29 thereafter every month and everolimus 10 mg by mouth daily , while continue with Xgeva every month. Her everolimus dose was decreased to 5 mg daily due to persistent side effects. She presented for followup on 07/01/2019 with multiple concerns. She had lost another 7 pounds since her last visit. She had worsening fatigue. She also reported having bilateral foot and hand pain as well as slight bleeding from her left nare. She states since holding the Afinitor and doing dexamethasone 4 mg po daily, she feels like a different person . She states she feels much better overall. She is tired but recovers with rest. Mrs. Booth resumed Afinitor 5 mg daily for 14 days on and 7 days off on September 02, 2019. Thus far she has tolerated it well. The main issue she has had with resuming the Afinitor is that she has now once again became anemic. Her iron studies and B12 have been normal. The Afinitor will be placed on hold again due to the anemia. Plan: Discussed with patient regarding her labs white blood count 1.6 hemoglobin 9 hematocrit 26.9 platelets 134,000 ANC 1220 CMP shows sodium 125 potassium 5.2 creatinine 2.5 BUN 56 and acid within normal range Clinically, patient is doing reasonably well now with progressive generalized weakness and fatigue which could be multifactorial including anemia and now concern is her renal insufficiency which could be multifactorial, patient has seen nephrology in the past, her creatinine has gone up to 2.5 compared to 1.3 on May 04, 2021 and her sodium was 125 compared to 133 previously At this point, will consider hydration and also discussed with nephrology regarding further care and will hold her ribociclib but she will continue with Femara and she will return to clinic in 1 week with CBC CMP and then plan accordingly Signed By: Stanley Estrella M.D. <<Signature on File>>
[2021-06-15] MEDS: sodium chloride 0.9% 500 ML 999 ML IV (09:30)
[2021-06-16] MEDS: sodium chloride 0.9% 500 ML 999 ML IV (11:27)
[2021-06-17 12:35] LABS: Albumin Level 3.6 g/dL (3.5-5.2); Blood Urea Nitrogen 44 mg/dL (8-23); Calcium 8.9 mg/dL (8.5-10.5); Carbon Dioxide 20 mmol/L (22-29); Chloride 92 mmol/L (98-107); Glucose 108 mg/dL (65-115); Phosphorus 4.3 mg/dL (2.5-4.5); Sodium 126 mmol/L (136-145)
[2021-06-17 14:00] LABS: Urine Creatinine 30 mg/dL (28-217); Urine Protein Random 4 mg/dL; Urine Random Sodium 39 mmol/L
[2021-06-17 14:05] LABS: UPRO/UCREAT Ratio 0.13 mg/mg CR
[2021-06-17 14:40] LABS: Bilirubin Urine Neg (Negative); Blood Urine Neg (Negative); Glucose Urine UA Norm (Normal); Ketones Urine Negative (Negative); Leukocyte Esterase Urine Negative (Negative); Nitrate Urine Negative (Negative); Protein Urine Neg (Negative); Specific Gravity, Urine 1.005 (1.005-1.030); Urine Appearance SL Hazy (CLEAR); Urine Color Colorless (Yellow); Urobilinogen Urine Norm (Negative); pH Urine 5 (5-7)
[2021-06-21] MEDS: sodium chloride 0.9% 500 ML 999 ML IV (16:05)
[2021-06-21 16:49] LABS: Alanine Aminotransferase 24 U/L (0-33); Albumin Level 3.3 g/dL (3.5-5.2); Alkaline Phosphatase 199 IU/L (35-105); Anion Gap 22.1 (5-19); Aspartate Amino Transferase 47 U/L (0-32); Blood Urea Nitrogen 33 mg/dL (8-23); Calcium 8.5 mg/dL (8.5-10.5); Carbon Dioxide 18 mmol/L (22-29); Chloride 88 mmol/L (98-107); Globulin 3.2 g/dL (1.3-4.6); Glucose 110 mg/dL (65-115); Osmolality Calculated 264 mOsm/kg (285-295); Potassium 5.1 mmol/L (3.5-5.1); Sodium 123 mmol/L (136-145); Total Bilirubin 0.3 mg/dL (0.15-1.2); Total Protein 6.5 g/dL (6.6-8.7)
[2021-06-21 18:11] LABS: Add Urine Microscopic? YES; Bilirubin Urine Neg (Negative); Blood Urine Neg (Negative); Glucose Urine UA Norm (Normal); Ketones Urine Negative (Negative); Leukocyte Esterase Urine Trace (Negative); Nitrate Urine Negative (Negative); Protein Urine Neg (Negative); Squamous Epithelial Cell Urine RARE /hpf (0-5); Urine Appearance Clear (CLEAR); Urine Color Straw (Yellow); Urobilinogen Urine Norm (Negative); WBC Urine 0-4 /hpf (0-5); pH Urine 7 (5-7)
[2021-06-21 18:12] LABS: Add Urine Culture? No; Bacteria Urine 1+ /hpf
[2021-06-23 13:40] LABS: Lymphocytes # 0.1 10^3/uL (0.8-4.8); Lymphocytes % 10.1 %; Mean Corpuscular HGB Conc 35.1 g/dL (30.0-36.0); Mean Corpuscular Hemoglobin 36.1 pg (28.0-34.0); Mean Corpuscular Volume 102.8 fl (81-99); Mean Platelet Volume 11.3 fL (7.4-10.4); Monocytes # 0.1 10^3/uL (0.2-0.9); Monocytes % 7.2 %; Nucleated Red Blood Cells % 0 %; Red Cell Distribution Width 13.3 % (12.1-15.1)
[2021-06-23 14:21] LABS: Alanine Aminotransferase 25 U/L (0-33); Albumin Level 3.4 g/dL (3.5-5.2); Alkaline Phosphatase 206 IU/L (35-105); Aspartate Amino Transferase 50 U/L (0-32); Blood Urea Nitrogen 30 mg/dL (8-23); Calcium 8.4 mg/dL (8.5-10.5); Carbon Dioxide 22 mmol/L (22-29); Chloride 92 mmol/L (98-107); Glucose 123 mg/dL (65-115); Osmolality Calculated 272 mOsm/kg (285-295); Sodium 127 mmol/L (136-145); Total Bilirubin 0.2 mg/dL (0.15-1.2); Total Protein 6.4 g/dL (6.6-8.7)
[2021-06-23 15:00] LABS: Hematocrit 18.5 % (37.0-47.0); Hemoglobin 6.5 g/dL (11.5-15.3); White Blood Count 0.7 10^3/uL (4.0-10.0)
[2021-06-23 15:01] LABS: Neutrophils # 0.51 10^3/uL (1.8-7.7); Platelet Count 22 10^3/cmm (130-400); Slide Review Slide Review Perform
--- NOTE | 2021-06-23 16:30 | ONC FU_ITS ---
Dr. Estrella follow up note Patient: Joana Booth Unit #: [id number]: 1950 Dicatated By: Stanley Estrella M.D.Date of Visit:Jun 23, 2021 Onc Med Follow-up/Prog Note History of Present Illness: Mrs Booth is a 71 -year-old female who presented with a left breast mass for 2-3 years. She did undergo mammography ultrasound and subsequently a biopsy of the left breast mass on 05/10/2017 which confirmed infiltrating lobular carcinoma, grade 2, ER positive NC positive HER-2 ivett negative. The KI 67 was 7%. She is negative for PIK 3CA. She underwent left modified radical mastectomy on 05/26/2017. Surgical pathology showed grade 2 infiltrating lobular carcinoma with extensive involvement of overlying skin and nipple and areola. Lymphovascular invasion was present including dermal lymphatics, negative surgical margin, the tumor size was 6.8 x 3.2 cm and metastatic carcinoma identified in one of 3 axillary lymph nodes. She recovered from surgery well she did complain of significant low back pain with bilateral flank and rib cage. She did have PET CT on 07/29/2017. It confirmed stage IV breast cancer with extensive skeletal metastatic disease. There are innumerable FDG avid osteolytic metastatic lesions throughout the axial and appendicular skeleton. There was no hepatic, adrenal or pulmonary metastasis. There was no pathological lymphadenopathy. She was referred to radiation oncology for palliative radiation. Dr. Beaver recommended radiation therapy to the lower lumbar spine/SI joints for pain relief and disease control. She received 3000 cGy to the L5???sacral area she began treatment on August 15 and completed it on 08/28/2017. Mrs. Booth began Ibrance and Femara for metastatic breast cancer on August 29, 2016. The first doses of Xgeva documented in our chart is 09-26-2017. Ibrance and Femara was discontinued on 05/31/2018 due to progressive tumor markers. She was started on Arimidex 1 mg by mouth daily along with monthly Xgeva. She discontinued the Armidex on 08/02/2018. Her CT PET scan done on 07/14/2018 showed disease progression e.g. reactivation of multifocal osseous metastatic disease, new malignant mediastinal lymphadenopathy, bilateral inflammatory lung infiltrates and tumor marker CA-27-29 gone up to 393.47 compared to 334.62 on 07/02/2018 and 142.60 on 04/26/2018 .BRCA1/2 negative Mrs. Booth was advised to pursue treatment with weekly paclitaxel and to continue her monthly Xgeva. She began her first dose of weekly paclitaxel on 08/28/2018. Weekly carboplatin was added on 10/02/2018, as her follow-up PET scan done on 09/29/2018 showed widespread osseous metastatic disease seen on prior studies significantly more FDG positive on the current. Index lesion in the posterior right acetabulum that previously has SUV of 4.8 now has 8 there is a similar progression multiple other lesions throughout the spine sternum scapula pelvic and femurs. A new right hepatic lobe hypodensity measuring 1.4 cm has SUV of 4.2 and is a questionable activity in the region of right adrenal, suggesting metastatic disease. Her tumor marker CA-27-29 had gone down to 1197.6 on 09/24/2018 compared to 1327.6 on 09/04/2018 Mrs. Booth began chemotherapy with carboplatin and paclitaxel on 10/04/2018. and cont'd with monthly Xgeva Due to progressive leukopenia/neutropenia she is requiring Neupogen in between her weekly carboplatin and Taxol to maintain the schedule and responding well CT PET scan done on 01/26/2019 showed stable disease e.g. no significant change in FDG positive widespread osseous metastatic disease. Minimal improvement in the hepatic metastatic disease. Mild progression in right adrenal lesion and questionable new left adrenal lesion. No change in mild FDG activity in the mediastinum. Follow-up CT PET scan done After 6 cycles of weekly carboplatin Taxol on 04/06/2019 showed overall, no significant changes since prior study, widespread FDG positive osseous metastatic disease is unchanged. No change in right hepatic metastatic disease, no change in bilateral adrenal uptake Minimally improved in the subaortic mediastinal lymph nodes. Due to minimum benefit and progressive toxicity with chemotherapy (thrombocytopenia and persistent anemia, decreasing performance status), her treatment plan with carboplatin/Taxol was discontinued on 04/10/2019 and she was switched to fulvestrant /everolimus. everolimus was held due to progressive leukopenia/neutropenia and generalized weakness and fatigue and weight loss, reduced dose e.g. 5 mg daily still caused progressive leukopenia. On 09/03/2019, everolimus was re-started at 5 mg daily for 2 weeks on and then week off along with monthly Faslodex and Xgeva. Her last dose of Faslodex and Xgeva was on 09/02/2019.because of progressive weakness and fatigue, everolimus was discontinued and plan to continue with Faslodex and Xgeva alone unless CT PET scan shows progression. Follow-up CT PET scan done on 10/26/2019 showed increasing FDG activity in widespread osseous metastatic disease, consistent with mild progression,e.g. SUV now is 5.2 compared to 2.7 earlier on 07/13/2019. no new bony lesion seen Multifocal hepatic metastatic disease is not significantly changed. Right adrenal lesion is minimally progressed e.g. SUV 5.2 compared to 3.6 previously. There is no significant left adrenal activity with SUV of 4.9. In the mediastinum and subaortic node is progressed no SUV 5.9 and other nodes in the right paratracheal and bilateral hilar region weekly FDG positive may be reactive. because of mild disease progression and intolerance to evrolimus ,On 10/31/2019, Femara 2.5 mg was added to Faslodex/Xgeva , Follow-up CT PET scan done on January 25, 2020 shows no evidence of disease progression but her tumor marker CA-27-29 was progressive so Femara was discontinued and she was started on Aromasin 25 mg daily on January 25, 2020 and continued with monthly Faslodex and Xgeva on Follow-up CT PET scan done on January 25, 2020 showed no change in FDG positive widespread osseous metastatic disease. No change in multifocal hepatic metastatic disease. No change in probable reactive mediastinal lymphadenopathy, resolution of abnormal activity in both adrenal glands. Follow-up CT PET scan done on August 01, 2020 showed worsening of hepatic metastatic disease, dominant lesion in the left hepatic lobe is 2.7 x 2.0 cm with SUV of 7.7. Mixed response of widespread osseous metastatic disease but with a general trend towards improvement Marked improvement in mediastinal reactive lymph nodes A new hypermetabolic left maxillary opacification with SUV of 12 left facial swelling is improving with oral antibiotics and the last week of July 2019 when she underwent left sinus mass biopsy,, Which showed no evidence of malignancy. And her mouth sore is also improving, as per patient she was told it was due to severe gingivitis. Patient was also seen by Dr. Champagne visual designer regarding persistent mild renal insufficiency his impression was renal insufficiency could be due to Faslodex as her renal sonogram done on August 31, 2020 shows moderate renal atrophy with no renal obstruction or renal mass.Faslodex was discontinued after dose given on July 20, 2020 And Aromasin was discontinued after CT PET scan done on August 01, 2020 shows worsening of hepatic metastatic disease Since our last visit, patient was admitted to [facility] on April 04, 2021 with severe hyponatremia, her sodium was 105 and she was diagnosed with adrenal insufficiency which responded well to hydrocortisone 10 mg in the morning 5 mg in the evening, as per patient prior to that she had a fall due to weakness and fatigue but no seizure-like activity patient underwent MRI scan of the head on April 04, 2021 which showed large intensely enhancing mass centered on the left sphenoid wing which extends along the left tentorial leaf noted. Extending to the left cavernous sinus, Meckel's cave and IAC, 2 small foci of meningeal or intraparenchymal enhancement noted in the most caudal aspect of the left middle cranial fossa. Differential consideration atypical meningioma, metastasis or lymphoma, patient was given radiation therapy to her brain from April 09, 2021 through April 14, 2021, During this admission she also underwent liver biopsy on April 09, 2021 and it confirmed metastatic adenocarcinoma consistent with breast primary ER positive, NC weakly positive, HER-2/ivett negative, CT scan of chest abdomen pelvis done on April 07, 2021 showed bilateral upper lobe indeterminate 1 to 2 mm solid pulmonary nodules, no thoracic lymphadenopathy, diffuse sclerotic osseous metastatic superimposed on decreased bone mineralization and pathological left posterior 10th rib fracture. Multiple bilateral upper lobe predominant small groundglass nodules likely inflammatory. CT abdomen shows numerous hepatic masses with appearance consistent with metastatic disease index lesion in the right hepatic dome 2.4 x 2.2 cm. Left adrenal thickening concern for metastatic disease. Indeterminate pelvic mass of uterine and ovarian origin. Extensive sclerotic osseous metastatic disease compression deformity of T11 vertebral body is probably chronic. Filling defect within the right external iliac vein is secondary to inflow of unopacified blood. PD-L1 CPS 0, Guardant 360 showed no significant targetable mutation ,, low TMB, MSI -H not detected Tolerating hydrocortisone 10 mg in the morning and 5 mg in the evening for newly diagnosed adrenal insufficiency. Started on ribociclib/Femara on June 01, 2021, Ribociclib was put on hold on June 15, 2021 for progressive leukopenia/pancytopenia While continue with Femara Came for follow-up, complaining of generalized weakness and fatigue but no nausea or vomiting, no diarrhea constipation, no mouth sores, no dysuria, no hematuria, no abdominal pain, no cough or sore throat, no melena or hematochezia no hemoptysis or hematemesis, no jaundice, patient is on Femara only as her ribociclib is on hold since last week because of progressive pancytopenia Medications: Acetaminophen Tablet Oral PRN, Valeria-[place] Pls Allergy & Cgh 1 (5-6.25-10-325 mg) Capsule Oral at bedtime PRN, Benadryl Allergy 1 Tablet (of 25 mg) Oral daily PRN, Calcium Magnesium zinc 3 Tablet Oral daily, Hydrocortisone 2 Tablet (of 5 mg) Oral b.i.d., Tylenol PM Extra Strength 1 (500-25 mg) Tablet Oral at bedtime Allergies: Ibuprofen, Keflex, and Penicillins. Review of Systems: Review of Systems is not available for this patient. Vital Signs: Performed on Jun 23, 2021 15:01 Height - 64.00 in Weight - 96.2 lbs (LOW) BSA - 1.43 sq.m BMI - 16.51 (LOW) Temperature - 98.9 F (HIGH) Pulse - 53 /min (LOW) Respiration - 12 /min BP - 100/67 mm(hg) O2 Sat - 97 % Pain - 5 Fatigue - 7 Performance Status: 2 - Ambulatory/capable of all self-care, unable to perform any work activities. Up and about more than 50% of waking hours. (ECOG) Physical Examination: Respiratory - Lungs are clear to auscultation, Cardiovascular - Regular rate and rhythm of heart, Gastrointestinal - Soft, bowel sounds present, Extremities - No visible edema. Lab/Imaging: Most recent lab results are not available for this patient. Impression: Metastatic infiltrating lobular carcinoma with extensive axial and appendicular skeleton metastases per CT PET scan done on 07/29/2017. Infiltrating lobular carcinoma involving left breast status post MRM on 05/26/2017 final path report shows infiltrating lobular carcinoma grade 2, extensive involvement of overlying skin at nipple and areola, positive lymphovascular space invasion including dermal lymphatics. Deep margins free of tumor size of tumor 6.8 x 3.2 cm T4b (skin involvement) Metastatic tumor in 1 out of 3 axillary lymph nodes N1 stage IV Extensive bone metastases are CT PET scan done on 07/29/2017 And her molecular studies showed negative for PIK3CA and BRCA 1 and 2 Tumor marker CA-27-29 1455.11 and CA 15.3 is 653.1 Repeat tumor markers CA-27-29 on 11/02/2017 was 167.77 and CA 15.3 was 89.6 estrogen receptor 100% progesterone receptors 100% HER-2/ivett negative by IHC and over amplification by fish and Ki-67 7 % Status post radiation therapy to lumbar sacral spine from 08/15/2017 to 08/28/2017 Mrs Booth was on Ibrance 125 mg by mouth daily for 21 days and then week off and repeat cycle every 28 days along with Femara 2.5 mg daily since 08/29/2017. Because of leukopenia at day 28, will reduce Ibrance dose to 100 mg by mouth for 21 days on 1 week off repeat 28 days. Along with Femara 2.5 mg daily Persistent leukopenia even with Ibrance 125 mg for 14 days. Her last dose was 100 mg by mouth daily for 14 days q 28 days. Follow-up CT PET scan done on 02/17/2018 showed interval resolution of abnormal activity throughout the bone indicating positive response to therapy of widespread osseous metastatic disease. She had progression of her tumor marker so stopped the Ibrance and Femara. She was then treated with single agent Arimidex and monthly Xgeva. The Arimidex was discontinued on 08/02/2018 as her follow-up CT PET scan from 07/14/2018 showed evidence of disease progression. There has been development of new malignant mediastinal lymphadenopathy in the precarinal and [place]. These have SUV of 6.7, and subcentimeter suspicious superior mediastinal lymph nodes are also identified. Widespread osseous metastatic disease as the activated in a multifocal pattern, is seen most prominently in left scapula, thoracic spine, lumbar spine, pelvis and proximal femurs. And index lesion in the right ischium has SUV of 6. Tumor marker CA-27-29 is 393.47 on 07/30/2018 compared to 334.52 on 07/02/2018, 142.60 on 04/26/2018. recommended changing treatment to weekly paclitaxel. Ms. Booth began her first dose of weekly pack Taxol on August 28, 2018. She has tolerated it well thus far .Follow-up CT PET scan done on 09/29/2018 showed progression of widespread osseous metastatic disease since prior study, new unifocal hepatic metastatic disease, suspicious activity in right adrenal gland. Tumor marker CA-27-29 has gone down to 1197.6 on 09/24/2018 compared to 1327.6 on 09/04/2018, Weekly carboplatin was added to weekly Taxol on on 10/02/2018. with monthly Xgeva Follow-up CT PET scan done on 01/26/2019 showed widespread osseous metastatic disease seen on prior scan is unchanged remained FDG positive. The index lesion in the posterior right acetabulum that has SUV of 8 now is 6.6. Right hepatic lobe lesion now has SUV of 3.4 compared to 4.2 on prior study Right adrenal lesion is progressed now SUV 5.4 compared to 3.7 previous Left adrenal activity is slightly more prominent. Mild activity in the mediastinal lymph node is unchanged. Follow-up CT PET scan done after 6 cycles of carboplatin/Taxol showed overall no significant change since prior study and widespread osseous metastatic disease, right hepatic metastases, or bilateral adrenal uptake, Her follow-up CT PET scan shows stable disease but her tumor marker continued to go up and her lab workup shows persistent progressive cytopenias, in that case Dr Estrella did discontinue her chemotherapy and requested a switch to fulvestrant/ everolimus , fulvestrant 500 mg IM on day 1, 15 and day 29 thereafter every month and everolimus 10 mg by mouth daily , while continue with Xgeva every month. Her everolimus dose was decreased to 5 mg daily due to persistent side effects. She presented for followup on 07/01/2019 with multiple concerns. She had lost another 7 pounds since her last visit. She had worsening fatigue. She also reported having bilateral foot and hand pain as well as slight bleeding from her left nare. She states since holding the Afinitor and doing dexamethasone 4 mg po daily, she feels like a different person . She states she feels much better overall. She is tired but recovers with rest. Mrs. Booth resumed Afinitor 5 mg daily for 14 days on and 7 days off on September 02, 2019. Thus far she has tolerated it well. The main issue she has had with resuming the Afinitor is that she has now once again became anemic. Her iron studies and B12 have been normal. The Afinitor will be placed on hold again due to the anemia. Plan: Discussed with patient regarding her labs white blood count 700 hemoglobin 6.5 hematocrit 18.5 platelets 22,000 ANC 510 Clinically, patient is in mild to moderate distress due to severe anemia probably due to ribociclib, which is on hold, also has progressive leukopenia/neutropenia, at this point, we will continue to hold ribociclib while continue with daily Femara and also, we will start her on prophylactic oral antibiotic Levaquin 5 mg p.o. daily and also consider 2 units of packed RBC and then she will return to clinic in 1 week with CBC CMP. Patient was advised in case she spikes fever, she need to go to emergency room for evaluation for possible inpatient care Signed By: Stanley Estrella M.D. <<Signature on File>>
[2021-06-24] VITALS (13 sets, daily range): BP systolic 92–124; BP diastolic 55–71; PULSE 58–73; RESP 12–17; TEMP 36.3–37.2; O2SAT 98–100; BMI 23.1
[2021-06-24] MEDS: diphenhydrAMINE 25 mg Capsule PO (09:07)
[2021-06-24] MEDS: acetaminophen 325 mg Tablet 650 MG PO (09:07)
[2021-06-24] MEDS: sodium chloride 0.9% (100 ml) 100 ML 150 ML (09:43)
--- NOTE | 2021-06-24 10:21 | PC.CHAP ---
Pastoral Care Encounter/Spiritual Assessment Type of Contact [] Declined line assembly utility worker visit [] Patient/Family/Request visit [] Outpatient visit [] Follow-up visit [] Physician referral [] Code/Alert [x] Routine visit [] Staff referral [] Actively dying [] Patient sleeping [] Family support [] [] Out of room [] Palliative care [x] [x] Receiving care in room [] Pre-surgical visit [] Trauma [x] Long length of stay [] ICU visit [] Other: Relational/Emotional Strength [x] Patient feels connected with others/family/visitors/staff [] Distress [] Loneliness/isolation [] Abandonment Spirituality of Patient [x] Person of [place] [] Attends Congregational of their [place] [x] Believes in Prayer [] Reads Bible or Episcopalian materials [] There are Spiritual issues to be addressed Tire Service Technician Interventions [x] Prayer [x] Active listening [x] Non-anxious presence [x] Spiritual/emotional support [] Crisis/trauma care [x] Spiritual counseling [] Bereavement support [] Provided bereavement packet [] Provided Bible/devotional materials [] Provided toy/stuffed animal, coloring book to patient or family member [] Provided Communion [] Anointing/[place] [] Salvation [x] Completed spiritual assessment [] Other: Impact on Illness or Injury [] Angry [] Fearful [x] Anxious [] Often cries [] Exhaustion [x] Unable to work [] Unable to attend jain [] Unable to walk/stand [] Unable to read [] Unable to drive [] Unable to eat/drink [] Unable to sleep [] Unable to be with family [] Patient intubated [] Other: Summary has a good attitude able to communicate has a good attitude +1 sister Time spent with patient 10 mins
--- NOTE | 2021-06-24 11:45 | PC.PHAR ---
pt states she was prescribed prednisone and oxycodone on 06/21/21. [facility] is currently closed due to Thanksgiving. pt states oxycodone induced restless leg syndrome and did not help her pain much.
[2021-06-24] MEDS: FUROsemide 10 mg/mL SDV 2mL 20 MG IVP (12:29)
== END 2021-06-24 17:38 | disposition home or self-care (01) ==
LOC: ONCMED 07:50
PROVIDERS: Internal Medicine Nephrology; Nurse Practitioner; PCP Internal Medicine; Visit Provider Internal Medicine Hematology & Oncology
DX: C50.812 Malignant neoplasm of overlapping sites of left female breast (principal); Z17.0 Estrogen receptor positive status [ER+]; C79.51 Secondary malignant neoplasm of bone; C77.1 Secondary and unspecified malignant neoplasm of intrathoracic lymph nodes; C78.7 Secondary malignant neoplasm of liver and intrahepatic bile duct; D64.81 Anemia due to antineoplastic chemotherapy; T45.1X5A Adverse effect of antineoplastic and immunosuppressive drugs, initial encounter; G89.3 Neoplasm related pain (acute) (chronic); Z79.818 Long term (current) use of other agents affecting estrogen receptors and estrogen levels; Z79.899 Other long term (current) drug therapy; Z92.21 Personal history of antineoplastic chemotherapy; Z92.3 Personal history of irradiation
CPT/HCPCS: 36415; 36430; 80053; 80069; 81001; 82570; 84156; 84300; 85025; 86850; 86900; 86902; 86920; 96360; 99214; 99215; J1940; J7040; P9040

== ENCOUNTER 2021-06-29 11:37 | Outpatient (RCR) | payer MEDICARE, OTHER, SELFPAY ==
[2021-06-29 12:43] LABS: Basophils % 0.4 %; Hematocrit 33.2 % (37.0-47.0); Hemoglobin 11.8 g/dL (11.5-15.3); Lymphocytes # 0.2 10^3/uL (0.8-4.8); Lymphocytes % 7.5 %; Mean Corpuscular HGB Conc 35.5 g/dL (30.0-36.0); Mean Corpuscular Hemoglobin 32.3 pg (28.0-34.0); Monocytes # 0.9 10^3/uL (0.2-0.9); Monocytes % 36.1 %; Neutrophils # 1.33 10^3/uL (1.8-7.7); Neutrophils % 55.2 %; Nucleated Red Blood Cells % 0 %; Platelet Count 34 10^3/cmm (130-400); Red Blood Count 3.65 10^6/uL (4.1-5.3); Red Cell Distribution Width 17.4 % (12.1-15.1); White Blood Count 2.4 10^3/uL (4.0-10.0)
[2021-06-29 13:14] LABS: Alanine Aminotransferase 28 U/L (0-33); Albumin Level 3.5 g/dL (3.5-5.2); Alkaline Phosphatase 196 IU/L (35-105); Anion Gap 20.7 (5-19); Aspartate Amino Transferase 74 U/L (0-32); Blood Urea Nitrogen 37 mg/dL (8-23); Carbon Dioxide 17 mmol/L (22-29); Chloride 91 mmol/L (98-107); Globulin 2.4 g/dL (1.3-4.6); Glucose 95 mg/dL (65-115); Osmolality Calculated 266 mOsm/kg (285-295); Potassium 4.7 mmol/L (3.5-5.1); Sodium 124 mmol/L (136-145); Total Bilirubin 0.3 mg/dL (0.15-1.2); Total Protein 5.9 g/dL (6.6-8.7)
[2021-06-29 13:26] LABS: Slide Review Slide Review Perform
--- NOTE | 2021-06-29 16:48 | ONC FU_ITS ---
Dr. Estrella follow up note Patient: Joana Booth Unit #: [id number]: 1950 Dicatated By: Stanley Estrella M.D.Date of Visit:Jun 29, 2021 Onc Med Follow-up/Prog Note History of Present Illness: Mrs Booth is a 71 -year-old female who presented with a left breast mass for 2-3 years. She did undergo mammography ultrasound and subsequently a biopsy of the left breast mass on 05/10/2017 which confirmed infiltrating lobular carcinoma, grade 2, ER positive NH positive HER-2 ivett negative. The KI 67 was 7%. She is negative for PIK 3CA. She underwent left modified radical mastectomy on 05/26/2017. Surgical pathology showed grade 2 infiltrating lobular carcinoma with extensive involvement of overlying skin and nipple and areola. Lymphovascular invasion was present including dermal lymphatics, negative surgical margin, the tumor size was 6.8 x 3.2 cm and metastatic carcinoma identified in one of 3 axillary lymph nodes. She recovered from surgery well she did complain of significant low back pain with bilateral flank and rib cage. She did have PET CT on 07/29/2017. It confirmed stage IV breast cancer with extensive skeletal metastatic disease. There are innumerable FDG avid osteolytic metastatic lesions throughout the axial and appendicular skeleton. There was no hepatic, adrenal or pulmonary metastasis. There was no pathological lymphadenopathy. She was referred to radiation oncology for palliative radiation. Dr. Beaver recommended radiation therapy to the lower lumbar spine/SI joints for pain relief and disease control. She received 3000 cGy to the L5???sacral area she began treatment on August 15 and completed it on 08/28/2017. Mrs. Booth began Ibrance and Femara for metastatic breast cancer on August 29, 2016. The first doses of Xgeva documented in our chart is 09-26-2017. Ibrance and Femara was discontinued on 05/31/2018 due to progressive tumor markers. She was started on Arimidex 1 mg by mouth daily along with monthly Xgeva. She discontinued the Armidex on 08/02/2018. Her CT PET scan done on 07/14/2018 showed disease progression e.g. reactivation of multifocal osseous metastatic disease, new malignant mediastinal lymphadenopathy, bilateral inflammatory lung infiltrates and tumor marker CA-27-29 gone up to 393.47 compared to 334.62 on 07/02/2018 and 142.60 on 04/26/2018 .BRCA1/2 negative Mrs. Booth was advised to pursue treatment with weekly paclitaxel and to continue her monthly Xgeva. She began her first dose of weekly paclitaxel on 08/28/2018. Weekly carboplatin was added on 10/02/2018, as her follow-up PET scan done on 09/29/2018 showed widespread osseous metastatic disease seen on prior studies significantly more FDG positive on the current. Index lesion in the posterior right acetabulum that previously has SUV of 4.8 now has 8 there is a similar progression multiple other lesions throughout the spine sternum scapula pelvic and femurs. A new right hepatic lobe hypodensity measuring 1.4 cm has SUV of 4.2 and is a questionable activity in the region of right adrenal, suggesting metastatic disease. Her tumor marker CA-27-29 had gone down to 1197.6 on 09/24/2018 compared to 1327.6 on 09/04/2018 Mrs. Booth began chemotherapy with carboplatin and paclitaxel on 10/04/2018. and cont'd with monthly Xgeva Due to progressive leukopenia/neutropenia she is requiring Neupogen in between her weekly carboplatin and Taxol to maintain the schedule and responding well CT PET scan done on 01/26/2019 showed stable disease e.g. no significant change in FDG positive widespread osseous metastatic disease. Minimal improvement in the hepatic metastatic disease. Mild progression in right adrenal lesion and questionable new left adrenal lesion. No change in mild FDG activity in the mediastinum. Follow-up CT PET scan done After 6 cycles of weekly carboplatin Taxol on 04/06/2019 showed overall, no significant changes since prior study, widespread FDG positive osseous metastatic disease is unchanged. No change in right hepatic metastatic disease, no change in bilateral adrenal uptake Minimally improved in the subaortic mediastinal lymph nodes. Due to minimum benefit and progressive toxicity with chemotherapy (thrombocytopenia and persistent anemia, decreasing performance status), her treatment plan with carboplatin/Taxol was discontinued on 04/10/2019 and she was switched to fulvestrant /everolimus. everolimus was held due to progressive leukopenia/neutropenia and generalized weakness and fatigue and weight loss, reduced dose e.g. 5 mg daily still caused progressive leukopenia. On 09/03/2019, everolimus was re-started at 5 mg daily for 2 weeks on and then week off along with monthly Faslodex and Xgeva. Her last dose of Faslodex and Xgeva was on 09/02/2019.because of progressive weakness and fatigue, everolimus was discontinued and plan to continue with Faslodex and Xgeva alone unless CT PET scan shows progression. Follow-up CT PET scan done on 10/26/2019 showed increasing FDG activity in widespread osseous metastatic disease, consistent with mild progression,e.g. SUV now is 5.2 compared to 2.7 earlier on 07/13/2019. no new bony lesion seen Multifocal hepatic metastatic disease is not significantly changed. Right adrenal lesion is minimally progressed e.g. SUV 5.2 compared to 3.6 previously. There is no significant left adrenal activity with SUV of 4.9. In the mediastinum and subaortic node is progressed no SUV 5.9 and other nodes in the right paratracheal and bilateral hilar region weekly FDG positive may be reactive. because of mild disease progression and intolerance to evrolimus ,On 10/31/2019, Femara 2.5 mg was added to Faslodex/Xgeva , Follow-up CT PET scan done on January 25, 2020 shows no evidence of disease progression but her tumor marker CA-27-29 was progressive so Femara was discontinued and she was started on Aromasin 25 mg daily on January 25, 2020 and continued with monthly Faslodex and Xgeva on Follow-up CT PET scan done on January 25, 2020 showed no change in FDG positive widespread osseous metastatic disease. No change in multifocal hepatic metastatic disease. No change in probable reactive mediastinal lymphadenopathy, resolution of abnormal activity in both adrenal glands. Follow-up CT PET scan done on August 01, 2020 showed worsening of hepatic metastatic disease, dominant lesion in the left hepatic lobe is 2.7 x 2.0 cm with SUV of 7.7. Mixed response of widespread osseous metastatic disease but with a general trend towards improvement Marked improvement in mediastinal reactive lymph nodes A new hypermetabolic left maxillary opacification with SUV of 12 left facial swelling is improving with oral antibiotics and the last week of July 2019 when she underwent left sinus mass biopsy,, Which showed no evidence of malignancy. And her mouth sore is also improving, as per patient she was told it was due to severe gingivitis. Patient was also seen by Dr. Champagne surgical services assistant regarding persistent mild renal insufficiency his impression was renal insufficiency could be due to Faslodex as her renal sonogram done on August 31, 2020 shows moderate renal atrophy with no renal obstruction or renal mass.Faslodex was discontinued after dose given on July 20, 2020 And Aromasin was discontinued after CT PET scan done on August 01, 2020 shows worsening of hepatic metastatic disease Since our last visit, patient was admitted to [facility] on April 04, 2021 with severe hyponatremia, her sodium was 105 and she was diagnosed with adrenal insufficiency which responded well to hydrocortisone 10 mg in the morning 5 mg in the evening, as per patient prior to that she had a fall due to weakness and fatigue but no seizure-like activity patient underwent MRI scan of the head on April 04, 2021 which showed large intensely enhancing mass centered on the left sphenoid wing which extends along the left tentorial leaf noted. Extending to the left cavernous sinus, Meckel's cave and IAC, 2 small foci of meningeal or intraparenchymal enhancement noted in the most caudal aspect of the left middle cranial fossa. Differential consideration atypical meningioma, metastasis or lymphoma, patient was given radiation therapy to her brain from April 09, 2021 through April 14, 2021, During this admission she also underwent liver biopsy on April 09, 2021 and it confirmed metastatic adenocarcinoma consistent with breast primary ER positive, NH weakly positive, HER-2/ivett negative, CT scan of chest abdomen pelvis done on April 07, 2021 showed bilateral upper lobe indeterminate 1 to 2 mm solid pulmonary nodules, no thoracic lymphadenopathy, diffuse sclerotic osseous metastatic superimposed on decreased bone mineralization and pathological left posterior 10th rib fracture. Multiple bilateral upper lobe predominant small groundglass nodules likely inflammatory. CT abdomen shows numerous hepatic masses with appearance consistent with metastatic disease index lesion in the right hepatic dome 2.4 x 2.2 cm. Left adrenal thickening concern for metastatic disease. Indeterminate pelvic mass of uterine and ovarian origin. Extensive sclerotic osseous metastatic disease compression deformity of T11 vertebral body is probably chronic. Filling defect within the right external iliac vein is secondary to inflow of unopacified blood. PD-L1 CPS 0, Guardant 360 showed no significant targetable mutation ,, low TMB, MSI -H not detected Tolerating hydrocortisone 10 mg in the morning and 5 mg in the evening for newly diagnosed adrenal insufficiency. Started on ribociclib/Femara on June 01, 2021, Ribociclib was put on hold on June 15, 2021 for progressive leukopenia/pancytopenia While continue with Femara Came for follow-up, denies any specific complaint except generalized weakness and fatigue, as per patient she received 2 units of packed RBC on for severe anemia. Patient denies any melena or hematochezia but off and on gum bleeding, for which she has seen oral surgeon, as per patient surgeon told her less is better and advised her to maintain good oral hygiene and avoid trauma. Denies any fever chills, denies any nausea or vomiting denies any diarrhea or constipation denies any new bony pains. Medications: Acetaminophen Tablet Oral PRN, Valeria-Russell Pls Allergy & Cgh 1 (5-6.25-10-325 mg) Capsule Oral at bedtime PRN, Benadryl Allergy 1 Tablet (of 25 mg) Oral daily PRN, Calcium Magnesium zinc 3 Tablet Oral daily, Hydrocortisone 2 Tablet (of 5 mg) Oral b.i.d., Tylenol PM Extra Strength 1 (500-25 mg) Tablet Oral at bedtime Allergies: Ibuprofen, Keflex, and Penicillins. Review of Systems: Review of Systems is not available for this patient. Vital Signs: Performed on Jun 29, 2021 15:21 Height - 64.00 in Weight - 93.8 lbs (LOW) BSA - 1.42 sq.m BMI - 16.10 (LOW) Temperature - 99.9 F (HIGH) Pulse - 91 /min Respiration - 12 /min BP - 100/68 mm(hg) O2 Sat - 96 % Pain - 5 Fatigue - 7 Performance Status: 1 - No physically strenuous activity, but ambulatory and able to carry out light or sedentary work (e.g. office work, light house work). (ECOG) Physical Examination: Respiratory - Lungs are clear to auscultation, Cardiovascular - Regular rate and rhythm of heart, Gastrointestinal - Soft, bowel sounds present, Extremities - No visible edema. Lab/Imaging: Most recent lab results are not available for this patient. Impression: Metastatic infiltrating lobular carcinoma with extensive axial and appendicular skeleton metastases per CT PET scan done on 07/29/2017. Infiltrating lobular carcinoma involving left breast status post MRM on 05/26/2017 final path report shows infiltrating lobular carcinoma grade 2, extensive involvement of overlying skin at nipple and areola, positive lymphovascular space invasion including dermal lymphatics. Deep margins free of tumor size of tumor 6.8 x 3.2 cm T4b (skin involvement) Metastatic tumor in 1 out of 3 axillary lymph nodes N1 stage IV Extensive bone metastases are CT PET scan done on 07/29/2017 And her molecular studies showed negative for PIK3CA and BRCA 1 and 2 Tumor marker CA-27-29 1455.11 and CA 15.3 is 653.1 Repeat tumor markers CA-27-29 on 11/02/2017 was 167.77 and CA 15.3 was 89.6 estrogen receptor 100% progesterone receptors 100% HER-2/ivett negative by IHC and over amplification by fish and Ki-67 7 % Status post radiation therapy to lumbar sacral spine from 08/15/2017 to 08/28/2017 Mrs Booth was on Ibrance 125 mg by mouth daily for 21 days and then week off and repeat cycle every 28 days along with Femara 2.5 mg daily since 08/29/2017. Because of leukopenia at day 28, will reduce Ibrance dose to 100 mg by mouth for 21 days on 1 week off repeat 28 days. Along with Femara 2.5 mg daily Persistent leukopenia even with Ibrance 125 mg for 14 days. Her last dose was 100 mg by mouth daily for 14 days q 28 days. Follow-up CT PET scan done on 02/17/2018 showed interval resolution of abnormal activity throughout the bone indicating positive response to therapy of widespread osseous metastatic disease. She had progression of her tumor marker so stopped the Ibrance and Femara. She was then treated with single agent Arimidex and monthly Xgeva. The Arimidex was discontinued on 08/02/2018 as her follow-up CT PET scan from 07/14/2018 showed evidence of disease progression. There has been development of new malignant mediastinal lymphadenopathy in the precarinal and [place]. These have SUV of 6.7, and subcentimeter suspicious superior mediastinal lymph nodes are also identified. Widespread osseous metastatic disease as the activated in a multifocal pattern, is seen most prominently in left scapula, thoracic spine, lumbar spine, pelvis and proximal femurs. And index lesion in the right ischium has SUV of 6. Tumor marker CA-27-29 is 393.47 on 07/30/2018 compared to 334.52 on 07/02/2018, 142.60 on 04/26/2018. recommended changing treatment to weekly paclitaxel. Ms. Booth began her first dose of weekly pack Taxol on August 28, 2018. She has tolerated it well thus far .Follow-up CT PET scan done on 09/29/2018 showed progression of widespread osseous metastatic disease since prior study, new unifocal hepatic metastatic disease, suspicious activity in right adrenal gland. Tumor marker CA-27-29 has gone down to 1197.6 on 09/24/2018 compared to 1327.6 on 09/04/2018, Weekly carboplatin was added to weekly Taxol on on 10/02/2018. with monthly Xgeva Follow-up CT PET scan done on 01/26/2019 showed widespread osseous metastatic disease seen on prior scan is unchanged remained FDG positive. The index lesion in the posterior right acetabulum that has SUV of 8 now is 6.6. Right hepatic lobe lesion now has SUV of 3.4 compared to 4.2 on prior study Right adrenal lesion is progressed now SUV 5.4 compared to 3.7 previous Left adrenal activity is slightly more prominent. Mild activity in the mediastinal lymph node is unchanged. Follow-up CT PET scan done after 6 cycles of carboplatin/Taxol showed overall no significant change since prior study and widespread osseous metastatic disease, right hepatic metastases, or bilateral adrenal uptake, Her follow-up CT PET scan shows stable disease but her tumor marker continued to go up and her lab workup shows persistent progressive cytopenias, in that case Dr Estrella did discontinue her chemotherapy and requested a switch to fulvestrant/ everolimus , fulvestrant 500 mg IM on day 1, 15 and day 29 thereafter every month and everolimus 10 mg by mouth daily , while continue with Xgeva every month. Her everolimus dose was decreased to 5 mg daily due to persistent side effects. She presented for followup on 07/01/2019 with multiple concerns. She had lost another 7 pounds since her last visit. She had worsening fatigue. She also reported having bilateral foot and hand pain as well as slight bleeding from her left nare. She states since holding the Afinitor and doing dexamethasone 4 mg po daily, she feels like a different person . She states she feels much better overall. She is tired but recovers with rest. Mrs. Booth resumed Afinitor 5 mg daily for 14 days on and 7 days off on September 02, 2019. Thus far she has tolerated it well. The main issue she has had with resuming the Afinitor is that she has now once again became anemic. Her iron studies and B12 have been normal. The Afinitor will be placed on hold again due to the anemia. Plan: Discussed with patient regarding her labs white blood count 2.4 compared to 0.7 on June 23, 2021 hemoglobin 11.8 g compared to 6.5 g on June 23, 2021, prior to blood transfusion, hematocrit 33.2 platelets 34,000 compared to 22,000 previously CMP shows within normal limit except sodium 124, creatinine 1.8 Clinically, patient doing reasonably well, now recovering from ribociclib related side effects specially pancytopenia. 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 Patient will return to clinic in 1 week with CBC if her pancytopenia continues to improve or especially leukopenia/thrombocytopenia resolved, then will discuss about treatment options which include either switching her to single agent gemcitabine or consider modified dose ribociclib/Femara or if there is no improvement in her blood counts, may consider hospice care. Patient was advised to maintain good oral hygiene and if her bleeding persist, will discuss with oral surgeon regarding intervention. Signed By: Stanley Estrella M.D. <<Signature on File>>
== END 2021-06-29 23:59 | disposition home or self-care (01) ==
LOC: ONCMED 11:37
PROVIDERS: PCP Internal Medicine; Visit Provider Internal Medicine Hematology & Oncology
DX: C50.812 Malignant neoplasm of overlapping sites of left female breast (principal); Z17.0 Estrogen receptor positive status [ER+]; Z90.12 Acquired absence of left breast and nipple; C79.51 Secondary malignant neoplasm of bone; C78.7 Secondary malignant neoplasm of liver and intrahepatic bile duct; C79.71 Secondary malignant neoplasm of right adrenal gland; R97.8 Other abnormal tumor markers; R59.0 Localized enlarged lymph nodes; D61.818 Other pancytopenia; Z79.818 Long term (current) use of other agents affecting estrogen receptors and estrogen levels; Z79.899 Other long term (current) drug therapy; Z92.21 Personal history of antineoplastic chemotherapy; Z92.3 Personal history of irradiation
CPT/HCPCS: 36415; 80053; 85025; 86850; 86900; 99214; P9040

== ENCOUNTER → 2021-07-05 11:34 | Outpatient (BNVA) | payer MEDICARE, OTHER, SELFPAY | PROVIDERS: PCP Internal Medicine; Visit Provider Internal Medicine | DX: E27.40 Unspecified adrenocortical insufficiency (principal); E87.1 Hypo-osmolality and hyponatremia; C50.912 Malignant neoplasm of unspecified site of left female breast | CPT/HCPCS: 99214 ==

== ENCOUNTER 2021-07-06 06:22 | Outpatient (RCR) | payer MEDICARE, OTHER, SELFPAY ==
[2021-07-06 09:37] LABS: Basophils % 0.3 %; Eosinophils % 0.6 %; Hematocrit 40.7 % (37.0-47.0); Hemoglobin 13.8 g/dL (11.5-15.3); Lymphocytes # 0.4 10^3/uL (0.8-4.8); Lymphocytes % 12.2 %; Mean Corpuscular HGB Conc 33.9 g/dL (30.0-36.0); Mean Corpuscular Hemoglobin 32.5 pg (28.0-34.0); Mean Platelet Volume 9.7 fL (7.4-10.4); Monocytes # 0.5 10^3/uL (0.2-0.9); Neutrophils # 2.37 10^3/uL (1.8-7.7); Neutrophils % 70.5 %; Nucleated Red Blood Cells % 0 %; Platelet Count 130 10^3/cmm (130-400); Red Blood Count 4.24 10^6/uL (4.1-5.3); White Blood Count 3.4 10^3/uL (4.0-10.0)
[2021-07-06 09:57] LABS: Alanine Aminotransferase 45 U/L (0-33); Albumin Level 3.8 g/dL (3.5-5.2); Alkaline Phosphatase 237 IU/L (35-105); Anion Gap 23.2 (5-19); Aspartate Amino Transferase 113 U/L (0-32); Blood Urea Nitrogen 40 mg/dL (8-23); Calcium 9.3 mg/dL (8.5-10.5); Carbon Dioxide 20 mmol/L (22-29); Chloride 90 mmol/L (98-107); Globulin 3.5 g/dL (1.3-4.6); Glucose 95 mg/dL (65-115); Osmolality Calculated 276 mOsm/kg (285-295); Potassium 5.2 mmol/L (3.5-5.1); Sodium 128 mmol/L (136-145); Total Bilirubin 0.4 mg/dL (0.15-1.2); Total Protein 7.3 g/dL (6.6-8.7)
--- NOTE | 2021-07-06 14:04 | ONC FU_ITS ---
Dr. Estrella follow up note Patient: Joana Booth Unit #: [id number]: 1950 Dicatated By: Stanley Estrella M.D.Date of Visit:Jul 06, 2021 Onc Med Follow-up/Prog Note History of Present Illness: Mrs Booth is a 71 -year-old female who presented with a left breast mass for 2-3 years. She did undergo mammography ultrasound and subsequently a biopsy of the left breast mass on 05/10/2017 which confirmed infiltrating lobular carcinoma, grade 2, ER positive MS positive HER-2 ivett negative. The KI 67 was 7%. She is negative for PIK 3CA. She underwent left modified radical mastectomy on 05/26/2017. Surgical pathology showed grade 2 infiltrating lobular carcinoma with extensive involvement of overlying skin and nipple and areola. Lymphovascular invasion was present including dermal lymphatics, negative surgical margin, the tumor size was 6.8 x 3.2 cm and metastatic carcinoma identified in one of 3 axillary lymph nodes. She recovered from surgery well she did complain of significant low back pain with bilateral flank and rib cage. She did have PET CT on 07/29/2017. It confirmed stage IV breast cancer with extensive skeletal metastatic disease. There are innumerable FDG avid osteolytic metastatic lesions throughout the axial and appendicular skeleton. There was no hepatic, adrenal or pulmonary metastasis. There was no pathological lymphadenopathy. She was referred to radiation oncology for palliative radiation. Dr. Beaver recommended radiation therapy to the lower lumbar spine/SI joints for pain relief and disease control. She received 3000 cGy to the L5???sacral area she began treatment on August 15 and completed it on 08/28/2017. Mrs. Booth began Ibrance and Femara for metastatic breast cancer on August 29, 2016. The first doses of Xgeva documented in our chart is 09-26-2017. Ibrance and Femara was discontinued on 05/31/2018 due to progressive tumor markers. She was started on Arimidex 1 mg by mouth daily along with monthly Xgeva. She discontinued the Armidex on 08/02/2018. Her CT PET scan done on 07/14/2018 showed disease progression e.g. reactivation of multifocal osseous metastatic disease, new malignant mediastinal lymphadenopathy, bilateral inflammatory lung infiltrates and tumor marker CA-27-29 gone up to 393.47 compared to 334.62 on 07/02/2018 and 142.60 on 04/26/2018 .BRCA1/2 negative Mrs. Booth was advised to pursue treatment with weekly paclitaxel and to continue her monthly Xgeva. She began her first dose of weekly paclitaxel on 08/28/2018. Weekly carboplatin was added on 10/02/2018, as her follow-up PET scan done on 09/29/2018 showed widespread osseous metastatic disease seen on prior studies significantly more FDG positive on the current. Index lesion in the posterior right acetabulum that previously has SUV of 4.8 now has 8 there is a similar progression multiple other lesions throughout the spine sternum scapula pelvic and femurs. A new right hepatic lobe hypodensity measuring 1.4 cm has SUV of 4.2 and is a questionable activity in the region of right adrenal, suggesting metastatic disease. Her tumor marker CA-27-29 had gone down to 1197.6 on 09/24/2018 compared to 1327.6 on 09/04/2018 Mrs. Booth began chemotherapy with carboplatin and paclitaxel on 10/04/2018. and cont'd with monthly Xgeva Due to progressive leukopenia/neutropenia she is requiring Neupogen in between her weekly carboplatin and Taxol to maintain the schedule and responding well CT PET scan done on 01/26/2019 showed stable disease e.g. no significant change in FDG positive widespread osseous metastatic disease. Minimal improvement in the hepatic metastatic disease. Mild progression in right adrenal lesion and questionable new left adrenal lesion. No change in mild FDG activity in the mediastinum. Follow-up CT PET scan done After 6 cycles of weekly carboplatin Taxol on 04/06/2019 showed overall, no significant changes since prior study, widespread FDG positive osseous metastatic disease is unchanged. No change in right hepatic metastatic disease, no change in bilateral adrenal uptake Minimally improved in the subaortic mediastinal lymph nodes. Due to minimum benefit and progressive toxicity with chemotherapy (thrombocytopenia and persistent anemia, decreasing performance status), her treatment plan with carboplatin/Taxol was discontinued on 04/10/2019 and she was switched to fulvestrant /everolimus. everolimus was held due to progressive leukopenia/neutropenia and generalized weakness and fatigue and weight loss, reduced dose e.g. 5 mg daily still caused progressive leukopenia. On 09/03/2019, everolimus was re-started at 5 mg daily for 2 weeks on and then week off along with monthly Faslodex and Xgeva. Her last dose of Faslodex and Xgeva was on 09/02/2019.because of progressive weakness and fatigue, everolimus was discontinued and plan to continue with Faslodex and Xgeva alone unless CT PET scan shows progression. Follow-up CT PET scan done on 10/26/2019 showed increasing FDG activity in widespread osseous metastatic disease, consistent with mild progression,e.g. SUV now is 5.2 compared to 2.7 earlier on 07/13/2019. no new bony lesion seen Multifocal hepatic metastatic disease is not significantly changed. Right adrenal lesion is minimally progressed e.g. SUV 5.2 compared to 3.6 previously. There is no significant left adrenal activity with SUV of 4.9. In the mediastinum and subaortic node is progressed no SUV 5.9 and other nodes in the right paratracheal and bilateral hilar region weekly FDG positive may be reactive. because of mild disease progression and intolerance to evrolimus ,On 10/31/2019, Femara 2.5 mg was added to Faslodex/Xgeva , Follow-up CT PET scan done on January 25, 2020 shows no evidence of disease progression but her tumor marker CA-27-29 was progressive so Femara was discontinued and she was started on Aromasin 25 mg daily on January 25, 2020 and continued with monthly Faslodex and Xgeva on Follow-up CT PET scan done on January 25, 2020 showed no change in FDG positive widespread osseous metastatic disease. No change in multifocal hepatic metastatic disease. No change in probable reactive mediastinal lymphadenopathy, resolution of abnormal activity in both adrenal glands. Follow-up CT PET scan done on August 01, 2020 showed worsening of hepatic metastatic disease, dominant lesion in the left hepatic lobe is 2.7 x 2.0 cm with SUV of 7.7. Mixed response of widespread osseous metastatic disease but with a general trend towards improvement Marked improvement in mediastinal reactive lymph nodes A new hypermetabolic left maxillary opacification with SUV of 12 left facial swelling is improving with oral antibiotics and the last week of July 2019 when she underwent left sinus mass biopsy,, Which showed no evidence of malignancy. And her mouth sore is also improving, as per patient she was told it was due to severe gingivitis. Patient was also seen by Dr. Champagne senior enlisted advisor regarding persistent mild renal insufficiency his impression was renal insufficiency could be due to Faslodex as her renal sonogram done on August 31, 2020 shows moderate renal atrophy with no renal obstruction or renal mass.Faslodex was discontinued after dose given on July 20, 2020 And Aromasin was discontinued after CT PET scan done on August 01, 2020 shows worsening of hepatic metastatic disease Since our last visit, patient was admitted to [facility] on April 04, 2021 with severe hyponatremia, her sodium was 105 and she was diagnosed with adrenal insufficiency which responded well to hydrocortisone 10 mg in the morning 5 mg in the evening, as per patient prior to that she had a fall due to weakness and fatigue but no seizure-like activity patient underwent MRI scan of the head on April 04, 2021 which showed large intensely enhancing mass centered on the left sphenoid wing which extends along the left tentorial leaf noted. Extending to the left cavernous sinus, Meckel's cave and IAC, 2 small foci of meningeal or intraparenchymal enhancement noted in the most caudal aspect of the left middle cranial fossa. Differential consideration atypical meningioma, metastasis or lymphoma, patient was given radiation therapy to her brain from April 09, 2021 through April 14, 2021, During this admission she also underwent liver biopsy on April 09, 2021 and it confirmed metastatic adenocarcinoma consistent with breast primary ER positive, MS weakly positive, HER-2/ivett negative, CT scan of chest abdomen pelvis done on April 07, 2021 showed bilateral upper lobe indeterminate 1 to 2 mm solid pulmonary nodules, no thoracic lymphadenopathy, diffuse sclerotic osseous metastatic superimposed on decreased bone mineralization and pathological left posterior 10th rib fracture. Multiple bilateral upper lobe predominant small groundglass nodules likely inflammatory. CT abdomen shows numerous hepatic masses with appearance consistent with metastatic disease index lesion in the right hepatic dome 2.4 x 2.2 cm. Left adrenal thickening concern for metastatic disease. Indeterminate pelvic mass of uterine and ovarian origin. Extensive sclerotic osseous metastatic disease compression deformity of T11 vertebral body is probably chronic. Filling defect within the right external iliac vein is secondary to inflow of unopacified blood. PD-L1 CPS 0, Guardant 360 showed no significant targetable mutation ,, low TMB, MSI -H not detected Tolerating hydrocortisone 10 mg in the morning and 5 mg in the evening for newly diagnosed adrenal insufficiency. Started on ribociclib/Femara on June 01, 2021, Ribociclib was put on hold on June 15, 2021 for progressive leukopenia/pancytopenia While continue with Femara Came for follow-up, complaining of generalized weakness and fatigue, no fever chills, no nausea or vomiting, no diarrhea constipation, no headaches blurred vision or double vision but chronic back pain 4-5 on a scale of 10, under control with current pain medication Medications: Acetaminophen Tablet Oral PRN, [place] [facility] Allergy [facility] 1 (5-6.25-10-325 mg) Capsule Oral at bedtime PRN, Benadryl Allergy 1 Tablet (of 25 mg) Oral daily PRN, Calcium Magnesium zinc 3 Tablet Oral daily, Hydrocortisone 2 Tablet (of 5 mg) Oral b.i.d., Tylenol PM Extra Strength 1 (500-25 mg) Tablet Oral at bedtime Allergies: Ibuprofen, Keflex, and Penicillins. Review of Systems: Review of Systems is not available for this patient. Vital Signs: Performed on Jul 06, 2021 13:26 Height - 64.00 in Weight - 89.2 lbs (LOW) BSA - 1.39 sq.m BMI - 15.31 (LOW) Temperature - 97.3 F (LOW) Pulse - 77 /min Respiration - 16 /min BP - 89/62 mm(hg) (LOW) O2 Sat - 94 % (LOW) Pain - 3 Fatigue - 4 Performance Status: 3 - Capable of only limited self-care, confined to bed or chair more than 50% of waking hours. (ECOG) Physical Examination: Respiratory - Lungs are clear to auscultation, Cardiovascular - Regular rate and rhythm of heart, Gastrointestinal - Soft, bowel sounds present, Extremities - Trace edema bilaterally. Lab/Imaging: Most recent lab results are not available for this patient. Impression: Metastatic infiltrating lobular carcinoma with extensive axial and appendicular skeleton metastases per CT PET scan done on 07/29/2017. Infiltrating lobular carcinoma involving left breast status post MRM on 05/26/2017 final path report shows infiltrating lobular carcinoma grade 2, extensive involvement of overlying skin at nipple and areola, positive lymphovascular space invasion including dermal lymphatics. Deep margins free of tumor size of tumor 6.8 x 3.2 cm T4b (skin involvement) Metastatic tumor in 1 out of 3 axillary lymph nodes N1 stage IV Extensive bone metastases are CT PET scan done on 07/29/2017 And her molecular studies showed negative for PIK3CA and BRCA 1 and 2 Tumor marker CA-27-29 1455.11 and CA 15.3 is 653.1 Repeat tumor markers CA-27-29 on 11/02/2017 was 167.77 and CA 15.3 was 89.6 estrogen receptor 100% progesterone receptors 100% HER-2/ivett negative by IHC and over amplification by fish and Ki-67 7 % Status post radiation therapy to lumbar sacral spine from 08/15/2017 to 08/28/2017 Mrs Booth was on Ibrance 125 mg by mouth daily for 21 days and then week off and repeat cycle every 28 days along with Femara 2.5 mg daily since 08/29/2017. Because of leukopenia at day 28, will reduce Ibrance dose to 100 mg by mouth for 21 days on 1 week off repeat 28 days. Along with Femara 2.5 mg daily Persistent leukopenia even with Ibrance 125 mg for 14 days. Her last dose was 100 mg by mouth daily for 14 days q 28 days. Follow-up CT PET scan done on 02/17/2018 showed interval resolution of abnormal activity throughout the bone indicating positive response to therapy of widespread osseous metastatic disease. She had progression of her tumor marker so stopped the Ibrance and Femara. She was then treated with single agent Arimidex and monthly Xgeva. The Arimidex was discontinued on 08/02/2018 as her follow-up CT PET scan from 07/14/2018 showed evidence of disease progression. There has been development of new malignant mediastinal lymphadenopathy in the precarinal and [place]. These have SUV of 6.7, and subcentimeter suspicious superior mediastinal lymph nodes are also identified. Widespread osseous metastatic disease as the activated in a multifocal pattern, is seen most prominently in left scapula, thoracic spine, lumbar spine, pelvis and proximal femurs. And index lesion in the right ischium has SUV of 6. Tumor marker CA-27-29 is 393.47 on 07/30/2018 compared to 334.52 on 07/02/2018, 142.60 on 04/26/2018. recommended changing treatment to weekly paclitaxel. Ms. Booth began her first dose of weekly pack Taxol on August 28, 2018. She has tolerated it well thus far .Follow-up CT PET scan done on 09/29/2018 showed progression of widespread osseous metastatic disease since prior study, new unifocal hepatic metastatic disease, suspicious activity in right adrenal gland. Tumor marker CA-27-29 has gone down to 1197.6 on 09/24/2018 compared to 1327.6 on 09/04/2018, Weekly carboplatin was added to weekly Taxol on on 10/02/2018. with monthly Xgeva Follow-up CT PET scan done on 01/26/2019 showed widespread osseous metastatic disease seen on prior scan is unchanged remained FDG positive. The index lesion in the posterior right acetabulum that has SUV of 8 now is 6.6. Right hepatic lobe lesion now has SUV of 3.4 compared to 4.2 on prior study Right adrenal lesion is progressed now SUV 5.4 compared to 3.7 previous Left adrenal activity is slightly more prominent. Mild activity in the mediastinal lymph node is unchanged. Follow-up CT PET scan done after 6 cycles of carboplatin/Taxol showed overall no significant change since prior study and widespread osseous metastatic disease, right hepatic metastases, or bilateral adrenal uptake, Her follow-up CT PET scan shows stable disease but her tumor marker continued to go up and her lab workup shows persistent progressive cytopenias, in that case Dr Estrella did discontinue her chemotherapy and requested a switch to fulvestrant/ everolimus , fulvestrant 500 mg IM on day 1, 15 and day 29 thereafter every month and everolimus 10 mg by mouth daily , while continue with Xgeva every month. Her everolimus dose was decreased to 5 mg daily due to persistent side effects. She presented for followup on 07/01/2019 with multiple concerns. She had lost another 7 pounds since her last visit. She had worsening fatigue. She also reported having bilateral foot and hand pain as well as slight bleeding from her left nare. She states since holding the Afinitor and doing dexamethasone 4 mg po daily, she feels like a different person . She states she feels much better overall. She is tired but recovers with rest. Mrs. Booth resumed Afinitor 5 mg daily for 14 days on and 7 days off on September 02, 2019. Thus far she has tolerated it well. The main issue she has had with resuming the Afinitor is that she has now once again became anemic. Her iron studies and B12 have been normal. The Afinitor will be placed on hold again due to the anemia. Plan: Discussed with patient and family and her daughter Piedad on the phone, regarding patient lab which showed white blood count 3.4 hemoglobin 13.8 hematocrit 40.7 platelets 130,000 compared to 34,000 previously sodium 128 compared to 124 previously potassium 5.2 creatinine 1.8 ALT 45 AST 113 compared to 74 previously Clinically, patient doing reasonably well, not in acute distress but complaining of generalized weakness and fatigue., Treatment options including palliative therapy versus hospice care was discussed in detail. Patient and her daughter wants to try palliative therapy, if not tolerated then would consider hospice care. 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 All the side effect possible benefits associated with gemcitabine including but not limited to bone marrow suppression, nausea vomiting, generalized weakness and fatigue, hair loss, further teaching will be done by chemotherapy nurse, will obtain approval from her insurance prior to the treatment. In the meantime we will stop hormonal therapy and patient will return to clinic 1 week after initiating gemcitabine with CBC CMP. Signed By: Stanley Estrella M.D. <<Signature on File>>
== END 2021-07-07 17:00 | disposition home or self-care (01) ==
LOC: ONCMED 06:22
PROVIDERS: PCP Internal Medicine; Visit Provider Internal Medicine Hematology & Oncology
DX: C50.812 Malignant neoplasm of overlapping sites of left female breast (principal); Z17.0 Estrogen receptor positive status [ER+]; C79.51 Secondary malignant neoplasm of bone; D70.1 Agranulocytosis secondary to cancer chemotherapy; T45.1X5A Adverse effect of antineoplastic and immunosuppressive drugs, initial encounter; R59.0 Localized enlarged lymph nodes; C78.7 Secondary malignant neoplasm of liver and intrahepatic bile duct; C79.71 Secondary malignant neoplasm of right adrenal gland; C79.72 Secondary malignant neoplasm of left adrenal gland; D64.9 Anemia, unspecified; R53.1 Weakness; R53.83 Other fatigue; Z79.899 Other long term (current) drug therapy
CPT/HCPCS: 36415; 80053; 85025; 96375; 96413; 99214

== ENCOUNTER 2021-07-07 17:54 | Emergency (ER) | payer MEDICARE, OTHER, SELFPAY ==
[2021-07-07 18:10] VITALS: BP 101/63; PULSE 71; RESP 18; TEMP 37.1; O2SAT 92; BMI 17.4
--- NOTE | 2021-07-07 18:41 | XRR_ITS ---
PROCEDURE INFORMATION: Exam: XR Chest Exam date and time: 07/07/2021 6:41 PM Age: 71 years old Clinical indication: Shortness of breath; Additional info: Weakness TECHNIQUE: Imaging protocol: XR of the chest. Views: 1 view. COMPARISON: MR orbit face neck wo/w* [id number] 01/14/2021 2:44 PM FINDINGS: Lungs: Unremarkable. No consolidation. Pleural spaces: Unremarkable. No pleural effusion. No pneumothorax. Heart/Mediastinum: Unremarkable. No cardiomegaly. Bones/joints: Heterogeneous mineralization pattern of the bones. No acute thoracic fractures. XR/XR chest 1V portable [id number] IMPRESSION: No acute pulmonary disease.
--- NOTE | 2021-07-07 18:41 | ECG_ITS ---
[facility] Test Date: 2021-07-07 Pat Name: Joana Booth Department: Room: Gender: Female Manager Media: : 1950 Requested By: Maurilio Colon Order Number: [id number] Samantha MD: Camilla Smith M.D. Measurements Intervals [place] Rate: 65 P: 67 OH: 135 QRS: 32 QRSD: 89 T: 77 QT: 379 QTc: 396 Interpretive Statements SINUS RHYTHM Compared to ECG 05/07/2021 10:46:14 No significant changes Electronically Signed On 07-08-2021 4:15:18 TELEPHONE COLLECTOR by Camilla Smith M.D. [id number]
--- NOTE | 2021-07-07 18:46 | CTR_ITS ---
PROCEDURE INFORMATION: Exam: CT Head Without Contrast Exam date and time: 07/07/2021 6:46 PM Age: 71 years old Clinical indication: Altered mental status/memory loss; Additional info: AGGIE AHUJA. HX of breast, brain, and bone cancer TECHNIQUE: Imaging protocol: Computed tomography of the head without contrast. Radiation optimization: All CT scans at this facility use at least one of these dose optimization techniques: automated exposure control; mA and/or kV adjustment per patient size (includes targeted exams where dose is matched to clinical indication); or iterative reconstruction. COMPARISON: MR scott's wo/w con* [id number] 02/03/2021 12:22 PM RADIATION DOSE METRICS: Total DLP (mGy-cm): 714.64 FINDINGS: Brain: There is moderate cerebral atrophy. No hemorrhage. Unremarkable white matter. No mass effect. Cerebral ventricles: No ventriculomegaly. Paranasal sinuses: Visualized sinuses are unremarkable. No fluid levels. Mastoid air cells: Visualized mastoid air cells are well aerated. Bones/joints: Permeative mixed lucent and sclerotic bone mineralization changes throughout the clivus in portions of the skull base. Soft tissues: Unremarkable. CT/CT head wo con* [id number] IMPRESSION: 1. Negative for acute intracranial abnormality. 2. Mixed lucent and sclerotic bone mineralization changes of the skull base could represent the sequela of malignancy.
--- NOTE | 2021-07-07 19:00 | W.ED.WEAKNES ---
HPI - Weakness General: Chief complaint: Weakness Stated complaint: Cancer PT\Low Engery\Confused Time Seen by Provider: 07/07/21 18:37 Source: patient Mode of arrival: ambulatory Limitations: no limitations History of Present Illness: HPI Narrative: 71-year-old female has a history of breast cancer along with mets to the bone who was previously on radiation is supposed to start chemotherapy soon is not on any type of therapy currently she got a history of adrenal insufficiency on steroids she has had hyponatremia in the past as well. Family is concerned that she get hyponatremic as she has been having some increasing fatigue over the last week. States she has had some slight confusion at times she is able answer all my questions here appropriately knows the date the year her name and where she is at. Denies any headache denies any fever Associated symptoms: Denies chest pain, dysuria, easy bruising, headache(s), nausea or vomiting Review of Systems Const: Reports: fatigue and malaise Eyes: Denies: blurry vision or eye discomfort ENMT: Denies: throat pain or dental pain Card: Denies: chest pain Resp: Denies: dyspnea GI: Denies: abdominal pain, nausea, vomiting or diarrhea : Denies: dysuria Musc: Denies: neck pain or back pain Skin/Breast: Denies: rash Neuro: Denies: headache(s) Psych: Denies: depression Sánchez/Lymph: Denies: easy bruising All/Imm: Denies: urticaria PFSH ED PFSH: Medical History Adrenal gland disease Cancer of bone Cancer of brain Cancer of left breast Chemotherapeutic agent or infusion extravasation FH: mastectomy Radiation effect Family History Father Stroke Hypertension Mother Dementia Social History Smoking and tobacco status: never smoked Second hand smoke exposure: No Smoking risk assessment/counseling performed?: Yes Alcohol intake: never Desire information about alcohol rehabilitation?: No Counseling given: Yes Desire information about substance/drug rehabilitation?: No Counseling given: Yes Adopted: No Caregiver/support person: Yes Lives independently: Yes Household members: spouse Housing: House Marital status: Number of children: 1 Highest education level completed: Some College, No Degree service: No Current occupational status: retired Current occupational exposures/hazards: No History of recent travel: No Physical Exam Const: COMMON NORMALS: no acute distress and patient oriented x3 GENERAL APPEARANCE: frail appearing HENMT: COMMON NORMALS: normocephalic and atraumatic HEAD & SCALP: normocephalic and atraumatic Eye: COMMON NORMALS: Equal, round and reactive pupils present and EOMs intact bilaterally PUPIL: Yes Equal, round and reactive pupils present Neck/C-Spine: COMMON NORMALS: full ROM and supple Chest: COMMONS NORMALS: normal inspection of the chest and normal palpation of entire chest wall Resp: COMMON NORMALS: normal respiratory effort, No retractions, No use of accessory muscles and clear to auscultation bilaterally AUSCULTATION: clear to auscultation bilaterally Cardio: COMMON NORMALS: regular rate, regular rhythm and No murmurs present (Cardio) RATE: regular rate RHYTHM: regular rhythm GI: COMMON NORMALS: Normal to inspection, nondistended, normoactive bowel sounds present, Soft to palpation, non-tender and no masses PALPATION: Yes Soft to palpation Extremity: COMMON NORMALS: normal to inspection and full ROM Neuro: COMMON NORMALS: patient oriented x3, moves all extremities and no focal motor deficits Psych: COMMON NORMALS: mental status grossly normal, Normal thought process present and cooperative THOUGHT PROCESS: Normal thought process present Skin: COMMON NORMALS: no rashes or lesions noted and no wounds GENERAL SKIN EXAM: no rashes or lesions noted Course Vital Signs: Vital signs: Vital Signs Temperature 98.7 F 07/07/21 18:10 Pulse Rate 71 07/07/21 18:10 Respiratory Rate 18 07/07/21 18:10 Blood Pressure 101/63 07/07/21 18:10 Pulse Oximetry 92 07/07/21 18:10 MDM - Weakness MDM Narrative: Medical decision making narrative: Patient presents here with weakness she does have a history of chronic hyponatremia adrenal insufficiency along with cancer. Sodium level here is 125 pretty consistent with her baseline. 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 Lab Data: Labs: Lab Results 07/07/21 07/07/21 19:47 19:47 WBC 3.9 10^3/uL L 10^ 3/uL (4.0-10.0) RBC 3.84 10^6/uL L 10 ^6/uL (4.1-5.3) Hgb 12.3 g/dL g/dL (11.5-15.3) Hct 36.4 % L % (37.0-47.0) MCV 94.8 fl fl (81-99) MCH 32.0 pg pg (28.0-34.0) MCHC 33.8 g/dL g/dL (30.0-36.0) RDW 17.7 % H % (12.1-15.1) Plt Count 145 10^3/cmm 10^3 /cmm (130-400) MPV 9.3 fL fL (7.4-10.4) Neut % (Auto) 68.5 % % Lymph % (Auto) 10.3 % % [place] % (Auto) 18.6 % % Eos % (Auto) 0.0 % % Baso % (Auto) 0.3 % % Neut # (Auto) 2.66 10^3/uL 10^3 /uL (1.8-7.7) Lymph # (Auto) 0.4 10^3/uL L 10^ 3/uL (0.8-4.8) [place] # (Auto) 0.7 10^3/uL 10^3/ uL (0.2-0.9) Eos # (Auto) 0.0 10^3/uL 10^3/ uL (0.0-0.8) Baso # (Auto) 0.0 10^3/uL 10^3/ uL (0.0-0.1) Nucleated RBC % (a uto) 0 % % Nucleated RBCs # 0.0 /100WBC /100W BC Sodium 125 mmol/L L mmol /L (136-145) Potassium 5.5 mmol/L H mmol /L (3.5-5.1) Chloride 88 mmol/L L mmol/ L (98-107) Carbon Dioxide 21 mmol/L L mmol/ L (22-29) Anion Gap 21.5 H (5-19) BUN 37 mg/dL H mg/dL (8-23) Creatinine 1.7 mg/dL H mg/dL (0.5-0.9) GFR Calculation Not Reportable Glucose 87 mg/dL mg/dL (65-115) Calculated Osmolal ity 268 mOsm/kg L mOs m/kg (285-295) Calcium 9.2 mg/dL mg/dL (8.5-10.5) Total Bilirubin 0.4 mg/dL mg/dL (0.15-1.2) AST 104 U/L H U/L (0-32) ALT 45 U/L H U/L (0-33) Alkaline Phosphata se 240 IU/L H IU/L (35-105) Total Protein 6.7 g/dL g/dL (6.6-8.7) Albumin 3.7 g/dL g/dL (3.5-5.2) Globulin 3.0 g/dL g/dL (1.3-4.6) TSH 2.94 uIU/mL uIU/m L (0.27-4.20) Imaging Data^: CXR: Attestation: I personally reviewed and interpreted this imaging study as follows: My impression: no acute abnormality CT Head: Radiologist's impression: [address] [place] [address] CT Scan Report Signed Patient: Joana Booth Unit #: [id number] : 1950 Age/Sex: 71 / F ADM Date: 07/07/21 Loc: ER Room/Bed: Attending Dr: Ordering Provider/Ordering MD: Maurilio Colon MD Date of Service: 07/07/21 Procedure(s): CT head wo con* [id number] Accession Number(s): [id number] Report Number: [id number] PROCEDURE INFORMATION: Exam: CT Head Without Contrast Exam date and time: 07/07/2021 6:46 PM Age: 71 years old Clinical indication: Altered mental status/memory loss; Additional info: AGGIE AHUJA. HX of breast, brain, and bone cancer TECHNIQUE: Imaging protocol: Computed tomography of the head without contrast. Radiation optimization: All CT scans at this facility use at least one of these dose optimization techniques: automated exposure control; mA and/or kV adjustment per patient size (includes targeted exams where dose is matched to clinical indication); or iterative reconstruction. COMPARISON: MR iac's wo/w con* [id number] 02/03/2021 12:22 PM RADIATION DOSE METRICS: Total DLP (mGy-cm): 714.64 FINDINGS: Brain: There is moderate cerebral atrophy. No hemorrhage. Unremarkable white matter. No mass effect. Cerebral ventricles: No ventriculomegaly. Paranasal sinuses: Visualized sinuses are unremarkable. No fluid levels. Mastoid air cells: Visualized mastoid air cells are well aerated. Bones/joints: Permeative mixed lucent and sclerotic bone mineralization changes throughout the clivus in portions of the skull base. Soft tissues: Unremarkable. CT/CT head wo con* [id number] IMPRESSION: 1. Negative for acute intracranial abnormality. 2. Mixed lucent and sclerotic bone mineralization changes of the skull base could represent the sequela of malignancy. Dictated By: Delgado Ku Signed By: Delgado Ku Signed Date/Time: 07/07/211938 DD/ 45 EKG Data^: EKG 1: Attestation: I personally reviewed and interpreted this EKG as follows: EKG interpretation date: 07/07/21 EKG interpretation time: 19:56 Interpretation: nsr hr [address] or t wave abnormalities qrs 89 qtc 391 Discharge Plan Discharge Patient Disposition: Home Clinical Impression: Weakness, Adrenal insufficiency Condition: Stable Prescriptions: No Action letrozole 2.5 mg tablet 2.5 mg PO DAILY RF: 0 chlorhexidine gluconate 0.12 % mouthwash 15 ml buccal BID RF: 0 acetaminophen [Tylenol Extra Strength] 500 mg tablet 500 mg PO Q6H PRN (Reason: Pain) RF: 0 calcium carbonate-vitamin D3 [Calcium 500 + D] 500 mg(1,250mg) -200 unit tablet 1 tab PO DAILY RF: 0 hydrocortisone 5 mg tablet See Rx Instructions PO BID RF: 0 Discharge Orders: Discharge ED (Routine); Ordered 07/07/21 Ordered By: Maurilio Colon Referrals: Vivian Rueda DO [Primary Care Provider] - Discharge Diet: Advance as tolerated Discharge Activity: Resume usual activity Patient Instructions: Weakness (ED) Activity Restrictions/Additional Instructions: double hydrocortisone dose next 2 days Coding Level of Care Code ED Environmental Conflict Manager for Chg Fwd Exam Comprehensive
[2021-07-07] MEDS: sodium chloride 0.9% 1,000 ML 999 ML IV (19:50)
[2021-07-07 19:54] LABS: Basophils % 0.3 %; Hematocrit 36.4 % (37.0-47.0); Hemoglobin 12.3 g/dL (11.5-15.3); Lymphocytes # 0.4 10^3/uL (0.8-4.8); Lymphocytes % 10.3 %; Mean Corpuscular HGB Conc 33.8 g/dL (30.0-36.0); Mean Corpuscular Volume 94.8 fl (81-99); Mean Platelet Volume 9.3 fL (7.4-10.4); Monocytes # 0.7 10^3/uL (0.2-0.9); Monocytes % 18.6 %; Neutrophils # 2.66 10^3/uL (1.8-7.7); Neutrophils % 68.5 %; Nucleated Red Blood Cells % 0 %; Platelet Count 145 10^3/cmm (130-400); Red Blood Count 3.84 10^6/uL (4.1-5.3); Red Cell Distribution Width 17.7 % (12.1-15.1); White Blood Count 3.9 10^3/uL (4.0-10.0)
[2021-07-07 20:24] LABS: Alanine Aminotransferase 45 U/L (0-33); Albumin Level 3.7 g/dL (3.5-5.2); Alkaline Phosphatase 240 IU/L (35-105); Anion Gap 21.5 (5-19); Aspartate Amino Transferase 104 U/L (0-32); Blood Urea Nitrogen 37 mg/dL (8-23); Calcium 9.2 mg/dL (8.5-10.5); Carbon Dioxide 21 mmol/L (22-29); Chloride 88 mmol/L (98-107); Glucose 87 mg/dL (65-115); Osmolality Calculated 268 mOsm/kg (285-295); Potassium 5.5 mmol/L (3.5-5.1); Sodium 125 mmol/L (136-145); Thyroid Stimulating Hormone 2.94 uIU/mL (0.27-4.20); Total Bilirubin 0.4 mg/dL (0.15-1.2); Total Protein 6.7 g/dL (6.6-8.7)
[2021-07-07 21:02] LABS: Add Urine Microscopic? NO
[2021-07-07 21:03] LABS: Bilirubin Urine Neg (Negative); Blood Urine Neg (Negative); Glucose Urine UA Norm (Normal); Ketones Urine Negative (Negative); Leukocyte Esterase Urine Negative (Negative); Nitrate Urine Negative (Negative); Protein Urine Neg (Negative); Specific Gravity, Urine 1.005 (1.005-1.030); Urine Appearance Clear (CLEAR); Urine Color Yellow (Yellow); Urobilinogen Urine Norm (Negative); pH Urine 8 (5-7)
[2021-07-07 21:04] LABS: Charge for UA Resulting for Rev
[2021-07-07 21:52] VITALS: PULSE 92; RESP 18; O2SAT 96
[2021-07-13 12:23] LABS: Plasma Renin Activity LC/MS/MS 0.63 ng/mL/h (0.25-5.82)
== END 2021-07-07 22:01 | disposition home or self-care (01) ==
PROVIDERS: Emergency Medicine; Emergency Provider Emergency Medicine; PCP Internal Medicine
DX: R53.1 Weakness (principal); E27.40 Unspecified adrenocortical insufficiency; Z85.3 Personal history of malignant neoplasm of breast; Z85.830 Personal history of malignant neoplasm of bone; Z85.841 Personal history of malignant neoplasm of brain; Z92.3 Personal history of irradiation
CPT/HCPCS: 70450; 71045; 80053; 81003; 84244; 84443; 85025; 93005; 96360; 99284; J7030

== ENCOUNTER 2021-07-22 06:20 | Outpatient (RCR) | payer MEDICARE, OTHER, SELFPAY ==
[2021-07-15 11:42] LABS: Basophils % 0.2 %; Hematocrit 36.2 % (37.0-47.0); Hemoglobin 12.1 g/dL (11.5-15.3); Lymphocytes # 0.2 10^3/uL (0.8-4.8); Lymphocytes % 2.8 %; Mean Corpuscular HGB Conc 33.4 g/dL (30.0-36.0); Mean Corpuscular Hemoglobin 31.6 pg (28.0-34.0); Mean Corpuscular Volume 94.5 fl (81-99); Mean Platelet Volume 9.7 fL (7.4-10.4); Monocytes # 0.4 10^3/uL (0.2-0.9); Monocytes % 6.2 %; Neutrophils # 5.17 10^3/uL (1.8-7.7); Neutrophils % 89.1 %; Nucleated Red Blood Cells % 0 %; Platelet Count 197 10^3/cmm (130-400); Red Blood Count 3.83 10^6/uL (4.1-5.3); Red Cell Distribution Width 17.4 % (12.1-15.1); White Blood Count 5.8 10^3/uL (4.0-10.0)
[2021-07-15 12:11] LABS: Alanine Aminotransferase 81 U/L (0-33); Albumin Level 3.5 g/dL (3.5-5.2); Alkaline Phosphatase 338 IU/L (35-105); Blood Urea Nitrogen 38 mg/dL (8-23); Calcium 8.6 mg/dL (8.5-10.5); Carbon Dioxide 18 mmol/L (22-29); Chloride 89 mmol/L (98-107); Globulin 3.2 g/dL (1.3-4.6); Glucose 168 mg/dL (65-115); Osmolality Calculated 275 mOsm/kg (285-295); Sodium 126 mmol/L (136-145); Total Bilirubin 0.4 mg/dL (0.15-1.2); Total Protein 6.7 g/dL (6.6-8.7)
[2021-07-15 12:19] LABS: Anion Gap 24.1 (5-19); Aspartate Amino Transferase 137 U/L (0-32); Potassium 5.1 mmol/L (3.5-5.1)
[2021-07-15] MEDS: sodium chloride 0.9% 250 ML 75 ML IV (13:40)
[2021-07-15] MEDS: ondansetron 2 mg/ML SDV 2 mL 8 MG IV (13:43)
[2021-07-15] MEDS: acetaminophen 325 mg Tablet 650 MG PO (14:28)
[2021-07-20 09:32] LABS: Eosinophils % 0.4 %; Hematocrit 36.5 % (37.0-47.0); Hemoglobin 12.3 g/dL (11.5-15.3); Lymphocytes # 0.1 10^3/uL (0.8-4.8); Lymphocytes % 5.6 %; Mean Corpuscular HGB Conc 33.7 g/dL (30.0-36.0); Mean Corpuscular Hemoglobin 31.7 pg (28.0-34.0); Mean Corpuscular Volume 94.1 fl (81-99); Mean Platelet Volume 9.4 fL (7.4-10.4); Monocytes # 0.1 10^3/uL (0.2-0.9); Monocytes % 2.2 %; Neutrophils # 2.05 10^3/uL (1.8-7.7); Neutrophils % 88.8 %; Nucleated Red Blood Cells % 0 %; Platelet Count 125 10^3/cmm (130-400); Red Blood Count 3.88 10^6/uL (4.1-5.3); Red Cell Distribution Width 17.5 % (12.1-15.1); White Blood Count 2.3 10^3/uL (4.0-10.0)
[2021-07-20 09:52] LABS: Alanine Aminotransferase 118 U/L (0-33); Albumin Level 3.7 g/dL (3.5-5.2); Alkaline Phosphatase 368 IU/L (35-105); Anion Gap 22.5 (5-19); Aspartate Amino Transferase 118 U/L (0-32); Blood Urea Nitrogen 34 mg/dL (8-23); Calcium 8.9 mg/dL (8.5-10.5); Carbon Dioxide 20 mmol/L (22-29); Chloride 89 mmol/L (98-107); Globulin 3.5 g/dL (1.3-4.6); Glucose 116 mg/dL (65-115); Osmolality Calculated 271 mOsm/kg (285-295); Potassium 5.5 mmol/L (3.5-5.1); Sodium 126 mmol/L (136-145); Total Bilirubin 0.5 mg/dL (0.15-1.2); Total Protein 7.2 g/dL (6.6-8.7)
[2021-07-22] MEDS: ondansetron 2 mg/ML SDV 2 mL 8 MG IV (10:15)
[2021-07-22] MEDS: sodium chloride 0.9% 250 ML 999 ML IV (10:18)
== END 2021-07-30 23:59 | disposition home or self-care (01) ==
LOC: ONCMED 06:20
PROVIDERS: Internal Medicine Hematology & Oncology; PCP Internal Medicine; Visit Provider Nurse Practitioner Family
DX: Z51.11 Encounter for antineoplastic chemotherapy (principal); C50.812 Malignant neoplasm of overlapping sites of left female breast; Z17.0 Estrogen receptor positive status [ER+]; C79.51 Secondary malignant neoplasm of bone; D64.9 Anemia, unspecified; Z79.899 Other long term (current) drug therapy
CPT/HCPCS: 36415; 80053; 85025; 96367; 96375; 96413; 99215; J1100; J2405; J7050; J9201

== ENCOUNTER → 2021-08-03 11:18 | Outpatient (BNVA) | payer MEDICARE, OTHER, SELFPAY | PROVIDERS: PCP Internal Medicine; Referring Provider Internal Medicine Hematology & Oncology; Visit Provider Surgery | DX: Z11.52 Encounter for screening for COVID-19 (principal); C50.919 Malignant neoplasm of unspecified site of unspecified female breast | CPT/HCPCS: 87635 ==

== ENCOUNTER 2021-08-04 12:21 | Inpatient (IN) | payer MEDICARE, OTHER, SELFPAY ==
[2021-08-04] VITALS (8 sets, daily range): BP systolic 82–94; BP diastolic 50–64; PULSE 62–91; RESP 16–20; TEMP 36.6–36.7; O2SAT 97–100; BMI 17.2; BMI 17.9
--- NOTE | 2021-08-04 12:48 | XR_ITS ---
WS: [id number] Portable AP upright chest, 08/04/2021 Clinical Data: weakness Comparison: Portable chest, 07/07/2021. Findings: No nodules, masses or effusions are seen. The heart is normal. The pulmonary vascularity is not remarkable. No pneumonia or pneumothorax is present. The left breast is absent. The bones of the thorax especially both scapula show osteolytic changes consistent with metastatic disease. There is a dextroscoliosis. XR/XR chest 1V portable [id number] Impression: 1. Negative for acute cardiopulmonary disease. 2. 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
[2021-08-04 14:26] LABS: Basophils % 0.6 %; Hematocrit 32.8 % (37.0-47.0); Hemoglobin 11.2 g/dL (11.5-15.3); Lymphocytes # 0.1 10^3/uL (0.8-4.8); Lymphocytes % 3.4 %; Mean Corpuscular HGB Conc 34.1 g/dL (30.0-36.0); Mean Corpuscular Hemoglobin 31.8 pg (28.0-34.0); Mean Corpuscular Volume 93.2 fl (81-99); Monocytes # 0.2 10^3/uL (0.2-0.9); Monocytes % 6.9 %; Neutrophils # 2.87 10^3/uL (1.8-7.7); Nucleated Red Blood Cells % 0 %; Platelet Count 71 10^3/cmm (130-400); Red Blood Count 3.52 10^6/uL (4.1-5.3); Red Cell Distribution Width 18.3 % (12.1-15.1); White Blood Count 3.5 10^3/uL (4.0-10.0)
[2021-08-04 14:45] LABS: Alanine Aminotransferase 220 U/L (0-33); Albumin Level 3.3 g/dL (3.5-5.2); Alkaline Phosphatase 568 IU/L (35-105); Aspartate Amino Transferase 227 U/L (0-32); Blood Urea Nitrogen 40 mg/dL (8-23); Calcium 8.9 mg/dL (8.5-10.5); Carbon Dioxide 20 mmol/L (22-29); Chloride 85 mmol/L (98-107); Globulin 2.9 g/dL (1.3-4.6); Glucose 104 mg/dL (65-115); Osmolality Calculated 260 mOsm/kg (285-295); Sodium 120 mmol/L (136-145); Total Bilirubin 0.5 mg/dL (0.15-1.2); Total Protein 6.2 g/dL (6.6-8.7)
[2021-08-04 14:51] LABS: Slide Review Slide Review Perform
--- NOTE | 2021-08-04 15:26 | CT_ITS ---
WS: [id number] CT HEAD NONCONTRAST HISTORY: AMS TECHNIQUE: Contiguous axial imaging performed through the brain in 2.5 mm imaging. Bone and soft tiss ue windows. Sagittal and coronal reformats reviewed. All CT scans at [facility] use at least one of these dose optimization techniques: automated exposure control; mA and/or kV adjustment per pa tient size (includes targeted exams where dose is matched to clinical indication); or iterative recon struction. DLP: 742.91 mGy.cm COMPARISON: 07/07/2021 Mild atrophy and mild chronic microvascular ischemic disease. No acute intracranial hemorrhage. No ma ss effect. No prior infarct. No prior large territory infarcts. Patient has known osseous metastatic disease as previously descri bed. There is significant destruction and lytic involvement of the skull base in the clivus. Ventricles: Normal size with no hydrocephalus. Paranasal sinuses: As visualized are clear. Mastoid air cells: Well pneumatized. Calvarium and scalp: Extensive lytic bone changes at the skull base and clivus. Previously described. Patient has known metastatic bone disease. CT/CT head wo con* [id number] IMPRESSION: 1. No acute intracranial hemorrhage or edema. 2. Mild atrophy and chronic ischemic disease. 3. Destructive bone changes at the skull base and clivus are probably related to metastatic bone disease which has been previously described.
--- NOTE | 2021-08-04 15:32 | ED_ITS ---
Documented by User: Braulio Alcocer MD 08/04/21 17:59 HPI - Weakness General: Chief complaint: Weakness Stated complaint: ABNORMAL LABS? WEAKNESS Time Seen by Provider: 08/04/21 15:21 History of Present Illness: HPI Narrative: 71-year-old female with history of metastatic cancer to bone as well as chronic steroid dependence and hyponatremia presents due to an episode of weakness. Earlier at home sister was walking with her and she stopped in 1 answer questions does not look confused for several minutes. She does not remember the episode. She did not have any shaking and did not fall to the floor. She denies any focal pain except chronic back pain that is the same as her baseline. Denies any focal numbness weakness or tingling. Denies any chest pain or palpitations. She remained standing during the episode and did not have any confusion afterwards. Review of Systems Narrative: - CONSTITUTIONAL: Denies weight loss, fever and chills. - HEENT: Denies changes in vision and hearing. - RESPIRATORY: Denies SOB and cough. - CV: Denies palpitations and CP. - GI: Denies abdominal pain, nausea, vomiting and diarrhea. - : Denies dysuria and urinary frequency. - MSK: Denies myalgia and joint pain. - SKIN: Denies rash and pruritus. - NEUROLOGICAL: As above - PSYCHIATRIC: Denies suicidal ideation PFSH ED PFSH: Medical History (Updated 08/04/21 @ 21:24 by Minoo Pacheco MD) Adrenal gland disease Follows with Dr Veliz, on hydrocortisone Metastatic breast cancer Left breast, infiltrating lobular carcinoma, grade 2, ER+/CO+/HER-2 ivett negative. KI 67 was 7%, negative for PIK 3CA. BRCA 1/2 negative, CA-27-29 positive. Stage 4 with skeletal, lymphatic, adrenal, hepatic, possible pulmonary and pelvic metastases. Follows with Dr Estrella. Has been on multiple palliative treatments as outlined in Oncology notes. Status post chemoradiation 3000cGy completed 08/28/2017 Surgical History (Updated 08/04/21 @ 21:22 by Minoo Pacheco MD) H/O mastectomy (05/26/17) left modified radical Family History Father Stroke Hypertension Mother Dementia Social History (Updated 08/04/21 @ 21:23 by Minoo Pacheco MD) Smoking and tobacco status: never smoked Second hand smoke exposure: No Alcohol intake: never Substance/Drug Use: never Adopted: No Caregiver/support person: Yes Household members: spouse Housing: House Marital status: Number of children: 1 Highest education level completed: Some College, No Degree Current occupational status: retired Physical Exam Narrative: EXAM NARRATIVE: - GENERAL: Alert and oriented x 3. No acute distress. Thin and chronically ill-appearing. - EYES: EOMI. Anicteric. - HENT: Atraumatic, no C-spine tenderness. Moist mucous membranes. No scleral icterus. No cervical lymphadenopathy. - LUNGS: Clear to auscultation bilaterally. No accessory muscle use. Equal lung sounds bilaterally. No respiratory distress. - CARDIOVASCULAR: Regular rate and rhythm. No murmur. No JVD. - ABDOMEN: Soft, non-tender and non-distended. Negative CVA tenderness dhaval aterally, no rebound or guarding, negative Black sign. No palpable masses. - EXTREMITIES: No edema. Non-tender. - SKIN: No rashes or lesions. Warm. - NEUROLOGIC: Reduced hearing from left ear which is her baseline. No meningismus or focal neurological deficits otherwise. CN II-XII grossly intact. - PSYCHIATRIC: Cooperative. Appropriate mood and affect. Course Vital Signs: Vital signs: Vital Signs Temperature 98.1 F 08/04/21 12:34 Pulse Rate 66 08/04/21 18:52 Respiratory Rate 16 08/04/21 18:52 Blood Pressure 92/50 08/04/21 18:52 Pulse Oximetry 98 08/04/21 18:52 MDM - Weakness MDM Narrative: Medical decision making narrative: 71-year-old female presents due to lightheadedness. Does have history of adrenal insufficiency. Sodium today is 120 potassium is six and blood pressures are soft in the 80s over 50s. Started on Solu-Cortef IV. Discussed with hospitalist with this time since patient will require ICU care due to her low blood pressure and electrolyte abnormalities in the setting of adrenal insufficiency. Otherwise EKG does not show any signs of acute hyperkalemic change. Currently working on placement. Patient signed out to Dr. Colon. Lab Data: Labs: Lab Results 08/04/21 08/04/21 08/04/21 14:05 14:05 14:05 WBC 3.5 10^3/uL L 10^ 3/uL (4.0-10.0) RBC 3.52 10^6/uL L 10 ^6/uL (4.1-5.3) Hgb 11.2 g/dL L g/dL (11.5-15.3) Hct 32.8 % L % (37.0-47.0) MCV 93.2 fl fl (81-99) MCH 31.8 pg pg (28.0-34.0) MCHC 34.1 g/dL g/dL (30.0-36.0) RDW 18.3 % H % (12.1-15.1) Plt Count 71 10^3/cmm L 10^ 3/cmm (130-400) MPV 11.0 fL H fL (7.4-10.4) Neut % (Auto) 82.0 % % Lymph % (Auto) 3.4 % % Parmer % (Auto) 6.9 % % Eos % (Auto) 0.0 % % Baso % (Auto) 0.6 % % Neut # (Auto) 2.87 10^3/uL 10^3 /uL (1.8-7.7) Lymph # (Auto) 0.1 10^3/uL L 10^ 3/uL (0.8-4.8) Parmer # (Auto) 0.2 10^3/uL 10^3/ uL (0.2-0.9) Eos # (Auto) 0.0 10^3/uL 10^3/ uL (0.0-0.8) Baso # (Auto) 0.0 10^3/uL 10^3/ uL (0.0-0.1) Nucleated RBC % (a uto) 0 % % Nucleated RBCs # 0.0 /100WBC /100W BC Sodium 120 mmol/L L mmol /L (136-145) Potassium 6.0 mmol/L H mmol /L (3.5-5.1) Chloride 85 mmol/L L mmol/ L (98-107) Carbon Dioxide 20 mmol/L L mmol/ L (22-29) Anion Gap 21.0 H (5-19) BUN 40 mg/dL H mg/dL (8-23) Creatinine 1.5 mg/dL H mg/dL (0.5-0.9) GFR Calculation Not Reportable Glucose 104 mg/dL mg/dL (65-115) Calculated Osmolal ity 260 mOsm/kg L mOs m/kg (285-295) Lactic Acid Calcium 8.9 mg/dL mg/dL (8.5-10.5) Magnesium 2.0 mg/dL mg/dL (1.7-2.3) Total Bilirubin 0.5 mg/dL mg/dL (0.15-1.2) AST 227 U/L H U/L (0-32) ALT 220 U/L H U/L (0-33) Alkaline Phosphata se 568 IU/L H IU/L (35-105) Total Protein 6.2 g/dL L g/dL (6.6-8.7) Albumin 3.3 g/dL L g/dL (3.5-5.2) Globulin 2.9 g/dL g/dL (1.3-4.6) TSH 3.97 uIU/mL uIU/m L (0.27-4.20) Free T4 1.50 ng/dL ng/dL (0.82-1.77) Urine Color Urine Appearance Urine pH Ur Specific Gravit y Urine Protein Urine Glucose (UA) Urine Ketones Urine Blood Urine Nitrate Urine Bilirubin Urine Urobilinogen Ur Leukocyte Debora ase SARS-CoV-2 Ag (Rap id) 08/04/21 08/04/21 08/04/21 17:05 18:22 20:18 WBC RBC Hgb Hct MCV MCH MCHC RDW Plt Count MPV Neut % (Auto) Lymph % (Auto) Parmer % (Auto) Eos % (Auto) Baso % (Auto) Neut # (Auto) Lymph # (Auto) Parmer # (Auto) Eos # (Auto) Baso # (Auto) Nucleated RBC % (a uto) Nucleated RBCs # Sodium 128 mmol/L L mmol /L (136-145) Potassium 5.7 mmol/L H mmol /L (3.5-5.1) Chloride 94 mmol/L L mmol/ L (98-107) Carbon Dioxide 22 mmol/L mmol/L (22-29) Anion Gap 17.7 (5-19) BUN 35 mg/dL H mg/dL (8-23) Creatinine 1.3 mg/dL H mg/dL (0.5-0.9) GFR Calculation Not Reportable Glucose 93 mg/dL mg/dL (65-115) Calculated Osmolal ity 274 mOsm/kg L mOs m/kg (285-295) Lactic Acid Calcium 7.9 mg/dL L mg/dL (8.5-10.5) Magnesium Total Bilirubin AST ALT Alkaline Phosphata se Total Protein Albumin Globulin TSH Free T4 Urine Color Yellow (Yellow) Urine Appearance Clear (CLEAR) Urine pH 8 H (5-7) Ur Specific Gravit y 1.005 (1.005-1.030) Urine Protein Neg (Negative) Urine Glucose (UA) Norm (Normal) Urine Ketones Negative (Negative) Urine Blood Neg (Negative) Urine Nitrate Negative (Negative) Urine Bilirubin Neg (Negative) Urine Urobilinogen Norm mg/dL mg/dL (Negative) Ur Leukocyte Debora ase Negative (Negative) SARS-CoV-2 Ag (Rap id) Negative (Negative) 08/04/21 21:05 WBC RBC Hgb Hct MCV MCH MCHC RDW Plt Count MPV Neut % (Auto) Lymph % (Auto) Parmer % (Auto) Eos % (Auto) Baso % (Auto) Neut # (Auto) Lymph # (Auto) Parmer # (Auto) Eos # (Auto) Baso # (Auto) Nucleated RBC % (a uto) Nucleated RBCs # Sodium Potassium Chloride Carbon Dioxide Anion Gap BUN Creatinine GFR Calculation Glucose Calculated Osmolal ity Lactic Acid 1.1 mmol/L mmol/L (0.5-2.2) Calcium Magnesium Total Bilirubin AST ALT Alkaline Phosphata se Total Protein Albumin Globulin TSH Free T4 Urine Color Urine Appearance Urine pH Ur Specific Gravit y Urine Protein Urine Glucose (UA) Urine Ketones Urine Blood Urine Nitrate Urine Bilirubin Urine Urobilinogen Ur Leukocyte Debora ase SARS-CoV-2 Ag (Rap id) EKG Data^: EKG 1: Other EKG comments: Normal sinus rhythm, rate of 69, T wave inversion in aVL and V2, no sign of acute ischemia or other acute abnormality. Discharge Plan Discharge Patient Disposition: Admitted As Inpatient Clinical Impression: Adrenal insufficiency, Hyponatremia, Hyperkalemia Condition: Stable Coding Level of Care Code ED Hand Flatwork Finisher for Chg Fwd Documented by User: Maurilio Colon MD 08/04/21 21:55 HPI - Weakness General: Chief complaint: Weakness Stated complaint: ABNORMAL LABS? WEAKNESS Time Seen by Provider: 08/04/21 15:21 PFSH ED PFSH: Medical History (Updated 08/04/21 @ 21:24 by Minoo Pacheco MD) Adrenal gland disease Follows with Dr Veliz, on hydrocortisone Metastatic breast cancer Left breast, infiltrating lobular carcinoma, grade 2, ER+/CO+/HER-2 ivett negative. KI 67 was 7%, negative for PIK 3CA. BRCA 1/2 negative, CA-27-29 positive. Stage 4 with skeletal, lymphatic, adrenal, hepatic, possible pulmonary and pelvic metastases. Follows with Dr Estrella. Has been on multiple palliative treatments as outlined in Oncology notes. Status post chemoradiation 3000cGy completed 08/28/2017 Surgical History (Updated 08/04/21 @ 21:22 by Minoo Pacheco MD) H/O mastectomy (05/26/17) left modified radical Family History Father Stroke Hypertension Mother Dementia Social History (Updated 08/04/21 @ 21:23 by Minoo Pacheco MD) Smoking and tobacco status: never smoked Second hand smoke exposure: No Alcohol intake: never Substance/Drug Use: never Adopted: No Caregiver/support person: Yes Household members: spouse Housing: House Marital status: Number of children: 1 Highest education level completed: Some College, No Degree Current occupational status: retired Course Vital Signs: Vital signs: Vital Signs Temperature 98.1 F 08/04/21 12:34 Pulse Rate 66 08/04/21 18:52 Respiratory Rate 16 08/04/21 18:52 Blood Pressure 92/50 08/04/21 18:52 Pulse Oximetry 98 08/04/21 18:52 MDM - Weakness MDM Narrative: Medical decision making narrative: I spoke to Dr. Ricci's came and seen the patient in the ER. Her hyponatremia and hyperkalemia is improving blood pressure is improved as well. Her lactate here is normal will admit to the floor at this time patient's been stable while in the ER. Lab Data: Labs: Lab Results 08/04/21 08/04/21 08/04/21 14:05 14:05 14:05 WBC 3.5 10^3/uL L 10^ 3/uL (4.0-10.0) RBC 3.52 10^6/uL L 10 ^6/uL (4.1-5.3) Hgb 11.2 g/dL L g/dL (11.5-15.3) Hct 32.8 % L % (37.0-47.0) MCV 93.2 fl fl (81-99) MCH 31.8 pg pg (28.0-34.0) MCHC 34.1 g/dL g/dL (30.0-36.0) RDW 18.3 % H % (12.1-15.1) Plt Count 71 10^3/cmm L 10^ 3/cmm (130-400) MPV 11.0 fL H fL (7.4-10.4) Neut % (Auto) 82.0 % % Lymph % (Auto) 3.4 % % Parmer % (Auto) 6.9 % % Eos % (Auto) 0.0 % % Baso % (Auto) 0.6 % % Neut # (Auto) 2.87 10^3/uL 10^3 /uL (1.8-7.7) Lymph # (Auto) 0.1 10^3/uL L 10^ 3/uL (0.8-4.8) Parmer # (Auto) 0.2 10^3/uL 10^3/ uL (0.2-0.9) Eos # (Auto) 0.0 10^3/uL 10^3/ uL (0.0-0.8) Baso # (Auto) 0.0 10^3/uL 10^3/ uL (0.0-0.1) Nucleated RBC % (a uto) 0 % % Nucleated RBCs # 0.0 /100WBC /100W BC Sodium 120 mmol/L L mmol /L (136-145) Potassium 6.0 mmol/L H mmol /L (3.5-5.1) Chloride 85 mmol/L L mmol/ L (98-107) Carbon Dioxide 20 mmol/L L mmol/ L (22-29) Anion Gap 21.0 H (5-19) BUN 40 mg/dL H mg/dL (8-23) Creatinine 1.5 mg/dL H mg/dL (0.5-0.9) GFR Calculation Not Reportable Glucose 104 mg/dL mg/dL (65-115) Calculated Osmolal ity 260 mOsm/kg L mOs m/kg (285-295) Lactic Acid Calcium 8.9 mg/dL mg/dL (8.5-10.5) Magnesium 2.0 mg/dL mg/dL (1.7-2.3) Total Bilirubin 0.5 mg/dL mg/dL (0.15-1.2) AST 227 U/L H U/L (0-32) ALT 220 U/L H U/L (0-33) Alkaline Phosphata se 568 IU/L H IU/L (35-105) Total Protein 6.2 g/dL L g/dL (6.6-8.7) Albumin 3.3 g/dL L g/dL (3.5-5.2) Globulin 2.9 g/dL g/dL (1.3-4.6) TSH 3.97 uIU/mL uIU/m L (0.27-4.20) Free T4 1.50 ng/dL ng/dL (0.82-1.77) Urine Color Urine Appearance Urine pH Ur Specific Gravit y Urine Protein Urine Glucose (UA) Urine Ketones Urine Blood Urine Nitrate Urine Bilirubin Urine Urobilinogen Ur Leukocyte Debora ase SARS-CoV-2 Ag (Rap id) 08/04/21 08/04/21 08/04/21 17:05 18:22 20:18 WBC RBC Hgb Hct MCV MCH MCHC RDW Plt Count MPV Neut % (Auto) Lymph % (Auto) Parmer % (Auto) Eos % (Auto) Baso % (Auto) Neut # (Auto) Lymph # (Auto) Parmer # (Auto) Eos # (Auto) Baso # (Auto) Nucleated RBC % (a uto) Nucleated RBCs # Sodium 128 mmol/L L mmol /L (136-145) Potassium 5.7 mmol/L H mmol /L (3.5-5.1) Chloride 94 mmol/L L mmol/ L (98-107) Carbon Dioxide 22 mmol/L mmol/L (22-29) Anion Gap 17.7 (5-19) BUN 35 mg/dL H mg/dL (8-23) Creatinine 1.3 mg/dL H mg/dL (0.5-0.9) GFR Calculation Not Reportable Glucose 93 mg/dL mg/dL (65-115) Calculated Osmolal ity 274 mOsm/kg L mOs m/kg (285-295) Lactic Acid Calcium 7.9 mg/dL L mg/dL (8.5-10.5) Magnesium Total Bilirubin AST ALT Alkaline Phosphata se Total Protein Albumin Globulin TSH Free T4 Urine Color Yellow (Yellow) Urine Appearance Clear (CLEAR) Urine pH 8 H (5-7) Ur Specific Gravit y 1.005 (1.005-1.030) Urine Protein Neg (Negative) Urine Glucose (UA) Norm (Normal) Urine Ketones Negative (Negative) Urine Blood Neg (Negative) Urine Nitrate Negative (Negative) Urine Bilirubin Neg (Negative) Urine Urobilinogen Norm mg/dL mg/dL (Negative) Ur Leukocyte Debora ase Negative (Negative) SARS-CoV-2 Ag (Rap id) Negative (Negative) 08/04/21 21:05 WBC RBC Hgb Hct MCV MCH MCHC RDW Plt Count MPV Neut % (Auto) Lymph % (Auto) Parmer % (Auto) Eos % (Auto) Baso % (Auto) Neut # (Auto) Lymph # (Auto) Parmer # (Auto) Eos # (Auto) Baso # (Auto) Nucleated RBC % (a uto) Nucleated RBCs # Sodium Potassium Chloride Carbon Dioxide Anion Gap BUN Creatinine GFR Calculation Glucose Calculated Osmolal ity Lactic Acid 1.1 mmol/L mmol/L (0.5-2.2) Calcium Magnesium Total Bilirubin AST ALT Alkaline Phosphata se Total Protein Albumin Globulin TSH Free T4 Urine Color Urine Appearance Urine pH Ur Specific Gravit y Urine Protein Urine Glucose (UA) Urine Ketones Urine Blood Urine Nitrate Urine Bilirubin Urine Urobilinogen Ur Leukocyte Debora ase SARS-CoV-2 Ag (Rap id) Discharge Plan Discharge Patient Disposition: Admitted As Inpatient Clinical Impression: Adrenal insufficiency, Hyponatremia, Hyperkalemia Condition: Stable Coding Level of Care Code ED Hand Flatwork Finisher for Johan Rao
--- NOTE | 2021-08-04 15:34 | ECG_ITS ---
[facility] Test Date: 2021-08-04 Pat Name: Joana Booth Department: Room: Gender: Female Hand Painter: : 1950 Requested By: Braulio Alcocer Order Number: [id number] Samantha MD: Camilla Smith M.D. Measurements Intervals [place] Rate: 69 P: 22 CO: 127 QRS: 7 QRSD: 84 T: 81 QT: 361 QTc: 389 Interpretive Statements SINUS RHYTHM LOW QRS VOLTAGE IN EXTREMITY LEADS [QRS DEFLECTION < 0.5 mV IN LIMB LEADS] Compared to ECG 07/07/2021 19:56:10 Low QRS voltage now present Electronically Signed On 08-05-2021 20:33:51 [employer] PART[employer] INSPECTOR by Camilla Smith M.D. [email or web address]
[2021-08-04 16:06] LABS: Thyroid Stimulating Hormone 3.97 uIU/mL (0.27-4.20)
[2021-08-04 17:46] LABS: SARS Covid-2 Antigen Negative (Negative)
[2021-08-04] MEDS: sodium chloride 0.9% 1,000 ML 999 ML IV ×2 (18:28→21:07)
[2021-08-04] MEDS: hydrocortisone 100 mg/2 mL SDV IVP (18:47)
[2021-08-04 19:17] LABS: Add Urine Microscopic? NO; Charge for UA Resulting for Rev
[2021-08-04 19:22] LABS: Bilirubin Urine Neg (Negative); Blood Urine Neg (Negative); Glucose Urine UA Norm (Normal); Ketones Urine Negative (Negative); Leukocyte Esterase Urine Negative (Negative); Nitrate Urine Negative (Negative); Protein Urine Neg (Negative); Specific Gravity, Urine 1.005 (1.005-1.030); Urine Appearance Clear (CLEAR); Urine Color Yellow (Yellow); Urobilinogen Urine Norm (Negative); pH Urine 8 (5-7)
[2021-08-04 20:43] LABS: Anion Gap 17.7 (5-19); Blood Urea Nitrogen 35 mg/dL (8-23); Calcium 7.9 mg/dL (8.5-10.5); Carbon Dioxide 22 mmol/L (22-29); Chloride 94 mmol/L (98-107); Glucose 93 mg/dL (65-115); Osmolality Calculated 274 mOsm/kg (285-295); Potassium 5.7 mmol/L (3.5-5.1); Sodium 128 mmol/L (136-145)
--- NOTE | 2021-08-04 20:59 | P.HP_ITS ---
Providers/Chief Complaint Admitting Physician: Minoo Pacheco MD Chief Complaint: ABNORMAL LABS? WEAKNESS History of Present Illness Joana Booth is a 71 year old female who presented to the emergency room with an episode of confusion, weakness and not acting like herself. She has a known history of stage IV breast cancer and is currently undergoing chemotherapy with gemcitabine, last dose about 2 weeks ago. She was noted to be quite hypotensive initially with blood pressures in the upper 70s to low 80s systolic. She did not have any fall or injury. In talking with her and her family she had some nausea this morning maybe a little bit more than usual. Had some mucoid spit up but no vomiting. Denies any abdominal pain. No report of any fever. She was found to have a sodium of 120, potassium of 6. She is known to have adrenal insufficiency likely related to adrenal metastases. She has had sodium as low as 109 requiring ICU care and management previously. She is on hydrocortisone 5 mg twice daily. She is also on prednisone 5 mg twice daily for appetite stimulation. Denies missing any medications. She has chronic anorexia that has maybe been a little bit more pronounced lately. Limited oral intake the last c ouple of days. She received some IV fluids and ultimately a dose of hydrocortisone in the emergency room. Blood pressures have improved but remain lower than her baseline. Repeat sodium and potassium have been checked without worsening. She remains weak and not back to her baseline. With presentation today, despite usual outpatient management and in the setting of her comorbid conditions, she is being admitted for further care. Of note Mrs. Booth is scheduled to have Port-A-Cath placement tomorrow morning by Dr. Dykes as well as her next dose of chemotherapy with Dr Estrella. Neither are admissions assistant this evening to notify. Review of Systems Const: Reports: chills, change in appetite, change in weight and fatigue; Denies: fever(s) Eyes: Denies: change in vision ENMT: Reports: oral sores and nasal congestion (Mild); Denies: throat pain or dental pain (Despite poor dentition) Card: Denies: chest pain or edema Resp: Denies: dyspnea, productive cough or non-productive cough GI: Reports: nausea; Denies: abdominal pain, vomiting, diarrhea or constipation : Denies: difficulty voiding Musc: Reports: back pain and extremity pain (Occasional left upper extremity pain) Skin/Breast: Denies: rash, pruritus or sores Neuro: Reports: difficulty walking and other (Describes some neuropathic pain in her feet related to cancer treatment); Denies: headache(s) or frequent falls Psych: Denies: anxiety or depression Sánchez/Lymph: Denies: easy bruising or easy bleeding Medications/Allergies Home Medications Medication Instructions Recorded Confirmed Last Taken Type acetaminophen 500 mg tablet 500 mg PO Q6H PRN 05/14/21 08/04/21 Unknown History hydrocortisone 5 mg tablet See Rx Instructions PO BID tab 05/14/21 08/04/21 08/04/21 08:30 History letrozole 2.5 mg tablet 2.5 mg PO .ON HOLD PER SISTER 05/14/21 08/04/21 Unknown History calcium carb-D3-mag ox-zinc ox 3 tab PO DAILY@12 08/04/21 08/04/21 08/03/21 Hist ory [Dmitry Mag Zinc Plus D3] diphenhydramine-acetaminophen 1 tab PO BEDTIME@2030 08/04/21 08/04/21 Unknown History [Tylenol PM Extra Strength] gemcitabine See Rx Instructions .ROUTE .COMPLEX 08/04/21 08/04/21 Unknown History ondansetron 4 - 8 mg PO TID PRN 08/04/21 08/04/21 Unknown History prednisone 5 mg PO BID 08/04/21 08/04/21 08/04/21 08:30 History Allergies Allergy/AdvReac Type Severity Reaction Status Date / Time amoxicillin Allergy hives Verified 08/04/21 16:25 cephalexin Allergy rash Verified 08/04/21 16:25 Penicillins Allergy hives Verified 08/04/21 16:25 PFSH Acute PFSH: Medical History (Updated 08/04/21 @ 22:31 by Minoo Pacheco MD) Adrenal gland disease Follows with Dr Veliz, on hydrocortisone Metastatic breast cancer Left breast, infiltrating lobular carcinoma, grade 2, ER+/AR+/HER-2 ivett negative. KI 67 was 7%, negative for PIK 3CA. BRCA 1/2 negative, CA-27-29 positive. Stage 4 with skeletal, lymphatic, adrenal, hepatic, possible pulmonary and pelvic metastases. Follows with Dr Estrella. Has been on multiple palliative treatments as outlined in Oncology notes. Status post chemoradiation 3000cGy completed 08/28/2017 Surgical History (Updated 01/05/22 @ 21:22 by Minoo Pacheco MD) H/O mastectomy (05/26/17) left modified radical Family History Father Stroke Hypertension Mother Dementia Social History (Updated 08/04/21 @ 21:23 by Minoo Pacheco MD) Smoking and tobacco status: never smoked Second hand smoke exposure: No Alcohol intake: never Substance/Drug Use: never Adopted: No Caregiver/support person: Yes Household members: spouse Housing: House Marital status: Number of children: 1 Highest education level completed: Some College, No Degree Current occupational status: retired Vitals/I&O/Wt Last Vital Signs Temp 98.1 F 08/04/21 12:34 Pulse 66 08/04/21 18:52 Resp 16 08/04/21 18:52 BP 92/50 08/04/21 18:52 Pulse Ox 98 08/04/21 18:52 Weight last 48 hrs Weight 39.916 kg Physical Exam Narrative: EXAM NARRATIVE: Constitutional: Awake and alert, looks tired, thin build, ill appearance HEENT: Normocephalic except for alopecia and cachectic appearance, conjunctive are mildly injected, no icterus, pupils reactive and extraocular movements are intact, nasopharynx is clear, oropharynx is dry with very poor dentition particularly in the left maxillary area. No visible purulence or significant mucosal erythema appreciated. Scattered small mucosal ulcers. Neck: Supple Respiratory: Clear to auscultation bilaterally, no rales rhonchi or wheezes Cardiovascular: Regular rate and rhythm, no murmurs Abdomen: Soft, nondistended, positive bowel sounds, no tenderness : Normal external genitalia Extremities: No pitting edema, no calf tenderness, no noticeable swelling or erythema of elbows, wrist, knees or ankles. Left shoulder and upper extremity nontender to palpation. Skin: Dry with tenting noted, no significant petechiae or bruising appreciated, no notable sores or rashes Neuro: Extensive muscle wasting, generally weak but moves all extremities, able to get up to bedside commode with assistance Psych: Normal affect, oriented to person place and situation but slow to answer some questions and not able to recall some details, looks to her daughter and sister to fill in answers to questions at times Data : 08/04/21 14:05 08/04/21 20:18 Other Labs: Radiology Impressions Chest X-Ray 08/04/21 12:48 Impression: 1. Negative for acute cardiopulmonary disease. 2. 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 Head CT 08/04/21 15:26 IMPRESSION: 1. No acute intracranial hemorrhage or edema. 2. Mild atrophy and chronic ischemic disease. 3. Destructive bone changes at the skull base and clivus are probably related to metastatic bone disease which has been previously described. Laboratory Results WBC 3.5 10^3/uL (4.0-10.0) L 08/04/21 14:05 RBC 3.52 10^6/uL (4.1-5.3) L 08/04/21 14:05 Hgb 11.2 g/dL (11.5-15.3) L 08/04/21 14:05 Hct 32.8 % (37.0-47.0) L 08/04/21 14:05 MCV 93.2 fl (81-99) 08/04/21 14:05 MCH 31.8 pg (28.0-34.0) 08/04/21 14:05 MCHC 34.1 g/dL (30.0-36.0) 08/04/21 14:05 RDW 18.3 % (12.1-15.1) H 08/04/21 14:05 Plt Count 71 10^3/cmm (130-400) L 08/04/21 14:05 MPV 11.0 fL (7.4-10.4) H 08/04/21 14:05 Neut % (Auto) 82.0 % 08/04/21 14:05 Lymph % (Auto) 3.4 % 08/04/21 14:05 King % (Auto) 6.9 % 08/04/21 14:05 Eos % (Auto) 0.0 % 08/04/21 14:05 Baso % (Auto) 0.6 % 08/04/21 14:05 Neut # (Auto) 2.87 10^3/uL (1.8-7.7) 08/04/21 14:05 Lymph # (Auto) 0.1 10^3/uL (0.8-4.8) L 08/04/21 14:05 King # (Auto) 0.2 10^3/uL (0.2-0.9) 08/04/21 14:05 Eos # (Auto) 0.0 10^3/uL (0.0-0.8) 08/04/21 14:05 Baso # (Auto) 0.0 10^3/uL (0.0-0.1) 08/04/21 14:05 Nucleated RBC % (auto) 0 % 08/04/21 14:05 Nucleated RBCs # 0.0 /100WBC 08/04/21 14:05 Sodium 128 mmol/L (136-145) L 08/04/21 20:18 Potassium 5.7 mmol/L (3.5-5.1) H 08/04/21 20:18 Chloride 94 mmol/L (98-107) L 08/04/21 20:18 Carbon Dioxide 22 mmol/L (22-29) 08/04/21 20:18 Anion Gap 17.7 (5-19) 08/04/21 20:18 BUN 35 mg/dL (8-23) H 08/04/21 20:18 Creatinine 1.3 mg/dL (0.5-0.9) H 08/04/21 20:18 GFR Calculation Not Reportable 08/04/21 20:18 Glucose 93 mg/dL (65-115) 08/04/21 20:18 Calculated Osmolality 274 mOsm/kg (285-295) L 08/04/21 20:18 Calcium 7.9 mg/dL (8.5-10.5) L 08/04/21 20:18 Magnesium 2.0 mg/dL (1.7-2.3) 08/04/21 14:05 Total Bilirubin 0.5 mg/dL (0.15-1.2) 08/04/21 14:05 AST 227 U/L (0-32) H 08/04/21 14:05 ALT 220 U/L (0-33) H 08/04/21 14:05 Alkaline Phosphatase 568 IU/L (35-105) H 08/04/21 14:05 Total Protein 6.2 g/dL (6.6-8.7) L 08/04/21 14:05 Albumin 3.3 g/dL (3.5-5.2) L 08/04/21 14:05 Globulin 2.9 g/dL (1.3-4.6) 08/04/21 14:05 TSH 3.97 uIU/mL (0.27-4.20) 08/04/21 14:05 Free T4 1.50 ng/dL (0.82-1.77) 08/04/21 14:05 Urine Color Yellow (Yellow) 08/04/21 18:22 Urine Appearance Clear (CLEAR) 08/04/21 18:22 Urine pH 8 (5-7) H 08/04/21 18:22 Ur Specific Baxter 1.005 (1.005-1.030) 08/04/21 18:22 Urine Protein Neg (Negative) 08/04/21 18:22 Urine Glucose (UA) Norm (Normal) 08/04/21 18: Urine Ketones Negative (Negative) 08/04/21 18: Urine Blood Neg (Negative) 08/04/21 18:22 Urine Nitrate Negative (Negative) 08/04/21 18:22 Urine Bilirubin Neg (Negative) 08/04/21 18:22 Urine Urobilinogen Norm mg/dL (Negative) 08/04/21 18:22 Ur Leukocyte Esterase Negative (Negative) 08/04/21 18:22 SARS-CoV-2 Ag (Rapid) Negative (Negative) 08/04/21 17:05 Laboratory Tests 08/04/21 08/04/21 14:05 21:05 Sodium 120 L Potassium 6.0 H BUN 40 H Creatinine 1.5 H Lactic Acid 1.1 A&P Assessment and plan (1) Adrenal insufficiency: Acute on chronic adrenal insufficiency with hyponatremia, hyperkalemia, hypotension and confusion. Chronically on hydrocortisone. Had some mild nausea this morning. No current abdominal pain. Has had sodium as low as 109 in the past and per the family is generally in the upper 120s. Has known adrenal metastases. Denies recent fever, new upper respiratory symptoms, headache, GI s ymptoms beyond the nausea mentioned, urinary symptoms, sores or rashes, acutely swollen and painful joints. Has chronically poor dentition with no recent change. Last received chemotherapy 2 weeks ago and likely on the other side of her tessa. Lactic acid was normal at 1.1. No obvious inciting event that I can discern presently. Has been following with Dr. Veliz patient and there was some consideration for potentially starting her on Florinef in the future at last endocrinology visit in June. Status: Acute (2) Steroid dependence: Chronically on hydrocortisone (for adrenal insufficiency) and prednisone (for appetite stimulation). Status: Chronic (3) Antineoplastic chemotherapy induced pancytopenia: Currently on gemcitabine with last dose 2 weeks ago and planned next dose for 08/05/2021. Suspect patient has passed her tessa but will need additional labs for confirmation tomorrow. Status: Acute (4) On antineoplastic chemotherapy: Patient is actually scheduled for her next dose of gemcitabine on August 05 although with current labs it may be delayed Status: Acute (5) Metastatic breast cancer: With extensive bony metastases, adrenal metastases, hepatic mets, possible pulmonary and pelvic metastases. Follows with Dr. Estrella. Currently on palliative chemotherapy as described. Status: Chronic (6) Poor dentition: Chronic problem, not a candidate for dental surgery due to comorbidities Status: Acute Additional A&P Information Scheduled for Port-A-Cath placement [address] Dykes Cancer associated anorexia/cachexia Inpatient admission Private room Continue hydrocortisone IV every 8 hours We will hold oral steroids presently At discharge can likely follow prior recommendations from Dr. Veliz for hydrocortisone 20 mg twice daily, possibly with addition of Florinef IV fluids Serial electrolytes Recheck blood counts in the morning With negative lactic acid and lack of fever, no definitive indication for antibiotic therapy presently though acute adrenal insufficiency could presage occult infection. Has acceptable ANC. Low threshold for broad-spectrum antibiotics any acute clinical decline. We will get blood culture with morning labs. Low potassium diet, GI soft with supplements See if she will tolerate low-dose Periactin for appetite stimulation or might consider Marinol as another alternative. Reviewed with patient and daughter for future options Add tramadol to usual Tylenol for back pain if needed, not chronically on pain medications despite extensive bony metastases Benadryl as needed with sleep in place of usual Tylenol PM Zofran as needed for nausea Add PPI given chronic steroids We will need to notify Dr. Dykes in the morning regarding hospitalization for acute adrenal insufficiency, as patient was scheduled for Port-A-Cath placement at 1015 on August 05. Discussed with family this may be canceled but will defer to Dr. Dykes Will need to notify Dr. Estrella of admission given scheduled chemotherapy for 08/05/21 SCDs for DVT prophylaxis, no pharmacological VTE prophylaxis due to thrombocytopenia Supportive care otherwise Anticipate discharge home with family once medically stable with outpatient follow up probable to Oncology, Endocrinology and Surgery (for port) Findings, concerns and plans were discussed with patient and her family and all were given an opportunity to ask questions Allow natural as per discussion with patient and family Attestations Medical Necessity Statement*: Anticipated stay greater than two midnights in a patient presenting with acute adrenal insufficiency, as described, who also has pancytopenia. Most likely pancytopenia is from recent chemotherapy. Do not have a definitive reason for acute adrenal insufficiency presently and this patient is at very high risk of occult infection. Only potential source currently is dental that I can see. At high risk of rapid clinical decline without supportive treatment including IV fluids, IV steroids and close monitoring. Coding Level of Care Code Acute Protective Signal Repairer Helper for Chg Fwd Diagnoses Adrenal insufficiency E27.40 Steroid dependence F19.20 Antineoplastic chemotherapy induced pancytopenia D61.810; T45.1X5A On antineoplastic chemotherapy Z79.899 Metastatic breast cancer C50.919 Poor dentition K08.9
[2021-08-04 21:30] LABS: Lactic Sepsis W/Reflex 1.1 mmol/L (0.5-2.2)
[2021-08-04] MEDS: sodium chloride 0.9% 1,000 ML 75 ML IV (23:16)
[2021-08-05] VITALS (17 sets, daily range): BP systolic 77–110; BP diastolic 44–63; PULSE 50–87; RESP 16–19; TEMP 35.9–36.9; O2SAT 77–100
--- NOTE | 2021-08-05 | SC_ITS ---
WS: [id number] Left knee, 3 views, 08/05/2021 Clinical Data: OR PICS Comparison: None. Findings: No fractures or dislocations are seen. The joint spaces are normal. There is a by partite patella. Th e soft tissues are unremarkable. SC/C-arm FL for CVA [id number] Impression: Negative left knee. Kellgren-Kurtis Classification: grade 0 (none): definite absence of x-ray corey nges of osteoarthritis
--- NOTE | 2021-08-05 | SCC_ITS ---
Procedure Done: 1. Placement of PowerPort in the right internal jugular vein 2. Fluoroscopic guidance and interpretation for placement of catheter 3. Ultrasound guidance to access the right internal jugular vein 33.9 seconds of fluoroscopic guidance, for a cumulative dose of 3.08 mGy, was provided to Dr. Dykes by the radiology department. C-arm images of the chest were saved for the patient's permanent record. [facility]ITALSnady
[2021-08-05] MEDS: hydrocortisone 100 mg/2 mL SDV IVP ×2 (01:30→18:34)
--- NOTE | 2021-08-05 03:29 | PC.NURSE ---
Patient BP 85/58. Other vitals are WNL. This nurse notified Dr Pacheco via Voalte. No orders at this time.
[2021-08-05] MEDS: sodium chloride 0.9% 250 ML IV (04:54)
[2021-08-05 05:18] LABS: INR 1.12 (0.8-1.2); Partial Thromboplastin Time 23.1 SECONDS (23.9-36.7)
[2021-08-05 06:30] LABS: Basophils % 0.4 %; Hematocrit 26.8 % (37.0-47.0); Hemoglobin 9.2 g/dL (11.5-15.3); Lymphocytes # 0.2 10^3/uL (0.8-4.8); Lymphocytes % 8.3 %; Mean Corpuscular HGB Conc 34.3 g/dL (30.0-36.0); Mean Corpuscular Hemoglobin 32.5 pg (28.0-34.0); Mean Corpuscular Volume 94.7 fl (81-99); Mean Platelet Volume 11.1 fL (7.4-10.4); Monocytes # 0.2 10^3/uL (0.2-0.9); Monocytes % 6.3 %; Neutrophils % 75.1 %; Nucleated Red Blood Cells % 0 %; Platelet Count 61 10^3/cmm (130-400); Red Blood Count 2.83 10^6/uL (4.1-5.3); Red Cell Distribution Width 18.6 % (12.1-15.1); White Blood Count 2.5 10^3/uL (4.0-10.0)
[2021-08-05 07:10] LABS: Alanine Aminotransferase 136 U/L (0-33); Albumin Level 2.5 g/dL (3.5-5.2); Alkaline Phosphatase 380 IU/L (35-105); Blood Urea Nitrogen 31 mg/dL (8-23); Calcium 7.4 mg/dL (8.5-10.5); Carbon Dioxide 17 mmol/L (22-29); Chloride 100 mmol/L (98-107); Globulin 1.9 g/dL (1.3-4.6); Glucose 78 mg/dL (65-115); Magnesium 1.8 mg/dL (1.7-2.3); Osmolality Calculated 279 mOsm/kg (285-295); Phosphorus 5.5 mg/dL (2.5-4.5); Sodium 132 mmol/L (136-145); Total Bilirubin 0.3 mg/dL (0.15-1.2); Total Protein 4.4 g/dL (6.6-8.7)
[2021-08-05 07:11] LABS: Aspartate Amino Transferase 132 U/L (0-32)
[2021-08-05 07:38] LABS: Slide Review Slide Review Perform
[2021-08-05] MEDS: sodium chloride 0.9% 1,000 ML 30 ML IV (09:21)
--- NOTE | 2021-08-05 10:35 | P.CONIM_ITS ---
Providers/Reason For Consult Consulting Physician/Specialty*: General Surgery Dr. Dykes Reason for Consult*: port placement Attending Physician: Campbell Estes MD History of Present Illness History of Present Illness Joana Booth is a 71 year old female with stage IV breast cancer was on palliative chemotherapy and was due for Port-A-Cath placement today. Patient presented to the ER last night with confusion, weakness and she was noted to be hyponatremic, hyperkalemic. She has been stable overnight and therefore we will plan for port placement today Review of Systems General: Reports: 10 or more systems reviewed and unremarkable except in HPI and below Meds/Allergies Home Medications and Allergies Home Medications Medication Instructions Recorded Confirmed Last Taken Type acetaminophen 500 mg tablet 500 mg PO Q6H PRN 05/14/21 08/04/21 Unknown History hydrocortisone 5 mg tablet See Rx Instructions PO BID tab 05/14/21 08/04/21 08/04/21 08:30 History letrozole 2.5 mg tablet 2.5 mg PO .ON HOLD PER SISTER 05/14/21 08/04/21 Unknown History calcium carb-D3-mag ox-zinc ox 3 tab PO DAILY@12 08/04/21 08/04/21 08/03/21 History [Dmitry Mag Zinc Plus D3] diphenhydramine-acetaminophen 1 tab PO BEDTIME@2030 08/04/21 08/04/21 Unknown History [Tylenol PM Extra Strength] gemcitabine See Rx Instructions .ROUTE .COMPLEX 08/04/21 08/04/21 Unknown History ondansetron 4 - 8 mg PO TID PRN 08/04/21 08/04/21 Unknown History prednisone 5 mg PO BID 08/04/21 08/04/21 08/04/21 08:30 History Allergies Allergy/AdvReac Type Severity Reaction Status Date / Time amoxicillin Allergy hives Verified 08/05/21 09:02 cephalexin Allergy rash Verified 08/05/21 09:02 Penicillins Allergy hives Verified 08/05/21 09:02 Current Medications Current Medications Generic Name Dose Route Start Last Admin Trade Name Freq PRN Reason Stop Dose Admin Hydrocortisone Sodium Succinate 100 mg 08/05/21 02:00 08/05/21 01:30 Hydrocortisone 100 Mg/2 Ml Sdv IVP 100 mg Q8H OH Administration Sodium Chloride 1,000 mls @ 75 mls/hr 08/04/21 23:05 08/04/21 23:16 Sodium Chloride 0.9% IV 75 mls/hr .[id number] OH Administration Sodium Chloride 1,000 mls @ 30 mls/hr 08/05/21 09:00 08/05/21 09:21 Sodium Chloride 0.9% IV 08/06/21 08:59 30 mls/hr .Q24H OH Administration PFSH Acute PFSH: Medical History (Updated 08/04/21 @ 22:31 by Minoo Pacheco MD) Adrenal gland disease Follows with Dr Veliz, on hydrocortisone Metastatic breast cancer Left breast, infiltrating lobular carcinoma, grade 2, ER+/ME+/HER-2 ivett negative. KI 67 was 7%, negative for PIK 3CA. BRCA 1/2 negative, CA-27-29 positive. Stage 4 with skeletal, lymphatic, adrenal, hepatic, possible pulmonary and pelvic metastases. Follows with Dr Estrella. Has been on multiple palliative treatments as outlined in Oncology notes. Status post chemoradiation 3000cGy completed 08/28/2017 Surgical History (Updated 08/04/21 @ 21:22 by Minoo Pacheco MD) H/O mastectomy (05/26/17) left modified radical Family History Father Stroke Hypertension Mother Dementia Social History (Updated 08/04/21 @ 21:23 by Minoo Pacheco MD) Smoking and tobacco status: never smoked Second hand smoke exposure: No Alcohol intake: never Substance/Drug Use: never Adopted: No Caregiver/support person: Yes Household members: spouse Housing: House Marital status: Number of children: 1 Highest education level completed: Some College, No Degree Current occupational status: retired Vitals/I&O/Wt Last Vital Signs Temp 97.2 F L 08/05/21 08:44 Pulse 87 08/05/21 08:44 Resp 16 08/05/21 08:44 BP 91/63 08/05/21 08:44 Pulse Ox 98 08/05/21 08:44 08/04/21 08/05/21 08/05/21 22:59 06:59 14:59 Intake Total 2000 / 2250 250 / 2250 Output Total 400 / 400 Balance 2000 / 1850 -150 / 1850 Weight last 48 hrs Weight 89 lb Weight 92 lb Weight 88 lb Physical Exam Narrative: EXAM NARRATIVE: HEENT: Normocephalic Eye: Sclera /conjunctiva normal Abdomen: Soft to palpation Neurological: Oriented to place person and time Skin: Intact, no lesions appreciated on gross exam Data Micro: Micro: Microbiology 08/05/21 06:17 Blood Culture - Pr eliminary Blood SPECIMEN SIMA DAVID A&P Assessment and plan (1) Metastatic breast cancer: 71-year-old female with stage IV breast cancer who needs central venous access for palliative chemotherapy. Plan for PowerPort placement under MAC today Procedure, risks, benefits and alternatives have been discussed with the patient who wishes to proceed with surgery. Status: Chronic Consult Attestations Medical Necessity Statement: As per attending physician Coding Level of Care Code Acute Physics Technical Officer for g Fwd Diagnoses Metastatic breast cancer C50.919
[2021-08-05] MEDS: clindamycin 600 MG/50 ML PREMIX 100 MG IV (10:59)
[2021-08-05] MEDS: heparin, porcine 1,000 unit/mL INJ 10 mL 6000 UNIT HE (11:27)
[2021-08-05] MEDS: lidocaine 1% INJ 20 mL 10 ML INJECTION (11:29)
--- NOTE | 2021-08-05 11:52 | SUR.PHASEI ---
patient into pacu at 1148. awake and alert, pressure dressing to right upper chest in place, no drainage noted. pt states no pain. room air sat at 98%.
[2021-08-05] MEDS: albumin 12.5 GM/250 ML VIAL IV (12:12)
--- NOTE | 2021-08-05 12:16 | SUR.PHASEI ---
pt blood pressure has been low in pacu, order received for albumin inf. admin per orders. pt states no pain at this time.
--- NOTE | 2021-08-05 12:36 | SUR.PHASEI ---
patient awake and alert. awaiting check out by dr zaldivar before transporting back to floor.
--- NOTE | 2021-08-05 13:11 | ANE.PACU2 ---
Inpatient post-anesthesia follow up: Airway intact: Yes Vital signs: Temperature 97.1 F Pulse Rate 59 Respiratory Rate 18 Blood Pressure 88/50 Pulse Oximetry 98 Oxygen Delivery Me thod Room Air Oxygen Flow Rate Fraction of Inspir ed Oxygen Hydration adequate: Yes Nausea and vomiting: No Pain level: 1 Mental status: Baseline
--- NOTE | 2021-08-05 13:12 | SUR.PHASEI ---
patient transported back to floor. family present on arrival. pt awake and alert. dressing to right upper chest dry and intact. pt states no pain. she ambulated to bed from [facility].
--- NOTE | 2021-08-05 14:39 | PM.PN ---
Subjective Subjective: Interval history: Patient was seen and examined this morning, she was seen after port placement, patient is hard of hearing, currently she awake alert and oriented, resting comfortably in bed. Electrolytes abnormality has appropriately corrected serum sodium is at baseline, hyperkalemia has resolved, blood pressure is better, denies any chest pain, shortness of breath , nausea, vomiting, abdominal pain, tolerating diet well. Continue to be on hydrocortisone stress dose for acute on chronic adrenal insufficiency. Actual precipitant for acute event is currently unclear. For now we will continue with maintenance IV fluid.Her other vitals and labs have been reviewed. Medications: Reviewed: Yes Vitals/I&O/Wt Last Vital Signs Temp 96.7 F L 08/05/21 12:52 Pulse 60 08/05/21 12:52 Resp 18 08/05/21 12:52 BP 100/61 08/05/21 12:52 Pulse Ox 98 08/05/21 12:52 08/04/21 08/05/21 08/05/21 22:59 06:59 14:59 Intake Total 1999 250 / 2250 1700 / 1700 Output Total 400 / 400 0 / 0 Balance 1999 -150 / 1850 1700 / 1700 Weight last 48 hrs Weight 40.37 kg Weight 41.73 kg Weight 39.916 kg Physical Exam Const: COMMON NORMALS: patient oriented x3 HENMT: COMMON NORMALS: normocephalic and atraumatic HEAD & SCALP: normocephalic and atraumatic Resp: COMMON NORMALS: clear to auscultation bilaterally AUSCULTATION: clear to auscultation bilaterally Cardio: COMMON NORMALS: regular rate, regular rhythm, S1 normal heart sound present, S2 normal heart sound present, No gallops present (Cardio), No murmurs present (Cardio), No rub (Cardio) and Peripheral pulses 2+ throughout RATE: regular rate RHYTHM: regular rhythm HEART SOUNDS: S1 normal heart sound present and S2 normal heart sound present PERIPHERAL PULSES: Peripheral pulses 2+ throughout GI: COMMON NORMALS: Normal to inspection, nondistended, normoactive bowel sounds present, Soft to palpation, non-tender, No hepatosplenomegaly present and no masses AUSCULTATION: Yes normoactive bowel sounds PALPATION: Yes Soft to palpation and Yes No hepatosplenomegaly present RECTAL EXAM: deferred Extremity: COMMON NORMALS: no clubbing, cyanosis or edema and no pedal edema Neuro: COMMON NORMALS: patient oriented x3 Data : 08/05/21 06:17 08/05/21 06:17 Micro: Microbiology 08/05/21 06:17 Blood Culture - Preliminary Blood SPECIMEN COLLECTED A&P Assessment and plan (1) Adrenal insufficiency: Acute on chronic adrenal insufficiency with hyponatremia, hyperkalemia, hypotension and confusion. Chronically on hydrocortisone. Had some mild nausea this morning. No current abdominal pain. Has had sodium as low as 109 in the past and per the family is generally in the upper 120s. Has known adrenal metastases. Denies recent fever, new upper respiratory symptoms, headache, GI symptoms beyond the nausea mentioned, urinary symptoms, sores or rashes, acutely swollen and painful joints. Has chronically poor dentition with no recent change. Last received chemotherapy 2 weeks ago and likely on the other side of her tessa. Lactic acid was normal at 1.1. No obvious inciting event that I can discern presently. Has been following with Dr. Veliz patient and there was some consideration for potentially starting her on Florinef in the future at last endocrinology visit in June. Status: Acute (2) Steroid dependence: Chronically on hydrocortisone (for adrenal insufficiency) and prednisone (for appetite stimulation). Status: Chronic (3) Antineoplastic chemotherapy induced pancytopenia: Currently on gemcitabine with last dose 2 weeks ago and planned next dose for 08/05/2021. Suspect patient has passed her tessa but will need additional labs for confirmation tomorrow. Status: Acute (4) On antineoplastic chemotherapy: Patient is actually scheduled for her next dose of gemcitabine on August 05 although with current labs it may be delayed Status: Acute (5) Metastatic breast cancer: With extensive bony metastases, adrenal metastases, hepatic mets, possible pulmonary and pelvic metastases. Follows with Dr. Estrella. Currently on palliative chemotherapy as described. Status: Chronic (6) Poor dentition: Chronic problem, not a candidate for dental surgery due to comorbidities Status: Acute Additional A&P Information Scheduled for Port-A-Cath placement August [address] Donis Kaur Medical Necessity Statement*: Patient is to be in hospital for management of acute on chronic adrenal insufficiency. Coding Level of Care Code Acute Technology Trainer for Chg Fwd Exam Detailed Diagnoses Adrenal insufficiency E27.40 Steroid dependence F19.20 Antineoplastic chemotherapy induced pancytopenia D61.810; T45.1X5A On antineoplastic chemotherapy Z79.899 Metastatic breast cancer C50.919 Poor dentition K08.9
[2021-08-05] MEDS: ondansetron 2 mg/ML SDV 2 mL 4 MG IVP (18:35)
[2021-08-05] MEDS: sodium chloride 0.9% 1,000 ML 75 ML IV (21:30)
[2021-08-06] VITALS: BP 94/58; PULSE 73; RESP 17; TEMP 36.7; O2SAT 95
[2021-08-06] MEDS: hydrocortisone 100 mg/2 mL SDV IVP (01:07)
[2021-08-06 02:28] LABS: Hemoglobin 7.2 g/dL (11.5-15.3); Lymphocytes # 0.1 10^3/uL (0.8-4.8); Lymphocytes % 4.2 %; Mean Corpuscular HGB Conc 32.7 g/dL (30.0-36.0); Mean Corpuscular Hemoglobin 31.9 pg (28.0-34.0); Mean Corpuscular Volume 97.3 fl (81-99); Monocytes # 0.4 10^3/uL (0.2-0.9); Monocytes % 14.4 %; Neutrophils # 2.03 10^3/uL (1.8-7.7); Neutrophils % 71.2 %; Nucleated Red Blood Cells % 0 %; Platelet Count 62 10^3/cmm (130-400); Red Blood Count 2.26 10^6/uL (4.1-5.3); Red Cell Distribution Width 18.9 % (12.1-15.1); White Blood Count 2.9 10^3/uL (4.0-10.0)
[2021-08-06 02:38] LABS: Anion Gap 17.6 (5-19); Blood Urea Nitrogen 34 mg/dL (8-23); Calcium 7.1 mg/dL (8.5-10.5); Carbon Dioxide 16 mmol/L (22-29); Chloride 103 mmol/L (98-107); Glucose 131 mg/dL (65-115); Osmolality Calculated 283 mOsm/kg (285-295); Potassium 4.6 mmol/L (3.5-5.1); Sodium 132 mmol/L (136-145)
[2021-08-06 03:09] LABS: Slide Review Slide Review Perform
[2021-08-06 04:00] VITALS: BP 88/54; PULSE 72; RESP 16; TEMP 37.1; O2SAT 94
[2021-08-06 07:55] VITALS: BP 93/63; PULSE 62; RESP 18; TEMP 36.5; O2SAT 97
[2021-08-06] MEDS: pantoprazole DR 40 mg Tablet PO (07:59)
--- NOTE | 2021-08-06 09:44 | P.DS_ITS ---
Discharge Providers Date of Admission: 08/04/21 21:29 Date of Discharge: August 06, 2021 Attending Provider at Admission: Minoo Pacheco MD Attending Provider at Discharge: Campbell Estes MD Diagnoses at Discharge Discharge Diagnosis (1) Adrenal insufficiency: Status: Acute (2) Steroid dependence: Status: Chronic (3) Antineoplastic chemotherapy induced pancytopenia: Status: Acute (4) On antineoplastic chemotherapy: Status: Acute (5) Metastatic breast cancer: Status: Chronic Permanent problem details: Left breast, infiltrating lobular carcinoma, grade 2, ER+/DC+/HER-2 ivett negative. KI 67 was 7%, negative for PIK 3CA. BRCA 1/2 negative, CA-27-29 positive. Stage 4 with skeletal, lymphatic, adrenal, hepatic, possible pulmonary and pelvic metastases. Follows with Dr Estrella. Has been on multiple palliative treatments as outlined in Oncology notes. (6) Poor dentition: Status: Acute Reason for Visit Reason for Visit: ABNORMAL LABS? WEAKNESS Hospital Course Hospital Course 71 year old female who presented to the emergency room with an episode of confusion, weakness and not acting like herself. She has a known history of stage IV breast cancer and is currently undergoing chemotherapy with gemcitabine, last dose about 2 weeks ago. She was noted to be quite hypotensive initially with blood pressures in the upper 70s to low 80s systolic. she also had some nausea on the day of admission Denies any abdominal pain. No report of any fever. Upon arrival in the ER she was swabbed for above-mentioned complaint, further work-up during the hospital stay revealed acute on chronic adrenal insufficiency: Her serum sodium was 120, lower than her baseline serum sodium, hyperkalemia, She was also had relative hypotension, serum creatinine was elevated, transaminitis. She was admitted for the management of acute on chronic renal insufficiency, she responded well to a stress dose of hydrocortisone, as well as IV hydration, at the time of discharge electrolyte abnormalities were normalized, blood pressure was better, CT head without contrast was negative, blood cultures were negative , patient remained afebrile and hemodynamically stable during the hospital stay, she also ended up getting a port placement in right IJ during the hospital stay. Patient tolerated the procedure well.At the time of discharge she was hemodynamically stable, afebrile. She was discharged home on her home medications.She will continue to follow oncology as well as endocrine as an outpatient. Physical Exam Const: COMMON NORMALS: patient oriented x3 HENMT: COMMON NORMALS: normocephalic and atraumatic HEAD & SCALP: normocephalic and atraumatic Resp: COMMON NORMALS: clear to auscultation bilaterally AUSCULTATION: clear to auscultation bilaterally Cardio: COMMON NORMALS: regular rate, regular rhythm, S1 normal heart sound present, S2 normal heart sound present, No gallops present (Cardio), No murmurs present (Cardio), No rub (Cardio) and Peripheral pulses 2+ throughout RATE: regular rate RHYTHM: regular rhythm HEART SOUNDS: S1 normal heart sound present and S2 normal heart sound present PERIPHERAL PULSES: Peripheral pulses 2+ throughout GI: COMMON NORMALS: Normal to inspection, nondistended, normoactive bowel sounds present, Soft to palpation, non-tender, No hepatosplenomegaly present and no masses AUSCULTATION: Yes normoactive bowel sounds PALPATION: Yes Soft to palpation and Yes No hepatosplenomegaly present RECTAL EXAM: deferred Extremity: COMMON NORMALS: no clubbing, cyanosis or edema and no pedal edema Neuro: COMMON NORMALS: patient oriented x3 Discharge Data Data Completed and Pending: Completed Studies During Hospitalization Category Date Time Status CT head wo con* 7 0450 Stat Cat Scan 08/04/21 15:26 Completed XR chest 1V amarilis ble 17029 Urgent Exams 08/04/21 12:48 Completed Pending at discharge Category Date Time Status Blood Culture Sta t Lab 08/05/21 06:17 Results Labs from last 24 hours 08/06/21 08/06/21 02:05 02:05 WBC 2.9 L RBC 2.26 L Hgb 7.2 L Hct 22.0 L MCV 97.3 MCH 31.9 MCHC 32.7 RDW 18.9 H Plt Count 62 L MPV 11.0 H Neut % (Auto) 71.2 Lymph % (Auto) 4.2 [place] % (Auto) 14.4 Eos % (Auto) 0.0 Baso % (Auto) 0.0 Neut # (Auto) 2.03 Lymph # (Auto) 0.1 L [place] # (Auto) 0.4 Eos # (Auto) 0.0 Baso # (Auto) 0.0 Nucleated RBC % (a uto) 0 Nucleated RBCs # 0.0 Sodium 132 L Potassium 4.6 Chloride 103 Carbon Dioxide 16 L Anion Gap 17.6 BUN 34 H Creatinine 1.1 H GFR Calculation Not Reportable Glucose 131 H Calculated Osmolal ity 283 L Calcium 7.1 L Vitals: Last Vital Signs Temp 97.7 F 08/06/21 07:55 Pulse 62 08/06/21 07:55 Resp 18 08/06/21 07:55 BP 93/63 08/06/21 07:55 Pulse Ox 97 08/06/21 07:55 Discharge Plan Discharge Patient Disposition: Home Condition: Stable Prescriptions: Continued letrozole 2.5 mg tablet 2.5 mg PO .ON HOLD PER SISTER RF: 0 acetaminophen [Tylenol Extra Strength] 500 mg tablet 500 mg PO Q6H PRN (Reason: Pain) RF: 0 hydrocortisone 5 mg tablet See Rx Instructions PO BID RF: 0 prednisone 5 mg tablet 5 mg PO BID RF: 0 Tylenol PM Extra Strength 25-500 mg Tablet 1 tab PO BEDTIME@2030 RF: 0 ondansetron 4 mg tablet,disintegrating 4 - 8 mg PO TID PRN (Reason: Nausea And Vomiting) RF: 0 Dmitry Mag Zinc Plus D3 333 mg-133 unit -133 mg-5 mg Tablet 3 tab PO DAILY@12 RF: 0 gemcitabine See Rx Instructions .ROUTE .COMPLEX RF: 0 Discharge Orders: Discharge Order (Routine); Ordered 08/06/21 Ordered By: Campbell Estes Referrals: Stanley Estrella MD [Staff Physician] - 08/12/21 8:00 am Discharge Diet: Regular Discharge Activity: Increase activity as tolerated Patient Instructions: Implanted Venous Access Port (DC), Secondary Adrenal Insufficiency (DC), Opioid Safety Discharge Attestations Time Spent in Discharge Care*: greater than 30 min Specific Discharge Activities: educating patient, educating and/or supporting family/caregiver, discussing with pcp/other providers, discussing with family caseworker/social workers/dc planners, documenting/other paperwork and evaluating patient/reviewing data Status at Discharge: Cognitive status at discharge: cognitively intact , Behavioral status at discharge: cooperative , Functional status at discharge: independent ambulation Overall status at discharge: patient is back to baseline Quality Metrics Clinical Quality Measures During this hospital stay, did patient experience: None Coding Level of Care Code Acute Chg FW DC note Diagnoses Adrenal insufficiency E27.40 Steroid dependence F19.20 Antineoplastic chemotherapy induced pancytopenia D61.810; T45.1X5A On antineoplastic chemotherapy Z79.899 Metastatic breast cancer C50.919 Poor dentition K08.9
== END 2021-08-06 11:37 | disposition home or self-care (01) | DRG 643 ==
LOC: ER 21:54 → MEDSURG 22:18
PROVIDERS: Emergency Medicine; Physician Assistant; Surgery; Admitting Provider Hospitalist; Emergency Provider Emergency Medicine; Visit Provider Internal Medicine
PROC: 0JH63XZ Insertion of Tunneled Vascular Access Device into Chest Subcutaneous Tissue and Fascia, Percutaneous Approach (ICD-10-PCS; principal; 2021-08-05 09:40)
DX: E27.49 Other adrenocortical insufficiency (principal); D61.810 Antineoplastic chemotherapy induced pancytopenia; C77.9 Secondary and unspecified malignant neoplasm of lymph node, unspecified; C78.7 Secondary malignant neoplasm of liver and intrahepatic bile duct; C79.70 Secondary malignant neoplasm of unspecified adrenal gland; C79.51 Secondary malignant neoplasm of bone; E87.1 Hypo-osmolality and hyponatremia; E87.5 Hyperkalemia; C50.912 Malignant neoplasm of unspecified site of left female breast; Z17.0 Estrogen receptor positive status [ER+]; Z79.52 Long term (current) use of systemic steroids; Z79.899 Other long term (current) drug therapy; Z92.3 Personal history of irradiation; Z90.12 Acquired absence of left breast and nipple; I95.9 Hypotension, unspecified; K08.9 Disorder of teeth and supporting structures, unspecified; T45.1X5A Adverse effect of antineoplastic and immunosuppressive drugs, initial encounter
CPT/HCPCS: 36415; 70450; 71045; 77001; 80048; 80053; 81003; 83605; 83735; 84100; 84439; 84443; 85025; 85610; 85730; 87040; 87426; 87635; 93005; 96361; 96365; 96374; 99285; C1788; J1644; J1720; J2370; J2405; J2704; J3490; J7030; J7050; P9041

== ENCOUNTER → 2021-08-05 | Day surgery (SDC) | payer MEDICARE, OTHER, SELFPAY ==
--- NOTE | 2021-08-05 13:04 | PM.OP ---
Operative Report Date of procedure: August 05, 2021 Pre-op Diagnosis: Stage IV breast cancer requiring central venous access for palliative chemo Post-op diagnosis: same Procedure Done: 1. Placement of PowerPort in the right internal jugular vein 2. Fluoroscopic guidance and interpretation for placement of catheter 3. Ultrasound guidance to access the right internal jugular vein Pathology: none sent Surgeon: Abelardo Dykes Anesthesia: MAC Condition: stable Disposition: PACU Procedure: The patient was taken to the Operating Room and the chest and neck bilaterally were prepped and draped in a sterile manner after the antibiotic had been administered and shoulder rolls had been placed. An ultrasound of the right internal jugular vein revealed patent flow, no thrombus. An introducer needle was used to access the right internal jugular vein and after withdrawing blood, syringe was removed and a guidewire passed under fluoroscopy into the superior vena cava. The site of the planned port was marked on the chest and a 15 blade was used to make a 3 cm skin incision this was extended into the subcutaneous tissue using electrocautery and a subcutaneous pocket over the pectoralis fascia was created 2-0 Vicryl suture was used to suture the port to the pectoral fascia in the pocket on 3 sides. The catheter, after having been flushed with hep saline, was attached to the tunneler and a tunnel created between the port site and the internal jugular vein entry site. Under fluoroscopy the dilator sheath was passed over the guidewire into the proximal superior vena cava. The inner dilator was removed and the sheath left behind and the catheter was introduced through the peel-away sheath with the tip in the superior vena cava. The peel-away sheath was removed. The proximal end of the catheter was cut to the right size and was attached to the port. Using a Daley needle the port was accessed, it withdrew blood easily and flushed easily. A final 5cc of heparin was used to flush the PowerPort. The subcutaneous tissue was approximated using interrupted 3-0 Vicryl sutures and the skin at the introducer site and the port site was closed using subcuticular running 4-0 Monocryl sutures. Surgical glue was applied and the patient was stable throughout the procedure. Fluoroscopic guidance and interpretation was performed for introduction of the guidewire in the right internal jugular vein, passage of dilator and placement of catheter tip in the distal superior vena cava
== END ==
PROVIDERS: Visit Provider Surgery
DX: C50.919 Malignant neoplasm of unspecified site of unspecified female breast (principal)
CPT/HCPCS: J2704; P9047

== ENCOUNTER 2021-08-26 06:25 | Outpatient (RCR) | payer MEDICARE, OTHER, SELFPAY ==
[2021-08-12 09:09] LABS: Basophils % 0.1 %; Eosinophils % 0.1 %; Hematocrit 25.3 % (37.0-47.0); Hemoglobin 8.4 g/dL (11.5-15.3); Lymphocytes # 0.4 10^3/uL (0.8-4.8); Lymphocytes % 5.8 %; Mean Corpuscular HGB Conc 33.2 g/dL (30.0-36.0); Mean Corpuscular Hemoglobin 32.4 pg (28.0-34.0); Mean Corpuscular Volume 97.7 fl (81-99); Mean Platelet Volume 10.4 fL (7.4-10.4); Monocytes # 0.9 10^3/uL (0.2-0.9); Monocytes % 13.9 %; Neutrophils # 4.78 10^3/uL (1.8-7.7); Neutrophils % 70.9 %; Nucleated Red Blood Cells # 0.1 /100WBC; Nucleated Red Blood Cells % 0.7 %; Platelet Count 127 10^3/cmm (130-400); Red Blood Count 2.59 10^6/uL (4.1-5.3); Red Cell Distribution Width 20.6 % (12.1-15.1); White Blood Count 6.8 10^3/uL (4.0-10.0)
[2021-08-12 09:43] LABS: Alanine Aminotransferase 109 U/L (0-33); Alkaline Phosphatase 445 IU/L (35-105); Anion Gap 19.6 (5-19); Aspartate Amino Transferase 121 U/L (0-32); Blood Urea Nitrogen 38 mg/dL (8-23); Carbon Dioxide 21 mmol/L (22-29); Chloride 95 mmol/L (98-107); Globulin 1.9 g/dL (1.3-4.6); Glucose 138 mg/dL (65-115); Osmolality Calculated 283 mOsm/kg (285-295); Potassium 4.6 mmol/L (3.5-5.1); Sodium 131 mmol/L (136-145); Total Bilirubin 0.3 mg/dL (0.15-1.2); Total Protein 4.9 g/dL (6.6-8.7)
[2021-08-12 09:54] LABS: Slide Review Slide Review Perform
[2021-08-12] MEDS: sodium chloride 0.9% 250 ML 75 ML IV (11:06)
[2021-08-12] MEDS: ondansetron 2 mg/ML SDV 2 mL 8 MG IV (11:06)
--- NOTE | 2021-08-15 17:08 | ONC FU_ITS ---
Dr. Estrella follow up note Patient: Joana Booth Unit #: [id number]: 1950 Dicatated By: Stanley Estrella M.D.Date of Visit:Aug 12, 2021 Onc Med Follow-up/Prog Note History of Present Illness: Mrs Booth is a 71 -year-old female who presented with a left breast mass for 2-3 years. She did undergo mammography ultrasound and subsequently a biopsy of the left breast mass on 05/10/2017 which confirmed infiltrating lobular carcinoma, grade 2, ER positive NE positive HER-2 ivett negative. The KI 67 was 7%. She is negative for PIK 3CA. She underwent left modified radical mastectomy on 05/26/2017. Surgical pathology showed grade 2 infiltrating lobular carcinoma with extensive involvement of overlying skin and nipple and areola. Lymphovascular invasion was present including dermal lymphatics, negative surgical margin, the tumor size was 6.8 x 3.2 cm and metastatic carcinoma identified in one of 3 axillary lymph nodes. She recovered from surgery well she did complain of significant low back pain with bilateral flank and rib cage. She did have PET CT on 07/29/2017. It confirmed stage IV breast cancer with extensive skeletal metastatic disease. There are innumerable FDG avid osteolytic metastatic lesions throughout the axial and appendicular skeleton. There was no hepatic, adrenal or pulmonary metastasis. There was no pathological lymphadenopathy. She was referred to radiation oncology for palliative radiation. Dr. Beaver recommended radiation therapy to the lower lumbar spine/SI joints for pain relief and disease control. She received 3000 cGy to the L5???sacral area she began treatment on August 15 and completed it on 08/28/2017. Mrs. Booth began Ibrance and Femara for metastatic breast cancer on August 29, 2016. The first doses of Xgeva documented in our chart is 09-26-2017. Ibrance and Femara was discontinued on 05/31/2018 due to progressive tumor markers. She was started on Arimidex 1 mg by mouth daily along with monthly Xgeva. She discontinued the Armidex on 08/02/2018. Her CT PET scan done on 07/14/2018 showed disease progression e.g. reactivation of multifocal osseous metastatic disease, new malignant mediastinal lymphadenopathy, bilateral inflammatory lung infiltrates and tumor marker CA-27-29 gone up to 393.47 compared to 334.62 on 07/02/2018 and 142.60 on 04/26/2018 .BRCA1/2 negative Mrs. Booth was advised to pursue treatment with weekly paclitaxel and to continue her monthly Xgeva. She began her first dose of weekly paclitaxel on 08/28/2018. Weekly carboplatin was added on 10/02/2018, as her follow-up PET scan done on 09/29/2018 showed widespread osseous metastatic disease seen on prior studies significantly more FDG positive on the current. Index lesion in the posterior right acetabulum that previously has SUV of 4.8 now has 8 there is a similar progression multiple other lesions throughout the spine sternum scapula pelvic and femurs. A new right hepatic lobe hypodensity measuring 1.4 cm has SUV of 4.2 and is a questionable activity in the region of right adrenal, suggesting metastatic disease. Her tumor marker CA-27-29 had gone down to 1197.6 on 09/24/2018 compared to 1327.6 on 09/04/2018 Mrs. Booth began chemotherapy with carboplatin and paclitaxel on 10/04/2018. and cont'd with monthly Xgeva Due to progressive leukopenia/neutropenia she is requiring Neupogen in between her weekly carboplatin and Taxol to maintain the schedule and responding well CT PET scan done on 01/26/2019 showed stable disease e.g. no significant change in FDG positive widespread osseous metastatic disease. Minimal improvement in the hepatic metastatic disease. Mild progression in right adrenal lesion and questionable new left adrenal lesion. No change in mild FDG activity in the mediastinum. Follow-up CT PET scan done After 6 cycles of weekly carboplatin Taxol on 04/06/2019 showed overall, no significant changes since prior study, widespread FDG positive osseous metastatic disease is unchanged. No change in right hepatic metastatic disease, no change in bilateral adrenal uptake Minimally improved in the subaortic mediastinal lymph nodes. Due to minimum benefit and progressive toxicity with chemotherapy (thrombocytopenia and persistent anemia, decreasing performance status), her treatment plan with carboplatin/Taxol was discontinued on 04/10/2019 and she was switched to fulvestrant /everolimus. everolimus was held due to progressive leukopenia/neutropenia and generalized weakness and fatigue and weight loss, reduced dose e.g. 5 mg daily still caused progressive leukopenia. On 09/03/2019, everolimus was re-started at 5 mg daily for 2 weeks on and then week off along with monthly Faslodex and Xgeva. Her last dose of Faslodex and Xgeva was on 09/02/2019.because of progressive weakness and fatigue, everolimus was discontinued and plan to continue with Faslodex and Xgeva alone unless CT PET scan shows progression. Follow-up CT PET scan done on 10/26/2019 showed increasing FDG activity in widespread osseous metastatic disease, consistent with mild progression,e.g. SUV now is 5.2 compared to 2.7 earlier on 07/13/2019. no new bony lesion seen Multifocal hepatic metastatic disease is not significantly changed. Right adrenal lesion is minimally progressed e.g. SUV 5.2 compared to 3.6 previously. There is no significant left adrenal activity with SUV of 4.9. In the mediastinum and subaortic node is progressed no SUV 5.9 and other nodes in the right paratracheal and bilateral hilar region weekly FDG positive may be reactive. because of mild disease progression and intolerance to evrolimus ,On 10/31/2019, Femara 2.5 mg was added to Faslodex/Xgeva , Follow-up CT PET scan done on January 25, 2020 shows no evidence of disease progression but her tumor marker CA-27-29 was progressive so Femara was discontinued and she was started on Aromasin 25 mg daily on January 25, 2020 and continued with monthly Faslodex and Xgeva on Follow-up CT PET scan done on January 25, 2020 showed no change in FDG positive widespread osseous metastatic disease. No change in multifocal hepatic metastatic disease. No change in probable reactive mediastinal lymphadenopathy, resolution of abnormal activity in both adrenal glands. Follow-up CT PET scan done on August 01, 2020 showed worsening of hepatic metastatic disease, dominant lesion in the left hepatic lobe is 2.7 x 2.0 cm with SUV of 7.7. Mixed response of widespread osseous metastatic disease but with a general trend towards improvement Marked improvement in mediastinal reactive lymph nodes A new hypermetabolic left maxillary opacification with SUV of 12 left facial swelling is improving with oral antibiotics and the last week of July 2019 when she underwent left sinus mass biopsy,, Which showed no evidence of malignancy. And her mouth sore is also improving, as per patient she was told it was due to severe gingivitis. Patient was also seen by Dr. Champagne waitangi tribunal member regarding persistent mild renal insufficiency his impression was renal insufficiency could be due to Faslodex as her renal sonogram done on August 31, 2020 shows moderate renal atrophy with no renal obstruction or renal mass.Faslodex was discontinued after dose given on July 20, 2020 And Aromasin was discontinued after CT PET scan done on August 01, 2020 shows worsening of hepatic metastatic disease Since our last visit, patient was admitted to [facility] on April 04, 2021 with severe hyponatremia, her sodium was 105 and she was diagnosed with adrenal insufficiency which responded well to hydrocortisone 10 mg in the morning 5 mg in the evening, as per patient prior to that she had a fall due to weakness and fatigue but no seizure-like activity patient underwent MRI scan of the head on April 04, 2021 which showed large intensely enhancing mass centered on the left sphenoid wing which extends along the left tentorial leaf noted. Extending to the left cavernous sinus, Meckel's cave and IAC, 2 small foci of meningeal or intraparenchymal enhancement noted in the most caudal aspect of the left middle cranial fossa. Differential consideration atypical meningioma, metastasis or lymphoma, patient was given radiation therapy to her brain from April 09, 2021 through April 14, 2021, During this admission she also underwent liver biopsy on April 09, 2021 and it confirmed metastatic adenocarcinoma consistent with breast primary ER positive, NE weakly positive, HER-2/ivett negative, CT scan of chest abdomen pelvis done on April 07, 2021 showed bilateral upper lobe indeterminate 1 to 2 mm solid pulmonary nodules, no thoracic lymphadenopathy, diffuse sclerotic osseous metastatic superimposed on decreased bone mineralization and pathological left posterior 10th rib fracture. Multiple bilateral upper lobe predominant small groundglass nodules likely inflammatory. CT abdomen shows numerous hepatic masses with appearance consistent with metastatic disease index lesion in the right hepatic dome 2.4 x 2.2 cm. Left adrenal thickening concern for metastatic disease. Indeterminate pelvic mass of uterine and ovarian origin. Extensive sclerotic osseous metastatic disease compression deformity of T11 vertebral body is probably chronic. Filling defect within the right external iliac vein is secondary to inflow of unopacified blood. PD-L1 CPS 0, Guardant 360 showed no significant targetable mutation ,, low TMB, MSI -H not detected Tolerating hydrocortisone 10 mg in the morning and 5 mg in the evening for newly diagnosed adrenal insufficiency. Started on ribociclib/Femara on June 01, 2021, Ribociclib was put on hold on June 15, 2021 for progressive leukopenia/pancytopenia while continue with Femara, Which Eventually was discontinued on July 06, 2021 and started on palliative chemotherapy with weekly gemcitabine on July 15, 2021 Came for follow-up, complaining of generalized weakness and fatigue, on August 04, 2021 patient was admitted to hospital with generalized weakness and fatigue and questionable seizure-like activity and was diagnosed with severe hyponatremia due to acute on chronic renal insufficiency., Was treated with supportive care, electrolytes were balanced, today, denies any nausea or vomiting denies any diarrhea or constipation denies any headaches blurred vision or double vision, tolerating single agent chemotherapy with gemcitabine well Medications: Acetaminophen Tablet Oral PRN, [place] [facility] Allergy & Cgh 1 (5-6.25-10-325 mg) Capsule Oral at bedtime PRN, Benadryl Allergy 1 Tablet (of 25 mg) Oral daily PRN, Calcium Magnesium zinc 3 Tablet Oral daily, Hydrocortisone 2 Tablet (of 5 mg) Oral b.i.d., Tylenol PM Extra Strength 1 (500-25 mg) Tablet Oral at bedtime Allergies: Ibuprofen, Keflex, and Penicillins. Review of Systems: Review of Systems is not available for this patient. Vital Signs: Performed on Aug 12, 2021 11:51 Height - 64.00 in Weight - 94.2 lbs (HIGH) BSA - 1.42 sq.m BMI - 16.17 (LOW) Temperature - 96.3 F (LOW) Pulse - 90 /min Respiration - 18 /min BP - 96/65 mm(hg) O2 Sat - 98 % Pain - 5 Fatigue - 5 Performance Status: 2 - Ambulatory/capable of all self-care, unable to perform any work activities. Up and about more than 50% of waking hours. (ECOG) Physical Examination: Respiratory - Lungs are clear to auscultation, Cardiovascular - Regular rate and rhythm of heart, Gastrointestinal - Soft, bowel sounds present, Extremities - Trace edema. Lab/Imaging: Most recent lab results are not available for this patient. Impression: Metastatic infiltrating lobular carcinoma with extensive axial and appendicular skeleton metastases per CT PET scan done on 07/29/2017. Infiltrating lobular carcinoma involving left breast status post MRM on 05/26/2017 final path report shows infiltrating lobular carcinoma grade 2, extensive involvement of overlying skin at nipple and areola, positive lymphovascular space invasion including dermal lymphatics. Deep margins free of tumor size of tumor 6.8 x 3.2 cm T4b (skin involvement) Metastatic tumor in 1 out of 3 axillary lymph nodes N1 stage IV Extensive bone metastases are CT PET scan done on 07/29/2017 And her molecular studies showed negative for PIK3CA and BRCA 1 and 2 Tumor marker CA-27-29 1455.11 and CA 15.3 is 653.1 Repeat tumor markers CA-27-29 on 11/02/2017 was 167.77 and CA 15.3 was 89.6 estrogen receptor 100% progesterone receptors 100% HER-2/ivett negative by IHC and over amplification by fish and Ki-67 7 % Status post radiation therapy to lumbar sacral spine from 08/15/2017 to 08/28/2017 Mrs Booth was on Ibrance 125 mg by mouth daily for 21 days and then week off and repeat cycle every 28 days along with Femara 2.5 mg daily since 08/29/2017. Because of leukopenia at day 28, will reduce Ibrance dose to 100 mg by mouth for 21 days on 1 week off repeat 28 days. Along with Femara 2.5 mg daily Persistent leukopenia even with Ibrance 125 mg for 14 days. Her last dose was 100 mg by mouth daily for 14 days q 28 days. Follow-up CT PET scan done on 02/17/2018 showed interval resolution of abnormal activity throughout the bone indicating positive response to therapy of widespread osseous metastatic disease. She had progression of her tumor marker so stopped the Ibrance and Femara. She was then treated with single agent Arimidex and monthly Xgeva. The Arimidex was discontinued on 08/02/2018 as her follow-up CT PET scan from 07/14/2018 showed evidence of disease progression. There has been development of new malignant mediastinal lymphadenopathy in the precarinal and [place]. These have SUV of 6.7, and subcentimeter suspicious superior mediastinal lymph nodes are also identified. Widespread osseous metastatic disease as the activated in a multifocal pattern, is seen most prominently in left scapula, thoracic spine, lumbar spine, pelvis and proximal femurs. And index lesion in the right ischium has SUV of 6. Tumor marker CA-27-29 is 393.47 on 07/30/2018 compared to 334.52 on 07/02/2018, 142.60 on 04/26/2018. recommended changing treatment to weekly paclitaxel. Ms. Booth began her first dose of weekly pack Taxol on August 28, 2018. She has tolerated it well thus far .Follow-up CT PET scan done on 09/29/2018 showed progression of widespread osseous metastatic disease since prior study, new unifocal hepatic metastatic disease, suspicious activity in right adrenal gland. Tumor marker CA-27-29 has gone down to 1197.6 on 09/24/2018 compared to 1327.6 on 09/04/2018, Weekly carboplatin was added to weekly Taxol on on 10/02/2018. with monthly Xgeva Follow-up CT PET scan done on 01/26/2019 showed widespread osseous metastatic disease seen on prior scan is unchanged remained FDG positive. The index lesion in the posterior right acetabulum that has SUV of 8 now is 6.6. Right hepatic lobe lesion now has SUV of 3.4 compared to 4.2 on prior study Right adrenal lesion is progressed now SUV 5.4 compared to 3.7 previous Left adrenal activity is slightly more prominent. Mild activity in the mediastinal lymph node is unchanged. Follow-up CT PET scan done after 6 cycles of carboplatin/Taxol showed overall no significant change since prior study and widespread osseous metastatic disease, right hepatic metastases, or bilateral adrenal uptake, Her follow-up CT PET scan shows stable disease but her tumor marker continued to go up and her lab workup shows persistent progressive cytopenias, in that case Dr Estrella did discontinue her chemotherapy and requested a switch to fulvestrant/ everolimus , fulvestrant 500 mg IM on day 1, 15 and day 29 thereafter every month and everolimus 10 mg by mouth daily , while continue with Xgeva every month. Her everolimus dose was decreased to 5 mg daily due to persistent side effects. She presented for followup on 07/01/2019 with multiple concerns. She had lost another 7 pounds since her last visit. She had worsening fatigue. She also reported having bilateral foot and hand pain as well as slight bleeding from her left nare. She states since holding the Afinitor and doing dexamethasone 4 mg po daily, she feels like a different person . She states she feels much better overall. She is tired but recovers with rest. Mrs. Booth resumed Afinitor 5 mg daily for 14 days on and 7 days off on September 02, 2019. Thus far she has tolerated it well. The main issue she has had with resuming the Afinitor is that she has now once again became anemic. Her iron studies and B12 have been normal. The Afinitor will be placed on hold again due to the anemia. Plan: Discussed with patient regarding her labs white blood count 6.8 hemoglobin 8.4 hematocrit 25.3 platelets 127,000 CMP within normal limit except sodium 131, creatinine 1.2, ALT 109, AST 121 alk phos 445 bilirubin 0.3 albumin 3 Clinically, patient is doing reasonably well, not in acute distress tolerating palliative therapy with gemcitabine well, case was discussed with patient's caregiver and her daughter on the phone, we will continue with single agent gemcitabine as long as her disease is responding and she is tolerating, again her prognosis is guarded, will proceed with next weekly dose of gemcitabine today and then she will return to clinic in 1 week with CBC and CMP Abnormal LFTs probably due to metastatic disease to the liver, will continue to monitor Adrenal insufficiency, patient is on steroids and salt intake, will continue to monitor her sodium level. Anemia probably multifactorial, will check iron studies, B12, if low, will supplement otherwise consider blood transfusion if hemoglobin less than 8 g. Return to clinic in 1 week with CBC CMP if reasonable, next dose of gemcitabine, as long as tolerating Signed By: Stanley Estrella M.D. <<Signature on File>>
[2021-08-19 10:12] LABS: Hemoglobin 8.7 g/dL (11.5-15.3); Lymphocytes # 0.3 10^3/uL (0.8-4.8); Mean Corpuscular HGB Conc 32.2 g/dL (30.0-36.0); Mean Corpuscular Hemoglobin 32.7 pg (28.0-34.0); Mean Corpuscular Volume 101.5 fl (81-99); Mean Platelet Volume 10.5 fL (7.4-10.4); Monocytes # 0.3 10^3/uL (0.2-0.9); Monocytes % 9.3 %; Neutrophils # 2.94 10^3/uL (1.8-7.7); Neutrophils % 80.8 %; Nucleated Red Blood Cells % 1.1 %; Platelet Count 69 10^3/cmm (130-400); Red Blood Count 2.66 10^6/uL (4.1-5.3); White Blood Count 3.6 10^3/uL (4.0-10.0)
[2021-08-19 10:32] LABS: Alanine Aminotransferase 133 U/L (0-33); Albumin Level 3.2 g/dL (3.5-5.2); Alkaline Phosphatase 350 IU/L (35-105); Anion Gap 21.5 (5-19); Aspartate Amino Transferase 112 U/L (0-32); Blood Urea Nitrogen 36 mg/dL (8-23); Calcium 8.1 mg/dL (8.5-10.5); Carbon Dioxide 19 mmol/L (22-29); Chloride 94 mmol/L (98-107); Globulin 2.1 g/dL (1.3-4.6); Glucose 198 mg/dL (65-115); Osmolality Calculated 284 mOsm/kg (285-295); Potassium 4.5 mmol/L (3.5-5.1); Sodium 130 mmol/L (136-145); Total Bilirubin 0.4 mg/dL (0.15-1.2); Total Protein 5.3 g/dL (6.6-8.7)
[2021-08-26 09:22] LABS: Basophils % 0.2 %; Eosinophils % 0.2 %; Hemoglobin 8.8 g/dL (11.5-15.3); Lymphocytes # 0.4 10^3/uL (0.8-4.8); Lymphocytes % 6.5 %; Mean Corpuscular HGB Conc 32.6 g/dL (30.0-36.0); Mean Corpuscular Hemoglobin 33.8 pg (28.0-34.0); Mean Corpuscular Volume 103.8 fl (81-99); Mean Platelet Volume 10.6 fL (7.4-10.4); Monocytes # 0.6 10^3/uL (0.2-0.9); Monocytes % 9.3 %; Neutrophils # 5.38 10^3/uL (1.8-7.7); Neutrophils % 81.8 %; Nucleated Red Blood Cells # 0.1 /100WBC; Nucleated Red Blood Cells % 1.1 %; Platelet Count 77 10^3/cmm (130-400); Red Cell Distribution Width 23.2 % (12.1-15.1); White Blood Count 6.6 10^3/uL (4.0-10.0)
[2021-08-26 09:41] LABS: Alanine Aminotransferase 105 U/L (0-33); Albumin Level 3.2 g/dL (3.5-5.2); Alkaline Phosphatase 321 IU/L (35-105); Anion Gap 20.8 (5-19); Aspartate Amino Transferase 143 U/L (0-32); Blood Urea Nitrogen 32 mg/dL (8-23); Calcium 8.7 mg/dL (8.5-10.5); Carbon Dioxide 17 mmol/L (22-29); Chloride 91 mmol/L (98-107); Globulin 2.3 g/dL (1.3-4.6); Glucose 132 mg/dL (65-115); Osmolality Calculated 267 mOsm/kg (285-295); Potassium 4.8 mmol/L (3.5-5.1); Sodium 124 mmol/L (136-145); Total Bilirubin 0.5 mg/dL (0.15-1.2); Total Protein 5.5 g/dL (6.6-8.7)
[2021-08-26] MEDS: sodium chloride 0.9% 500 ML 999 ML IV (10:39)
[2021-08-26] MEDS: hydrocortisone 100 mg/2 mL SDV 125 MG IV (11:44)
[2021-08-26] MEDS: sodium chloride 0.9% (100 ml) 100 ML 300 ML (11:44)
== END 2021-08-30 23:59 | disposition home or self-care (01) ==
LOC: ONCMED 06:25
PROVIDERS: Internal Medicine Hematology & Oncology; Visit Provider Nurse Practitioner Family
DX: Z51.11 Encounter for antineoplastic chemotherapy (principal); C50.812 Malignant neoplasm of overlapping sites of left female breast; Z17.0 Estrogen receptor positive status [ER+]; C78.7 Secondary malignant neoplasm of liver and intrahepatic bile duct; C79.71 Secondary malignant neoplasm of right adrenal gland; R97.8 Other abnormal tumor markers; D64.9 Anemia, unspecified; Z79.818 Long term (current) use of other agents affecting estrogen receptors and estrogen levels; Z79.899 Other long term (current) drug therapy
CPT/HCPCS: 36591; 80053; 85025; 96361; 96365; 96367; 96375; 96413; 99215; J1100; J1720; J2405; J7040; J7050; J9201

== ENCOUNTER 2021-09-17 11:24 | Outpatient (CLI) | payer MEDICARE, OTHER, SELFPAY ==
[2021-09-17 13:07] LABS: Basophils % 0.1 %; Hematocrit 27.2 % (37.0-47.0); Hemoglobin 8.6 g/dL (11.5-15.3); Lymphocytes # 0.2 10^3/uL (0.8-4.8); Lymphocytes % 2.4 %; Mean Corpuscular HGB Conc 31.6 g/dL (30.0-36.0); Mean Corpuscular Hemoglobin 34.1 pg (28.0-34.0); Mean Corpuscular Volume 107.9 fl (81-99); Mean Platelet Volume 11.3 fL (7.4-10.4); Monocytes # 0.6 10^3/uL (0.2-0.9); Monocytes % 8.3 %; Neutrophils # 6.39 10^3/uL (1.8-7.7); Neutrophils % 86.6 %; Nucleated Red Blood Cells # 0.1 /100WBC; Nucleated Red Blood Cells % 0.9 %; Platelet Count 39 10^3/cmm (130-400); Red Blood Count 2.52 10^6/uL (4.1-5.3); Red Cell Distribution Width 21.5 % (12.1-15.1); White Blood Count 7.4 10^3/uL (4.0-10.0)
[2021-09-17 13:33] LABS: Creatinine Urine, Random 35 mg/dL (28-217); Microalbum Creatinine Ratio Ur 29 mg/dL (0-20)
[2021-09-17 13:41] LABS: Microalbumin Random Urine < 1 ug/dL (0-20)
== END 2021-09-17 11:25 | disposition home or self-care (01) ==
LOC: LAB 11:42
PROVIDERS: Visit Provider Internal Medicine Nephrology
DX: N18.32 Chronic kidney disease, stage 3b (principal)
CPT/HCPCS: 82044; 85025

== ENCOUNTER 2021-09-21 06:51 | Outpatient (RCR) | payer MEDICARE, OTHER, SELFPAY ==
[2021-09-06 10:38] LABS: Basophils % 0.2 %; Eosinophils % 0.1 %; Hematocrit 28.6 % (37.0-47.0); Hemoglobin 9.1 g/dL (11.5-15.3); Lymphocytes # 0.3 10^3/uL (0.8-4.8); Lymphocytes % 3.2 %; Mean Corpuscular HGB Conc 31.8 g/dL (30.0-36.0); Mean Corpuscular Hemoglobin 34.1 pg (28.0-34.0); Mean Corpuscular Volume 107.1 fl (81-99); Mean Platelet Volume 10.2 fL (7.4-10.4); Monocytes # 0.9 10^3/uL (0.2-0.9); Monocytes % 9.6 %; Neutrophils # 7.45 10^3/uL (1.8-7.7); Neutrophils % 82.7 %; Nucleated Red Blood Cells # 0.1 /100WBC; Nucleated Red Blood Cells % 0.7 %; Platelet Count 124 10^3/cmm (130-400); Red Blood Count 2.67 10^6/uL (4.1-5.3); Red Cell Distribution Width 22.5 % (12.1-15.1)
[2021-09-06 11:14] LABS: Alanine Aminotransferase 71 U/L (0-33); Albumin Level 3.4 g/dL (3.5-5.2); Alkaline Phosphatase 341 IU/L (35-105); Anion Gap 19.7 (5-19); Aspartate Amino Transferase 139 U/L (0-32); Blood Urea Nitrogen 37 mg/dL (8-23); Carbon Dioxide 19 mmol/L (22-29); Chloride 98 mmol/L (98-107); Globulin 1.8 g/dL (1.3-4.6); Glucose 191 mg/dL (65-115); Osmolality Calculated 288 mOsm/kg (285-295); Potassium 4.7 mmol/L (3.5-5.1); Sodium 132 mmol/L (136-145); Total Bilirubin 0.4 mg/dL (0.15-1.2); Total Protein 5.2 g/dL (6.6-8.7)
[2021-09-06] MEDS: ondansetron 2 mg/ML SDV 2 mL 8 MG IV (11:59)
[2021-09-06] MEDS: sodium chloride 0.9% 250 ML 75 ML IV (11:59)
[2021-09-13 13:02] LABS: Hematocrit 27.7 % (37.0-47.0); Hemoglobin 8.8 g/dL (11.5-15.3); Lymphocytes # 0.2 10^3/uL (0.8-4.8); Lymphocytes % 3.4 %; Mean Corpuscular HGB Conc 31.8 g/dL (30.0-36.0); Mean Corpuscular Hemoglobin 34.1 pg (28.0-34.0); Mean Corpuscular Volume 107.4 fl (81-99); Mean Platelet Volume 10.6 fL (7.4-10.4); Monocytes # 0.3 10^3/uL (0.2-0.9); Monocytes % 7.4 %; Neutrophils # 3.87 10^3/uL (1.8-7.7); Neutrophils % 87.4 %; Nucleated Red Blood Cells # 0.1 /100WBC; Nucleated Red Blood Cells % 1.1 %; Platelet Count 49 10^3/cmm (130-400); Red Blood Count 2.58 10^6/uL (4.1-5.3); Red Cell Distribution Width 20.9 % (12.1-15.1); White Blood Count 4.4 10^3/uL (4.0-10.0)
[2021-09-13 13:43] LABS: Alanine Aminotransferase 247 U/L (0-33); Albumin Level 3.3 g/dL (3.5-5.2); Alkaline Phosphatase 380 IU/L (35-105); Anion Gap 17.1 (5-19); Aspartate Amino Transferase 202 U/L (0-32); Blood Urea Nitrogen 38 mg/dL (8-23); Calcium 7.9 mg/dL (8.5-10.5); Carbon Dioxide 20 mmol/L (22-29); Chloride 95 mmol/L (98-107); Glucose 226 mg/dL (65-115); Osmolality Calculated 280 mOsm/kg (285-295); Potassium 5.1 mmol/L (3.5-5.1); Sodium 127 mmol/L (136-145); Total Bilirubin 0.5 mg/dL (0.15-1.2); Total Protein 5.3 g/dL (6.6-8.7)
--- NOTE | 2021-09-14 15:59 | ONC FU_ITS ---
Dr. Estrella follow up note Patient: Joana Booth Unit #: [id number]: 1950 Dicatated By: Stanley Estrella M.D.Date of Visit:Sep 14, 2021 Onc Med Follow-up/Prog Note History of Present Illness: Mrs Booth is a 71 -year-old female who presented with a left breast mass for 2-3 years. She did undergo mammography ultrasound and subsequently a biopsy of the left breast mass on 05/10/2017 which confirmed infiltrating lobular carcinoma, grade 2, ER positive IL positive HER-2 ivett negative. The KI 67 was 7%. She is negative for PIK 3CA. She underwent left modified radical mastectomy on 05/26/2017. Surgical pathology showed grade 2 infiltrating lobular carcinoma with extensive involvement of overlying skin and nipple and areola. Lymphovascular invasion was present including dermal lymphatics, negative surgical margin, the tumor size was 6.8 x 3.2 cm and metastatic carcinoma identified in one of 3 axillary lymph nodes. She recovered from surgery well she did complain of significant low back pain with bilateral flank and rib cage. She did have PET CT on 07/29/2017. It confirmed stage IV breast cancer with extensive skeletal metastatic disease. There are innumerable FDG avid osteolytic metastatic lesions throughout the axial and appendicular skeleton. There was no hepatic, adrenal or pulmonary metastasis. There was no pathological lymphadenopathy. She was referred to radiation oncology for palliative radiation. Dr. Beaver recommended radiation therapy to the lower lumbar spine/SI joints for pain relief and disease control. She received 3000 cGy to the L5???sacral area she began treatment on August 15 and completed it on 08/28/2017. Mrs. Booth began Ibrance and Femara for metastatic breast cancer on August 29, 2016. The first doses of Xgeva documented in our chart is 09-26-2017. Ibrance and Femara was discontinued on 05/31/2018 due to progressive tumor markers. She was started on Arimidex 1 mg by mouth daily along with monthly Xgeva. She discontinued the Armidex on 08/02/2018. Her CT PET scan done on 07/14/2018 showed disease progression e.g. reactivation of multifocal osseous metastatic disease, new malignant mediastinal lymphadenopathy, bilateral inflammatory lung infiltrates and tumor marker CA-27-29 gone up to 393.47 compared to 334.62 on 07/02/2018 and 142.60 on 04/26/2018 .BRCA1/2 negative Mrs. Booth was advised to pursue treatment with weekly paclitaxel and to continue her monthly Xgeva. She began her first dose of weekly paclitaxel on 08/28/2018. Weekly carboplatin was added on 10/02/2018, as her follow-up PET scan done on 09/29/2018 showed widespread osseous metastatic disease seen on prior studies significantly more FDG positive on the current. Index lesion in the posterior right acetabulum that previously has SUV of 4.8 now has 8 there is a similar progression multiple other lesions throughout the spine sternum scapula pelvic and femurs. A new right hepatic lobe hypodensity measuring 1.4 cm has SUV of 4.2 and is a questionable activity in the region of right adrenal, suggesting metastatic disease. Her tumor marker CA-27-29 had gone down to 1197.6 on 09/24/2018 compared to 1327.6 on 09/04/2018 Mrs. Booth began chemotherapy with carboplatin and paclitaxel on 10/04/2018. and cont'd with monthly Xgeva Due to progressive leukopenia/neutropenia she is requiring Neupogen in between her weekly carboplatin and Taxol to maintain the schedule and responding well CT PET scan done on 01/26/2019 showed stable disease e.g. no significant change in FDG positive widespread osseous metastatic disease. Minimal improvement in the hepatic metastatic disease. Mild progression in right adrenal lesion and questionable new left adrenal lesion. No change in mild FDG activity in the mediastinum. Follow-up CT PET scan done After 6 cycles of weekly carboplatin Taxol on 04/06/2019 showed overall, no significant changes since prior study, widespread FDG positive osseous metastatic disease is unchanged. No change in right hepatic metastatic disease, no change in bilateral adrenal uptake Minimally improved in the subaortic mediastinal lymph nodes. Due to minimum benefit and progressive toxicity with chemotherapy (thrombocytopenia and persistent anemia, decreasing performance status), her treatment plan with carboplatin/Taxol was discontinued on 04/10/2019 and she was switched to fulvestrant /everolimus. everolimus was held due to progressive leukopenia/neutropenia and generalized weakness and fatigue and weight loss, reduced dose e.g. 5 mg daily still caused progressive leukopenia. On 09/03/2019, everolimus was re-started at 5 mg daily for 2 weeks on and then week off along with monthly Faslodex and Xgeva. Her last dose of Faslodex and Xgeva was on 09/02/2019.because of progressive weakness and fatigue, everolimus was discontinued and plan to continue with Faslodex and Xgeva alone unless CT PET scan shows progression. Follow-up CT PET scan done on 10/26/2019 showed increasing FDG activity in widespread osseous metastatic disease, consistent with mild progression,e.g. SUV now is 5.2 compared to 2.7 earlier on 07/13/2019. no new bony lesion seen Multifocal hepatic metastatic disease is not significantly changed. Right adrenal lesion is minimally progressed e.g. SUV 5.2 compared to 3.6 previously. There is no significant left adrenal activity with SUV of 4.9. In the mediastinum and subaortic node is progressed no SUV 5.9 and other nodes in the right paratracheal and bilateral hilar region weekly FDG positive may be reactive. because of mild disease progression and intolerance to evrolimus ,On 10/31/2019, Femara 2.5 mg was added to Faslodex/Xgeva , Follow-up CT PET scan done on January 25, 2020 shows no evidence of disease progression but her tumor marker CA-27-29 was progressive so Femara was discontinued and she was started on Aromasin 25 mg daily on January 25, 2020 and continued with monthly Faslodex and Xgeva on Follow-up CT PET scan done on January 25, 2020 showed no change in FDG positive widespread osseous metastatic disease. No change in multifocal hepatic metastatic disease. No change in probable reactive mediastinal lymphadenopathy, resolution of abnormal activity in both adrenal glands. Follow-up CT PET scan done on August 01, 2020 showed worsening of hepatic metastatic disease, dominant lesion in the left hepatic lobe is 2.7 x 2.0 cm with SUV of 7.7. Mixed response of widespread osseous metastatic disease but with a general trend towards improvement Marked improvement in mediastinal reactive lymph nodes A new hypermetabolic left maxillary opacification with SUV of 12 left facial swelling is improving with oral antibiotics and the last week of July 2019 when she underwent left sinus mass biopsy,, Which showed no evidence of malignancy. And her mouth sore is also improving, as per patient she was told it was due to severe gingivitis. Patient was also seen by Dr. Champagne artificial breast fabricator regarding persistent mild renal insufficiency his impression was renal insufficiency could be due to Faslodex as her renal sonogram done on August 31, 2020 shows moderate renal atrophy with no renal obstruction or renal mass.Faslodex was discontinued after dose given on July 20, 2020 And Aromasin was discontinued after CT PET scan done on August 01, 2020 shows worsening of hepatic metastatic disease Since our last visit, patient was admitted to [facility] on April 04, 2021 with severe hyponatremia, her sodium was 105 and she was diagnosed with adrenal insufficiency which responded well to hydrocortisone 10 mg in the morning 5 mg in the evening, as per patient prior to that she had a fall due to weakness and fatigue but no seizure-like activity patient underwent MRI scan of the head on April 04, 2021 which showed large intensely enhancing mass centered on the left sphenoid wing which extends along the left tentorial leaf noted. Extending to the left cavernous sinus, Meckel's cave and IAC, 2 small foci of meningeal or intraparenchymal enhancement noted in the most caudal aspect of the left middle cranial fossa. Differential consideration atypical meningioma, metastasis or lymphoma, patient was given radiation therapy to her brain from April 09, 2021 through April 14, 2021, During this admission she also underwent liver biopsy on April 09, 2021 and it confirmed metastatic adenocarcinoma consistent with breast primary ER positive, IL weakly positive, HER-2/ivett negative, CT scan of chest abdomen pelvis done on April 07, 2021 showed bilateral upper lobe indeterminate 1 to 2 mm solid pulmonary nodules, no thoracic lymphadenopathy, diffuse sclerotic osseous metastatic superimposed on decreased bone mineralization and pathological left posterior 10th rib fracture. Multiple bilateral upper lobe predominant small groundglass nodules likely inflammatory. CT abdomen shows numerous hepatic masses with appearance consistent with metastatic disease index lesion in the right hepatic dome 2.4 x 2.2 cm. Left adrenal thickening concern for metastatic disease. Indeterminate pelvic mass of uterine and ovarian origin. Extensive sclerotic osseous metastatic disease compression deformity of T11 vertebral body is probably chronic. Filling defect within the right external iliac vein is secondary to inflow of unopacified blood. PD-L1 CPS 0, Guardant 360 showed no significant targetable mutation ,, low TMB, MSI -H not detected Tolerating hydrocortisone 10 mg in the morning and 5 mg in the evening for newly diagnosed adrenal insufficiency. Started on ribociclib/Femara on June 01, 2021, Ribociclib was put on hold on June 15, 2021 for progressive leukopenia/pancytopenia while continue with Femara, Which Eventually was discontinued on July 06, 2021 and started on palliative chemotherapy with weekly gemcitabine on July 15, 2021 Came for follow-up, denies any specific complaint except generalized weakness and fatigue, no fever chills, no nausea or vomiting, no diarrhea or constipation, no jaundice, no abdominal pain, no new bony pains except chronic back pain which is under control with current pain medication. Tolerating palliative therapy with gemcitabine well Medications: Acetaminophen Tablet Oral PRN, [place] [facility] Allergy & Cgh 1 (5-6.25-10-325 mg) Capsule Oral at bedtime PRN, Benadryl Allergy 1 Tablet (of 25 mg) Oral daily PRN, Calcium Magnesium zinc 3 Tablet Oral daily, Hydrocortisone 2 Tablet (of 5 mg) Oral b.i.d., Mirtazapine 0.5 Tablet (of 15 mg) Oral at bedtime, Tylenol PM Extra Strength 1 (500-25 mg) Tablet Oral at bedtime Allergies: Ibuprofen, Keflex, and Penicillins. Review of Systems: Review of Systems is not available for this patient. Vital Signs: Performed on Sep 14, 2021 09:52 Height - 64.00 in Weight - 87.8 lbs (HIGH) BSA - 1.38 sq.m BMI - 15.07 (LOW) Temperature - 96.2 F (LOW) Pulse - 113 /min (HIGH) Respiration - 16 /min BP - 92/65 mm(hg) O2 Sat - 99 % Pain - 0 Fatigue - 4 Performance Status: 2 - Ambulatory/capable of all self-care, unable to perform any work activities. Up and about more than 50% of waking hours. (ECOG) Physical Examination: Respiratory - Lungs are clear to auscultation, Cardiovascular - Regular rate and rhythm of heart, Gastrointestinal - Soft, bowel sounds present, Extremities - No visible edema. Lab/Imaging: Test performed on Sep 06, 2021 08:46 Sodium 132 mmol/L Potassium 4.7 mmol/L Chloride 98 mmol/L CO2 19 mmol/L Anion Gap 19.7 BUN 37 mg/dL Creatinine 1.4 mg/dL Cr Clearance (Est) 22.2100 mL/min Glucose 191 mg/dL Osmolality - Calculated 288 mOsm/kg Calcium 8.0 mg/dL Protein, Total 5.2 g/dL Albumin 3.4 g/dL Globulin 1.8 g/dL Bilirubin, Total 0.4 mg/dL ALT (SGPT) 71 U/L AST (SGOT) 139 U/L Alkaline Phosphatase 341 IU/L WBC 9.0 10 3/uL RBC 2.67 10 6/uL HGB 9.1 g/dL HCT 28.6 % MCV 107.1 fl MCH 34.1 pg MCHC 31.8 g/dL RDW 22.5 % Platelet Count 124 10 3/cmm MPV 10.2 fL Neutrophils 7.45 10 3/uL Lymphocytes 0.3 10 3/uL Monocytes 0.9 10 3/uL Eosinophils 0.0 10 3/uL Basophils 0.0 10 3/uL Neutrophil % 82.7 % Lymphocyte % 3.2 % Monocyte % 9.6 % Eosinophil % 0.1 % Basophils % 0.2 % NRBC % 0.7 % Impression: Metastatic infiltrating lobular carcinoma with extensive axial and appendicular skeleton metastases per CT PET scan done on 07/29/2017. Infiltrating lobular carcinoma involving left breast status post MRM on 05/26/2017 final path report shows infiltrating lobular carcinoma grade 2, extensive involvement of overlying skin at nipple and areola, positive lymphovascular space invasion including dermal lymphatics. Deep margins free of tumor size of tumor 6.8 x 3.2 cm T4b (skin involvement) Metastatic tumor in 1 out of 3 axillary lymph nodes N1 stage IV Extensive bone metastases are CT PET scan done on 07/29/2017 And her molecular studies showed negative for PIK3CA and BRCA 1 and 2 Tumor marker CA-27-29 1455.11 and CA 15.3 is 653.1 Repeat tumor markers CA-27-29 on 11/02/2017 was 167.77 and CA 15.3 was 89.6 estrogen receptor 100% progesterone receptors 100% HER-2/ivett negative by IHC and over amplification by fish and Ki-67 7 % Status post radiation therapy to lumbar sacral spine from 08/15/2017 to 08/28/2017 Mrs Booth was on Ibrance 125 mg by mouth daily for 21 days and then week off and repeat cycle every 28 days along with Femara 2.5 mg daily since 08/29/2017. Because of leukopenia at day 28, will reduce Ibrance dose to 100 mg by mouth for 21 days on 1 week off repeat 28 days. Along with Femara 2.5 mg daily Persistent leukopenia even with Ibrance 125 mg for 14 days. Her last dose was 100 mg by mouth daily for 14 days q 28 days. Follow-up CT PET scan done on 02/17/2018 showed interval resolution of abnormal activity throughout the bone indicating positive response to therapy of widespread osseous metastatic disease. She had progression of her tumor marker so stopped the Ibrance and Femara. She was then treated with single agent Arimidex and monthly Xgeva. The Arimidex was discontinued on 08/02/2018 as her follow-up CT PET scan from 07/14/2018 showed evidence of disease progression. There has been development of new malignant mediastinal lymphadenopathy in the precarinal and [place]. These have SUV of 6.7, and subcentimeter suspicious superior mediastinal lymph nodes are also identified. Widespread osseous metastatic disease as the activated in a multifocal pattern, is seen most prominently in left scapula, thoracic spine, lumbar spine, pelvis and proximal femurs. And index lesion in the right ischium has SUV of 6. Tumor marker CA-27-29 is 393.47 on 07/30/2018 compared to 334.52 on 07/02/2018, 142.60 on 04/26/2018. recommended changing treatment to weekly paclitaxel. Ms. Booth began her first dose of weekly pack Taxol on August 28, 2018. She has tolerated it well thus far .Follow-up CT PET scan done on 09/29/2018 showed progression of widespread osseous metastatic disease since prior study, new unifocal hepatic metastatic disease, suspicious activity in right adrenal gland. Tumor marker CA-27-29 has gone down to 1197.6 on 09/24/2018 compared to 1327.6 on 09/04/2018, Weekly carboplatin was added to weekly Taxol on on 10/02/2018. with monthly Xgeva Follow-up CT PET scan done on 01/26/2019 showed widespread osseous metastatic disease seen on prior scan is unchanged remained FDG positive. The index lesion in the posterior right acetabulum that has SUV of 8 now is 6.6. Right hepatic lobe lesion now has SUV of 3.4 compared to 4.2 on prior study Right adrenal lesion is progressed now SUV 5.4 compared to 3.7 previous Left adrenal activity is slightly more prominent. Mild activity in the mediastinal lymph node is unchanged. Follow-up CT PET scan done after 6 cycles of carboplatin/Taxol showed overall no significant change since prior study and widespread osseous metastatic disease, right hepatic metastases, or bilateral adrenal uptake, Her follow-up CT PET scan shows stable disease but her tumor marker continued to go up and her lab workup shows persistent progressive cytopenias, in that case Dr Estrella did discontinue her chemotherapy and requested a switch to fulvestrant/ everolimus , fulvestrant 500 mg IM on day 1, 15 and day 29 thereafter every month and everolimus 10 mg by mouth daily , while continue with Xgeva every month. Her everolimus dose was decreased to 5 mg daily due to persistent side effects. She presented for followup on 07/01/2019 with multiple concerns. She had lost another 7 pounds since her last visit. She had worsening fatigue. She also reported having bilateral foot and hand pain as well as slight bleeding from her left nare. She states since holding the Afinitor and doing dexamethasone 4 mg po daily, she feels like a different person . She states she feels much better overall. She is tired but recovers with rest. Mrs. Booth resumed Afinitor 5 mg daily for 14 days on and 7 days off on September 02, 2019. Thus far she has tolerated it well. The main issue she has had with resuming the Afinitor is that she has now once again became anemic. Her iron studies and B12 have been normal. The Afinitor will be placed on hold again due to the anemia. Plan: Discussed with patient regarding her labs white blood count 4.4 hemoglobin 8.8 g compared to 9.1 previously hematocrit 27.7 platelets 49,000 compared to 124,000 on September 06, 2021 CMP within normal limit except sodium 127, glucose 226 and ALT 247, AST 202 compared to 71/139 on September 06, 2021 alk phos 380 Clinically, patient is doing reasonably well with no new signs symptom suggestive of disease progression but her lab work-up shows progressive transaminases level and persistent elevated alk phos, with a normal bilirubin, etiology could be due to due to gemcitabine toxicity or disease progression moreover her CBC shows progressive moderate thrombocytopenia and persistent moderate anemia, so we will hold her chemotherapy today and she will return to clinic in 1 week with CBC CMP and if her liver function test improves and thrombocytopenia resolves, may consider reduced dose gemcitabine or may consider switching her to another agent. As far as poor appetite is concerned, patient on low-dose prednisone, as per patient her PMD offered her Remeron 7.5 mg p.o. daily for poor appetite. Signed By: Stanley Estrella M.D. <<Signature on File>>
[2021-09-21 14:49] LABS: Basophils % 0.2 %; Hematocrit 27.9 % (37.0-47.0); Hemoglobin 8.8 g/dL (11.5-15.3); Lymphocytes # 0.2 10^3/uL (0.8-4.8); Mean Corpuscular HGB Conc 31.5 g/dL (30.0-36.0); Mean Corpuscular Hemoglobin 35.3 pg (28.0-34.0); Mean Platelet Volume 11.7 fL (7.4-10.4); Monocytes # 0.4 10^3/uL (0.2-0.9); Monocytes % 8.2 %; Neutrophils # 4.39 10^3/uL (1.8-7.7); Neutrophils % 87.6 %; Nucleated Red Blood Cells % 0.6 %; Platelet Count 62 10^3/cmm (130-400); Red Blood Count 2.49 10^6/uL (4.1-5.3); Red Cell Distribution Width 20.6 % (12.1-15.1)
[2021-09-21 15:16] LABS: Alanine Aminotransferase 121 U/L (0-33); Alkaline Phosphatase 456 IU/L (35-105); Anion Gap 18.4 (5-19); Aspartate Amino Transferase 131 U/L (0-32); Blood Urea Nitrogen 41 mg/dL (8-23); Calcium 8.5 mg/dL (8.5-10.5); Carbon Dioxide 19 mmol/L (22-29); Chloride 98 mmol/L (98-107); Globulin 2.6 g/dL (1.3-4.6); Glucose 307 mg/dL (65-115); Osmolality Calculated 292 mOsm/kg (285-295); Potassium 5.4 mmol/L (3.5-5.1); Sodium 130 mmol/L (136-145); Total Bilirubin 0.5 mg/dL (0.15-1.2); Total Protein 5.6 g/dL (6.6-8.7)
--- NOTE | 2021-09-21 16:05 | ONC FU_ITS ---
Aicha Nash Progress Note Patient: Joana Booth Unit #: [id number]: 1950 Dicatated By: Aicha Nash N.P.Date of Visit:Sep 21, 2021 Onc MED Follow-up/Prog Note Chief Complaint: Left breast cancer History of Present Illness: Mrs Booth is a 71 -year-old female who presented with a left breast mass for 2-3 years. She did undergo mammography ultrasound and subsequently a biopsy of the left breast mass on 05/10/2017 which confirmed infiltrating lobular carcinoma, grade 2, ER positive ME positive HER-2 ivett negative. The KI 67 was 7%. She is negative for PIK 3CA. She underwent left modified radical mastectomy on 05/26/2017. Surgical pathology showed grade 2 infiltrating lobular carcinoma with extensive involvement of overlying skin and nipple and areola. Lymphovascular invasion was present including dermal lymphatics, negative surgical margin, the tumor size was 6.8 x 3.2 cm and metastatic carcinoma identified in one of 3 axillary lymph nodes. She recovered from surgery well she did complain of significant low back pain with bilateral flank and rib cage. She did have PET CT on 07/29/2017. It confirmed stage IV breast cancer with extensive skeletal metastatic disease. There are innumerable FDG avid osteolytic metastatic lesions throughout the axial and appendicular skeleton. There was no hepatic, adrenal or pulmonary metastasis. There was no pathological lymphadenopathy. She was referred to radiation oncology for palliative radiation. Dr. Beaver recommended radiation therapy to the lower lumbar spine/SI joints for pain relief and disease control. She received 3000 cGy to the L5???sacral area she began treatment on August 15 and completed it on 08/28/2017. Mrs. Booth began Ibrance and Femara for metastatic breast cancer on August 29, 2016. The first doses of Xgeva documented in our chart is 09-26-2017. Ibrance and Femara was discontinued on 05/31/2018 due to progressive tumor markers. She was started on Arimidex 1 mg by mouth daily along with monthly Xgeva. She discontinued the Armidex on 08/02/2018. Her CT PET scan done on 07/14/2018 showed disease progression e.g. reactivation of multifocal osseous metastatic disease, new malignant mediastinal lymphadenopathy, bilateral inflammatory lung infiltrates and tumor marker CA-27-29 gone up to 393.47 compared to 334.62 on 07/02/2018 and 142.60 on 04/26/2018 .BRCA1/2 negative Mrs. Booth was advised to pursue treatment with weekly paclitaxel and to continue her monthly Xgeva. She began her first dose of weekly paclitaxel on 08/28/2018. Weekly carboplatin was added on 10/02/2018, as her follow-up PET scan done on 09/29/2018 showed widespread osseous metastatic disease seen on prior studies significantly more FDG positive on the current. Index lesion in the posterior right acetabulum that previously has SUV of 4.8 now has 8 there is a similar progression multiple other lesions throughout the spine sternum scapula pelvic and femurs. A new right hepatic lobe hypodensity measuring 1.4 cm has SUV of 4.2 and is a questionable activity in the region of right adrenal, suggesting metastatic disease. Her tumor marker CA-27-29 had gone down to 1197.6 on 09/24/2018 compared to 1327.6 on 09/04/2018 Mrs. Booth began chemotherapy with carboplatin and paclitaxel on 10/04/2018. and cont'd with monthly Xgeva Due to progressive leukopenia/neutropenia she is requiring Neupogen in between her weekly carboplatin and Taxol to maintain the schedule and responding well CT PET scan done on 01/26/2019 showed stable disease e.g. no significant change in FDG positive widespread osseous metastatic disease. Minimal improvement in the hepatic metastatic disease. Mild progression in right adrenal lesion and questionable new left adrenal lesion. No change in mild FDG activity in the mediastinum. Follow-up CT PET scan done After 6 cycles of weekly carboplatin Taxol on 04/06/2019 showed overall, no significant changes since prior study, widespread FDG positive osseous metastatic disease is unchanged. No change in right hepatic metastatic disease, no change in bilateral adrenal uptake Minimally improved in the subaortic mediastinal lymph nodes. Due to minimum benefit and progressive toxicity with chemotherapy (thrombocytopenia and persistent anemia, decreasing performance status), her treatment plan with carboplatin/Taxol was discontinued on 04/10/2019 and she was switched to fulvestrant /everolimus. everolimus was held due to progressive leukopenia/neutropenia and generalized weakness and fatigue and weight loss, reduced dose e.g. 5 mg daily still caused progressive leukopenia. On 09/03/2019, everolimus was re-started at 5 mg daily for 2 weeks on and then week off along with monthly Faslodex and Xgeva. Her last dose of Faslodex and Xgeva was on 09/02/2019.because of progressive weakness and fatigue, everolimus was discontinued and plan to continue with Faslodex and Xgeva alone unless CT PET scan shows progression. Follow-up CT PET scan done on 10/26/2019 showed increasing FDG activity in widespread osseous metastatic disease, consistent with mild progression,e.g. SUV now is 5.2 compared to 2.7 earlier on 07/13/2019. no new bony lesion seen Multifocal hepatic metastatic disease is not significantly changed. Right adrenal lesion is minimally progressed e.g. SUV 5.2 compared to 3.6 previously. There is no significant left adrenal activity with SUV of 4.9. In the mediastinum and subaortic node is progressed no SUV 5.9 and other nodes in the right paratracheal and bilateral hilar region weekly FDG positive may be reactive. because of mild disease progression and intolerance to evrolimus ,On 10/31/2019, Femara 2.5 mg was added to Faslodex/Xgeva , Follow-up CT PET scan done on January 25, 2020 shows no evidence of disease progression but her tumor marker CA-27-29 was progressive so Femara was discontinued and she was started on Aromasin 25 mg daily on January 25, 2020 and continued with monthly Faslodex and Xgeva on Follow-up CT PET scan done on January 25, 2020 showed no change in FDG positive widespread osseous metastatic disease. No change in multifocal hepatic metastatic disease. No change in probable reactive mediastinal lymphadenopathy, resolution of abnormal activity in both adrenal glands. Follow-up CT PET scan done on August 01, 2020 showed worsening of hepatic metastatic disease, dominant lesion in the left hepatic lobe is 2.7 x 2.0 cm with SUV of 7.7. Mixed response of widespread osseous metastatic disease but with a general trend towards improvement Marked improvement in mediastinal reactive lymph nodes A new hypermetabolic left maxillary opacification with SUV of 12 left facial swelling is improving with oral antibiotics and the last week of July 2019 when she underwent left sinus mass biopsy,, Which showed no evidence of malignancy. And her mouth sore is also improving, as per patient she was told it was due to severe gingivitis. Patient was also seen by Dr. Champagne machine overhauler regarding persistent mild renal insufficiency his impression was renal insufficiency could be due to Faslodex as her renal sonogram done on August 31, 2020 shows moderate renal atrophy with no renal obstruction or renal mass.Faslodex was discontinued after dose given on July 20, 2020 And Aromasin was discontinued after CT PET scan done on August 01, 2020 shows worsening of hepatic metastatic disease Since our last visit, patient was admitted to [facility] on April 04, 2021 with severe hyponatremia, her sodium was 105 and she was diagnosed with adrenal insufficiency which responded well to hydrocortisone 10 mg in the morning 5 mg in the evening, as per patient prior to that she had a fall due to weakness and fatigue but no seizure-like activity patient underwent MRI scan of the head on April 04, 2021 which showed large intensely enhancing mass centered on the left sphenoid wing which extends along the left tentorial leaf noted. Extending to the left cavernous sinus, Meckel's cave and IAC, 2 small foci of meningeal or intraparenchymal enhancement noted in the most caudal aspect of the left middle cranial fossa. Differential consideration atypical meningioma, metastasis or lymphoma, patient was given radiation therapy to her brain from April 09, 2021 through April 14, 2021, During this admission she also underwent liver biopsy on April 09, 2021 and it confirmed metastatic adenocarcinoma consistent with breast primary ER positive, ME weakly positive, HER-2/ivett negative, CT scan of chest abdomen pelvis done on April 07, 2021 showed bilateral upper lobe indeterminate 1 to 2 mm solid pulmonary nodules, no thoracic lymphadenopathy, diffuse sclerotic osseous metastatic superimposed on decreased bone mineralization and pathological left posterior 10th rib fracture. Multiple bilateral upper lobe predominant small groundglass nodules likely inflammatory. CT abdomen shows numerous hepatic masses with appearance consistent with metastatic disease index lesion in the right hepatic dome 2.4 x 2.2 cm. Left adrenal thickening concern for metastatic disease. Indeterminate pelvic mass of uterine and ovarian origin. Extensive sclerotic osseous metastatic disease compression deformity of T11 vertebral body is probably chronic. Filling defect within the right external iliac vein is secondary to inflow of unopacified blood. PD-L1 CPS 0, Guardant 360 showed no significant targetable mutation ,, low TMB, MSI -H not detected Tolerating hydrocortisone 10 mg in the morning and 5 mg in the evening for newly diagnosed adrenal insufficiency. Started on ribociclib/Femara on June 01, 2021, Ribociclib was put on hold on June 15, 2021 for progressive leukopenia/pancytopenia while continue with Femara, Which Eventually was discontinued on July 06, 2021 and started on palliative chemotherapy with weekly gemcitabine on July 15, 2021 Patient presents today accompanied by her sister and her daughter. She states that she is feeling okay except that she continues to have extreme weakness. She denies shortness of breath, cough, chest pain. She has low back pain that is controlled with medication. She denies problems with her bowel or bladder. If she does have constipation she will usually eat a pear and that will resolve her constipation. Review Of Symptoms: See above Past Medical History: Asthma Past Surgical History: Left breast lymph node biopsy in 2017 Left breast mastectomy in 2017 Breast biopsy in 2017 Allergies: Ibuprofen, Keflex, and Penicillins. Medications: Acetaminophen Tablet Oral PRN Valeria-Simms Pls Allergy & Cgh 1 (5-6.25-10-325 mg) Capsule Oral at bedtime PRN Benadryl Allergy 1 Tablet (of 25 mg) Oral daily PRN Calcium Magnesium zinc 3 Tablet Oral daily Hydrocortisone 2 Tablet (of 5 mg) Oral b.i.d. Mirtazapine 0.5 Tablet (of 15 mg) Oral at bedtime Tylenol PM Extra Strength 1 (500-25 mg) Tablet Oral at bedtime Family History: Ms. Booth's mother at age 86: dementia. Ms. Booth's father at age 89: stroke. Social History: Ms. Booth is and she is retired. Ms. Booth has never smoked. Ms. Booth reports the following support systems: lives with spouse, significant other, family, or friends, lives in own house, supportive family/friends willing to assist with needs, and adequate transportation available for expected visits. Her diet consists of regular meals. She indicates her activity level as: daily activities. Physical Examination: Performed on Sep 21, 2021 15:59: Height - 64.00 in, Weight - 86.0 lbs (LOW), BSA - 1.37 sq.m, BMI - 14.76 (LOW), Temperature - 97.6 F (LOW), Pulse - 112 /min (HIGH), Respiration - 16 /min, BP - 92/62 mm(hg), O2 Sat - 97 %, Pain - 4, and Fatigue - 5. Performance Status: 3 - Capable of only limited self-care, confined to bed or chair more than 50% of waking hours. (ECOG) Constitutional Alert, cooperative, oriented. Mood and affect appropriate. Appears close to chronological age. Well nourished. Well developed. Generalized weakness Respiratory Lungs are clear to auscultation without rhonchi or wheezing. Cardiovascular Regular rate and rhythm of heart without murmurs, gallops or rubs. Abdomen Non-tender, non-distended, no masses, ascites or hepatosplenomegaly. Good bowel sounds. No guarding or rebound tenderness. Extremities 1+ pitting edema bilaterally Psychiatric Alert and oriented times three. Coherent speech. Verbalizes understanding of our discussions today. Laboratory: Test performed on Sep 21, 2021 14:25 Sodium 130 mmol/L Potassium 5.4 mmol/L Chloride 98 mmol/L CO2 19 mmol/L Anion Gap 18.4 BUN 41 mg/dL Creatinine 1.4 mg/dL Cr Clearance (Est) 22.2100 mL/min Glucose 307 mg/dL Osmolality - Calculated 292 mOsm/kg Calcium 8.5 mg/dL Protein, Total 5.6 g/dL Albumin 3.0 g/dL Globulin 2.6 g/dL Bilirubin, Total 0.5 mg/dL ALT (SGPT) 121 U/L AST (SGOT) 131 U/L Alkaline Phosphatase 456 IU/L WBC 5.0 10 3/uL RBC 2.49 10 6/uL HGB 8.8 g/dL HCT 27.9 % MCV 112.0 fl MCH 35.3 pg MCHC 31.5 g/dL RDW 20.6 % Platelet Count 62 10 3/cmm MPV 11.7 fL Neutrophils 4.39 10 3/uL Lymphocytes 0.2 10 3/uL Monocytes 0.4 10 3/uL Eosinophils 0.0 10 3/uL Basophils 0.0 10 3/uL Neutrophil % 87.6 % Lymphocyte % 3.0 % Monocyte % 8.2 % Eosinophil % 0.0 % Basophils % 0.2 % NRBC % 0.6 % Impression: Metastatic infiltrating lobular carcinoma with extensive axial and appendicular skeleton metastases per CT PET scan done on 07/29/2017. Infiltrating lobular carcinoma involving left breast status post MRM on 05/26/2017 final path report shows infiltrating lobular carcinoma grade 2, extensive involvement of overlying skin at nipple and areola, positive lymphovascular space invasion including dermal lymphatics. Deep margins free of tumor size of tumor 6.8 x 3.2 cm T4b (skin involvement) Metastatic tumor in 1 out of 3 axillary lymph nodes N1 stage IV Extensive bone metastases are CT PET scan done on 07/29/2017 And her molecular studies showed negative for PIK3CA and BRCA 1 and 2 Tumor marker CA-27-29 1455.11 and CA 15.3 is 653.1 Repeat tumor markers CA-27-29 on 11/02/2017 was 167.77 and CA 15.3 was 89.6 estrogen receptor 100% progesterone receptors 100% HER-2/ivett negative by IHC and over amplification by fish and Ki-67 7 % Status post radiation therapy to lumbar sacral spine from 08/15/2017 to 08/28/2017 Mrs Booth was on Ibrance 125 mg by mouth daily for 21 days and then week off and repeat cycle every 28 days along with Femara 2.5 mg daily since 08/29/2017. Because of leukopenia at day 28, will reduce Ibrance dose to 100 mg by mouth for 21 days on 1 week off repeat 28 days. Along with Femara 2.5 mg daily Persistent leukopenia even with Ibrance 125 mg for 14 days. Her last dose was 100 mg by mouth daily for 14 days q 28 days. Follow-up CT PET scan done on 02/17/2018 showed interval resolution of abnormal activity throughout the bone indicating positive response to therapy of widespread osseous metastatic disease. She had progression of her tumor marker so stopped the Ibrance and Femara. She was then treated with single agent Arimidex and monthly Xgeva. The Arimidex was discontinued on 08/02/2018 as her follow-up CT PET scan from 07/14/2018 showed evidence of disease progression. There has been development of new malignant mediastinal lymphadenopathy in the precarinal and AP window [place]. These have SUV of 6.7, and subcentimeter suspicious superior mediastinal lymph nodes are also identified. Widespread osseous metastatic disease as the activated in a multifocal pattern, is seen most prominently in left scapula, thoracic spine, lumbar spine, pelvis and proximal femurs. And index lesion in the right ischium has SUV of 6. Tumor marker CA-27-29 is 393.47 on 07/30/2018 compared to 334.52 on 07/02/2018, 142.60 on 04/26/2018. recommended changing treatment to weekly paclitaxel. Ms. Booth began her first dose of weekly pack Taxol on August 28, 2018. She has tolerated it well thus far .Follow-up CT PET scan done on 09/29/2018 showed progression of widespread osseous metastatic disease since prior study, new unifocal hepatic metastatic disease, suspicious activity in right adrenal gland. Tumor marker CA-27-29 has gone down to 1197.6 on 09/24/2018 compared to 1327.6 on 09/04/2018, Weekly carboplatin was added to weekly Taxol on on 10/02/2018. with monthly Xgeva Follow-up CT PET scan done on 01/26/2019 showed widespread osseous metastatic disease seen on prior scan is unchanged remained FDG positive. The index lesion in the posterior right acetabulum that has SUV of 8 now is 6.6. Right hepatic lobe lesion now has SUV of 3.4 compared to 4.2 on prior study Right adrenal lesion is progressed now SUV 5.4 compared to 3.7 previous Left adrenal activity is slightly more prominent. Mild activity in the mediastinal lymph node is unchanged. Follow-up CT PET scan done after 6 cycles of carboplatin/Taxol showed overall no significant change since prior study and widespread osseous metastatic disease, right hepatic metastases, or bilateral adrenal uptake, Her follow-up CT PET scan shows stable disease but her tumor marker continued to go up and her lab workup shows persistent progressive cytopenias, in that case Dr Estrella did discontinue her chemotherapy and requested a switch to fulvestrant/ everolimus , fulvestrant 500 mg IM on day 1, 15 and day 29 thereafter every month and everolimus 10 mg by mouth daily , while continue with Xgeva every month. Her everolimus dose was decreased to 5 mg daily due to persistent side effects. She presented for followup on 07/01/2019 with multiple concerns. She had lost another 7 pounds since her last visit. She had worsening fatigue. She also reported having bilateral foot and hand pain as well as slight bleeding from her left nare. She states since holding the Afinitor and doing dexamethasone 4 mg po daily, she feels like a different person . She states she feels much better overall. She is tired but recovers with rest. Mrs. Booth resumed Afinitor 5 mg daily for 14 days on and 7 days off on September 02, 2019. Thus far she has tolerated it well. The main issue she has had with resuming the Afinitor is that she has now once again became anemic. Her iron studies and B12 have been normal. The Afinitor will be placed on hold again due to the anemia. Plan: Labs were reviewed with the patient WBC 5.0, hemoglobin 8.8, a hematocrit 27.9, and platelet count of 62. Her CMP is sodium 130, potassium 5.5, and creatinine 1.4. Patient has been on palliative gemcitabine but has not been able to have an infusion since 09/06/2021 secondary to platelet counts being low. Once again her platelets are at 62 and she will not be able to have treatment. She seems to be taking longer to recover after treatment and she appears to be weaker. According to the family her activity status has declined at home also. We discussed hospice in detail. Patient is willing to consider hospice with the understanding that she does not have to choose to go on hospice. We will hold on follow-up appointment until patient makes decision and then if she wants to continue with treatment she will call the clinic for follow-up appointment. Hospice has been notified that patient would like more information before deciding. Signed By: Aicha Nash NNiki <<Signature on File>>
== END 2021-09-27 23:59 | disposition home or self-care (01) ==
LOC: ONCMED 06:51
PROVIDERS: Internal Medicine Hematology & Oncology; Visit Provider Nurse Practitioner Family
DX: Z51.11 Encounter for antineoplastic chemotherapy (principal); C50.812 Malignant neoplasm of overlapping sites of left female breast; Z17.0 Estrogen receptor positive status [ER+]; C79.51 Secondary malignant neoplasm of bone; C78.7 Secondary malignant neoplasm of liver and intrahepatic bile duct; C79.71 Secondary malignant neoplasm of right adrenal gland; C79.72 Secondary malignant neoplasm of left adrenal gland; C77.2 Secondary and unspecified malignant neoplasm of intra-abdominal lymph nodes; D64.9 Anemia, unspecified; E55.9 Vitamin D deficiency, unspecified; Z79.818 Long term (current) use of other agents affecting estrogen receptors and estrogen levels; Z79.899 Other long term (current) drug therapy
CPT/HCPCS: 36591; 80053; 85025; 96367; 96413; 99214; 99215; J1100; J2405; J7050; J9201